=== PATIENT | female | born 2000 | race Caucasian/White ===

== ENCOUNTER 2021-04-27 04:49 | Inpatient (IN) | payer OTHER, MEDICAID, SELFPAY ==
[2021-04-27] VITALS (185 sets, daily range): BP systolic 81–168; BP diastolic 38–135; PULSE 66–180; RESP 18–22; TEMP 36.1–37; O2SAT 81–100; BMI 49.1
--- NOTE | 2021-04-27 04:49 | LDADM ---
This patient, Manuela Ward, was admitted to Labor/Delivery/Recovery 103 on 04/27/21 at 04:49. Plans for labor, pain management and were discussed with patient. Patient/family oriented to hospital policies and general routines including ID bracelet, bed and alarms, visiting hours, pain management, procedures, bathroom and other care routines, personal items, smoking policy, room service/diet and guest tray routines, security routines, and visiting hours. Patient/Family are encouraged to report perceived risks to care and to ask questions if they do not understand what they are told or what they should do. See OBIX for further documentation.
[2021-04-27] MEDS: AMPICILLIN 2 GM/NS 100 ML 2 GM/100 ML BAG IVPB (05:22)
[2021-04-27] MEDS: LACTATED RINGERS 1,000 ML 125 ML IV CONT ×3 (05:22→16:45)
[2021-04-27 05:25] LABS: Basophils Absolute Auto 0.1 K/mm3 (0.0-0.1); Basophils Percent Auto 0.6 % (0.2-1.2); Eosinophils Absolute Auto 0.2 K/mm3 (0-0.3); Eosinophils Percent Auto 1.7 % (0-4.4); Hematocrit 31.5 % (37.0-47.0); Hemoglobin 10.3 g/dL (12.0-15.0); Immature Granulocyte Absolute 0.06 K/mm3 (0.00-0.031); Immature Granulocyte Percent A 0.5 % (0-0.5); Lymphocytes Absolute Auto 2.01 K/mm3 (0.9-3.2); Lymphocytes Percent Auto 18.2 % (18.3-44.2); Mean Corpuscular HGB Conc 32.7 g/dl (32-36); Mean Corpuscular Hemoglobin 26.1 pg (26-34); Mean Corpuscular Volume 79.9 fl (80-100); Mean Platelet Volume 11.6 fl (7.4-10.4); Monocytes Absolute Auto 0.7 K/mm3 (0.1-0.6); Monocytes Percent Auto 6.3 % (2.6-8.5); Neutrophils Percent Auto 72.7 % (45.5-73.1); Platelet Count Result 231 k/mm3 (150-375); Red Blood Count 3.94 M/mm3 (4.2-5.4); Red Cell Distribution Width 13.1 % (11.5-14.5); White Blood Count 11.1 K/mm3 (4.5-10.0)
[2021-04-27] MEDS: OXYTOCIN 30 UNITS/NS 500 ML 30 UNITS/500 ML BAG IV CONT (05:40)
--- NOTE | 2021-04-27 08:36 | PM.IMHP ---
H&P: HPI History of Present Illness Date/Time: 04/27/21 08:36 Manuela is a 20yo @ 39.0wks (KEVIN 05/04/21) who presents for elective IOL. She has had regular care w/ [facility]. She reports good movement. No LOF or VB. Her has been complicated by: - GBS positive - Rubella and parvo non-immune - Anemia on iron - Obesity Chief Complaint: induction of labor Review of Systems Review of Systems: All systems reviewed & are unremarkable except as noted in HPI and below (HPI) [facility] Family History Family History Father Family history of alcoholism Mother Family history of alcoholism FH: kidney cancer Social History Social History Smoking packs per day: 1 Smoking cigarettes per day: 20.0 Years smoked: 4 Smoking pack-years: 4.00 Smoking status: Former smoker Substance use: former Spiritual care concerns: No Meds Home Medications and Allergies Home Medications Medication Instructions Recorded Confirmed Type prenat.vits,betty,dqr-prdi-wkayk 1 tablet PO DAILY 04/19/21 04/19/21 History [ #2] Allergies Allergy/AdvReac Type Severity Reaction Status Date / Time No Known Allergies Allergy Verified 04/19/21 13:57 Vital Signs Vital Signs - 24 hr 04/27/21 05:15 04/27/21 05:16 04/27/21 05:31 Pulse Rate 83 90 92 Blood Pressure 142/79 H 129/84 130/81 04/27/21 05:46 04/27/21 06:01 04/27/21 06:17 Pulse Rate 82 82 82 Blood Pressure 126/66 121/72 90/47 L 04/27/21 06:32 04/27/21 07:31 04/27/21 08:01 Pulse Rate 92 88 85 Blood Pressure 123/75 121/89 139/86 Exam Const: General: cooperative, comfortable and no acute distress Nutritional Appearance: obese Resp: Effort & Inspection: normal respiratory effort and able to speak in complete sentences Cardio: Rate: regular rate GI: Inspection: normal to inspection GI Palp: No abdominal tenderness and Yes Soft to palpation : Other: FHT's:120's/ mod liudmila/ + accels/ no decels TOCO: ctx's q2min Membranes: intact Cervix: 70/-3 Presentation: cephalic Skin: General skin exam: normal color Neuro: General: patient oriented x3 Extrem: General: normal to inspection Psych: Appearance: grossly normal Affect: normal affect Attitude: cooperative H&P: Results Labs Labs: Short CBC 04/27/21 Range/Units 05:12 WBC 11.1 H (4.5-10.0) K/mm3 Hgb 10.3 L (12.0-15.0) g/dL Hct 31.5 L (37.0-47.0) % Plt Count 231 (150-375) k/mm3 Assessment and Plan Assessment and plan (1) Encounter for elective induction of labor: Code(s): Z34.90 - Encounter for supervision of normal , unspecified, unspecified trimester Status: Acute (2) Positive GBS test: Code(s): B95.1 - Streptococcus, group B, as the cause of diseases classified elsewhere Status: Acute (3) Obesity affecting : Qualifiers: Trimester: third trimester Qualified Code(s): O99.213 - Obesity complicating , third trimester Code(s): O99.210 - Obesity complicating , unspecified trimester Status: Acute Additional Plan - Admitted to L&D - Pitocin protocol - Plan for AROM after 4hrs of ampicillin for GBS - continuous monitoring; currently reassuring - anesthesia consult PRN pain
--- NOTE | 2021-04-27 08:42 | WPDHPUPDATE1 ---
History and Physical Update Update Date/Time: 04/27/21 08:42 History and Physical has been reviewed, including an updated exam of the patient. There are NO changes in the patient's condition. Risks, benefits, and alternatives have been discussed and questions answered. Patient agrees to proceed with procedure.
[2021-04-27] MEDS: AMPICILLIN 1 GM/NS 50 ML 1 GM/50 ML BAG IVPB ×3 (09:15→19:09)
[2021-04-27 10:24] LABS: Rapid Plasma Reagin Non-Reactive (NonReactive)
--- NOTE | 2021-04-27 12:14 | PM.OBPNLAB ---
Pain Control Date/time seen: 04/27/21 12:12 Pain control: tolerating well Pelvic Exam Dilation (cm): 3 (.5-4) Effacement (%): 80 station: -1 Amniotic membrane status: Ruptured (clear, AROM 1210) Contractions Monitor mode: External Contraction frequency: 2 Contraction pattern: Regular Status status: Category l Comments: 130's/mod liudmila/ + accels/ no decels Assessment and Plan Pitocin rate (mU/min): 10 (halfed after AROM) Assessment: induction ongoing Plan: continuous present management Comments: pt desires epidural soon
--- NOTE | 2021-04-27 12:54 | WPDANESEPPF ---
Anes - Initial Pre Proc Eval Procedure: labor epidural Date/Time: 04/27/21 12:54 Surgeon: Lyudmila Carlson MD Pre Op Diagnosis: labor pain Pre Op Diagnosis: IOL Patient Data Age: 20 Gender: F Height: 1.55 m Weight: 118 kg Last Vital Signs Pulse 79 04/27/21 12:51 BP 151/80 H 04/27/21 12:51 Pulse Ox 100 04/27/21 12:52 Allergies Allergy/AdvReac Type Severity Reaction Status Date / Time No Known Allergies Allergy Verified 04/19/21 13:57 Home Medications Medication Instructions Recorded Confirmed Type prenat.vits,betty,cyf-dzls-cepnh 1 tablet PO DAILY 04/19/21 04/19/21 History [ #2] Laboratory Tests 04/27/21 04/27/21 04/27/21 05:12 05:12 05:12 WBC 11.1 K/mm3 H K/mm3 (4.5-10.0) RBC 3.94 M/mm3 L M/mm3 (4.2-5.4) Hgb 10.3 g/dL L g/dL (12.0-15.0) Hct 31.5 % L % (37.0-47.0) MCV 79.9 fl L fl (80-100) MCH 26.1 pg pg (26-34) MCHC 32.7 g/dl g/dl (32-36) RDW 13.1 % % (11.5-14.5) Plt Count 231 k/mm3 k/mm3 (150-375) MPV 11.6 fl H fl (7.4-10.4) Immature Gran % (Auto) 0.5 % % (0-0.5) Neut % (Auto) 72.7 % % (45.5-73.1) Lymph % (Auto) 18.2 % L % (18.3-44.2) [place] % (Auto) 6.3 % % (2.6-8.5) Eos % (Auto) 1.7 % % (0-4.4) Baso % (Auto) 0.6 % % (0.2-1.2) Lymph # (Auto) 2.01 K/mm3 K/mm3 (0.9-3.2) [place] # (Auto) 0.7 K/mm3 H K/mm3 (0.1-0.6) Eos # (Auto) 0.2 K/mm3 K/mm3 (0-0.3) Baso # (Auto) 0.1 K/mm3 K/mm3 (0.0-0.1) Abs Immat Gran (auto) 0.06 K/mm3 H K/mm3 (0.00-0.031) Absolute Neuts (auto) 8.0 K/mm3 H K/mm3 (1.3-6.7) Absolute Nucleated RBC 0.0 K/mm3 K/mm3 (0.0-0.012) Nucleated RBC % 0.0 % % (0.0-0.2) RPR Non-reactive (NonReactive) Blood Type A Positive Antibody Screen Negative Patient hx anesthesia problems: none Family hx anesthesia problems: none [facility] Family History Family History Father Family history of alcoholism Mother Family history of alcoholism FH: kidney cancer Social History Social History Smoking packs per day: 1 Smoking cigarettes per day: 20.0 Years smoked: 4 Smoking pack-years: 4.00 Smoking status: Former smoker Substance use: former Spiritual care concerns: No Anes - Eval Final PreProcedure Day of Procedure 04/27/21 12:54 Patient weight: morbidly obese ASA classification: III Anesthesia type and monitoring: regional epidural Informed Consent: The patient's anesthetic plan and its attendant risks and benefits were discussed with the patient/family/POA. Questions were solicited and answers provided to the satisfaction of the patient/family/POA.
--- NOTE | 2021-04-27 17:02 | PM.OBPNLAB ---
Pain Control Date/time seen: 04/27/21 17:02 Pain control: tolerating well and epidural Pelvic Exam Dilation (cm): 6 (-7) Effacement (%): 90 station: -1 Amniotic membrane status: Ruptured (clear, AROM 1210) Contractions Monitor mode: External Contraction frequency: 2 Contraction pattern: Regular Status status: Category l Assessment and Plan Pitocin rate (mU/min): 10 Assessment: active labor Plan: continuous present management
[2021-04-27] MEDS: ONDANSETRON INJ 4 MG/2 ML VIAL IV PUSH (18:32)
[2021-04-27 20:47] LABS: Barbiturate Screen Urine Negative (Negative)
[2021-04-27 20:49] LABS: Benzodiazepines Screen Urine Negative (Negative)
[2021-04-27] MEDS: OXYTOCIN 30 UNITS/NS 500 ML 30 UNITS/500 ML BAG 125 UNITS IV CONT (20:58)
--- NOTE | 2021-04-27 21:00 | PM.OBPRVD ---
OB - Delivery Note Procedure Delivery date: 04/27/21 events: Labor Induction Intrapartal events: Deceleration Induction method: per pitocin protocol Delivery augmentation: rupture of membranes Delivery monitor: external uterine and internal FHT Route of delivery: Laceration Description: Perineal - 2nd Degree Delivery repair: vicryl Specimen: No Quantitative Blood Loss (ml): 300 Anesthesia type: Epidural Disposition: floor [place] Baby Date of : 04/27/21 Time of : 20:34 Weeks of gestation at delivery: 39 gender: Female Weight (pounds): 7 Weight (ounces): 9 presentation: vertex position: Right Occiput Anterior Placenta delivery description: Expressed cord vessel description: 3 Vessels, Nuchal Cord and Loose score one minute: 8 score five minutes: 9 Narrative: Patient rapidly progressed to 9 cm and significant heart decelerations noted. Patient was placed on hands and knees and scalp electrode was placed with return to heart tones to the 100's. The patient was reexamined and found to be completely dilated. With good maternal effort, she pushed for approximately 30 minutes. She delivered the head over intact perineum. Nuchal cord was palpated but loose and delivered through. She easily delivered the shoulders and body. The infant was immediately placed skin to skin. The infant cried after stimulation. The mouth and nose were bulb suctioned. Delayed cord clamping was performed. The umbilical cord was then clamped and cut. A segment of the cord was collected for cord gases. The remaining cord blood was collected for typing. With Pitocin running and gentle downward traction on the cord, the placenta delivered without complications. Bimanual massage was performed and minimal bleeding with good uterine tone was noted. The cervix, vagina, perineum were examined and a second-degree perineal laceration was noted. The perineal laceration was repaired in a normal manner using 2 0 Vicryl. Bimanual massage was once again performed and a small amount of clots were removed from the uterus and good tone and minimal bleeding was then noted. Sponge, lap, instrument and needle counts were correct at the end of procedure. Mom and baby were left bonding in the birthing suite in stable condition.
[2021-04-27 21:02] LABS: Amphetamine Screen Urine Negative (Negative); Cannabinoid Screen Urine Positive (Negative); Cocaine Screen Urine Negative (Negative); Methadone Screen Urine Negative (Negative); Opiate Screen Urine Negative (Negative); Phencyclidine Screen Urine Negative (Negative)
[2021-04-27] MEDS: IBUPROFEN 600 MG TABLET PO (22:30)
[2021-04-27] MEDS: BENZOCAINE 20% AER SPR (*SP) 56 GM CAN 1 SPRAY TOPICAL (23:22)
[2021-04-27] MEDS: ACETAMINOPHEN 325 MG TABLET 650 MG PO (23:23)
[2021-04-27] MEDS: WITCH HAZEL 40 PADS 1 PAD TOPICAL (23:23)
[2021-04-28] VITALS (12 sets, daily range): BP systolic 116–137; BP diastolic 54–85; PULSE 68–96; RESP 18; TEMP 36–36.9; O2SAT 98–100
--- NOTE | 2021-04-28 02:41 | PC.NURSE ---
0145 - assisted pt to bathroom, pt able to void moderate amount
[2021-04-28] MEDS: IBUPROFEN 600 MG TABLET PO ×2 (04:26→17:08)
[2021-04-28 04:57] LABS: Hematocrit 30.4 % (37.0-47.0); Hemoglobin 9.8 g/dL (12.0-15.0)
[2021-04-28] MEDS: POLYSACCHARIDE IRON COMPLEX 150 MG CAPSULE PO ×2 (09:16→17:09)
[2021-04-28] MEDS: MULTIVIT/MIN/PREN/FOL AC/IRON TABLET 1 TAB PO (09:16)
--- NOTE | 2021-04-28 12:26 | PM.OBPNVD ---
OB - PN: Subj Subjective Date/time seen: 04/28/21 12:26 PPD#1 Manuela reports doing well; didn't sleep well last night. She reports her pain is well controlled. 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 She has tolerated regular diet. She has voided and passed gas. She has ambulated around the room without symptoms of anemia. She is breast feeding. Would like to go home tomorrow. She does report a h/o depression and took zoloft in the past; she is very concerned she will develop PP depression and would like to start meds. She denies CP, SOB, fever, chills, N/v, headaches, vision changes, dizziness or palpations. OB - PN: Obj Data Labs CBC & Chem 7: 04/28/21 04:29 Labs: Laboratory Results - last 24 hr 04/27/21 04/28/21 19:12 04:29 Hgb 9.8 L Hct 30.4 L Urine Opiates Screen Negative Urine Methadone Screen Negative Ur Barbiturates Screen Negative Ur Phencyclidine Scrn Negative Ur Amphetamine Screen Negative U Benzodiazepines Scrn Negative Urine Cocaine Screen Negative U Cannabinoids Screen Positive A OB - PN A/P Assessment and Plan (1) Normal vaginal delivery of first : Code(s): O80 - Encounter for full-term uncomplicated delivery Status: Acute (2) Obesity affecting : Qualifiers: Trimester: third trimester Qualified Code(s): O99.213 - Obesity complicating , third trimester Code(s): O99.210 - Obesity complicating , unspecified trimester Status: Acute (3) Positive GBS test: Code(s): B95.1 - Streptococcus, group B, as the cause of diseases classified elsewhere Status: Acute (4) Depression affecting : Code(s): O99.340 - Other mental disorders complicating , unspecified trimester; F32.9 - Major depressive disorder, single episode, unspecified Status: Acute Plan day: 1 Plan: routine care and discharge home (tomorrow) Comments: - meds sent to pharmacy; take as prescribed. - Pelvic rest - ER return precautions discussed: n/v/pain, fever, bleeding, HTN - F/u in 4wks - Monitor depression; call if worsening symptoms. Time Spent With Patient Time: Total time spent is greater than 50% in coordination of care (as documented) at patient's floor/unit and/or counseling patient: Review of Systems Review of Systems: All systems reviewed & are unremarkable except as noted in HPI and below (HPI) Exam Const: General: cooperative, healthy appearing and comfortable Nutritional Appearance: obese Resp: Effort & Inspection: normal respiratory effort and able to speak in complete sentences Auscultation: clear to auscultation bilaterally Cardio: Rate: regular rate GI: Inspection: normal to inspection and non-distended GI Palp: No abdominal tenderness and Yes Soft to palpation Auscultation: normal bowel sounds : Other: fundus firm below umbilicus Skin: General skin exam: normal color Neuro: General: patient oriented x3 Extrem: General: normal to inspection Psych: Appearance: grossly normal Affect: normal affect Attitude: cooperative
[2021-04-28] MEDS: DOCUSATE SODIUM 100 MG CAPSULE PO (17:09)
--- NOTE | 2021-04-28 21:59 | PC.NURSE ---
1452 Pt transferred to room 292 from on first floor; pt had vaginal delivery last evening; oriented to room, staffing and procedures; admission folder reviewed, including Mother-baby Guide. Pt's VSS and assessment WNL.
[2021-04-29] MEDS: IBUPROFEN 600 MG TABLET PO (02:38)
[2021-04-29] MEDS: POLYSACCHARIDE IRON COMPLEX 150 MG CAPSULE PO (10:55)
[2021-04-29] MEDS: MULTIVIT/MIN/PREN/FOL AC/IRON TABLET 1 TAB PO (10:55)
[2021-04-29] MEDS: DOCUSATE SODIUM 100 MG CAPSULE PO (10:55)
[2021-04-29] MEDS: TETANUS,DIPHTHERIA,AC PERTUSSIS ADULT (0.5 ML) BOOSTRIX IM (10:57)
[2021-04-29 11:19] VITALS: BP 128/84; PULSE 77; RESP 16; TEMP 36.9; O2SAT 99
--- NOTE | 2021-04-29 12:07 | PCCCNOTE ---
Met with pt. and FOB this morning to discuss discharge planning. Pt.'s current D/C plan is to return home with FOB, baby, and their two roommates. Pt. states that she has everything needed to safely bring baby home, she confirms that she has a car seat and will bring it to the room to have her RN examine it. Pt. states that FOB, her roommates, and her family are very supportive. This is pt.'s first child, she has no prior DCFS cases. Pt. did test positive for THC at time of admission. Pt. states the marijuana assisted her with the nausea and lack of appetite that she was experiencing. Baby's urine was not collected, her meconium is pending. Pt. understands that CC will have to report the drug use to [facility], pt.'s intake ID number is [id number]. Pt. has no questions or concerns about the report. Pt. has been provided resources regarding second hand stores, and WIC. Pt. states she will follow up with [facility] office. Pt. has appointment for baby at [facility] for follow up medical management. Pt. has no D/C needs. Will follow.
[2021-05-02 08:49] VITALS: BP 130/87; PULSE 83; RESP 20; TEMP 36.9; O2SAT 98
--- NOTE | 2021-05-04 06:06 | PM.OBDSVD ---
DS: Admitting Diagnosis Admitting Diagnosis Admitting Diagnosis: induction of labor DS: Discharge Diagnosis Discharge Diagnosis (1) Normal vaginal delivery of first : Code(s): O80 - Encounter for full-term uncomplicated delivery Status: Acute (2) Depression affecting : Code(s): O99.340 - Other mental disorders complicating , unspecified trimester; F32.9 - Major depressive disorder, single episode, unspecified Status: Acute (3) Obesity affecting : Qualifiers: Trimester: third trimester Qualified Code(s): O99.213 - Obesity complicating , third trimester Code(s): O99.210 - Obesity complicating , unspecified trimester Status: Acute (4) Positive GBS test: Code(s): B95.1 - Streptococcus, group B, as the cause of diseases classified elsewhere Status: Acute OB - DS: Summary OB Procedures : Ultrasound OB Procedures Intrapartum: Spontaneous Vag Delivery OB Procedures: : None Peripartum Data Delivery Method: Natural Vaginal Laceration Description: Perineal - 2nd Degree complications: none [place] 1: Gender: Female Disposition of : home Status at Discharge Functional status at discharge: independent ambulation Overall status at discharge: patient is back to baseline Time Spent with Patient Time attestation: Total time spent providing and/or coordinating discharge services: Exam Const: General: cooperative, healthy appearing, comfortable and no acute distress Resp: Effort & Inspection: normal respiratory effort and able to speak in complete sentences Auscultation: clear to auscultation bilaterally Cardio: Rate: regular rate GI: Inspection: non-distended GI Palp: No abdominal tenderness and Yes Soft to palpation Auscultation: normal bowel sounds : Other: fundus firm below umbilicus Skin: General skin exam: normal color Neuro: General: patient oriented x3 Extrem: General: normal to inspection Psych: Appearance: grossly normal Affect: normal affect Attitude: cooperative Discharge Plan Discharge Attending physician on discharge: Lyudmila Carlson Consulting providers: Juvenal Brower Discharging Clinician: Lyudmila Carlson Anticipated Discharge Date/Time: 04/29/21 08:00 Patient Disposition: Home, Self-Care Activity: may shower and pelvic rest Diet: as tolerated and regular Discharge Instructions: Education: Mom and Baby Guide Given to: Mother Follow-Up: Call your delivering provider's office for an appointment to be seen in: 4 Weeks Mom and baby should come to the [facility] for the follow-up appointment. Appointment Date/Time: Sunday, May 02, 2021 at 9:00 am Call [phone] if you are unable to keep your appointment time. BREAST CARE: * Wear a snug supportive bra. * For engorgement discomfort: Breast Feeding: * Apply warm moist washcloths * Express milk as needed to relieve engorgement * Wear loose clothing Bottle Feeding: * May apply ice packs * For sore nipples: * Identify correct latch-on * Apply warm moist washcloths before and after nursing * Air dry nipples after nursing * May apply Lansinoh cream to nipples EPISIOTOMY/PERINEAL CARE: * Until bleeding stops, use your dixie bottle after urinating * Change your pad frequently throughout the day * You may take sitz baths several times a day (fill your bathtub with warm water and soak for 20 minutes.) Do NOT bathe in the water * No tub baths until seen by your physician - You may shower ACTIVITY: * Rest as much as possible. * Do not exercise or lift anything heavier than your baby (such as laundry or other children.) * Avoid stairs or driving as much as possible. * Do not put anything into the vagina. No douching, tampons, or s
== END 2021-04-29 14:50 | disposition home or self-care (01) | DRG 807 ==
LOC: ANHLDR 04:52 → ANHOBPP 23:38 → ANHOB2 04-28 15:12
PROVIDERS: Admitting Provider Obstetrics & Gynecology; PCP Family Medicine Adolescent Medicine; Visit Provider Obstetrics & Gynecology
DX: O99.824 Streptococcus B carrier state complicating childbirth (principal); Z37.0 Single live birth; O99.02 Anemia complicating childbirth; D64.9 Anemia, unspecified; O99.214 Obesity complicating childbirth; E66.01 Morbid (severe) obesity due to excess calories; O76 Abnormality in fetal heart rate and rhythm complicating labor and delivery; O70.1 Second degree perineal laceration during delivery; O69.81X0 Labor and delivery complicated by cord around neck, without compression, not applicable or unspecified; O99.344 Other mental disorders complicating childbirth; F32.9 Major depressive disorder, single episode, unspecified; Z3A.39 39 weeks gestation of pregnancy
CPT/HCPCS: 36415; 80307; 85014; 85018; 85025; 86592; 86850; 86900; 86901; 90715; A9270; J0290; J2405; J2590; J2795; J7120

== ENCOUNTER 2022-09-29 02:42 | Emergency (ER) | payer OTHER, SELFPAY ==
--- NOTE | ~2022-09-29 | XR_ITS ---
EXAMINATION: XR chest 1V portable 09/29/2022 03:23 INDICATION: Chest pain PROCEDURE: AP portable chest COMPARISON: 08/22/2018 FINDINGS: The lungs are clear. The cardiomediastinal silhouette is within normal limits. There are no pleural effusions. There is no pneumothorax suspected. IMPRESSION: 1: NO ACUTE CARDIOPULMONARY DISEASE. Reviewed, dictated and finalized at location A.
[2022-09-29 02:46] VITALS: BP 125/62; PULSE 105; RESP 20; TEMP 36.8; O2SAT 100
--- NOTE | 2022-09-29 02:53 | ECG_ITS ---
Measurements Intervals [place] Rate: 84 P: 48 VA: 175 QRS: 44 QRSD: 81 T: 30 QT: 327 QTc: 386 Interpretive Statements SINUS RHYTHM NO PREVIOUS ECG AVAILABLE FOR COMPARISON Electronically Signed On 09-29-2022 13:06:41 CDT by Tesha Aguilera M.D.
--- NOTE | 2022-09-29 03:01 | ED.GENADULT ---
HPI - General Adult General Chief complaint: Unspecified Stated complaint: SOB, 20 weeks preg, uri symptoms, chest discomfort Time Seen by Provider: 09/29/22 02:53 History of Present Illness HPI narrative: Patient is a 22-year-old female who presents the emergency department with chief complaint of cough and respiratory symptoms and wheezing. The patient reports she has history of asthma and reports approximately 3 weeks . Patient reports that for the last week she has had a cough and has had a runny nose and now her symptoms have Related Data Home Medications Medication Instructions Recorded Confirmed prenat.vits,betty,owq-mivy-sibqb 1 tablet PO DAILY 07/19/22 08/16/22 Allergies Allergy/AdvReac Type Severity Reaction Status Date / Time No Known Allergies Allergy Verified 09/29/22 02:49 Review of Systems Review of Systems: A 10 system review of systems was completed on the patient and is negative except for what is stated in the HPI. Nursing and ancillary documentation was reviewed. PMFSH Past Medical History Medical History Bipolar disorder Depression affecting Encounter for elective induction of labor GERD (gastroesophageal reflux disease) High cholesterol Moderate persistent asthma Normal vaginal delivery of first Positive GBS test Family History Family History Father Family history of alcoholism Asthma Depression Mother Family history of alcoholism FH: kidney cancer Depression Grandparent Family history of alcoholism Social History Social History Smoking packs per day: 1 Smoking cigarettes per day: 20.0 Years smoked: 4 Smoking pack-years: 4.00 Smoking status: Current every day smoker Tobacco type: e-cigarettes/vaping Second hand tobacco smoke exposure: No Alcohol intake: never Substance use: never Substance use type: does not use Gender identity (if verbalized by the patient): Female Sexual Orientation (if Verbalized by the Patient): Straight or Heterosexual Spiritual care concerns: No Agree to blood products: Yes Exam Narrative: GENERAL: Well-appearing, well-nourished, and in no acute distress. HEAD: Normocephalic, atraumatic. EYES: PERRLA and EOMI. ENT: Nares clear, no rhinorrhea or epistaxis. Mucous membranes moist. NECK: Supple. CHEST: Wheezes to auscultation. No respiratory distress. HEART: Regular rate and rhythm. No murmur heard. Normal peripheral pulses. ABDOMEN: Soft, nontender, nondistended, normal active bowel sounds. EXTREMITIES: Normal range of motion. No edema. SKIN: Warm, dry, no rash. NEURO: No focal deficits. Alert and oriented x3. PSYCH: Normal mood and affect. Course Course Emergency Course: Patient was not having chest pain in the emergency department and was just having wheezing with a history of asthma. Chest x-ray showed no evidence of focal infiltrate the patient started on a dose of prednisone and given a breathing treatment. Patient was instructed to use her inhaler every 4 hours and will be started on a pulse of steroids. She was negative for COVID flu and RSV Vital Signs Vital signs: Vital Signs Temperature 36.8 C 09/29/22 02:46 Pulse Rate 105 H 09/29/22 02:46 Respiratory Rate 20 09/29/22 02:46 Blood Pressure 125/62 09/29/22 02:46 Pulse Oximetry 100 09/29/22 02:46 Oxygen Delivery Room Air 09/29/22 02:46 Temperature 36.8 C 09/29/22 02:46 Pulse Rate 105 H 09/29/22 02:46 Respiratory Rate 20 09/29/22 02:46 Blood Pressure 125/62 09/29/22 02:46 Pulse Oximetry 100 09/29/22 02:46 Oxygen Delivery Room Air 09/29/22 02:46 Medical Decision Making Vital Signs Vital Signs: Vital Signs Temperature 36.8 C 09/29/22 02:46 Pulse Rate 105 H 09/29/22 02:46 Respirat
[2022-09-29] MEDS: predniSONE 20 MG TABLET 60 MG PO (03:04)
[2022-09-29] MEDS: ALBUTEROL SULFATE NEB 2.5 MG/3 ML INH 5 MG INHALATION (03:23)
[2022-09-29 03:37] LABS: Influenza A QL RT-PCR Negative (Negative); Influenza B QL RT-PCR Negative (Negative); RSV RNA, RT-PCR Negative (Negative); SARS-CoV-2 RNA PCR Negative
[2022-09-29 03:40] VITALS: BP 84/62; O2SAT 100
[2022-09-29 03:47] VITALS: BP 110/72
== END 2022-09-29 03:59 | disposition home or self-care (01) ==
PROVIDERS: Emergency Provider Emergency Medicine; PCP Family Medicine Adolescent Medicine
DX: O99.512 Diseases of the respiratory system complicating pregnancy, second trimester (principal); J45.31 Mild persistent asthma with (acute) exacerbation; J20.8 Acute bronchitis due to other specified organisms; Z20.822 Contact with and (suspected) exposure to COVID-19; O99.612 Diseases of the digestive system complicating pregnancy, second trimester; K21.9 Gastro-esophageal reflux disease without esophagitis; O99.342 Other mental disorders complicating pregnancy, second trimester; F32.A Depression, unspecified; O99.332 Smoking (tobacco) complicating pregnancy, second trimester; F17.290 Nicotine dependence, other tobacco product, uncomplicated; Z3A.20 20 weeks gestation of pregnancy
CPT/HCPCS: 71045; 87502; 87637; 93005; 99283; J7512; U0003; U0005

== ENCOUNTER 2023-08-09 08:26 | Emergency (ER) | payer OTHER, SELFPAY ==
[2023-08-09 08:31] VITALS: BP 122/77; PULSE 80; RESP 12; TEMP 36.5; O2SAT 97
[2023-08-09 08:32] VITALS: BP 122/77; PULSE 109; O2SAT 100
[2023-08-09 08:46] VITALS: BP 106/52; PULSE 70; RESP 16; O2SAT 98
[2023-08-09 09:01] VITALS: BP 107/55; PULSE 69; RESP 20; O2SAT 96
[2023-08-09 09:15] VITALS: PULSE 68; RESP 26; O2SAT 96
[2023-08-09 09:16] VITALS: BP 102/52; PULSE 63; RESP 25; O2SAT 96
--- NOTE | 2023-08-09 09:21 | ED.GENADULT ---
HPI - General Adult General Chief complaint: Recheck/Abnormal Lab/Rx Stated complaint: elevated BP with dizziness Time Seen by Provider: 08/09/23 08:39 Source: patient and RN notes reviewed Mode of arrival: ambulatory Limitations: no limitations History of Present Illness HPI narrative: This is a 23 year old female who presents for evaluation of elevated blood pressure. Patient states she has had hypertension for the past 6months. She has been on nifedipine. She reports for the past 4 months, she has had multiple daily episodes in which she will get warm, flushed, heart racing and feel lightheaded. She reports this occurred this morning while she was at work. She was standing up washing dishes. She had someone at work to check her blood pressure and it was elevated to 170/80s. She reports her symptoms have resolved now. Related Data Home Medications Medication Instructions Recorded Confirmed prenat.vits,betty,[id number] 1 tablet PO DAILY 07/19/22 04/17/23 buspirone 7.5 mg tablet 7.5 mg PO TID 04/17/23 04/17/23 escitalopram oxalate 10 mg tablet 10 mg PO DAILY 04/17/23 04/17/23 quetiapine 50 mg tablet 50 mg PO DAILY 04/17/23 04/17/23 Allergies Allergy/AdvReac Type Severity Reaction Status Date / Time No Known Allergies Allergy Verified 08/09/23 08:27 Review of Systems Constitutional: Constitutional: Denies weakness Cardiovascular: Cardiovascular: Denies syncope, Denies rapid heart rate, Denies irregular heart rhythm, Denies leg edema and Denies dyspnea Respiratory: Respiratory: Denies chest congestion, Denies hemoptysis, Denies excessive phlegm production and Denies dyspnea Gastrointestinal: Gastrointestinal: Denies abdominal pain, Denies hematochezia, Denies diarrhea and Denies vomiting Genitourinary: Genitourinary: Denies hematuria and Denies dysuria Musculoskeletal: Musculoskeletal: Denies joint swelling, Denies loss of height and Denies muscle weakness Neurologic: Denies syncope, Denies focal weakness and Denies weakness PMFSH Past Medical History Medical History (Updated 08/09/23 @ 18:40 by Misti Serrato MD) Bipolar disorder Depression affecting Encounter for elective induction of labor GERD (gastroesophageal reflux disease) High cholesterol Moderate persistent asthma Normal vaginal delivery of first Positive GBS test Surgical History Surgical History Previous section Family History Family History Father Family history of alcoholism Asthma Depression Mother Family history of alcoholism FH: kidney cancer Depression Grandparent Family history of alcoholism Social History Social History Smoking packs per day: 1 Smoking cigarettes per day: 20.0 Years smoked: 4 Smoking pack-years: 4.00 Smoking status: Current every day smoker Tobacco type: e-cigarettes/vaping Second hand tobacco smoke exposure: No Alcohol intake: never Substance use: never Substance use type: does not use Living arrangements: with family Occupation/Education: unemployed Gender identity (if verbalized by the patient): Female Sexual Orientation (if Verbalized by the Patient): Straight or Heterosexual Spiritual care concerns: No Agree to blood products: Yes Exam Const: General: no acute distress and alert Nutritional Appearance: well nourished Orientation/consciousness: patient oriented x3 HENMT: Head: normal to inspection Eyes: EOM: EOMs intact bilaterally Chest: Chest palpation & inspection: normal inspection of the chest Resp: Effort & Inspection: normal respiratory effort Auscultation: clear to auscultation bilaterally Cardio: Rate: regular rate Rhythm: regular rhythm Heart sounds: no murmurs GI: GI Palp: Yes Soft to palpation, No Tenderness to palp
[2023-08-09 09:36] LABS: Basophils Absolute Auto 0.1 K/mm3 (0.0-0.1); Basophils Percent Auto 1.1 % (0.2-1.2); Eosinophils Absolute Auto 0.2 K/mm3 (0-0.3); Eosinophils Percent Auto 3.3 % (0-4.4); Hematocrit 34.1 % (37.0-47.0); Hemoglobin 10.8 g/dL (12.0-15.0); Immature Granulocyte Absolute 0.02 K/mm3 (0.00-0.031); Immature Granulocyte Percent A 0.4 % (0-0.5); Lymphocytes Absolute Auto 1.51 K/mm3 (0.9-3.2); Lymphocytes Percent Auto 26.5 % (18.3-44.2); Mean Corpuscular HGB Conc 31.7 g/dl (32-36); Mean Corpuscular Hemoglobin 26.5 pg (26-34); Mean Corpuscular Volume 83.8 fl (80-100); Mean Platelet Volume 10.3 fl (7.4-10.4); Monocytes Absolute Auto 0.4 K/mm3 (0.1-0.6); Monocytes Percent Auto 6.3 % (2.6-8.5); Neutrophils Absolute Auto 3.6 K/mm3 (1.3-6.7); Neutrophils Percent Auto 62.4 % (45.5-73.1); Platelet Count Result 219 k/mm3 (150-375); Red Blood Count 4.07 M/mm3 (4.2-5.4); Red Cell Distribution Width 15.2 % (11.5-14.5); White Blood Count 5.7 K/mm3 (4.5-10.0)
[2023-08-09 09:44] LABS: Anion Gap 7 mmol/L (8-16); Blood Urea Nitrogen 12 mg/dL (7-17); Carbon Dioxide 26 mmol/L (22-30); Chloride 105 mmol/L (98-107); Potassium 3.9 mmol/L (3.4-5.0); Sodium 138 mmol/L (137-145)
[2023-08-09 09:45] LABS: Alanine Aminotransferase 52 U/L (6-35); Albumin Level 3.9 g/dL (3.5-5.1); Alkaline Phosphatase 71 U/L (38-126); Aspartate Amino Transferase 42 U/L (14-36); Bilirubin,Total 0.5 mg/dL (0.2-1.3); Calcium 8.7 mg/dL (8.4-10.2); Estimated Glomerular Filt Rate > 60; Glucose 81 mg/dL (65-110)
[2023-08-09 09:47] LABS: INR 0.9; Prothrombin Time 12.8 Seconds (11.1-14.7)
[2023-08-09 09:48] LABS: Partial Thromboplastin Time 31.3 SECONDS (22.3-36.8)
[2023-08-09 09:56] LABS: Troponin I < 0.012 ng/mL (0.000-0.034)
[2023-08-09 10:27] LABS: Thyroid Stimulating Hormone Reflex 0.341 uIU/mL (0.465-4.68)
[2023-08-09 10:58] LABS: Free T4 Free Thyroxine Reflex 0.94 ng/dL (0.78-2.19)
[2023-08-09 11:49] LABS: Total Triiodothyronine (T3) 1.35 NG/ML (0.97-1.69)
== END 2023-08-09 10:15 | disposition left against medical advice (07) ==
LOC: ANHED 09:03
PROVIDERS: Emergency Provider General Practice; PCP Family Medicine Adolescent Medicine
DX: O16.5 Unspecified maternal hypertension, complicating the puerperium (principal); E78.00 Pure hypercholesterolemia, unspecified; J45.40 Moderate persistent asthma, uncomplicated; K21.9 Gastro-esophageal reflux disease without esophagitis; F31.9 Bipolar disorder, unspecified; F17.290 Nicotine dependence, other tobacco product, uncomplicated
CPT/HCPCS: 36415; 80053; 83735; 84439; 84443; 84480; 84484; 85025; 85610; 85730; 99284

== ENCOUNTER 2024-07-31 06:35 | Emergency (ER) | payer OTHER, SELFPAY ==
[2024-07-31] VITALS (7 sets, daily range): BP systolic 101–132; BP diastolic 55–83; PULSE 68–79; RESP 15–21; TEMP 36.8; O2SAT 95–100
[2024-07-31 06:48] LABS: Hemoglobin 13.5 g/dL (12.0-15.0); Immature Granulocyte Absolute 0.02 K/mm3 (0.00-0.031); Immature Granulocyte Percent A 0.2 % (0-0.5); Lymphocytes Absolute Auto 1.29 K/mm3 (0.9-3.2); Lymphocytes Percent Auto 12.9 % (18.3-44.2); Mean Corpuscular HGB Conc 34.6 g/dl (32-36); Mean Corpuscular Hemoglobin 28.5 pg (26-34); Mean Corpuscular Volume 82.5 fl (80-100); Mean Platelet Volume 10.5 fl (7.4-10.4); Monocytes Absolute Auto 0.3 K/mm3 (0.1-0.6); Neutrophils Absolute Auto 8.4 K/mm3 (1.3-6.7); Neutrophils Percent Auto 83.9 % (45.5-73.1); Platelet Count Result 212 k/mm3 (150-375); Red Blood Count 4.73 M/mm3 (4.2-5.4); Red Cell Distribution Width 13.2 % (11.5-14.5)
[2024-07-31 06:58] LABS: Anion Gap 10 mmol/L (4-12); Blood Urea Nitrogen 6 mg/dL (7-17); Carbon Dioxide 19 mmol/L (22-30); Chloride 106 mmol/L (98-107); Estimated CRCL calculation 158 ml/min; Potassium 3.9 mmol/L (3.4-5.0); Sodium 135 mmol/L (137-145)
[2024-07-31 06:59] LABS: Alanine Aminotransferase 9 U/L (6-35); Albumin Level 4.2 g/dL (3.5-5.1); Alkaline Phosphatase 57 U/L (38-126); Aspartate Amino Transferase 17 U/L (14-36); Bilirubin,Total 0.7 mg/dL (0.2-1.3); Calcium 9.1 mg/dL (8.4-10.2); Estimated Glomerular Filt Rate > 60; Glucose 107 mg/dL (65-110); Lipase 41 U/L (23-300)
[2024-07-31 07:17] LABS: Add Urine Microscopic? YES; Appearance Urine Cloudy (Clear); Bacteria Urine 2+ /hpf; Bilirubin Urine Negative (Negative); Blood Urine Negative (Negative); Color Urine Dark Yellow (Yellow); Glucose Urine UA Negative (Negative); Ketones Urine 3+ mg/dL (Negative); Leukocyte Esterase Ur Trace LEU/UL (Negative); Nitrate Urine Negative (Negative); Protein Urine 1+ mg/dL (Negative); Specific Grav Ur 1.032 (1.001-1.035); Squamous Epithelial Cell Urine Moderate /hpf (Few); pH Urine 5.5 (5.0-9.0)
--- NOTE | 2024-07-31 07:17 | ED.GENADULT ---
HPI - General Adult General Chief complaint: Nausea/Vomiting/Diarrhea Stated complaint: vomiting Time Seen by Provider: 07/31/24 06:55 History of Present Illness HPI narrative: 24-year-old female that is approximately 12-14 weeks presents to the emergency department for evaluation for persistent nausea and vomiting. Patient states this is her 3rd and patient has had significant issues with nausea and vomiting previously. Patient states she is unable to take Zofran due to adverse reaction. Patient has been taking promethazine but states that she is having troubles keeping that down as well. Related Data Home Medications Medication Instructions Recorded Confirmed prenat.vits,betty,[id number] 1 tablet PO DAILY 07/19/22 10/10/23 buspirone 7.5 mg tablet 7.5 mg PO TID 04/17/23 10/10/23 escitalopram oxalate 10 mg tablet 10 mg PO DAILY 04/17/23 10/10/23 quetiapine 50 mg tablet 100 mg PO DAILY 10/10/23 10/10/23 Allergies Allergy/AdvReac Type Severity Reaction Status Date / Time No Known Allergies Allergy Verified 10/10/23 15:00 Review of Systems Review of Systems: All systems reviewed & are unremarkable except as noted in HPI and below PMFSH Past Medical History Medical History Bipolar disorder Depression affecting Encounter for elective induction of labor GERD (gastroesophageal reflux disease) High cholesterol Moderate persistent asthma Normal vaginal delivery of first Positive GBS test Surgical History Surgical History Previous section Family History Family History Father Family history of alcoholism Asthma Depression Mother Family history of alcoholism FH: kidney cancer Depression Grandparent Family history of alcoholism Social History Social History Smoking packs per day: 1 Smoking cigarettes per day: 20.0 Years smoked: 4 Smoking pack-years: 4.00 Smoking status: Current every day smoker Tobacco type: e-cigarettes/vaping Second hand tobacco smoke exposure: No Alcohol intake: never Substance use: never Substance use type: does not use Living arrangements: with family Occupation/Education: unemployed Gender identity (if verbalized by the patient): Female Sexual Orientation (if Verbalized by the Patient): Straight or Heterosexual Spiritual care concerns: No Agree to blood products: Yes Exam Narrative: APPEARANCE: Well appearing, no pain, no distress, well-nourished. HEAD: normocephalic, atraumatic. EYES: PERRLA/EOMI, conjunctivae clear. NOSE: Normal no drainage EARS:TMS clear with good light reflex. THROAT: Pharynx clear, no exudate. NECK: Supple. No adenopathy, no masses. RESPIRATORY: Airway patent, respirations nonlabored. Clear to auscultation bilaterally, no rales, rhonchi, wheezing. CARDIOVASCULAR: Regular rate and rhythm without murmurs rubs or gallops. ABDOMINAL: Soft, nontender, nondistended, normal bowel sounds MUSCULOSKELETAL: Moves all extremities. Strength/ROM intact, No edema, No calf tenderness. NEURO: Alert. Cranial nerves II through XII intact. Grossly intact SKIN: Warm, dry. Normal Color Course Vital Signs Vital signs: Vital Signs Temperature 98.2 F 07/31/24 06:38 Pulse Rate 79 07/31/24 06:38 Respiratory Rate 21 H 07/31/24 06:38 Blood Pressure 119/71 07/31/24 06:38 Pulse Oximetry 100 07/31/24 06:38 Oxygen Delivery Room Air 07/31/24 06:38 Temperature 98.2 F 07/31/24 06:38 Pulse Rate 68 07/31/24 10:01 Respiratory Rate 20 07/31/24 10:01 Blood Pressure 132/67 07/31/24 10:01 Pulse Oximetry 100 07/31/24 09:31 Oxygen Delivery Room Air 07/31/24 06:38 Medical Decision Making MDM Narrative Medical decision making
[2024-07-31] MEDS: METOCLOPRAMIDE HCL INJ 10 MG/2 ML VIAL IV PUSH (07:20)
[2024-07-31] MEDS: SODIUM CHLORIDE 0.9% IV 1,000 ML 999 ML IV CONT ×2 (07:20→07:36)
== END 2024-07-31 10:46 | disposition home or self-care (01) ==
PROVIDERS: Emergency Medicine; Emergency Provider Emergency Medicine; PCP Family Medicine Adolescent Medicine
DX: N39.0 Urinary tract infection, site not specified (principal); R11.2 Nausea with vomiting, unspecified; J45.40 Moderate persistent asthma, uncomplicated; E78.00 Pure hypercholesterolemia, unspecified; F31.9 Bipolar disorder, unspecified; K21.9 Gastro-esophageal reflux disease without esophagitis; F17.210 Nicotine dependence, cigarettes, uncomplicated; Z79.899 Other long term (current) drug therapy
CPT/HCPCS: 36415; 80053; 81001; 83690; 85025; 87086; 87088; 96361; 96365; 96375; 99284; J0696; J2765; J7030

== ENCOUNTER 2024-11-30 22:01 | Emergency (ER) | payer SELFPAY ==
--- NOTE | ~2024-11-30 | XR_ITS ---
XR chest 2V Ordering provider: Lee Mac MD History: 24 years Female with . shortness of breath COUGH . Comparison: September 29, 2022 FINDINGS: MEDIASTINUM: The cardiac silhouette is not enlarged. LUNGS: No effusions or pneumothorax. Bibasilar opacification suggestive of atelectasis versus pneumon ia. OTHER: No free air under the diaphragm. IMPRESSION: Bibasilar pneumonia. Reviewed, dictated and finalized at location A. SOFTWARE TESTER IMPRESSION: Bibasilar pneumonia.
--- NOTE | 2024-11-30 22:08 | ECG_ITS ---
Test Date: 2024-11-30 22:45:01 Measurements Intervals [place] Rate: 83 P: 49 RI: 181 QRS: 53 QRSD: 88 T: 42 QT: 323 QTc: 380 Interpretive Statements SINUS RHYTHM No previous ECG available for comparison Electronically Signed On 12-01-2024 22:51:44 [employer] by Rhett Rendon M.D.
[2024-11-30 22:38] VITALS: BP 123/66; PULSE 95; RESP 15; TEMP 36.3; O2SAT 97
[2024-11-30 22:55] LABS: Basophils Percent Auto 0.1 % (0.2-1.2); Hematocrit 29.7 % (37.0-47.0); Hemoglobin 10.2 g/dL (12.0-15.0); Immature Granulocyte Absolute 0.04 K/mm3 (0.00-0.031); Immature Granulocyte Percent A 0.4 % (0-0.5); Lymphocytes Absolute Auto 1.86 K/mm3 (0.9-3.2); Mean Corpuscular HGB Conc 34.3 g/dl (32-36); Mean Corpuscular Hemoglobin 29.6 pg (26-34); Mean Corpuscular Volume 86.1 fl (80-100); Mean Platelet Volume 10.2 fl (7.4-10.4); Monocytes Absolute Auto 0.7 K/mm3 (0.1-0.6); Monocytes Percent Auto 6.4 % (2.6-8.5); Neutrophils Absolute Auto 7.8 K/mm3 (1.3-6.7); Neutrophils Percent Auto 75.1 % (45.5-73.1); Platelet Count Result 194 k/mm3 (150-375); Red Blood Count 3.45 M/mm3 (4.2-5.4); Red Cell Distribution Width 13.5 % (11.5-14.5); White Blood Count 10.4 K/mm3 (4.5-10.0)
[2024-11-30 23:38] LABS: Alanine Aminotransferase 8 U/L (6-35); Albumin Level 3.2 g/dL (3.5-5.1); Alkaline Phosphatase 97 U/L (38-126); Anion Gap 2 mmol/L (4-12); Aspartate Amino Transferase 18 U/L (14-36); Bilirubin,Total 0.6 mg/dL (0.2-1.3); Blood Urea Nitrogen 7 mg/dL (7-17); Calcium 8.8 mg/dL (8.4-10.2); Carbon Dioxide 22 mmol/L (22-30); Chloride 110 mmol/L (98-107); Estimated CRCL calculation 154 ml/min; Estimated Glomerular Filt Rate > 60; Glucose 96 mg/dL (65-110); Potassium 3.5 mmol/L (3.4-5.0); Sodium 134 mmol/L (137-145)
--- NOTE | 2024-12-01 01:06 | PC.NURSE ---
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 I think i need abx but i need to rest and sleep. Ill call my ob in the morning.
--- OUTSIDE RECORDS SUMMARY | 2024-12-08 02:20 | XMS_ITS | Data Portability ---
Author Organization [employer] , [facility] Address [address] [place] [address] Assessment No assessment recorded. Plan of Treatment Reminders Order Date Submit Date Provider Last Modified By Organization Details Last Modified Time Details Appointments OB RETURN EST 2024 09:00A M VLADIMIR CAMPBELL, DO Not available Not available Not available OB RETURN EST 2024 10:15A M Pamela Hickey MD Not available Not available Not available Lab pregnanc y test, urine 2023 024 [email or web address] [facility], [address] [place], [address], 11/08/2024 20:34:52 abo group + rh type, blood 2023 024 [facility], [address], [place], [address], 11/23/2024 15:19:10 CBC w/ auto diff 2023 024 [facility], [address] [place], [address], 11/19/2024 11:16:01 CT + NG DNA, PCR, unspecif ied specimen 2023 024 [facility], [address] [place], [address], 11/19/2024 15:00:38 drug of abuse panel, urine 2023 024 [facility], [address] [place], [address], 11/19/2024 16:34:12 obstetri c screen + HIV, serum or blood 2023 024 [facility], [address] [place], [address], 11/19/2024 11:15:59 measles igg Ab, serum 2023 ALLIEYuepu Sifang [facility], [address] [place], [address], 11/23/2024 15:19:08 culture, urine 2023 ALLIEYuepu Sifang [facility], [address] [place], [address], 11/23/2024 15:19:10 varicell a-zoster igg Ab screen, serum 2023 024 ALLIEYuepu Sifang [facility], [address] [place], [address], 11/23/2024 15:19:07 hemoglob inopathy profile, blood 2023 024 ALLIEYuepu Sifang [facility], [address] [place], [address], 11/23/2024 15:19:08 antibody screen, serum or plasma 2023 024 ALLIEYuepu Sifang [facility], [address] [place], [address], 11/23/2024 15:19:09 obstetri c screen, serum or blood 2023 024 [facility], [address] [place], [address], 11/19/2024 14:49:02 glucose toleranc e test, post-50G , 1-hour 2023 024 [facility], [address] [place], [address], 11/19/2024 16:23:47 Referral None recorded . Procedures None recorded . Surgeries None recorded . Imaging US, obstetri c, 2nd trimeste r 2023 024 ALLIE Not available 11/07/2024 18:21:41 US, obstetri c, transvag inal 2023 024 [email or web address] Not available 11/12/2024 18:10:42 US, obstetri c, limited 2023 024 ALLIE Not available 11/20/2024 07:32:06 Medication Orders Pulmicor t Flexhale r 90 mcg/actu ation breath activate d 2023 [id number], [address], [place], [place], [id number], 12/01/2024 09:05:39 Patient TargetsNo targets recorded. Patient Instructions Encounter Date Encounter Id Patient Instructions Last Modified By Organization Details Last Modified Time 11/18/2024 [id number] learning about screening for gestational diabetes [email or web address] Not available 11/18/2024 10:51:41 Reason for Referral None Reported. Results Created Date Observation Date Name Description Value Unit Range Abnormal Flag Note LastModifiedBy Organization Detail LastModifiedTime 11/05/20 24 11/05/2024 pregn charlee test, urine HCG positi ve Not Available [facility] [address] [place], [address], 11/05/2024 16:50:15 11/18/20 24 11/18/2024 OB PANEL - STD BLOOD WORK OB panel - STD bloodwork Duplic ated req Not Available [facility] [address] [place], [address], 11/19/2024 11:15:59 11/18/20 24 11/18/2024 CBC (INCL UDES DIFF/ PLT) CBC (includes diff/plt) Duplic ated req Not Available [facility] [address] [place], [address], 11/19/2024 11:16:01 11/18/20 24 11/19/2024 OB 28W (SYPH HIV 1/2 Ag/Ab Non-Re active non-re active normal Not Available [address], [address], 11/19/2024 14:49:02 11/18/20 24 11/19/2024 OB 28W (SYPH syphilis Ab Non-Re active non-re active normal Not Available [address], [address], 11/19/2024 14:49:02 11/18/20 24 11/19/2024 CBC (INCL UDES DIFF/ PLT) WBC 11.8 thous and/u L 4.0 - 9.8 high Not Available [address], [address], 11/19/2024 15:00:34 11/18/20 24 11/19/2024 CBC (INCL UDES DIFF/ PLT) RBC 3.8 [place]/uL 3.9 - 4.9 low Not Available [address], [address], 11/19/2024 15:00:34 11/18/20 24 11/19/2024 CBC (INCL UDES DIFF/ PLT) hemoglobin 11.3 g/dL 11.8 - 14.8 low Not Available [address], [address], 11/19/2024 15:00:34 11/18/20 24 11/19/2024 CBC (INCL UDES DIFF/ PLT) hematocrit 33.7 % 35.5 - 44.0 low Not Available [address], [address], 11/19/2024 15:00:34 11/18/20 24 11/19/2024 CBC (INCL UDES DIFF/ PLT) MCV 88.7 fL 82.0 - 99.0 normal Not Available [address], [address], 11/19/2024 15:00:34 11/18/20 24 11/19/2024 CBC (INCL UDES DIFF/ PLT) MCH 29.7 pg 27.2 - 32.6 normal Not Available [address], [address], 11/19/2024 15:00:34 11/18/20 24 11/19/2024 CBC (INCL UDES DIFF/ PLT) MCHC 33.5 g/dL 31.5 - 35.5 normal Not Available [address], [address], 11/19/2024 15:00:34 11/18/20 24 11/19/2024 CBC (INCL UDES DIFF/ PLT) RDW-CV 13.6 % 11.5 - 14.5 normal Not Available [address], [address], 11/19/2024 15:00:34 11/18/20 24 11/19/2024 CBC (INCL UDES DIFF/ PLT) platelet 222 thous and/u L 140 - 350 normal Not Available [address], [address], 11/19/2024 15:00:34 11/18/20 24 11/19/2024 CBC (INCL UDES DIFF/ PLT) MPV 11.9 fL 9.3 - 12.4 normal Not Available [address], [address], 11/19/2024 15:00:34 11/18/20 24 11/19/2024 CBC (INCL UDES DIFF/ PLT) absolute neutrophil 9.35 thous and/u L 1.90 - 7.00 high Not Available [address], [address], 11/19/2024 15:00:34 11/18/20 24 11/19/2024 CBC (INCL UDES DIFF/ PLT) absolute lymphocyte 1.92 thous and/u L 0.70 - 4.50 normal Not Available [address], [address], 11/19/2024 15:00:34 11/18/20 24 11/19/2024 CBC (INCL UDES DIFF/ PLT) absolute monocyte 0.48 thous and/u L 0.10 - 1.30 normal Not Available [address], [address], 11/19/2024 15:00:34 11/18/20 24 11/19/2024 CBC (INCL UDES DIFF/ PLT) absolute eosinophil 0.00 thous and/u L <0.70 normal Not Available [address], [address], 11/19/2024 15:00:34 11/18/20 24 11/19/2024 CBC (INCL UDES DIFF/ PLT) absolute basophil 0.02 thous and/u L <0.20 normal Not Available [address], [address], 11/19/2024 15:00:34 11/18/20 24 11/19/2024 CBC (INCL UDES DIFF/ PLT) absolute immature granulocyte 0.02 thous and/u L <0.03 normal Not Available [address], [address], 11/19/2024 15:00:34 11/18/20 24 11/19/2024 CT/NG chlamydia trachomatis CT neg negati ve normal This repor t is inten ded for us in clini betty monit oring and manag ement of rachel chowdhury. It is not inten ded for use in medic al-le gal appli catio n. Not Available [address], [address], 11/19/2024 15:00:38 11/18/20 24 11/19/2024 CT/NG neisseria gonorrhoeae GC neg negati ve normal This repor t is inten ded for us in clini betty monit oring and manag ement of rachel nts. It is not inten ded for use in medic al-le gal appli catio n. Not Available [facility] [address] [place], [address], 11/19/2024 15:00:38 11/18/20 24 11/19/2024 (50G) 1HR - GLUCO SE ALPESH ANCE TEST, GESTA VASHTI L SCREE N glucose (50g) 1 hour 129 mg/dL <135 normal Not Available [facility] [address] [place], [address], 11/19/2024 16:23:47 11/18/20 24 11/19/2024 DRUG ABUSE PANEL 7 W/CON FIRM amphetamines Negati ve negati ve normal Not Available [facility] [address] [place], [address], 11/19/2024 16:34:12 11/18/20 24 11/19/2024 DRUG ABUSE PANEL 7 W/CON FIRM barbiturates Negati ve negati ve normal Not Available [facility] [address] [place], [address], 11/19/2024 16:34:12 11/18/20 24 11/19/2024 DRUG ABUSE PANEL 7 W/CON FIRM benzodiazepi laura Negati ve negati ve normal Not Available [facility] [address] [place], [address], 11/19/2024 16:34:12 11/18/20 24 11/19/2024 DRUG ABUSE PANEL 7 W/CON FIRM cocaine metabolites Negati ve negati ve normal Not Available [facility] [address] [place], [address], 11/19/2024 16:34:12 11/18/20 24 11/19/2024 DRUG ABUSE PANEL 7 W/CON FIRM cannabinoids Presum ptive Positi ve negati ve abnormal Not Available [facility] [address] [place], [address], 11/19/2024 16:34:12 11/18/20 24 11/19/2024 DRUG ABUSE PANEL 7 W/CON FIRM methadone Negati ve negati ve normal Not Available [facility] [address] [place], [address], 11/19/2024 16:34:12 11/18/20 24 11/19/2024 DRUG ABUSE PANEL 7 W/CON FIRM opiates Negati ve negati ve normal Not Available [address], [address], 11/19/2024 16:34:12 11/18/20 24 11/19/2024 DRUG ABUSE PANEL 7 W/CON FIRM creatinine, urine 100 mg/dL 20 - 275 normal Not Available [address], [address], 11/19/2024 16:34:12 11/18/20 24 11/23/2024 VARIC AVILA ZOSTE R VIRUS ANTIB JACIEL (IGG) varicella zoster virus antibody (IgG) 9.71 S/co normal Signa l to Cut-o ff S/CO Inter preta tion ----- ---- ----- ----- ----- ----- -- <1.00 Negat bird - Antib jaciel not detec darron > or = 1.00 Posit bird - Antib jaciel detec darron A posit bird resul t indic ates that the patie nt has antib jaciel to VZV but does not diffe renti ate betwe en an activ e or past infec tion. The clini betty diagn osis must be inter prete d in conju nctio n with the clini betty signs and sympt oms of the patie nt. This assay relia tanvir measu res immun ity due to previ ous infec tion but may not be sensi tive enoug h to detec t antib odies induc ed by vacci natio n. Thus, a negat bird resul t in a vacci nated indiv idual does not neces saril y indic ate susce ptibi lity to VZV infec tion. A more sensi tive test for vacci natio n-ind uced immun ity is Varic avila Zoste r Virus Antib jaciel Immun ity Scree n, ACIF. Not Available [address] [address] [place], [address], 11/23/2024 15:19:07 11/18/20 24 11/23/2024 HEMOG LOBIN OPATH Y EVALU ATION red blood cell count 3.78 [place]/uL 3.80-5 .10 low Not Available [address] [address] [place], [address], 11/23/2024 15:19:08 11/18/20 24 11/23/2024 HEMOG LOBIN OPATH Y EVALU ATION hemoglobin 11.2 g/dL 11.7-1 5.5 low Not Available [address] [address] [place], [address], 11/23/2024 15:19:08 11/18/20 24 11/23/2024 HEMOG LOBIN OPATH Y EVALU ATION hematocrit 35.8 % 35.0-4 5.0 Not Available [address], [address], 11/23/2024 15:19:08 11/18/20 24 11/23/2024 HEMOG LOBIN OPATH Y EVALU ATION MCV 94.7 fL 80.0-1 00.0 Not Available [address] [address] [place], [address], 11/23/2024 15:19:08 11/18/20 24 11/23/2024 HEMOG LOBIN OPATH Y EVALU ATION MCH 29.6 pg 27.0-3 3.0 Not Available [address] [address] [place], [address], 11/23/2024 15:19:08 11/18/20 24 11/23/2024 HEMOG LOBIN OPATH Y EVALU ATION RDW 13.4 % 11.0-1 5.0 Not Available [address], [address], 11/23/2024 15:19:08 11/18/20 24 11/23/2024 HEMOG LOBIN OPATH Y EVALU ATION hemoglobin A 97.1 % >96.0 Not Available [address], [address], 11/23/2024 15:19:08 11/18/20 24 11/23/2024 HEMOG LOBIN OPATH Y EVALU ATION hemoglobin F <1.0 % <2.0 Not Available [address], [address], 11/23/2024 15:19:08 11/18/20 24 11/23/2024 HEMOG LOBIN OPATH Y EVALU ATION hemoglobin A2 (quant) 2.9 % 2.0-3. 2 Not Available [address], [address], 11/23/2024 15:19:08 11/18/20 24 11/23/2024 HEMOG LOBIN OPATH Y EVALU ATION interpretati on Roya l pheno type. Roya l hemog lobin distr ibuti on, no HgS, HgC or other abnor mal hemog lobin obser fernando. Not Available [address], [address], 11/23/2024 15:19:08 11/18/20 24 11/23/2024 MEASL ES AB (IGG) , IMMUN E STATU S measles Ab (IgG), immune status 49.30 AU/mL normal AU/mL Inter preta tion ----- ----- ----- ---- <13.5 0 Not consi stent with immun ity 13.50 -16.4 9 Equiv ocal >16.4 9 Consi stent with immun ity The prese nce of measl es IgG sugge sts immun izati on or past or curre nt infec tion with measl es virus . For addit ional infor eulalio rangel e refer to http: //[facility].Que stDia gnost ics.c om/fa q/FAQ 162 (This link is being provi ded for infor matio nal/ educa vashti l purpo ses only. ) Not Available [employer] [address] [address] [place], [address], 11/23/2024 15:19:08 11/18/20 24 11/23/2024 ANTIB JACIEL SCREE N, RBC W/REF L ID, TITER AND AG antibody screen, RBC w/refl id, titer and Ag NO ANTIBO DIES DETECT ED normal Refer ence range No antib odies detec darron This assay is a scree dom test for the detec tion of red blood cell antib odies . The test is not to be used for pretr ansfu alysha scree dom or for the medic al manag ement of an alloi mmuni zed pregn charlee. Not Available [address] [address] [place], [address], 11/23/2024 15:19:09 11/18/20 24 11/23/2024 ABO GROUP AND RH TYPE ABO group A Not Available [employer] [address] [address] [place], [address], 11/23/2024 15:19:09 11/18/20 24 11/23/2024 ABO GROUP AND RH TYPE Rh type RH(D) POSITI VE For addit ional infor eulalio rangel e refer to http: //[facility] belleQue stDia gnost ics.c om/fa q/FAQ 111 (This link is being provi ded for infor matio nal/ educa vashti l purpo ses only. ) Not Available [facility] [address] [place], [address], 11/23/2024 15:19:09 11/18/20 24 11/23/2024 CULTU RE, URINE , ROUTI NE culture, urine, routine SEE NOTE CULTU RE, URINE , ROUTI NE Micro Numbe r: [id number] Test Statu s: Final Speci men Sourc e: Urine Speci men Quali ty: Adequ ate Resul t: No Growt h Not Available [facility] [address], [place], [address], 11/23/2024 15:19:10 11/07/20 24 11/05/2024 US, obste tric, 2nd trime ster No observ ation record ed. [email or web address] [address], [place], [address], 12/01/2024 09:44:52 11/20/20 24 11/18/2024 US, obste tric, limit ed No observ ation record ed. [email or web address] [address], [place], [address], 12/01/2024 09:45:21 Result Notes None recorded. Problems Name Problem SNOMED Code Status Onset Date Resolution Date Notes Provider Name and Address Organization Details Recorded Time [id number] Active 2023 Hannah rosario, [employer] [facility] 16:01:46 Deliveries by [id number] Active Desires repeat section with tubal at [facility] SIMEON [place], [facility] [address] [place], [address], [employer] IV 20:29:48 Problem Notes None recorded. Procedures Surgical History Date Name Laterality Status Provider Name and Address Organization Details Recorded Time section completed Hannah Dinero [employer] [facility] 11/05/2024 15:47:12 Imaging Results Imaging Date Name Status LastModified by Organiz ation Details LastModified Time 11/05/2024 US, obstetric, 2nd trimester completed [email or web address] [address], [place], [address], 12/01/2024 09:44:52 11/18/2024 US, obstetric, limited completed [email or web address] [address], [place], [address], 12/01/2024 09:45:21 Procedure Notes None recorded. Medical Equipment None Reported. Allergies No known drug allergies Medications Name Sig Start Date Stop Date Status Note LastModified by Organization Details LastModified Time venlafaxine ER 75 mg capsule,ext ended release 24 hr TAKE ONE (1) CAPSULE BY MOUTH DAILY. TAKE WITH EFFEXOR XR 150 MG TO = 225 MG DAILY DOSE. active Not Available Not Available No t Available trazodone 50 mg tablet TAKE ONE TABLET BY MOUTH EVERY DAY 11/05 completed Not Available Not Available Not Available azithromyci n 250 mg tablet TAKE 2 TABLETS BY MOUTH FOR 1 DAY THEN TAKE 1 TABLET BY MOUTH DAILY 11/05 completed Not Available Not Available Not Available prazosin 1 mg capsule TAKE 1 CAPSULE BY MOUTH EVERYDAY AT BEDTIME 11/05 completed Not Available Not Available Not Available naltrexone 50 mg tablet TAKE ONE TABLET BY MOUTH EVERY DAY 11/05 completed Not Available Not Available Not Available venlafaxine ER 150 mg capsule,ext ended release 24 hr TAKE 1 CAPSULE BY MOUTH DAILY active Not Available Not Available No t Available prazosin 5 mg capsule TAKE 1 CAPSULE BY MOUTH EVERYDAY AT BEDTIME 11/05 completed Not Available Not Available Not Available mirtazapine 30 mg tablet TAKE 1 TABLET BY MOUTH EVERYDAY AT BEDTIME 11/05 completed Not Available Not Available Not Available divalproex ER 500 mg tablet,exte nded release 24 hr TAKE ONE TABLET BY MOUTH TWICE DAILY 11/05 completed Not Available Not Available Not Available promethazin e 25 mg tablet TAKE 1 TABLET BY MOUTH EVERY 4 HOURS 11/05 completed Not Available Not Available Not Available nicotine 21 mg/24 hr daily transdermal patch 11/05 completed Not Available Not Available Not Available hydrochloro thiazide 12.5 mg capsule TAKE ONE CAPSULE BY MOUTH EVERY DAY 11/05 completed Not Available Not Available Not Available docusate sodium 100 mg capsule TAKE ONE CAPSULE BY MOUTH DAILY 11/05 completed Not Available Not Available Not Available gabapentin 300 mg capsule TAKE 1 CAPSULE BY MOUTH THREE TIMES A DAY NEEDED 11/05 completed Not Available Not Available Not Available buspirone 7.5 mg tablet active Not Available Not Available Not Available mirtazapine 15 mg tablet TAKE 2 TABLETS BY MOUTH EVERY DAY AT BEDTIME 11/05 completed Not Available Not Available Not Available albuterol sulfate HFA 90 mcg/actuati on aerosol inhaler active Not Available Not Available Not Available propranolol 20 mg tablet TAKE 1 & 1/2 TABLETS BY MOUTH TWICE A DAY 11/05 completed Not Available Not Available Not Available prazosin 2 mg capsule TAKE ONE (1) CAPSULE BY MOUTH AT BEDTIME WITH 5 MG PRAZOSIN TO = 7 MG AT BEDTIME. 11/05 completed Not Available Not Available Not Available Vivitrol 380 mg intramuscul ar suspension, extended release 11/05 completed Not Available Not Available Not Available hydrochloro thiazide 12.5 mg tablet TAKE 1 TABLET BY MOUTH EVERY DAY 11/05 completed Not Available Not Available Not Available FeroSul 325 mg (65 mg iron) tablet TAKE 1 TABLET BY MOUTH EVERY DAY active Not Available Not Available No t Available lamotrigine ER 50 mg tablet,exte nded release 24 hr TAKE 1 TABLET BY MOUTH EVERY DAY 11/05 completed Not Available Not Available Not Available 28 mg iron-800 mcg tablet TAKE 1 TABLET BY MOUTH EVERY DAY active Not Available Not Available No t Available Vitals Date Recorded Body height Body mass index (BMI) Body weight Body temperature Systolic blood pressure Diastolic blood pressure Provider Name and Address Organization Details Last Updated DateTime 4 154.94 cm 41 kg/m2 56211.2 6 g 97.9 [degF] 98 mm[Hg] 56 mm[Hg] [facility] 4 15:50:04 Date Recorded Body height Body mass index (BMI) Body weight Body temperature Systolic blood pressure Diastolic blood pressure Provider Name and Address Organization Details Last Updated DateTime 4 154.94 cm 41.8 kg/m2 567909. 25440 g 97.6 [degF] 100 mm[Hg] 52 mm[Hg] [facility] 4 10:26:58 Date Recorded Body weight Body mass index (BMI) Body height Systolic blood pressure Diastolic blood pressure Provider Name and Address Organization Details Last Updated DateTime 12/01/2024 777294. 41548 g 42.5 kg/m2 154.94 cm 110 mm[Hg] 60 mm[Hg] Romina Loredo [facility] 4 09:07:18 Date Recorded Respiratory rate Oxygen saturation Oxygen saturation in Arterial blood by Pulse oximetry Heart rate Provider Name and Address Organization Details Last Updated DateTime 12/01/2024 22 /min 95 % 95 % 96 /min PADMINI KAUFFMAN, [facility] [address] [place], [address] , [facility] 4 09:52:12 Social History Question Answer Notes LastModified by Organizat ion Details LastModified Time Tobacco Smoking Status Never Smoker Hannah rosario, [facility] 11/05/2024 15:46:43 What Is Your Level Of Alcohol Consumption? None Information not available 11/05/2024 Are You Blind Or Do You Have Difficulty Seeing? No Information not available 11/05/2024 Are You Deaf Or Do You Have Serious Difficulty Hearing? No Information not available 11/05/2024 What Type Of Diet Are You Following? REGULAR Information not available 11/05/2024 Which Illicit Or Recreational Drugs Have You Used? Marijuana Information not available 11/05/2024 Do You Or Have You Ever Used E-cigarettes Or Vape? Current User Of Electronic Cigarettes Information not available 11/05/2024 How Many Children Do You Have? 2 Information not available 11/05/2024 What Is Your Relationship Status? Single Information not available 11/05/2024 Are You Sexually Active? Yes Information not available 11/05/2024 Do You Or Have You Ever Used Smokeless Tobacco? Never Used Smokeless Tobacco Information not available 11/05/2024 Do You Use Any Illicit Or Recreational Drugs? Yes Information not available 11/05/2024 Have You Used IV Drugs? No Information not available 11/05/2024 Do You Or Have You Ever Used Any Other Forms Of Tobacco Or Nicotine? Yes Information not available 11/05/2024 Sex: Unknown Functional Status Question Answer Note LastModified by Organization D etails LastModified Time What is your exercise level? None Information not available 11/05/2024 Mental Status None recorded. Family History Relationship Description Onset Age of this Age Resolved Age Notes LastModified by Organization Details LastModified Time Father No current problems or disability Not available 11/05 15:45:31 Mother No current problems or disability Not available 11/05 15:45:31 Medical History Condition Response Depression Y Asthma Y Gynecological History Statement/Question Response Date of Last Colonoscopy Flow Moderate Date of LMP Most Recent Bone Density Date of Last Pap Smear Duration of Flow (days) 5 Most Recent Mammogram Current Control Method Age at Menarche 9 Obstetrics History GPAL:G 3 P 2 0 0 2 Type Value Full Term 2 Living 2 Total 3 Past Encounters Encounter ID Performer Location Encounter Start Date Encounter Closed Date Diagnosis/Indication Diagnosis SNOMED-CT Code Diagnosis ICD10 Code Diagnosis Note [id number] FRANCESCA LAM [facility] [address] [place] [address] 11/05/2024 14:20:39 11/05/2024 17:45:49 screening for malformation 570214023 Z36.3 screening 2437 72[address] Z36.86 Gestation period, 26 weeks 89060976 Z3A.26 96203410 O34.2 19 High risk 4720 0007 O09.892 Pt comes in today for a First OB visit. Pt was previous seen at [facility] in [place]. Has requested records to be sent from [facility]. Gestation: 26w 1dEDD: 02/10/2025 -- PMH: Depression and Asthma-- Medication s: Taking daily PNV, not taking any other medication s-- Previous OB History: Previous delivery for placental abruption- - Mom/Sister s with hx of Pre-Eclamp alize: denies-- History of Genital HSV: denies-- Genetic Questions in OB Episode DoneAnatom y ultrasound incomplete today, will repeat at next visit.NOB labs at next visit if records not received by then.RTC in 2 weeks, plan 3T labs and GTT. [id number] FRANCESCA LAM [facility] [address] [place] [address] 11/18/2024 09:40:52 11/19/2024 13:09:12 High risk 38346486 O09.892 Pt is here for a KAYA appointmen t. She is taking vitamins. She has no complaints or questions. Denies vaginal bleeding, abdominal cramps, N/V, contractio ns, and LOF. Denies headache, vision changes, swelling of hands or face, and epigastric pain. Reports feeling movement. Discussed Movement Counts. TDAP Education and Order given. Will get Has received.R Domitilanano: ABO type and RH pending- pt states she is positive blood type but have no documentat ion to support this.Discu ssed pediatrici an selection and pre registerin g with hospital.P don desires RLTCS with BTL, sterilizat ion consent signed. Will send case to senior maintenance machinist to schedule. GBS: @36 weeks Discussed PTL and precaution s given. There are no identifiab le risk factors for pre-term labor.Foll ow up in L&D if experienci ng decreased movement, leaking fluid, or regular uterine contractio ns increasing in frequency and/or intensity. [id number] O34.2 19 Follow-up encounter 3909 55126 Z36.2 screening 2437 58033 Z36.89 Gestation period, 28 weeks 22789381 Z3A.28 Asthma in 7230 932104 0522 O99.513 J45.909 Mild persistent asthma- Wheezing to lung mast and shortness of breath at times- albuterol is not helping. Will start Pulmicort. Depression screening 171 627547 Z13.32 PHQ9: 9. On Effexor, pt to notify HCP if sx persistent or worsening. Plan to repeat PHQ 9 at next visit. [id number] PADMINI KAUFFMAN, [facility] [address] [place] [address] 12/01/2024 08:57:55 12/01/2024 10:23:18 High risk 15626249 O09.892 Pt is here for a KAYA appointmen t. She is taking vitamins. She has no complaints or questions. Denies vaginal bleeding, abdominal cramps, N/V, contractio ns, and LOF. Denies headache, vision changes, swelling of hands or face, and epigastric pain. Reports feeling movement. Discussed Movement Counts. TDAP Education and Order given. Will get Has received.R Prisca: ABO type and RH pending- pt states she is positive blood type but have no documentat ion to support this.Discu ssed pediatrici an selection and pre registerin g with hospital.P atient desires RLTCS with BTL, sterilizat ion consent signed. Will send case to senior maintenance machinist to schedule. GBS: @36 weeks Discussed PTL and precaution s given. There are no identifiab le risk factors for pre-term labor.Foll ow up in L&D if experienci ng decreased movement, leaking fluid, or regular uterine contractio ns increasing in frequency and/or intensity. [id number] O34.2 19 Follow-up encounter 3909 15374 Z36.2 Asthma in 7230 421503 0517 O99.513 J45.909 Mild persistent asthma- Wheezing to lung mast and shortness of breath at times- albuterol is not helping. Gestation period, 29 weeks [id number] Z3A.29 Pneumonia [id number] J18. 9 Hx of mild persistent Asthma. Insurance denied pulmicort. Bilateral lower lobes diminished sound, inspirator y crackles, expiratory rhonci. SpO2 95%, pulse 96. Denies any fevers. Spoke with Dr. Magaña and recommends sending patient to [facility] in [place] for further evaluation . Advised patient of recommenda tions and is agreeable to POC. Health Concerns Section Related Observation LastModified by Organization Detai ls LastModified Time None Recorded Concern Status LastModified by Organization Details LastModified Time None Recorded Advance Directives Directive None Recorded Payers Encounter Date Sequence Insurance Name Policy Number Policy Reed Covered Member ID Reed Member ID Guarantor Name 11/05/2024 1 [facility] (MEDICAID REPLACEMENT - HMO) [id number] Manuela Ward [id number] Manuela Ed 11/18/2024 1 [facility] (MEDICAID REPLACEMENT - HMO) [id number] Manuelafamilia Ward [id number] Manuela Ed 12/01/2024 1 [facility] (MEDICAID REPLACEMENT - HMO) [id number] Manuela Wadr [id number] Manuela Ward Notes Date Note Type Note Provider Name and Address Organization Details Recorded Time 11/05/2024 text/html Patient is here today for a routine OB visit. She is currently at {{6 7 8 9 10 11 1 2 13 14 15 16 17 18 19 20 21 22 23 24 25 26* 27 28 29 30 31 32 33 34 35 36 37 38 39 4 0 41}} weeks gestation. vitamins: {{yes* no}} She {{has* has not}} felt movement.She denies any complaints of the presence of vaginal bleed, leaking fluid, abdominal cramps, nausea, vomiting, headache or visual disturbances. FRANCESCA LAM [facility] [place], [address], [facility] [employer] 11/08/2024 20:58:53 11/18/2024 text/html Manuela is here today for a routine OB visit. She is currently at {{6 7 8 9 10 11 1 2 13 14 15 16 17 18 19 20 21 22 23 24 25 26 27 28* 29 30 31 32 33 34 35 36 37 38 39 4 0 41}} weeks gestation. vitamins: {{yes* no}} She {{has* has not}} felt movement.She denies any complaints of the presence of vaginal bleed, leaking fluid, abdominal cramps, nausea, vomiting, headache or visual disturbances. FRANCESCA LAM [address] [place], [address], [facility] [employer] IV 11/18/2024 22:39:54 12/01/2024 text/html Pt is here today for KAYA visit. She is currently at 29.6 weeks gestation. She is/is not taking vitamins. She has felt movement. She denies the presence of vaginal bleed, leaking fluid, abdominal cramps, vomiting. Pt reports going to [facility] last night, had a chest x-ray after waiting for several hours and was told she had pneumonia. Pt states [facility] told her they could not treat her and sent her home. Report frequent cough, chest pain, SOB. Pt reports she was unable to get her pulmicort filled due to insurance denying it. Denies any fevers or chills. Patient states that she does not feel like she can take a deep breath. PADMINI KAUFFMAN, ENGINEERING DOCUMENT CONTROL CLERK [address] [facility], [place], [address], [facility] 12/01/2024 09:53:36 OBGyn Episode Ob Episode Information Episode Created Date Number of Fetuses Patient Bloodtype Patient rh Status Prepregnancy Weight lbs Domestic Partner Domestic Partner Phone Father Name Pets Salesperson Status 11/05/20 24 1 A Positive OPEN Fetus Data First Name Last Name Admitted to NICU Weight (g) Sex Living Outcome Pediatric Complications Fetus ID Race Codes Race Delivery Type F [id number] Problems Problem Notes Problem Name Start Date End Date Resolution Snomed Code Not e Deliveries by 04 Desires repeat section with tubal at [facility] Jose Alejandro Calculation Initial Jose Alejandro Date Initial Exam Date Initial Exam Provider Initial Ultrasound Date Last Menstrual Period Date Ultra Sound Weeks Gestation 02/10/2025 11/05/2024 11/05/2024 05/06/2024 26 Eighteen To Twenty Week Jose Alejandro Update Ultra Sound Date Fundal Height At Umbil Quickening Date Ultra Sound Latest Weeks Gestation Final Jose Alejandro Confirmed By Final Jose Alejandro Confirmed Date Final Jose Alejandro Date Ultra Sound Latest Days Gestation 0 02/11/20 25 0 Pre-anna Flowsheet Flowsheet Date 11/05/2024 Bailey Score Blood Edema Fundus Height Fundus Units Glucose Ketones Leukocytes Nitrite Labor Signs Protein Cervic Dilation Cervic Effacement Cervic Station none none none neg Type Weight in lbs Pre/Post Dialysis Refused Stated 217.615709856471 BP Diastolic BP Location Tested BP Systolic BP Type 56 98 sitting Fetus Heart Rate Present A 153 Fetus Movement A Yes Comments [facility] Care [facility]- Anatomy incomplete- will repeat at next visit, requested records from [facility], delivery 02/05/23 emergent for placental abruption. Desires repeat cesection with tubal, will sign consent at next visit. Repeat anatomy, GTT, and 3T labs at next visit. Will obtain NOB labs if records not received. RTC in 2 weeks. Flowsheet Date 11/18/2024 Bailey Score Blood Edema Fundus Height Fundus Units Glucose Ketones Leukocytes Nitrite Labor Signs Protein Cervic Dilation Cervic Effacement Cervic Station none none none neg Type Weight in lbs Pre/Post Dialysis Refused With clothes 221.627552080823 BP Diastolic BP Location Tested BP Systolic BP Type 52 100 sitting Fetus Heart Rate Present A 139 Fetus Movement A Yes Comments No OB complaints. NOB, GTT, and 3T labs today. Anatomy complete. Tubal consent signed, desires repeat c/s at [facility]. Hx of asthma wheezing and SOB- using albuterol not helping, rx for pulmicort. RTC in 2 weeks. Flowsheet Date 12/01/2024 Bailey Score Blood Edema Fundus Height Fundus Units Glucose Ketones Leukocytes Nitrite Labor Signs Protein Cervic Dilation Cervic Effacement Cervic Station trace none Other (see comments ) neg Type Weight in lbs Pre/Post Dialysis Refused With clothes 225.419206587637 BP Diastolic BP Location Tested BP Systolic BP Type 60 110 sitting Fetus Heart Rate Present A 149 Fetus Movement A Yes Comments C/O cough, SOB and chest kendra n. Was seen in [place] ER night prior and they told her she had pneumonia, but could not treat her. They d/c her home. Patient states that insurance denied her pulmicort and she is feeling very SOB. Hx of mild persistent Asthma. Bilateral lower lobes diminished sound, inspiratory crackles, expiratory rhonci. SpO2 95%, pulse 96. Denies any fevers. Spoke with Dr. Magaña and recommends sending patient to [facility] in [place] for further evaluation. Dr. Magaña spoke with Dr. Florentino and patient was accepted. Advised patient of recommendations and is agreeable to POC. Menstrual History Last Menstrual Date Menses Monthly On Bcp Conception Prior Menses Frequency Hcg Plus Date Menarche Onset Age 0605/06/2024 Genetic Screening And Infection History Question Response Note Patient's Age Will Be 35 Years Or Older At Estim ated Date of Delivery false Personal or Family History o f Neural Tube Defect (Meningomyelocele, Spina Bifida, Or Anencephaly) false Personal or Family History of Congenital Heart D efect false Maternal Metabolic Disorder (eg, Type 1 Diabetes , PKU) false Recurrent Loss, Or A Stillbirth false Patient Or Partner Has History Of Genital Herpes false Prior GBS-infected child false History of HIV false History of Hepatitis false Genetic Carrier Screen positive false Delivery Information Delivery Date Delivery Type Labor Anesthesia Weeks Gestation Incision Type Labor Labor Length Hrs Delivered By Post Complications Tubal Sterilization Discharge Date Comments Discharge Information Feeding Method Contraceptive Method Maternal HG B and HCT Levels Ob Episode Information Episode Created Date Number of Fetuses Patient Bloodtype Patient rh Status Prepregnancy Weight lbs Domestic Partner Domestic Partner Phone Father Name Pets Salesperson Status 11/05/20 24 1 CLOSED Fetus Data First Name Last Name Admitted to NICU Weight (g) Sex Living Outcome Pediatric Complications Fetus ID Race Codes Race Delivery Type 3430.06 2704 F Full Term [id number] Jose Alejandro Calculation Initial Jose Alejandro Date Initial Exam Date Initial Exam Provider Initial Ultrasound Date Last Menstrual Period Date Ultra Sound Weeks Gestation 0 Eighteen To Twenty Week Jose Alejandro Update Ultra Sound Date Fundal Height At Umbil Quickening Date Ultra Sound Latest Weeks Gestation Final Jose Alejandro Confirmed By Final Jose Alejandro Confirmed Date Final Jose Alejandro Date Ultra Sound Latest Days Gestation 0 0 Menstrual History Last Menstrual Date Menses Monthly On Bcp Conception Prior Menses Frequency Hcg Plus Date Menarche Onset Age Delivery Information Delivery Date Delivery Type Labor Anesthesia Weeks Gestation Incision Type Labor Labor Length Hrs Delivered By Post Complications Tubal Sterilization Discharge Date Comments 1 Discharge Information Feeding Method Contraceptive Method Maternal HG B and HCT Levels Ob Episode Information Episode Created Date Number of Fetuses Patient Bloodtype Patient rh Status Prepregnancy Weight lbs Domestic Partner Domestic Partner Phone Father Name Pets Salesperson Status 11/05/20 24 1 CLOSED Fetus Data First Name Last Name Admitted to NICU Weight (g) Sex Living Outcome Pediatric Complications Fetus ID Race Codes Race Delivery Type 2834.95 F Full Term [id number] Primary Jose Alejandro Calculation Initial Jose Alejandro Date Initial Exam Date Initial Exam Provider Initial Ultrasound Date Last Menstrual Period Date Ultra Sound Weeks Gestation 0 Eighteen To Twenty Week Jose Alejandro Update Ultra Sound Date Fundal Height At Umbil Quickening Date Ultra Sound Latest Weeks Gestation Final Jose Alejandro Confirmed By Final Jose Alejandro Confirmed Date Final Jose Alejandro Date Ultra Sound Latest Days Gestation 0 0 Menstrual History Last Menstrual Date Menses Monthly On Bcp Conception Prior Menses Frequency Hcg Plus Date Menarche Onset Age Delivery Information Delivery Date Delivery Type Labor Anesthesia Weeks Gestation Incision Type Labor Labor Length Hrs Delivered By Post Complications Tubal Sterilization Discharge Date Comments 3 Discharge Information Feeding Method Contraceptive Method Maternal HG B and HCT Levels
--- OUTSIDE RECORDS SUMMARY | 2024-12-08 02:20 | XMS_ITS | Continuity of Care Document ---
Author Organization [employer] , [facility] Address [address] [place] [address] Assessment No assessment recorded. Plan of Treatment Reminders Order Date Submit Date Provider Last Modified By Organization Details Last Modified Time Details Appointments OB RETURN EST 2024 09:00A M VLADIMIR CAMPBELL, DO Not available Not available Not available OB RETURN EST 2024 10:15A M Pamela Hickey MD Not available Not available Not available Lab abo group + rh type, blood 2023 024 [employer] [facility], [address], [place], [address], 11/23/2024 15:19:10 CBC w/ auto diff 2023 024 [facility], [address] [place], [address], 11/19/2024 11:16:01 CT + NG DNA, PCR, unspecif ied specimen 2023 024 [facility], [address] [place], [address], 11/19/2024 15:00:38 drug of abuse panel, urine 2023 024 [facility], [address] [place], [address], 11/19/2024 16:34:12 obstetri c screen + HIV, serum or blood 2023 024 [facility], [address] [place], [address], 11/19/2024 11:15:59 measles igg Ab, serum 2023 [employer] [facility], [address] [place], [address], 11/23/2024 15:19:08 culture, urine 2023 [employer] [facility], [address] [place], [address], 11/23/2024 15:19:10 varicell a-zoster igg Ab screen, serum 2023 [employer] [facility], [address] [place], [address], 11/23/2024 15:19:07 hemoglob inopathy profile, blood 2023 [employer] [facility], [address] [place], [address], 11/23/2024 15:19:08 antibody screen, serum or plasma 2023 [employer] [facility], [address] [place], [address], 11/23/2024 15:19:09 obstetri c screen, serum or blood 2023 [facility], [address] [place] [address], [address], 11/19/2024 14:49:02 glucose toleranc e test, post-50G , 1-hour 2023 [facility], [address] [place] [address], [address], 11/19/2024 16:23:47 Referral None recorded . Procedures None recorded . Surgeries None recorded . Imaging US, obstetri c, limited 2023 [facility] Not available 11/20/2024 07:32:06 Medication Orders Pulmicor t Flexhale r 90 mcg/actu ation breath activate d 2023 024 [id number], [address], [place], [place], [id number], 12/01/2024 09:05:39 Patient TargetsNo targets recorded. Patient Instructions Encounter Date Encounter Id Patient Instructions Last Modified By Organization Details Last Modified Time 11/18/2024 [id number] learning about screening for gestational diabetes anshul Not available 11/18/2024 10:51:41 Reason for Referral None Reported. Results Created Date Observation Date Name Description Value Unit Range Abnormal Flag Note LastModifiedBy Organization Detail LastModifiedTime 11/07/20 24 11/05/2024 US, obste tric, 2nd trime ster No observ ation record ed. [email or web address] [address], [place], [address], 12/01/2024 09:44:52 11/20/2011/18/2024 US, obste tric, limit ed No observ ation record ed. [email or web address] [address], [place], [address], 12/01/2024 09:45:21 Result Notes None recorded. Problems Name Problem SNOMED Code Status Onset Date Resolution Date Notes Provider Name and Address Organization Details Recorded Time 42113886 Active 2023 Hannah rosario, [employer] IV 16:01:46 Deliveries by [id number] Active Desires repeat section with tubal at [facility] SIMEON CL[place], [facility] [address], [place], [address], [employer] IV 20:29:48 Problem Notes None recorded. Procedures Surgical History Date Name Laterality Status Provider Name and Address Organization Details Recorded Time section completed Hannah Dinero [employer] IV 11/05/2024 15:47:12 Imaging Results None recorded. Procedure Notes None recorded. Medical Equipment None [...] Updated DateTime 4 154.94 cm 41.8 kg/m2 271332. 88112 g 97.6 [degF] 100 mm[Hg] 52 mm[Hg] Hannah Dinero [employer] 4 10:26:58 Social History Question Answer Notes LastModified by Organizat ion Details LastModified Time Tobacco Smoking Status Never Smoker Hannah Dinero [facility] [employer] 11/05/2024 15:46:43 What Is Your Level [...] SNOMED-CT Code Diagnosis ICD10 Code Diagnosis Note [id number] FRANCESCA LAM [facility] [address] [place] [address] 11/05/2024 14:20:39 11/05/2024 17:45:49 screening for malformation 851661890 Z36.3 screening 2437 35581 Z36.86 Gestation period, 26 weeks 33103167 Z3A.26 58141392 O34.2 19 High risk 4720 0007 O09.892 Pt comes in today for a First OB visit. Pt was previous seen at [facility] in [place]. Has requested records to be sent from [facility]. Gestation: 26w 1dEDD: 02/10/2025 -- PMH: Depression [...] 2 weeks, plan 3T labs and GTT. [id number] [facility]ON CL[facility]ON[facility]ANCESCA [facility] h [address] [place] [address] 11/18/2024 09:40:52 11/19/2024 13:09:12 High risk 42799615 O09.892 Pt is here for a KAYA appointmen t. She is taking vitamins. She has no complaints or questions. Denies vaginal bleeding, abdominal cramps, N/V, contractio ns, and LOF. Denies headache, vision changes, swelling of hands or face, and epigastric pain. Reports feeling movement. Discussed Movement Counts. TDAP Education and Order given. Will get Has received.Michelle Cope: ABO type and RH pending- pt states she is positive blood type but have no documentat ion to support this.Discu ssed pediatrici an selection and pre registerin g with hospital.P atient desires RLTCS with BTL, sterilizat ion consent signed. Will send case to utilities and maintenance supervisor to schedule. GBS: @36 weeks Discussed PTL and precaution s given. There are no identifiab le risk factors for pre-term labor.Foll ow up in L&D if experienci ng decreased movement, leaking fluid, or regular uterine contractio ns increasing in frequency and/or intensity. 81105906 O34.2 19 Follow-up encounter 3909 68702 Z36.2 screening 5687 86158 Z36.89 Gestation period, 28 weeks 72094321 Z3A.28 Asthma in 7230 952664 2893 O99.513 J45.909 Mild persistent asthma- Wheezing to lung mast and shortness of breath at times- albuterol is not helping. Will start Pulmicort. Depression screening 171 188685 Z13.32 PHQ9: 9. On Effexor, pt to notify HCP if sx persistent or worsening. Plan to repeat PHQ 9 at next visit. Health Concerns Section Related Observation LastModified by Organization Detai ls LastModified Time None Recorded Concern Status LastModified by Organization Details LastModified Time None Recorded Payers Encounter Date Sequence Insurance Name Policy Number Policy Reed Covered Member ID Reed Member ID Guarantor Name 11/18/2024 1 [facility] (MEDICAID REPLACEMENT - HMO) [id number] Manuela Ward [id number] Manuela Ward Notes Date Note Type Note Provider Name and Address Organization Details Recorded Time 11/18/2024 text/html Manuela is here today for [...] headache or visual disturbances. FRANCESCA LAM [address] [place], [address], [facility] 11/18/2024 22:39:54 OBGyn Episode Ob Episode Information Episode Created Date Number of Fetuses Patient Bloodtype Patient rh Status Prepregnancy Weight lbs Domestic Partner Domestic Partner Phone Father Name Lever Miller Status 11/05/20 24 1 A Positive OPEN Fetus Data First Name Last Name Admitted to NICU Weight (g) Sex Living Outcome Pediatric Complications Fetus ID Race Codes Race Delivery Type F [id number] Problems Problem Notes Problem Name Start Date End Date Resolution Snomed Code Not e Deliveries by 04 Desires repeat section with tubal at [facility] Jose Alejandro Calculation Initial Jose Alejandro Date [...] Latest Days Gestation 0 02/11/20 25 0 Pre- Flowsheet Flowsheet Date 11/05/2024 Bailey Score Blood Edema Fundus Height Fundus Units Glucose Ketones Leukocytes Nitrite Labor Signs Protein Cervic Dilation Cervic Effacement Cervic Station none none none neg Type Weight in lbs Pre/Post Dialysis Refused Stated 217.520779528905 BP Diastolic BP Location Tested BP Systolic BP Type 56 98 sitting Fetus Heart Rate Present A 153 Fetus Movement A Yes Comments Transfer of Care from [facility]- Anatomy incomplete- will repeat at next visit, requested records from [facility], delivery 02/05/23 emergent for placental abruption. Desires [...] in lbs Pre/Post Dialysis Refused With clothes 221.178101258474 BP Diastolic BP Location Tested BP Systolic BP Type 52 100 sitting Fetus Heart Rate Present A 139 Fetus Movement A Yes Comments No OB complaints. NOB, GTT, and 3T labs today. Anatomy complete. Tubal consent signed, desires repeat c/s at [facility]. Hx of asthma wheezing and SOB- using albuterol not helping, rx for pulmicort. RTC in 2 weeks. Flowsheet Date 12/01/2024 Bailey Score Blood Edema Fundus Height Fundus Units Glucose Ketones Leukocytes Nitrite Labor Signs Protein Cervic Dilation Cervic Effacement Cervic Station trace none Other (see comments ) neg Type Weight in lbs Pre/Post Dialysis Refused With clothes 225.731305211526 BP Diastolic BP Location Tested BP Systolic BP Type 60 110 sitting Fetus Heart Rate Present A 149 Fetus Movement A Yes Comments C/O cough, SOB and chest kendra n. Was seen in [place] ER night prior and they told her she had pneumonia, but could not treat her. They d/c her home. Patient states that insurance denied her pulmicort and she is feeling very SOB. Hx of mild persistent Asthma. Bilateral lower lobes diminished sound, inspiratory crackles, expiratory rhonci. SpO2 95%, pulse 96. Denies any fevers. Spoke with Dr. Magaña and recommends sending patient to [facility] in [place] for further evaluation. Dr. Magaña spoke with [...]
--- OUTSIDE RECORDS SUMMARY | 2024-12-08 02:21 | XMS_ITS ---
Author Organization [facility] Address [address] [place] [address] Care Team Providers Care Leather Carver Name Role Phone Chito Sahni Primary Care Provider Unavail able Asia Jurado Unavailable [phone] [facility], Provider Unavailable Unavailab le [facility] Conversion Encounter Medications Medication SIG (Take, Route, Fr equency, Duration) Notes Start Date End Date Status NIFEdipine ER 60 MG 1 tab(s) orally once a day for 30 day(s) Active busPIRone HCl 7.5 MG 1 tab(s) orally 2 t imes a day for 30 day(s) Active Lexapro 10 MG 1 tab(s) orally once a day for 30 day(s) Active Encounters Encounter Location Date Provider Diagnosis [address] [address] 05/16/2024 Provider [facility] Plan Of Treatment No Information Progress Notes * Aurora WHITTINGTONhDOB:2000 (24 yo F)Acc No.[id number]:05/16/2024 Patient:?REBECCANomiManuela OLSON Provider:?Provider Migration :2000???Age:23 Y???Sex:Female D ate:05/16/2024 Address:[address] [facility] Pcp:Chito Sahni Subjective: * Chief Complaints: * ???1. [facility] To [facility] Con version Encounter. * Medical History:? * Medications:?Taking NIFEdipi ne ER 60 MG Tablet Extended Release 24 Hour 1 tab(s) orally once a day , Taking busPIRone HCl 7.5 MG Tablet 1 tab(s) orally 2 times a day , Taking Lexapro 10 MG Tablet 1 tab(s) orally once a day Objective: * Vitals:? Assessment: Plan: * Treatment: * Billing Information: * Visit Code:? * Procedure Codes:? * Electronic signature of Ronen BROOKE-Migration on 12/08/2024 at 02:21 AM TONG HOOKER Sign off status: Pending * Provider:?Provider Migration Date:?05/16 Generated for Rebeca daniel/Anthony/Paulo on:?12/08/2024 02:21 AM TONG HOOKER
--- OUTSIDE RECORDS SUMMARY | 2024-12-08 02:21 | XMS_ITS | Clinical Summary ---
Author Organization [facility] Address [address] [place] [address] Care Team Providers Care Lining Brusher Name Role Phone Oseas Ruiz APRN-FRYLINE ATTENDANT Unavailable [phone] Source Comments [facility],non-owned Affiliates and Associated Physician Practices is amultiple site organization consisting of ambulatory clinics and hospital sitesin [place], [place], [place] and [place]. This disclosure is being madepursuant to the Care Everywhere program and may not contain all information available regarding this patient. Last updated 18.[facility] bCODE Allergies No known active allergies Medications * Be aware that medications may not be up to date on this document. Alwaysverify current medications with the patient. Medication Sig Dispensed Refills Start Date End Date Status venlafaxine XR 24hr (Effexor XR) 150 MG capsule Take 1 (one) capsule by mouth daily with breakfast Active venlafaxine XR 24hr (Effexor XR) 75 MG capsule Take 1 (one) capsule by mouth daily with breakfast Active Vit-Fe Fumarate-FA ( vitamin) 28-0.8 MG tablet Take 1 (one) tablet by mouth once daily Active ferrous gluconate 324 (38 Fe) MG tablet Take 1 (one) tablet by mouth once daily Active albuterol HFA (Proventil; Ventolin; Proair) 108 (90 Base) MCG/ACT inhaler Inhale 2 (two) puffs by mouth every 6 hours as needed for Shortness of Breath Active budesonide-formoter ol (Symbicort) 80-4.5 MCG/ACT inhaler Inhale 2 (two) puffs by mouth 2 times daily 10.25 g 2 12/01/2024 Active benzonatate (Tessalon) 200 MG capsule Take 1 (one) capsule by mouth 3 times daily as needed for Cough 60 capsule 1 12/01/2024 Active albuterol HFA (ProAir HFA) 108 (90 Base) MCG/ACT inhaler Inhale 2 (two) puffs by mouth every 4 hours as needed 8.5 g 12/01/2024 Active famotidine (Pepcid) 20 MG tablet Take 1 (one) tablet by mouth every 12 hours 60 tablet 2 12/01/2024 Active Active Problems Problem Noted Date Diagnosed Date Supervision of high risk in third trim robinson 12/01/2024 Estimated Date of Delivery Comme nts Yes 02/10/2025 Based on Patient Reported Encounters Date Type Department Care Team Description 12/01/2024 9:49 AM STEM SIZER - 12/01/2024 1:08 PM STEM SIZER Hospital Encounter [facility] [address] [place] [address] Aaron Florentino MD Maternal Medicine Discharge Disposition: Home or Self Care 12/01/2024 Travel from Last 3 Months Social History Tobacco Use Types Packs/Day Years Used Date Smoking Tobacco: Never Passive Smoke Exposure: Never Smokeless Tobacco: Never Tobacco Cessation:Counseling Given: Not Answered Alcohol Use Standard Drinks/Week Comments Not Currently 0 (1 standard drink = 0.6 oz pur e alcohol) Overall Financial Resource Strain (CARDIA) Answe r Date Recorded How hard is it for you to pa y for the very basics like food, housing, medical care, and heating? Not hard at all 12/01/2024 [facility] [place] [facility] - Occupational Stress Questionnaire Answer Date Recorded Do you feel stress - tense, restless, nervous, or anxious, or unable to sleep at night because your mind is troubled all the time - these days? Not at all 12/01/2024 Hunger Vital Sign Answer Date Recorded Within the past 12 months, y ou worried that your food would run out before you got the money to buy more. Never true 12/01/20 24 Within the past 12 months, t he food you bought just didn't last and you didn't have money to get more. Never true 12/01/2024 PRAPARE - Transportation Answer Date Re corded In the past 12 months, has l ack of transportation kept you from medical appointments or from getting medications? No 11/03 In the past 12 months, has l ack of transportation kept you from meetings, work, or from getting things needed for daily living? No 12/01/2024 Housing Stability Vital Sign Answer Partha e Recorded In the last 12 months, was t here a time when you were not able to pay the mortgage or rent on time? No 12/01/2024 Number of Times Moved in the Last Year Not on fi le 12/01/2024 At any time in the past 12 m [facility], were you homeless or living in a long-term (including now)? No 12/01/2024 Estimated Date of Delivery Comme nts Yes 02/10/2025 Based on Patient Reported Sex and Gender Information Value Date Recorded Sex Assigned at Not on file Gender Identity Not on file Sexual Orientation Not on file Last Filed Vital Signs Vital Sign Reading Time Taken Comments Blood Pressure 102/54 12/01/2024 12:59 PM [facility]ER Pulse 85 12/01/2024 10:24 AM [facility]ER Temperature 36.8 ??C (98.2 ??F) 12/01/2024 10:[address] Respiratory Rate 18 12/01/2024 11:54 AM STEM SI[facility]ER Oxygen Saturation 97% 12/01/2024 11:54 AM STEM SI[facility]ER Inhaled Oxygen Concentration - - Weight 101.6 kg (224 lb) 12/01/2024 9:50 AM STEM SIZER Height 154.9 cm (5' 1 ) 12/01/2024 9:54 AM [facility] SI[facility]ER Body Mass Index 42.32 12/01/2024 9:50 AM STEM SIZER Plan of Treatment Upcoming Encounters Date Type Department Care Team (Latest Contact Info) Description 03/31/2025 9:43 AM CDT Hospital Encounter [facility] [address] [place] [address] Maternal Medicine Health Maintenance Due Date Last Done Comments PAP SMEAR 1998 HIV SCREENING 2013 HPV VACCINE (1 - 3-dose series) 2013 HEPATITIS C SCREENING 07/13/2016 DTAP/TDAP/TD VACCINES (1 - Tdap) 2017 HEPATITIS B VACCINE (1 of 3 - 19+ 3-dose series) 2017 COVID-19 VACCINE (2 - 2023-2 5 season) 2024 10/13/2021 INFLUENZA VACCINE (#1) 2024 OB-ONE HOUR GLUCOSE 11/04/2024 OB-TDAP CURRENT 11/11/2024 OB-RHOGAM INJECTION 11/18/2024 DEPRESSION SCREENING 12/02/2024 Respiratory Syncytial Virus (RSV) Vaccine Pt: or over 60 yrs (1 - Risk 1-dose series) 12/16/2024 ZOSTER VACCINE (1 of 2) 2048 HIB VACCINE Aged Out No longer eligi ble based on patient's age to complete this topic MENINGOCOCCAL VACCINE Aged Out No lobo gustavo eligible based on patient's age to complete this topic PNEUMOCOCCAL VACCINE Aged Out No long er eligible based on patient's age to complete this topic Procedures Procedure Name Priority Date/Time Associated Diagnosis Comments NONSTRESS TEST Routine 12/01/2024 12:56 PM [facility]ER COMPREHENSIVE METABOLIC PANEL STAT 12/01/2024 11:05 AM [facility]ER Supervision of high risk in third trimester (HCC) CBC W AUTO DIFFERENTIAL STAT 12/01/2024 11:05 AM STEM SI[facility]ER Supervision of high risk in third trimester (HCC) XR CHEST 2VW STAT 12/01/2024 10:56 AM STEM SIZER Supervision of high risk in third trimester (HCC) SARS-COV-2 (COVID-19) FLU A/B RSV PCR RAPID STAT 12/01/2024 10:17 AM STEM SI[facility]ER Supervision of high risk in third trimester (HCC) from Last 3 Months Results * NONSTRESS TEST (12/01/2024 12:56 PM STEM SIZER) Narrative Aaron Florentino MD - 12/01/2024 12:56 PM STEM SIZER Ginette Young MD ? 12/01/2024 ??1:09 PM Name: ??Manuela Ward Date of : ??2000 Today's Date: ??12/01/2024 29w6d ?NST RESULTS (CRAIG) OBJECTIVE FINDINGS Temp: 98.2 ??F (36.8 ??C), Pulse: 85, Resp: 18, BP: 121/60 NST Indication(s): Other (Comment) (wheezing) Uterine Irritability: Yes Contractions: Not present OBJECTIVE FINDINGS Movement: Present Monitoring Mode: External Baseline: 130 BPM Variability: Moderate Decelerations: None Accelerations: Yes OTHER INFORMATION Nicole Epstein RN Non-Stress Test [facility] Patient Name: Manuela Ward LMP: Patient's last menstrual period was 05/06/2024. Gestational Age: 29w6d as of 12/01/2024 Estimated Date of Delivery: 02/10/25 Indications: cough NST date: 12/01/2024 NST duration: >20 mins Interpretation: Baseline: ??130 beats/minute moderate variability Reactive Contractions: ??none Decelerations: ??none Impression and Plan: FWB reassuring, continue monitoring as scheduled. Ginette Young MD 12/01/2024 1:08 PM Aaron Florentino MD OB GYNE ORDERABLES * (ABNORMAL) CBC W AUTO DIFFERENTIAL (12/01/2024 11:05 AM STEM SIZER) WBC 9.8 4.0 - 10.7 x10E9/L 12/01/2024 11:16 AM STEM SIZER [facility] RBC Count 3.55(L) 3.90 - 5.20 x10E12/L 12/01/2024 11:16 AM [facility] Hemoglobin 10.4(L) 11.9 - 15.8 g/dL 12/01/2024 11:16 AM [facility] Hematocrit 30.9(L) 34.8 - 46.1 % 12/01/2024 11:16 AM [facility] MCV 87.0 80.0 - 98.0 fL 12/01/2024 11:16 AM [facility] MCH 29.3 26.7 - 33.6 pg 12/01/2024 11:16 AM [facility] MCHC 33.7 31.7 - 36.3 g/dL 12/01/2024 11:16 AM [facility] RDW-CV 13.2 11.3 - 14.8 % 12/01/2024 11:16 AM [facility] Platelet Count 181 150 - 420 x10E9/L 12/01/2024 11:16 AM [facility] MPV 10.3 7.8 - 11.4 fL 12/01/2024 11:16 AM [facility] Neutrophil % 74.8(H) 41.0 - 74.0 % 12/01/2024 11:16 AM [facility] Lymphocyte % 18.8 17.0 - 47.0 % 12/01/2024 11:16 AM [facility] Monocyte % 6.0 3.0 - 11.0 % 12/01/2024 11:16 AM [facility] Eosinophil % 0.0 0.0 - 7.0 % 12/01/2024 11:16 AM [facility] Basophil % 0.1 0.0 - 1.6 % 12/01/2024 11:16 AM [facility] Immature Granulocytes % 0.3 0.0 - 1.0 % 12/01/2024 11:16 AM [facility] Neutrophil Absolute 7.36 1.60 - 7.50 x10E9/L 12/01/2024 11:16 AM [facility] Lymphocyte Absolute 1.85 1.00 - 4.40 x10E9/L 12/01/2024 11:16 AM [facility] Monocyte Absolute 0.59 0.15 - 1.00 x10E9/L 12/01/2024 11:16 AM [facility] Eosinophil Absolute 0.00 0.00 - 0.60 x10E9/L 12/01/2024 11:16 AM [facility] Basophil Absolute 0.01 0.00 - 0.13 x10E9/L 12/01/2024 11:16 AM [facility] Blood BLOOD SPECIMEN / Unknown Venipuncture / Unknown 12/01/2024 11:05 AM [facility]ER 12/01/2024 11:13 AM [facility] Aaron Florentino MD LAB - HEMATOLOGY ORD ERABLES [facility] [address] [place] [address] * (ABNORMAL) COMPREHENSIVE METABOLIC PANEL (12/01/2024 11:05 AM [facility]) [facility] Glucose 95 70 - 99 mg/dL 12/01/2024 12:02 PM [facility] Sodium 136 136 - 145 mmol/L 12/01/2024 12:02 PM [facility] Potassium 3.4(L) 3.5 - 5.1 mmol/L 12/01/2024 12:02 PM [facility] Chloride 108(H) 98 - 107 mmol/L 12/01/2024 12:02 PM [facility] CO2 22 22 - 29 mmol/L 12/01/2024 12:02 PM [facility] Calcium 8.5 8.4 - 10.4 mg/dL 12/01/2024 12:02 PM [facility] Anion Gap 6 6 - 16 mmol/L 12/01/2024 12:02 PM [facility] BUN 5(L) 5.3 - 18.7 mg/dL 12/01/2024 12:02 PM [facility] Creatinine 0.63 0.57 - 1.11 mg/dL 12/01/2024 12:02 PM [facility] Alkaline Phosphatase 93 40 - 150 U/L 12/01/2024 12:02 PM [facility] ALT <6 0 - 55 U/L 12/01/2024 12:02 PM [facility] AST 11 5 - 34 U/L 12/01/2024 12:02 PM [facility] Protein Total 6.2(L) 6.4 - 8.3 gm/dL 12/01/2024 12:02 PM [facility] Albumin 2.6(L) 3.4 - 5.0 gm/dL 12/01/2024 12:02 PM [facility] Bilirubin Total 0.5 0.2 - 1.2 mg/dL 12/01/2024 12:02 PM [facility] eGFR by CKD-EPI >90 >=90 mL/min/1.7 3 m2 12/01/2024 12:02 PM [facility] Blood BLOOD SPECIMEN / Unknown Venipuncture / Unknown 12/01/2024 11:05 AM [facility] 12/01/2024 11:13 AM [facility] Aaron Florentino MD LAB - CHEMISTRY ASHLEIGH WAGNER [facility] Organization Address City/State/ZIP Co de Phone Number [facility] [address] [place] [address] * XR Chest 2Vw (12/01/2024 10:56 AM STEM SI[facility]ER) Anatomical Region Laterality Modality Chest Radiographic Daphney ging 12/01/2024 11:0 9 AM [facility]ER Impressions 12/01/2024 11:09 AM [facility]ER IMPRESSION: Normal > Interpreting Provider: Chula Kiser MD on 12/01/2024 11:09 AM Narrative 12/01/2024 11:09 AM [facility]ER PROCEDURE: ??XR CHEST 2VW DATE/TIME OF EXAM: ??12/01/2024 10:56 AM CLINICAL INFORMATION: None relevant/not provided if blank. Indication: O09.93: Supervision of high risk , unspecified, third trimester (HCC) Additional History: COMPARISON: None. FINDINGS: The lungs are clear and free of effusion. ??The heart, mediastinum and bony thorax are normal. Procedure Note Chula Kiser MD - 12/01/2024 PROCEDURE: XR CHEST 2VW DATE/TIME OF EXAM: 12/01/2024 10:56 AM CLINICAL INFORMATION: None relevant/not provided if blank. Indication: O09.93: Supervision of high risk , unspecified,third trimester (HCC) Additional History: COMPARISON: None. FINDINGS: The lungs are clear and free of effusion. The heart, mediastinum andbony thorax are normal. IMPRESSION: Normal > Interpreting Provider: Chula Kiser MD on 12/01/2024 11:09 AM Aaron Florentino MD DIAGNOSTIC IMAGING O RDERABLES * SARS-COV-2 (COVID-19) FLU A/B RSV PCR RAPID (12/01/2024 10:17 AM STEM SIZER) COVID-19 PCR Not detected Not detected 12/01/20 11:25 AM [facility] SI[facility]ER [facility] Influenza A PCR Not detected Not detected 12/01/2024 11:25 AM [facility]ER [facility] Influenza B PCR Not detected Not detected 12/01/2024 11:25 AM [facility]ER [facility] RSV PCR Not detected Not detected 12/01/2024 11:25 AM [facility] Microbiology SPECIMEN FROM NASOPHARYNGEAL STRUCTURE / Unknown Collection / Unknown 12/01/2024 10:17 AM STEM [facility]ER 12/01/2024 10:36 AM [facility]ER Narrative [facility] - 12/01/2024 11:25 AM STEM [facility]ER This nucleic acid amplification assay has been authorized by the Food and Drug administration (FDA) under an Emergency??Use Authorization (EUA).?? This test is only authorized for the duration of time the declaration that circumstances exist justifying the authorization of emergency use of in vitro diagnostic tests for detection of SARS-CoV-2 virus and/or diagnosis of COVID-19 infection under section 564(b)(1) of the Act, 21 U.S.C 360bbb-3 (b)(1), unless the authorization is terminated or revoked sooner. Fact Sheets for this EUA assay are available upon request. Aaron Florentino MD LAB - MICROBIOLOGY O RDERABLES [facility] [address] [place] [address] from Last 3 Months Care Teams Lining Brusher Relationship Specialty Start Date End Date Oseas Ruiz APRN-FRYLINE ATTENDANT [address] [place] [phone] PCP - Attributed-[employer] Medicaid [place] 06/01/24
--- OUTSIDE RECORDS SUMMARY | 2024-12-08 02:21 | XMS_ITS | Encounter Summary ---
Author Organization [facility] Address [address] [place] [address] Care Team Providers Care Millwright Name Role Phone Oseas Ruiz Unavailable [phone] Reason for Visit * Reason Onset Date Comments No Show 06/05/2022 Accidentally ope sonu chart; no record found Encounter Details Date Type Department Care Team (Late st Contact Info) Description 06/05/2022 Telephone [facility] [id number] [place] [address] Oseas Ruiz APRN-CNP [address] [place] [phone] No Show (Accidentally opened chart; no record found) Social History Tobacco Use Types Packs/Day Years Used Date Smoking Tobacco: Never Assessed Sex and Gender Information Value Date Recorded Sex Assigned at Not on file Gender Identity Not on file Sexual Orientation Not on file documented as of this encounter Plan of Treatment Upcoming Encounters Date Type Department Care Team (Latest Contact Info) Description 03/31/2025 9:43 AM CDT Hospital Encounter [facility] [address] [place] [address] Maternal Medicine documented as of this encounter Visit Diagnoses Not on filedocumented in this encounter Care Teams Millwright Relationship Specialty Start Date End Date Oseas Ruiz APRN-CNP [address] [place] [phone] PCP - Attributed-[employer] Medicaid [place] 01/02/22 05/19/24 documented as of this encounter
--- OUTSIDE RECORDS SUMMARY | 2024-12-08 02:21 | XMS_ITS | Patient Health Record ---
Author Organization [facility] Address [address] [place] [address] Care Team Providers Care Bilingual Sales Assistant Name Role Phone Sahni, Chito Primary Care Provider Unavail able Asia Jurado Unavailable [phone] [facility], Provider Unavailable Unavailab le Allergies No Known Allergies Reason For Referral No Information Medications Medication SIG (Take, Route, Fr equency, Duration) Notes Start Date End Date Status LEXAPRO 10 mg 1 tab(s) orally once a day for 30 day(s) Active BUSPIRONE 7.5 mg 1 tab(s) orally 2 ti mes a day for 30 day(s) Active NIFEdipine ER 60 MG 1 tab(s) orally once a day for 30 day(s) Active NIFEDIPINE 60 mg 1 tab(s) orally once a day for 30 day(s) Active busPIRone HCl 7.5 MG 1 tab(s) orally 2 t imes a day for 30 day(s) Active Lexapro 10 MG 1 tab(s) orally once a day for 30 day(s) Active Social History Tobacco Use: Social History Observation Description Date Details (start date - stop date) Unknown Smoking Smart Form: Question Answer Notes Are you a: Uses tobacco in other forms Problems Problem Type SNOMED Code ICD Code Onset Dates Problem Status W/U Status Risk Notes Problem Chronic allergic conjunctivitis (53815059) Other chronic allergic conjunctivitis (H10.45) Active confirmed Problem Allergic rhinitis caused by pollen (disorder) (77218397) Allergic rhinitis due to pollen (J30.1) Active confirmed Problem Allergic rhinitis (89727073) Other allergic rhinitis (J30.89) Active confirmed Problem Uncomplicated mild persistent asthma (638842182) Mild persistent asthma, uncomplicated (J45.30) Active confirmed Problem Urticaria (23539998) Urticaria, unspecified (L50.9) Active confirmed Encounters Encounter Location Date Provider Diagnosis [address] [place] [phone] 05/16/2024 Provider [facility]Migration Plan Of Treatment Pending Test Test Name Order Date COMPREHENSIVE METABOLIC PANEL 06/12/2023 TRYPTASE 06/12/2023 TSH W/REFLEX TO FT4 06/12/2023 CBC (INCLUDES DIFF/PLT) 06/12/2023 SED RATE BY MODIFIED NENAREN 06/12/20 23 Insurance Providers Payer Name Payer Address Payer Phone Subscriber Number Group Number Insured Name Patient Relationship to Insured Coverage Start Date Coverage End Date [facility] [id number] [place] [address] [phone] [id number] 2003 franny Anglin Child - Insured has Financial Responsibility Medical (General) History Medical History History ICD Code depression Anxiety Hypertension Hidradenitis suppurativa L73.2 Surgical History Surgery Date(Month/Year) Emergency cesarian 02/05/2023
--- OUTSIDE RECORDS SUMMARY | 2024-12-08 02:21 | XMS_ITS | Continuity of Care Document ---
Author Organization [facility] [employer] , [facility] Address [address] [place] [address] Assessment No assessment recorded. Plan of Treatment Reminders Order Date Submit Date Provider Last Modified By Organization Details Last Modified Time Details Appointments OB RETURN EST 2024 09:00A M VLADIMIR CAMPBELL, DO Not available Not available Not available OB RETURN EST 2024 10:15A M Pamela Hickey MD Not available Not available Not available Lab pregnanc y test, urine 2023 024 [email or web address] [facility], [facility] [place], [address], 11/08/2024 20:34:52 Referral None recorded . Procedures None recorded . Surgeries None recorded . Imaging US, obstetri c, 2nd trimeste r 2023 024 ALLIE Not available 11/07/2024 18:21:41 US, obstetri c, transvag inal 2023 024 [email or web address] Not available 11/12/2024 18:10:42 Medication Orders None recorded . Patient TargetsNo targets recorded. Patient InstructionsNo instructions recorded. Reason for Referral None Reported. Results Created Date Observation Date Name Description Value Unit Range Abnormal Flag Note LastModifiedBy Organization Detail LastModifiedTime 11/05/20 24 11/05/2024 pregn charlee test, urine HCG positi ve Not Available [facility] [address] [place], [address], 11/05/2024 16:50:15 11/07/20 24 11/05/2024 US, obste tric, 2nd trime ster No observ ation record ed. anthony Vickers [address], [place], [address], 12/01/2024 09:44:52 11/20/20 24 11/18/2024 US, obste tric, limit ed No observ ation record ed. anthony Vickers [address], [place], [address], 12/01/2024 09:45:21 Result Notes None recorded. Problems Name Problem SNOMED Code Status Onset Date Resolution Date Notes Provider Name and Address Organization Details Recorded Time [id number] Active 2023 [facility], [place] 16:01:46 Deliveries by [id number] Active Desires repeat section with tubal at [facility] [address] [place], [id number] [place], [address], [facility] [employer] [place] 20:29:48 Problem Notes None recorded. Procedures Surgical History Date Name Laterality Status Provider Name and Address Organization Details Recorded Time section completed Hannah Dinero [place] 11/05/2024 15:47:12 Imaging Results Imaging Date Name Status LastModified by Organiz ation Details LastModified Time 11/05/2024 US, obstetric, 2nd trimester completed anthony Vickers [address], [place], [address], 12/01/2024 09:44:52 Procedure Notes None recorded. Medical Equipment None [...] and Address Organization Details Last Updated DateTime 154.94 cm 41 kg/m2 37293.2 6 g 97.9 [degF] 98 mm[Hg] 56 mm[Hg] Hannahsophia Dinero [place] 15:50:04 Social History Question Answer Notes LastModified by Organizat ion Details LastModified Time Tobacco Smoking Status Never Smoker Hannahgalileo rosario, [place] 11/05/2024 15:46:43 What Is Your Level [...] SNOMED-CT Code Diagnosis ICD10 Code Diagnosis Note [id number] FRANCESCA [facility] [address] [place] [address] 11/05/2024 14:20:39 11/05/2024 17:45:49 screening for malformation 643178209 Z36.3 screening 2437 06629 Z36.86 Gestation period, 26 weeks 22674665 Z3A.26 15271734 O34.2 19 High risk 4720 0007 O09.892 Pt comes in today for a First OB visit. Pt was previous seen at [facility] in [place]. Has requested records to be sent from [facility]. Gestation: 26w 1dEDD: 02/10/2025 -- PMH: Depression [...] 2 weeks, plan 3T labs and GTT. Health Concerns Section Related Observation LastModified by Organization Detai ls LastModified Time None Recorded Concern Status LastModified by Organization Details LastModified Time None Recorded Payers Encounter Date Sequence Insurance Name Policy Number Policy Reed Covered Member ID Reed Member ID Guarantor Name 11/05/2024 1 [facility] (MEDICAID REPLACEMENT - HMO) [id number] Manuela Ward [id number] Manuela Ward Notes Date Note Type [...] cramps, nausea, vomiting, headache or visual disturbances. S[place]ON [place], FRANCESCA [address] [facility], [place], [address], [facility] 11/08/2024 20:58:53 OBGyn Episode Ob Episode Information Episode Created Date Number of Fetuses Patient Bloodtype Patient rh Status Prepregnancy Weight lbs Domestic Partner Domestic Partner Phone Father Name Doll Wigs Hackler Status 11/05/20 24 1 A Positive OPEN Fetus Data First Name Last Name Admitted to NICU Weight (g) Sex Living Outcome Pediatric Complications Fetus ID Race Codes Race Delivery Type [id number] Problems Problem Notes Problem Name Start Date End Date Resolution Snomed Code Not e Deliveries by Desires repeat section with tubal at [facility] Jose Alejandro Calculation Initial Jose Alejandro [...] Weight in lbs Pre/Post Dialysis Refused Stated 217.218421100447 BP Diastolic BP Location Tested BP Systolic BP Type 56 98 sitting Fetus Heart Rate Present A 153 Fetus Movement A Yes Comments Transfer of Care from [facility]- Anatomy incomplete- will repeat at next visit, requested records from [facility], delivery 02/05/23 emergent for placental abruption. [...] in lbs Pre/Post Dialysis Refused With clothes 221.486984715050 BP Diastolic BP Location Tested BP Systolic BP Type 52 100 sitting Fetus Heart Rate Present A 139 Fetus Movement A Yes Comments No OB complaints. NOB, GTT, and 3T labs today. Anatomy complete. Tubal consent signed, desires repeat c/s at [facility]. Hx of asthma wheezing and SOB- using albuterol not helping, rx for pulmicort. RTC in 2 weeks. Flowsheet Date 12/01/2024 Bailey Score Blood Edema Fundus Height Fundus Units Glucose Ketones Leukocytes Nitrite Labor Signs Protein Cervic Dilation Cervic Effacement Cervic Station trace none Other (see comments ) neg Type Weight in lbs Pre/Post Dialysis Refused With clothes 225.676032610600 BP Diastolic BP Location Tested BP Systolic BP Type 60 110 sitting Fetus Heart Rate Present A 149 Fetus Movement A Yes Comments C/O cough, SOB and chest kendra n. Was seen in [place] ER night prior and they told her she had pneumonia, but could not treat her. They d/c her home. Patient states that insurance denied her pulmicort and she is feeling very SOB. Hx of mild persistent Asthma. Bilateral lower lobes diminished sound, inspiratory crackles, expiratory rhonci. SpO2 95%, pulse 96. Denies any fevers. Spoke with Dr. Magaña and recommends sending patient to [facility] in [place] for further evaluation. Dr. Magaña spoke with [...]
--- OUTSIDE RECORDS SUMMARY | 2024-12-08 02:21 | XMS_ITS ---
Author Organization [facility] Address [address] [place] [address] Care Team Providers Care Election Watcher Name Role Phone Chito Sahni Primary Care Provider Unavail able Asia Jurado Unavailable [phone] Allergies No Known Allergies Results Component Value Reference Range Notes Spirometry Reviewed date: Interpretation: Performing Lab: Notes/Report: 0 SpiroPreBronchodilator_FVC 3.74 SpiroPreBronchodilator_FEV1 2.95 SpiroPreBronchodilator_FEV1_OVER_FVC 78.69 SpiroPreBronchodilator_PEF 4.87 SpiroPostBronchodilator_FVC 0 SpiroPostBronchodilator_FEV1 0 SpiroPostBronchodilator_FEV1_OVER_FVC 0 SpiroPostBronchodilator_PEF 0 SpiroPredicted_FVC 0 SpiroPredicted_FEV1 0 SpiroPredicted_FEV1_OVER_FVC 0 SpiroPredicted_PEF 0 REASON FOR VISIT Chronic urticaria, Chronic lower airway symptoms concerning for possible asthma Medications Medication SIG (Take, Route, Fr equency, Duration) Notes Start Date End Date Status LEXAPRO 10 mg 1 tab(s) orally once a day for 30 day(s) Active BUSPIRONE 7.5 mg 1 tab(s) orally 2 ti mes a day for 30 day(s) Active NIFEDIPINE [...] Problem Status W/U Status Risk Notes Problem Allergic rhinitis caused by pollen (disorder) (27721048) Allergic rhinitis due to pollen (J30.1) Active confirmed Problem Allergic rhinitis (77076828) Other allergic rhinitis (J30.89) Active confirmed Problem Chronic allergic conjunctivitis (38866211) Other chronic allergic conjunctivitis (H10.45) Active confirmed Problem Uncomplicated mild persistent asthma (987571024) Mild persistent asthma, uncomplicated (J45.30) Active confirmed Problem Urticaria (97195019) Urticaria, unspecified (L50.9) Active confirmed Vital Signs Blood pressure systolic 122 mm Hg 06/12/20 23 Blood pressure diastolic 80 mm Hg 023 Respiratory Rate 18 /min 06/12/2023 Height 62 in 06/12/2023 Weight 219 lbs 06/12/2023 BMI 40.05 kg/m2 06/12/2023 Oximetry 98 % 06/12/2023 Encounters Encounter Location Date Provider Diagnosis [facility] [address] [place] [address] [address] [place] [address] 06/12/2023 Asia Jurado Allergic rhinitis du e to pollen J30.1 ; Urticaria, unspecified L50.9 ; Mild persistent asthma, uncomplicated J45.30 ; Other allergic rhinitis J30.89 and Other chronic allergic conjunctivitis H10.45 Assessments Encounter Date Diagnosis (ICD Code) Assessment Notes Treatment Notes Treatment Clinical Notes Section Notes 06/12/2023 Allergic rhinitis due to pollen (ICD-10 - J30.1) Given the history and symptoms, skin testing was performed to common aeroallergens to determine atopic status. Manuela clearly suffers from atopic disease based upon our skin testing and clinical history. Accordingly, we have introduced a new, aggressive medication regimen, discussed nasal washes and allergy-specific avoidance measures. 06/12/2023 Urticaria, unspecified (ICD-10 - L50.9) Considerations for hives include autoimmune, viral, stress, or idiopathic. Plan to order labwork for further evaluation. Start treatment with Zyrtec 10 mg BID, Famotidine 40 mg BID. Follow-up in 1 month. A copy of today's consult was sent to the requesting physician. 06/12/2023 Mild persistent asthma, uncomplicated (ICD-10 - J45.30) technical difficulties today performing spirometry and will need to repeat at her next visit. Recommend continuing prn albuterol. She does not take Symbicort, but prescribed by PCP earlier this year. 06/12/2023 Other allergic rhinitis (ICD-10 - J30.89) 06/12/2023 Other chronic allergic conjunctivitis (ICD-10 - H10.45) Given ocular signs and symptoms I encouraged allergy avoidance measures and meds as above. If symptoms persist, consider adding additional medications including intraocular antihistamine/mast cell stabilizer, PRN 06/12/2023 Other Plan Of Treatment Treatment Notes Assessment Notes Allergic rhinitis due to pollen Given e history and symptoms, skin testing was performed to common aeroallergens to determine atopic status. Manueal clearly suffers from atopic disease based upon our skin testing and clinical history. Accordingly, we have introduced a new, aggressive medication regimen, discussed nasal washes and allergy-specific avoidance measures. Urticaria, unspecified Considerations fo r hives include autoimmune, viral, stress, or idiopathic. Plan to order labwork for further evaluation. Start treatment with Zyrtec 10 mg BID, Famotidine 40 mg BID. Follow-up in 1 month. A copy of today's consult was sent to the requesting physician. Mild persistent asthma, uncomplicated te chnical difficulties today performing spirometry and will need to repeat at her next visit. Recommend continuing prn albuterol. She does not take Symbicort, but prescribed by PCP earlier this year. Other chronic allergic conjunctivitis Gi wilma ocular signs and symptoms I encouraged allergy avoidance measures and meds as above. If symptoms persist, consider adding additional medications including intraocular antihistamine/mast cell stabilizer, PRN Pending Test Test Name Order Date COMPREHENSIVE METABOLIC PANEL 06/12/2023 TRYPTASE 06/12/2023 TSH W/REFLEX TO FT4 06/12/2023 CBC (INCLUDES DIFF/PLT) 06/12/2023 SED RATE BY MODIFIED NENAREN 06/12/20 23 Next Appt Details Follow Up: 4 Weeks, Reason: Spirometry/Flow Volume Loop Procedure Notes * Category Sub-Category Detail Notes Skin Testing Epicutaneous skin testing was performed to common aeroallergens, revealing positive reactions to, cedar, oak (mix), , oak (red), oak (white), bee, kochia, lambs quarter, dust mite (f), dust mite (p), positive and negative controls responded appropriately Number of Skin Tests Performed (including contro ls): Total (Epicutaneous): 72 Progress Notes * Aurora WHITTINGTONhDOB:2000 (22 yo F)Acc No.[id number]:06/12/2023 Progress Notes Patient:Manuela Aceves Provider:?Asia Jurado MD :2000???Age:22 Y???Sex:Female D ate:06/12/2023 Address:[address] [place], [place] [id number] Pcp:Chito Sahni Subjective: * Chief Complaints: * ???Chronic urticariaChronic lower airway symptoms concerning for possible asthma * HPI: ???*Introduction:?I had the pleasure of seeing?Stacey Whittington, a 22 year old with asthma, anxiety, HTN and chronic urticaria presenting for evaluation of hives. She is alone for today's visit. She was referred by Dr. Sahni and records were reviewed. ?She reports recurrent hives for about 7 years. She has photos which show erythematous, raised areas ranging from a few millimeters to several centimeters in size. She also has dermatographism. She has not been able to see patterns. Recently hives have been occurring on a daily basis. She sometimes has months without hives. Hot showers flare her hives. Pressure applied to her skin also flares hives. She takes Benadryl on a prn basis about once a day. Benadryl improves hives for 2 days and hives return. She has taken Zyrtec and Modesta in the past on a daily basis without improvement. She has also tried Pepcid in the past. No prior evaluation for hives. ?She was diagnosed with asthma in childhood. Asthma flares with exercise. She was prescribed Symbicort, but does not use. She was hospitalized with asthma a child. 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 She reports some rhinitis around?dust. ?She has never undergone allergy skin testing or received allergy immunotherapy. ?She denies a history of physician-diagnosed allergic rhinitis, recurrent sinusitis or otitis media, recurrent pneumonia, asthma/RAD, eczema, food allergies, medication allergies, contact dermatitis, latex allergy, eosinophilic esophagitis or stinging insect hypersensitivity.?Asthma follow-up:?Asthma Control Test (Adult - Age 12 and older)?In the past 4 weeks, how much of the time did your asthma keep you from getting as much done at work, school or at home??None of the time (5) ?During the past 4 weeks, how often have you had shortness of breath??A little of the time (4) ?During the past 4 weeks, how often did your asthma symptoms (wheezing, coughing, shortness of breath, chest tightness or pain) wake you up at night or earlier than usual in the morning??Not at all (5) ?During the past 4 weeks, how often have you used your rescue inhaler or nebulizer medication (such as albuterol)??Not at all (5) ?How would you rate your asthma control during the past 4 weeks??Completely controlled (5) ?Total Score: (minimum = 5, maximum = 25; Sum of all 5 questions above))?24 ???*Allergic Rhinoconjunctivitis:?Allergic rhinitis?Do you have or suspect you have allergic rhinitis (itchy eyes, sneezing, congestion or runny nose triggered by allergies)??No ???*Asthma:?Wheezing?Do you have recurrent wheezing or a history of wheezing sometime in your life??Yes ?Approximately, when did it start??07/2000 ?Approximately, when did you last wheeze??07/2010 ?Did you have symptoms of asthma as a child??Yes ?Did you have frequent respiratory infections as a child??No ?Were you ever hospitalized in the first 12 months of life for a respiratory infection in childhood??No ?Do you still have wheezing??No ?List months when wheezing is worse:?January,March,April,August,September,October ?What triggers your wheezing??exercise,tree pollen,bronchitis,weather changes,cigarette smoke,occupational exposures,cleansers,car or truck exhaust,mold,damp or musty areas,spring (season),fall (season) ?Do you take an inhaled, rescue bronchodilator medication??Yes ?Name:?Albuterol ?Is your bronchodilator used daily??No ?How often??less than once per month ?When was your last dose of an inhaled bronchodilator??more than 1 year ago ?Have you taken oral steroids (Prednisone or Medrol) in the past??Yes ?How many times throughout your entire life??10 ?How many times in the last year??0 ?Physical Performance?How many blocks can you walk? (Enter 99 for unlimited)?5 ?How many flights of stairs can you climb without stopping? (Enter 99 for unlimited)?4 ?Do you have any of the following additional problems??excessive daytime sleepiness,difficulty concentrating during the daytime,more irritability than in the past,problems with sexual performance ?Effective treatments for cough and or wheezing?Oral steroid:?Prednisone ???*Infections:?Vaccination History?Have you ever had a flu shot??Yes ?Have you ever had a pneumococcal vaccine (MFM-Dhrmeba-Askkslbtd)??Yes ?Have you ever had a tetanus vaccine (EHxg-Dxtg-Tm)??No ?Ear Infections?Do you have frequent ear infections??No ?Sinusitis (Sinus infections)?Do you have frequent episodes of sinusitis??No ?Sinus Symptoms and Surgery?Do you have chronic or recurrent sinus symptoms??No ?Do you have sinus pain??No ?Do you have a loss of sense of taste??No ?Have you used any of the following treatments for your sinuses??oral antihistamines,oral decongestants ?Which provided benefit??oral decongestants ?Have you ever had a sinus CT or X-Ray??No ?Have your ever undergone sinus surgery??No ?Bronchitis History?Do you get frequent bronchitis??No ?Pneumonia History?Have you ever had pneumonia or recurrent pneumonia??No ?Skin and Other Infections?Do you get frequent skin infections (cellulitis)??No ?Do you get any other frequent infections??No ???*Other Rash and Contact Dermatitis:?Other rashes and contact dermatitis?Have you ever had any other form of rash or contact dermatitis??No ???*Atopic dermatitis:?Atopic dermatitis - Eczema?Do you have chronic or recurrent atopic dermatitis or eczema??No ???*Urticaria:?Urticaria (hives)?Do you have recurrent hives??Yes ?Approximately, when did your hives start??07/02/2016 ?How many weeks of symptoms have you had in your whole life? (adding up total days of symptoms throughout your whole life)?more than 6 weeks ?How frequently do you have hives outbreaks??several times a day ?How long do outbreaks last (whole rash)??minutes ?How long does one individual hive last? If you were to [place] one hive with a pen, how long would that area be affected??minutes ?What time(s) of day do your hives occur??any time (no predilection),6:00 AM - Noon,Noon - 6:00 PM,6:00 PM - bedtime ?Do trips away from home change the hives??worse ?Color of your hives??red,white,pink ?Body parts involved??arms,back,eyelids,face,legs,neck,hands,feet,palms,lips ?Typical size of hives??2-3 cm (quarter-sized),4-5 cm ?Description of hives??raised above the surrounding unaffected skin,poorly-defined border,develops or worsens after I rub my skin (e.g. appears if I stroke my skin) ?Symptoms of hives??itching,burning,swelling ?Perceived triggers or provocateurs of hives??cat,dog,dust mites,food,stress,temperature change (change to warm),additives,dyes,preservatives,nickel or other metals,latex or rubber,unknown ?Do any of the following physical stimuli initate or worsen your hives??sharp (scratching) pressure,sweating,dull pressure ?Do you get angioedema (deep swelling) with your hives? (angioedema is painful, not itchy and commonly lasts for days) - If yes fill out the Angioedema page in this questionnaire?no - never ?Do you use any of the following personal care products that contain fragrance, dyes or preservatives??conditioner,deodorant,perfume, cologne or aftershave,hair coloring dyes or rinses,other ?Do you regularly consume products with aspartame (Equal or NutraSweet)??No ?Do you ever take any of the following medications??Nonsteroids anti-inflammatories (NSAIDs like ibuprofen or Advil or Motrin or naproxen or Aleve),Blood pressure medications (CAMMIE-inhibitors like lisinopril or enalapril) ???*Medication allergy:?Medication Allergy?Do you feel you are allergic to any medications??No ?Have you been evaluated by an under baster previously for possible drug allergy??No ???*Stinging Insects:?Insect Reaction(s)?Have you ever experienced a stinging insect reaction??No ???*Prior Evaluations and Treatments:?Prior evaluations and treatments?Have you been evaluated by another physician for allergic rhinitis, cough, wheezing, asthma, urticaria, angioedema, atopic dermatitis or eczema??Yes ?What type(s) of of provider(s)??Primary care physician ?Have you undergone testing for any aforementioned conditions or symptoms??No ?Have you ever been on allergy immunotherapy??No ?Have you ever passed out during a blood draw, shot or vaccination??No ?Last dose of antihistamine:?diphenhydramine (Benadryl)?06/02/2023 ?Has your antihistamine been effective in controlling any of your symptoms??No ?Do you take any other psychiatric medication??No ???*Food allergy:?Food Allergy?Do you currently have or have you ever had any proven or suspected food allergies??No ???*Eosinophilic GI:?Eosinophilic Gastrointestinal Disease?Do you have difficulty swallowing foods or have you previously needed to have your esophagus dilated for food impaction or have you been diagnosed with eosinophilic gastrointestinal disease??No ???*Angioedema:?Angioedema (swelling)?Do you have recurrent swelling (angioedema)??No ???*Headache:?NADEGE-7 (Generalized Anxiety Disorder-7)?Over the last 2 weeks, how often have you felt nervous, anxious, or on edge??Nearly every day (3) ?Over the last 2 weeks, how often have you not been able to stop or control worrying??Nearly every day (3) ?Over the last 2 weeks how often have you been worrying too much about different things??Nearly every day (3) ?Over the last 2 weeks, how often have you had trouble relaxing??Nearly every day (3) ?Over the last 2 weeks, how often have you been so restless that it was hard to sit still??More than half the days (2) ?Over the last 2 weeks, how often have you become easily annoyed or irritated??Nearly every day (3) ?Over the last 2 weeks, how often have you felt afraid, as if something awful might happen??Nearly every day (3) ?Total score?20 * ROS:?ALLERGY:?Positive?per the HPI and history, otherwise unremarkable.?SPECIAL SENSES:?Positve for?none.?CONSTITUTIONAL:?fatigue?Yes.?night sweats?Yes.?Positive for?none.?ENT:?Positive?per the HPI and history, otherwise unremarkable.?RESPIRATORY:?Positive?per the HPI and history, otherwise unremakable.?OPHTHALMOLOGY:?Positive for?per the HPI and history, otherwise unremarkable.?ENDOCRINOLOGY:?Positive for?none.?CARDIOLOGY:?Positive for?none.?GASTROENTEROLOGY:?diarrhea?Yes.?Positive for?none.?UROLOGY:?Positive for?none.?DERMATOLOGY:?hives (urticaria)?Yes.?Positive for?per the HPI and history, otherwise unremakable.?NEUROLOGY:?tingling numbness?Yes.?Positive for?none.?HEMATOLOGY/LYMPH:?Positive for?none.?MUSCULOSKELETAL:?Positive for?none.?PSYCHOLOGY:?depression?Yes.?anxiety?Yes.?Positive for?none.?FEMALE REPRODUCTIVE:?hot flashes?Yes.?sexually active?Yes.?All other review of systems per the HPI and history, otherwise unremarkable. * Medical History:? * Surgical History:?Emergency cesarian 02/05/2023 * Hospitalization/Major Diagno stic Procedure:?Denies Past Hospitalization * Family History:?Father: javier hahn, diagnosed with Atopic asthma w/o mention of status asthmaticus or acute exacerbation.?Mother: alive.? Mom has hidradenitis supperativa. * Social History:?Caffeine: Yes. ???Marital Status?What is your marital status??single ???Alcohol Screening?Do you ever drink alcoholic beverages??Yes ?Number of drinks per occasion:?2 ?Frequency??Every 6 months ???Smoking?Have you ever smoked tobacco:?uses tobacco in other forms ?How old were you when you started using tobacco??16 ?Are you interested in quitting??No - not ready to quit ?How many times a day to you use tobacco products??2-3 times ???Smoking Smart Form?Are you a:?Uses tobacco in other forms ???Recreational drug use?Have you ever used recreational drugs??Yes ?What kind of drugs??marijuana ???Details on consumption of certain products?Do you regularly consume products with aspartame; Equal or NutraSweet??No ?Do you regularly consume products with artificial coloring??Yes ?Have you ever noticed worsening of your rash with these food items??No ???Exercise?What kind(s) of exercise do you perform regularly??age-appropriate participation in physical activites ?How often do you perform this exercise??less than once per year ???Are any of the following personal care products containing fragrance, dye or preservatives used regularly?Shampoo:?No ?Conditioner:?Yes ?Soap:?Yes ?Laundry Detergent:?Yes ?Fabric Softener:?No ?Deodorant:?Yes ?Perfume, cologne, after shave:?Yes ?Air freshners or other scented products:?Yes ?Hair coloring dyes or rinses:?Yes ?Other:?No ???Occupation?Are you currenly employed??Yes ?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 number of years?1 ?Do you believe that your current or previous occupation has any bearing on your illness??Yes ?Please describe the effect of your illness on your job?poor performance,decreased enjoyment ?Do you have any pending or planned legal action against your current or former employer which pertains to your medical illness??No ?Do you anticipate that your evaluation will be used in any legal action against your current employer or former employer??No ?Have you had any job with high exposure to fumes, chemicals, dust or other noxious substances??Yes ?Are you currently a student??No ???Environmental History?Living environment:?private home ?Where is the home located??suburb ?Age of home:?78 ?How long have you lived there??2-4 years ?How many people live in the home??4 ???Home description?Basement:?Yes ?Any water damage in basement??Yes ?Smokers in the home??No ?Smokers outside the home??No ?Air Conditioning??Yes ?Central Air??Yes ?Forced air heating??Yes ?Gas or electric??gas ?Fireplace??No ?Wood burning stove??No ?Do you vacuum the home??Yes ?Air purification systems??No ?Pillow and mattress dust-proof encasings??No ?Do you use a humidifier??Yes ?Whole house or room??room humidifier ?Does it have a humidistat??No ?Is it used year-round, seasonal, or as needed??as needed ?Is the humidifier cleaned regularly??Yes ?Do you own any pets??No ?Fabric softeners used??No ?Plants in the home??No ?Is there carpeting in your bedroom??Yes ?Age of carpet??2 ?Do you have sxeu-ht-ohho carpeting??Yes ?What is the age of your carpeting??2 ?What is the age of your mattress (years)??7 ?What material(s) are used to manufacture your bedding and pillow??synthetic ?What is the age of your pillow (years)??2 ?What material are your bedding items made of??synthetic,natural fiber (e.g. cotton) ?Do you sleep with quilts or blankets or a duvet??Yes ?What material??synthetic,natural fiber (e.g. cotton) * Medications:?TakingNIFEdipin e 60 mg tablet, extended release 1 tab(s) orally once a daybusPIRone 7.5 mg tablet 1 tab(s) orally 2 times a dayLexapro 10 mg tablet 1 tab(s) orally once a dayMedication List reviewed and reconciled with the patientTaking NIFEdipine 60 mg tablet, extended release 1 tab(s) orally once a dayTaking busPIRone 7.5 mg tablet 1 tab(s) orally 2 times a dayTaking Lexapro 10 mg tablet 1 tab(s) orally once a dayMedication List reviewed and reconciled with the patient * Allergies:?N.K.D.A.no[Allerg ies Verified] Objective: * Vitals:?BP:122/80, HR:76 /mi n, RR:18 /min, Pulse Oximetry:98 %, Ht:62 in, Wt:219 lbs, BMI:40.05 Index. * Examination: ???General examination: ?General appearance:?pleasant, well-developed, well-nourished .?HEENT:?conjunctiva are clear bilaterally, no tenderness to palpation of the sinuses, TM's without evidence of acute infection, turbinates with pink mucosa, clear rhinorrhea is present, no polyps noted, no septal perforation, posterior oropharynx is clear, no exudates, no tongue swelling, and uvula is midline.?Oral cavity:?normal, no lesions .?Neck, thyroid :?supple, non-tender, no anterior cervical lymphadenopathy .?Breasts :?not performed .?Heart:?RRR, S1-S2, no murmurs, no rubs, no gallops .?Lungs:?clear to auscultation and percussion in all lung mast, no wheezes or crackles .?Neurologic exam:?unremarkable .?Skin:?few hives present on right side of face.?Peripheral pulses:?normal (2+) bilaterally .?Back:?normal .?Extremities:?normal ROM, no clubbing, no cyanosis, no edema .?Genitalia:?not performed .? Assessment: * Assessment: 1.?Urticaria, unspecified - L50.9 (Primary)?2.?Allergic rhinitis due to pollen - J30.1?3.?Mild persistent asthma, uncomplicated - J45.30?4.?Other allergic rhinitis - J30.89?5.?Other chronic allergic conjunctivitis - H10.45? Plan: * Treatment: 2.?Allergic rhinitis due to pollen? Notes: Given the history and symptoms, skin testing was performed to common aeroallergens to determine atopic status. Manuela clearly suffers from atopic disease based upon our skin testing and clinical history. Accordingly, we have introduced a new, aggressive medication regimen, discussed nasal washes and allergy-specific avoidance measures.?? 3.?Mild persistent asthma, u ncomplicated? Notes: technical difficulties today performing spirometry and will need to repeat at her next visit. Recommend continuing prn albuterol. She does not take Symbicort, but prescribed by PCP earlier this year.?? 4.?Other chronic allergic co njunctivitis? Notes: Given ocular signs and symptoms I encouraged allergy avoidance measures and meds as above. If symptoms persist, consider adding additional medications including intraocular antihistamine/mast cell stabilizer, PRN.?? * Procedures:?Skin Testing:?Epicutaneous?skin testing was performed to common aeroallergens, revealing positive reactions to, cedar, oak (mix), , oak (red), oak (white), bee, kochia, lambs quarter, dust mite (f), dust mite (p), positive and negative controls responded appropriately.?Number of Skin Tests Performed (including controls): ?Total (Epicutaneous)?72? * Imaging:? * ?Imaging: Spirometry Attributes * ?06/12/2023 09:25:37 ? Value Reference Range ?SpiroPreBronchodilator_FVC 3.74 * ?SpiroPreBronchodilator_FEV1 2.95 * ?SpiroPreBronchodilator_FEV1_OVER_FVC 78.69 * ?SpiroPreBronchodilator_PEF 4.87 * Unable to perform automatic interpretation because: Predicted FEV1/FVC is not available or valid. * Procedure Codes:?49041 PRICK TESTS, Units: 72.00 57519 MEASURE BLOOD OXYGEN [id number] DOC MEDS VERIFIED W/PT OR RE * Preventive Medicine:? ??Counseling:?Medication instruction:?Watch for side effects of prescribed medications, Nasal steroid/antihistamine instruction: avoid septum.?Education:?GENERAL EDUCATION: Our staff spent an additional 30 minutes in direct contact with the patient educating them on their current diagnoses and proper treatment and prevention of symptoms and the proper use of medications.?Education 2:?ARC EDUCATION: Our staff discussed the appropriate allergen avoidance measures and medication utilization including upper airway hygiene with daily nasal washes given the patient's clinical status and diagnoses. SCIT EDUCATION: Discussed allergy immunotherapy including the relative risks, benefits and alternatives to this treatment as an adjunctive measure to current therapy, Allergy Immunotherapy: Risks: bleeding, infection, allergic reaction, anaphylaxis = severe allergic reaction that can cause ; Benefits: reduced need for medications, improved symptoms, disease modification. Alternatives: watch/wait, change medication regimen, improve allergy avoidance measures, Our staff discussed the warning signs of anaphylaxis and the indications to use self-injectable epinephrine and seek urgent or emergent care.?Patient education material?sent to portal??Yes * Follow Up:?4 Weeks (Reason: Spirometry/Flow Volume Loop) * Billing Information: * Visit Code:? 83937 Office Consultation Level 4. Modifiers: 25 * Procedure Codes:? 64564 PRICK TESTS. Units: 72.00. 44893 MEASURE BLOOD OXYGEN LEVEL. G8427 DOC MEDS VERIFIED W/PT OR RE. * Sign off status: Completed true * Provider:?Asia Jurado MD Date:?06/01 Generated for Rebeca daniel/Anthony/eTransmitting on:?12/08/2024 02:21 AM PRODUCT DEVELOPMENT ECOLOGIST History and Physical Notes * HPI (History of Present Illness) Category Sub-Category Detail Notes Category Not es *Introduction I had the pleasure o f seeing Stacey Whittington, a 22 year old with asthma, anxiety, HTN and chronic urticaria presenting for evaluation of hives. She is alone for today's visit. She was referred by Dr. Sahni and records were reviewed. She reports recurrent hives for about 7 years. She has photos which show erythematous, raised areas ranging from a few millimeters to several centimeters in size. She also has dermatographism. She has not been able to see patterns. Recently hives have been occurring on a daily basis. She sometimes has months without hives. Hot showers flare her hives. Pressure applied to her skin also flares hives. She takes Benadryl on a prn basis about once a day. Benadryl improves hives for 2 days and hives return. She has taken Zyrtec and Modesta in the past on a daily basis without improvement. She has also tried Pepcid in the past. No prior evaluation for hives. She was diagnosed with asthma in childhood. Asthma flares with exercise. She was prescribed Symbicort, but does not use. She was hospitalized with asthma a child. 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 No pets in her home. She reports some rhinitis around dust. She has never undergone allergy skin testing or received allergy immunotherapy. She denies a history of physician-diagnosed allergic rhinitis, recurrent sinusitis or otitis media, recurrent pneumonia, asthma/RAD, eczema, food allergies, medication allergies, contact dermatitis, latex allergy, eosinophilic esophagitis or stinging insect hypersensitivity Asthma follow-up Asthma Control Test (Adult - Age 12 and older) In the past 4 weeks, how much of the time did your asthma keep you from getting as much done at work, school or at home?: None of the time (5) During the past 4 weeks, how often have you had shortness of breath?: A little of the time (4) During the past 4 weeks, how often did your asthma symptoms (wheezing, coughing, shortness of breath, chest tightness or pain) wake you up at night or earlier than usual in the morning?: Not at all (5) During the past 4 weeks, how often have you used your rescue inhaler or nebulizer medication (such as albuterol)?: Not at all (5) How would you rate your asth ma control during the past 4 weeks?: Completely controlled (5) Total Score: (minimum = 5, maximum = 25; Sum of all 5 questions above)): 24 *Allergic Rhinoconjunctivitis Allergic rhinitis Do you have or suspect you have allergic rhinitis (itchy eyes, sneezing, congestion or runny nose triggered by allergies)?: No *Asthma Effective treatments for cough and or wheezing Oral steroid:: Prednisone Wheezing Do you have recurren t wheezing or a history of wheezing sometime in your life?: Yes ?Approximately, when did it start?: 07/03 ?Approximately, when did you last wheeze ?: 07/2010 Did you have symptoms of asthma as a chi ld?: Yes Did you have frequent respiratory infect ions as a child?: No Were you ever hospitalized i n the first 12 months of life for a respiratory infection in childhood?: No Do you still have wheezing?: No List months when wheezing is worse:: Jan,March,April,August,September,October What triggers your wheezing? : exercise,tree pollen,bronchitis,weather changes,cigarette smoke,occupational exposures,cleansers,car or truck exhaust,mold,damp or musty areas,spring (season),fall (season) Do you take an inhaled, rescue bronchodi lator medication?: Yes ?Name:: Albuterol ?Is your bronchodilator used daily?: No ??How often?: less than once per month ?When was your last dose of an inhaled b ronchodilator?: more than 1 year ago Have you taken oral steroids (Prednisone or Medrol) in the past?: Yes ?How many times throughout your entire l mary?: 10 ?How many times in the last year?: 0 Physical Performance How many blocks can you wal k? (Enter 99 for unlimited): 5 How many flights of stairs c an you climb without stopping? (Enter 99 for unlimited): 4 Do you have any of the follo wing additional problems?: excessive daytime sleepiness,difficulty concentrating during the daytime,more irritability than in the past,problems with sexual performance *Infections Vaccination History Have you ever had a flu sh ot?: Yes Have you ever had a pneumococcal vaccine (UJO-Muvoacn-Bsdrenykg)?: Yes Have you ever had a tetanus vaccine (DTa p-Tdap-Td)?: No Ear Infections Do you have frequent ear infecti ons?: No Sinusitis (Sinus infections) Do you have frequen t episodes of sinusitis?: No Sinus Symptoms and Surgery Do you have chronic o r recurrent sinus symptoms?: No Do you have sinus pain?: No Do you have a loss of sense of taste?: N o Have you used any of the fol lowing treatments for your sinuses?: oral antihistamines,oral decongestants Which provided benefit?: oral decongesta nts Have you ever had a sinus CT or X-Ray?: No Have your ever undergone sinus surgery?: No Bronchitis History Do you get frequent bronchiti s?: No Pneumonia History Have you ever had pneumonia or recurrent pneumonia?: No Skin and Other Infections Do you get frequent sk in infections (cellulitis)?: No Do you get any other frequent infections ?: No *Other Rash and Contact Dermatitis Other rashes and contact dermatitis Have you ever had any other form of rash or contact dermatitis?: No *Atopic dermatitis Atopic dermatitis - Eczema Do you have chronic or recurrent atopic dermatitis or eczema?: No *Urticaria Urticaria (hives) Do you have re current hives?: Yes ?Approximately, when did your hives star t?: 07/02/2016 ?How many weeks of symptoms have you had in your whole life? (adding up total days of symptoms throughout your whole life): more than 6 weeks ?How frequently do you have hives outbre aks?: several times a day ?How long do outbreaks last (whole rash) ?: minutes ?How long does one individua l hive last? If you were to [place] one hive with a pen, how long would that area be affected?: minutes ?What time(s) of day do your hives occur?: any time (no predilection),6:00 AM - Noon,Noon - 6:00 PM,6:00 PM - bedtime ?Do trips away from home change the hive s?: worse ?Color of your hives?: red,white,pink ?Body parts involved?: arms,back,eyelids ,face,legs,neck,hands,feet,palms,lips ?Typical size of hives?: 2-3 cm (quarter -sized),4-5 cm ?Description of hives?: rais ed above the surrounding unaffected skin,poorly-defined border,develops or worsens after I rub my skin (e.g. appears if I stroke my skin) ?Symptoms of hives?: itching,burning,swe lling ?Perceived triggers or provo cateurs of hives?: cat,dog,dust mites,food,stress,temperature change (change to warm),additives,dyes,preservatives,nickel or other metals,latex or rubber,unknown ?Do any of the following phy sical stimuli initate or worsen your hives?: sharp (scratching) pressure,sweating,dull pressure ?Do you get angioedema (deep swelling) with your hives? (angioedema is painful, not itchy and commonly lasts for days) - If yes fill out the Angioedema page in this questionnaire: no - never ?Do you use any of the follo wing personal care products that contain fragrance, dyes or preservatives?: conditioner,deodorant,perfume, cologne or aftershave,hair coloring dyes or rinses,other ?Do you regularly consume products with aspartame (Equal or NutraSweet)?: No ?Do you ever take any of the following medications?: Nonsteroids anti-inflammatories (NSAIDs like ibuprofen or Advil or Motrin or naproxen or Aleve),Blood pressure medications (CAMMIE-inhibitors like lisinopril or enalapril) *Medication allergy Medication Allergy Do you fe el you are allergic to any medications? : No Have you been evaluated by a n under baster previously for possible drug allergy?: No *Stinging Insects Insect Reaction(s) Have you ev er experienced a stinging insect reaction? : No *Prior Evaluations and Treatments Prior evaluations and treatments Have you been evaluated by another physician for allergic rhinitis, cough, wheezing, asthma, urticaria, angioedema, atopic dermatitis or eczema?: Yes ?What type(s) of of provider(s)?: Primar y care physician Have you undergone testing for any afore mentioned conditions or symptoms?: No Have you ever been on allergy immunother apy?: No Have you ever passed out during a blood draw, shot or vaccination?: No Last dose of antihistamine: diphenhydramine (Charles adryl): 06/02/2023 Has your antihistamine been effective in controlling any of your symptoms?: No Do you take any other psychiatric medica tion?: No *Food allergy Food Allergy Do you currently have or have you ever had any proven or suspected food allergies?: No *Eosinophilic GI Eosinophilic Gastroi ntestinal Disease Do you have difficulty swallowing foods or have you previously needed to have your esophagus dilated for food impaction or have you been diagnosed with eosinophilic gastrointestinal disease?: No *Angioedema Angioedema (swelling) Do you hav e recurrent swelling (angioedema)?: No *Headache NADEGE-7 (Generalized A nxiety Disorder-7) Over the last 2 weeks, how often have you felt nervous, anxious, or on edge?: Nearly every day (3) Over the last 2 weeks, how o ften have you not been able to stop or control worrying?: Nearly every day (3) Over the last 2 weeks how of ten have you been worrying too much about different things?: Nearly every day (3) Over the last 2 weeks, how o ften have you had trouble relaxing?: Nearly every day (3) Over the last 2 weeks, how o ften have you been so restless that it was hard to sit still?: More than half the days (2) Over the last 2 weeks, how o ften have you become easily annoyed or irritated?: Nearly every day (3) Over the last 2 weeks, how o ften have you felt afraid, as if something awful might happen?: Nearly every day (3) Total score: 20 Examination Category Sub-Category Detail Notes Category Not es General examination HEENT: conjunctiva are clear bilaterally, no tenderness to palpation of the sinuses, TM's without evidence of acute infection, turbinates with pink mucosa, clear rhinorrhea is present, no polyps noted, no septal perforation, posterior oropharynx is clear, no exudates, no tongue swelling, and uvula is midline Neck, thyroid : supple, non-tender, no anterior cervical lymphadenopathy Heart: RRR, S1-S2, no murmu rs, no rubs, no gallops Lungs: clear to auscultatio n and percussion in all lung mast, no wheezes or crackles Extremities: normal ROM, no clubb ing, no cyanosis, no edema General appearance: pleasant, well-devel oped, well-nourished Skin: few hives present on right side of face Neurologic exam: unremarkable Oral cavity: normal, no lesions Breasts : not performed Peripheral pulses: normal (2+) bilatera lly Back: normal Genitalia: not performed
--- OUTSIDE RECORDS SUMMARY | 2024-12-08 02:21 | XMS_ITS | Patient Health Summary ---
Author Organization [facility] Address [address] [place] [address] Care Team Providers Care Topographical Engineer Name Role Phone Oseas Ruiz APRN-IMPLEMENTATION SPECIALIST Unavailable [phone] Note from [facility],non-owned Affiliates and Associated Physician Practices is amultiple site organization consisting of ambulatory clinics and hospital sitesin [place], [place], [place] and [place]. This disclosure is being madepursuant to the Care Everywhere program and may not contain all information available regarding this patient. Last updated 18.[facility] Allergies No known active allergies Medications * Be aware that medications may not be up to date on this document. Alwaysverify current medications with the patient. * venlafaxine XR 24hr (Effexor XR) 150 MG capsule Take 1 (one) capsule by mouth daily with breakfast * venlafaxine XR 24hr (Effexor XR) 75 MG capsule Take 1 (one) capsule by mouth daily with breakfast * Vit-Fe Fumarate-FA ( vitamin) 28-0.8 MG tablet Take 1 (one) tablet by mouth once daily * ferrous gluconate 324 (38 Fe) MG tablet Take 1 (one) tablet by mouth once daily * albuterol HFA (Proventil; Ventolin; Proair) 108 (90 Base) MCG/ACT inhaler Inhale 2 (two) puffs by mouth every 6 hours as needed for Shortness of Breath * budesonide-formoterol (Symbicort) 80-4.5 MCG/ACT inhaler(Started 12/01/2024) Inhale 2 (two) puffs by mouth 2 times daily 2 refills by 12/01/2025 * benzonatate (Tessalon) 200 MG capsule(Started 12/01/2024) Take 1 (one) capsule by mouth 3 times daily as needed for Cough 1 refill by 12/01/2025 * albuterol HFA (ProAir HFA) 108 (90 Base) MCG/ACT inhaler(Started 12/01/2024) Inhale 2 (two) puffs by mouth every 4 hours as needed * famotidine (Pepcid) 20 MG tablet(Started 12/01/2024) Take 1 (one) tablet by mouth every 12 hours 2 refills by 12/01/2025 Active Problems Problem Noted Date Diagnosed Date Supervision of high risk in [facility] 12/01/2024 Social History Tobacco Use Types Packs/Day Years [...] and heating? Not hard at all 12/01/2024 [facility] - Occupational Stress [...] any time in the past 12 m [facility], were you homeless or living in a fdc (including now)? No 12/01/2024 Estimated Date of Delivery Comme nts Yes 02/10/2025 Based on Patient Reported Sex and Gender Information Value Date Recorded Sex Assigned at Not on file Gender Identity Not on file Sexual Orientation Not on file Last Filed Vital Signs Vital Sign Reading Time Taken Comments Blood Pressure 102/54 12/01/2024 12:59 PM [employer] Pulse 85 12/01/2024 10:24 AM [employer] Temperature 36.8 ??C (98.2 ??F) 12/01/2024 10:[address] Respiratory Rate 18 12/01/2024 11:54 AM [employer] Oxygen Saturation 97% 12/01/2024 11:54 AM [employer] Inhaled Oxygen Concentration - - Weight 101.6 kg (224 lb) 12/01/2024 9:50 AM [employer] Height 154.9 cm (5' 1 ) 12/01/2024 9:54 AM [employer] Body Mass Index 42.32 12/01/2024 9:50 AM [employer] Procedures * NONSTRESS TEST(Performed 12/01/2024) * COMPREHENSIVE METABOLIC PANEL(Performed 12/01/2024) Performed for Supervision of high risk in third trimester ([facility]) * CBC W AUTO DIFFERENTIAL(Performed 12/01/2024) Performed for Supervision of high risk in third trimester ([facility]) * XR CHEST 2VW(Performed 12/01/2024) Performed for Supervision of high risk in third trimester ([facility]) * SARS-COV-2 (COVID-19) FLU A/B RSV PCR RAPID(Performed 12/01/2024) Performed for Supervision of high risk in third trimester ([facility]) Results * NONSTRESS TEST (12/01/2024 12:56 PM [employer]) Narrative Aaron Florentino MD - 12/01/2024 12:56 PM [employer] Ginette Young MD ? 12/01/2024 ??1:09 PM [...] OTHER INFORMATION Nicole Epstein RN Non-Stress Test [facility] Patient Name: Manuela Ward LMP: Patient's last [...] CBC W AUTO DIFFERENTIAL (12/01/2024 11:05 AM [employer]) WBC 9.8 4.0 - 10.7 x10E9/L 12/01/2024 11:16 AM [facility] RBC Count 3.55(L) 3.90 - 5.20 x10E12/L 12/01/2024 11:16 AM [facility] Hemoglobin 10.4(L) 11.9 - 15.8 g/dL 12/01/2024 11:16 AM [facility] Hematocrit 30.9(L) 34.8 - 46.1 % 12/01/2024 11:16 AM [facility] MCV 87.0 80.0 - 98.0 fL 12/01/2024 11:16 AM [facility] MCH 29.3 26.7 - 33.6 pg 12/01/2024 11:16 AM [facility] MCHC 33.7 31.7 - 36.3 g/dL 12/01/2024 11:16 AM [facility] RDW-CV 13.2 11.3 - 14.8 % 12/01/2024 11:16 AM [facility] Platelet Count 181 150 - 420 x10E9/L 12/01/2024 11:16 AM [facility] MPV 10.3 7.8 - 11.4 fL 12/01/2024 11:16 AM [facility] Neutrophil % 74.8(H) 41.0 - 74.0 % 12/01/2024 11:16 AM [facility] Lymphocyte % 18.8 17.0 - 47.0 % 12/01/2024 11:16 AM [facility] Monocyte % 6.0 3.0 - 11.0 % 12/01/2024 11:16 AM [facility] Eosinophil % 0.0 0.0 - 7.0 % 12/01/2024 11:16 AM [facility] Basophil % 0.1 0.0 - 1.6 % 12/01/2024 11:16 AM [facility] Immature Granulocytes % 0.3 0.0 - 1.0 % 12/01/2024 11:16 AM [facility] Neutrophil Absolute 7.36 1.60 - 7.50 x10E9/L 12/01/2024 11:16 AM [facility] Lymphocyte Absolute 1.85 1.00 - 4.40 x10E9/L 12/01/2024 11:16 AM [facility] Monocyte Absolute 0.59 0.15 - 1.00 x10E9/L 12/01/2024 11:16 AM [facility] Eosinophil Absolute 0.00 0.00 - 0.60 x10E9/L 12/01/2024 11:16 AM [facility] Basophil Absolute 0.01 0.00 - 0.13 x10E9/L 12/01/2024 11:16 AM [facility] Blood BLOOD SPECIMEN / Unknown Venipuncture / Unknown 12/01/2024 11:05 AM [employer] 12/01/2024 11:13 AM [facility] Aaron Florentino MD LAB - HEMATOLOGY ORD ERABLES [facility] [address] [place] [address] * (ABNORMAL) COMPREHENSIVE METABOLIC PANEL (12/01/2024 11:05 AM [facility]) [facility] Glucose 95 70 - 99 mg/dL 12/01/2024 12:02 PM [facility] Sodium 136 136 - 145 mmol/L 12/01/2024 12:02 PM [facility] Potassium 3.4(L) 3.5 - 5.1 mmol/L 12/01/2024 12:02 PM [facility] Chloride 108(H) 98 - 107 mmol/L 12/01/2024 12:02 PM [facility] CO2 22 22 - 29 mmol/L 12/01/2024 12:02 PM [facility] Calcium 8.5 8.4 - 10.4 mg/dL 12/01/2024 12:02 PM [facility] Anion Gap 6 6 - 16 mmol/L 12/01/2024 12:02 PM [facility] BUN 5(L) 5.3 - 18.7 mg/dL 12/01/2024 12:02 PM [facility] Creatinine 0.63 0.57 - 1.11 mg/dL 12/01/2024 12:02 PM [facility] Alkaline Phosphatase 93 40 - 150 U/L 12/01/2024 12:02 PM [facility] ALT <6 0 - 55 U/L 12/01/2024 12:02 PM [facility] AST 11 5 - 34 U/L 12/01/2024 12:02 PM [facility] Protein Total 6.2(L) 6.4 - 8.3 gm/dL 12/01/2024 12:02 PM [facility] Albumin 2.6(L) 3.4 - 5.0 gm/dL 12/01/2024 12:02 PM [facility] Bilirubin Total 0.5 0.2 - 1.2 mg/dL 12/01/2024 12:02 PM [facility] eGFR by CKD-EPI >90 >=90 mL/min/1.7 3 m2 12/01/2024 12:02 PM [facility] Blood BLOOD SPECIMEN / Unknown Venipuncture / Unknown 12/01/2024 11:05 AM [employer] 12/01/2024 11:13 AM [facility] Aaron Florentino MD LAB - VIKTOR WAGNER [facility] [address] [place] [address] * XR Chest 2Vw (12/01/2024 10:56 AM [employer]) Anatomical Region Laterality Modality Chest Radiographic Daphney ging 12/01/2024 11:0 9 AM [employer] Impressions 12/01/2024 11:09 AM [employer] IMPRESSION: Normal > Interpreting Provider: Chula Kiser MD on 12/01/2024 11:09 AM Narrative 12/01/2024 11:09 AM [employer] PROCEDURE: ??XR CHEST 2VW DATE/TIME OF EXAM: [...] A/B RSV PCR RAPID (12/01/2024 10:17 AM [employer]) COVID-19 PCR Not detected Not detected 12/01/20 11:25 AM [employer] [facility] Influenza A PCR Not detected Not detected 12/01/2024 11:25 AM [employer] [facility] Influenza B PCR Not detected Not detected 12/01/2024 11:25 AM [employer] [facility] RSV PCR Not detected Not detected 12/01/2024 11:25 AM [facility] Microbiology SPECIMEN FROM NASOPHARYNGEAL STRUCTURE / Unknown Collection / Unknown 12/01/2024 10:17 AM [employer] 12/01/2024 10:36 AM [employer] Narrative [facility] - 12/01/2024 11:25 AM [employer] This nucleic acid amplification assay has been [...] Florentino MD LAB - MICROBIOLOGY O RDERABLES [facility] [address] [place], [place] [id number] Care Teams Topographical Engineer Relationship Specialty Start Date End Date Oseas Ruiz APRN-IMPLEMENTATION SPECIALIST [address] [place] [phone] PCP - Attributed-[employer] [place] 06/01/24
--- OUTSIDE RECORDS SUMMARY | 2024-12-08 02:21 | XMS_ITS | Encounter Summary ---
Author Organization [facility] Address [address] [place] [address] Care Team Providers Care Inspector Machine Parts Name Role Phone Unavailable Primary Care Provider Unavailabl e Encounter Details Date Type Department Care Team (Latest Contact Info) Description 10/13/2021 11:00 AM [employer] SCIENCE EXAMINER Immunization [facility] Mobile Immunization [address] [place] [phone] Need for vaccination (Primary Dx) Social History Tobacco Use Types Packs/Day Years Used Date Smoking Tobacco: Never Assessed Comments Unknown Sex and Gender Information Value Date Recorded Sex Assigned at Not on file Legal Sex Female 6:44 PM CDT Gender Identity Not on file Sexual Orientation Not on file documented as of this encounter Plan of Treatment Not on file documented as of this encounter Visit Diagnoses Diagnosis Need for vaccination- Primary Need for prophylactic vaccination and inoculation against unspecified single disease documented in this encounter
--- OUTSIDE RECORDS SUMMARY | 2024-12-08 02:21 | XMS_ITS | Encounter Summary ---
Author Organization [facility] HealthCare Address [address] [place] [address] Phone Care Team Providers Care Casting Cleaner Name Role Phone Unavailable Primary Care Provider Unavailabl e Reason for Visit * Reason Comments COVID-19 Encounter Details Date Type Department Care Team ([facility] Contact Info) Description 03/11/2020 7:15 PM CDT Telemedicine [facility] Digital Contact Center [address] [place] [address] Mary Larsen APRN, MAGAZINE REPAIRER [address] [place] [address] Close exposure to COVID-19 virus (Primary Dx); Cough; Mild persistent asthma with acute exacerbation Discharge Disposition: Discharged to home or Selfcare Social History Tobacco Use Types Packs/Day Years Used Date Smoking Tobacco: Never Assessed Comments Unknown Sex and Gender Information Value Date Recorded Sex Assigned at Not on file Legal Sex Female 6:44 PM CDT Gender Identity Not on file Sexual Orientation Not on file COVID-19 Exposure Response Date Recorded In the last month, have you been in contact with someone who was confirmed or suspected to have Coronavirus / COVID-19? Yes 03/11/2020 6:47 PM CDT documented as of this encounter Progress Notes * Mary Larsen, NAINA, IVAN - 03/11/2020 7:15 PM CDT Images from the original note were not included. [facility] SUBJECTIVE Chief Complaint Patient presents with ??? COVID-19 Patient states symptoms started 5-6 days ago. Symptoms include body aches, cough (dry), SOB with exertion, fever (t max 99.8), headache. 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 Patient's uncle who she has been staying with came back COVID + today. Patient has been taking ibuprofen and norco - she had her wisdom teeth removed 3 days ago. Has been using her albuterol inhaler. The history is provided by the patient. Allergies not on file No past medical history on file. Social History Substance and Sexual Activity Alcohol Use Not on file Social History Tobacco Use Smoking Status Not on file No current outpatient medications on file prior to visit. No current facility-administered medications on file prior to visit. There is no problem list on file for this patient. Review of Systems Constitutional: Positive for chills, diaphoresis and fatigue. Negative for fever. Respiratory: Positive for cough, chest tightness and shortness of breath. Cardiovascular: Negative for chest pain and palpitations. Gastrointestinal: Negative for abdominal distention, abdominal pain, constipation, diarrhea, nauseaand vomiting. Neurological: Positive for headaches. Chief complaint and all history documented by ancillary staff were reviewed and verified with additions or corrections as appropriate. OBJECTIVE Instructed patient to take radial pulse over the phone while I timed, pulse: 90. Instructed patientto count respirations with each inhaled breath over the phone while I timed, respirations: 18. Speaking in complete sentences. No distress or coughing noted during dialogue. Physical Exam - unable to assess - call center call ASSESSMENT/PLAN Patient was assessed via telephone for a duration of 10 minutes. Patient verbally consented for this service to be performed. No testing warranted at this time; however, patient does meet criteria for drive through testing. IDPH recommends testing for: hospitalized patients/severely ill and patients who are cohorted in a living facility (ie. NH patients or receiving dialysis). Education (as applicable): - At this time patient does not qualify for testing via IDPH guidelines, but instructed patient to contact her local health department in the morning to see if there are any testing facilities close to her as she lives 2[place] [place] the closest state drive through testing site. - If no testing site available, I instructed patient to assume she is COVID + and abide by the quarantine instructions. - She v/u. - Patient counseled to remain at home unless symptoms get worse. If symptoms worsen, the patient was counseled to call back to their PCP office (or this triage line if no PCP) or go to ED immediatelyfor severe symptoms. - Stay home until these three things have happened: - No fever (100.0 for HCW, 100.4 for lay people) for 3 days (without the use of medicine) AND - Other symptoms have improved (ie cough, SOB) AND - at least 7 days have passed since your symptoms first appeared - Patient to push fluid intake and take Tylenol PRN for fever, body aches. - If you do not live alone: segregate yourself, use a separate bathroom if possible, sleep in a separate area, have no/limited family time, and the person with symptoms is not to prepare food for others. - Patient advised to contact employer now to report positive screen and symptoms. - Per CDC: Employers should not require a positive COVID-19 test result or a healthcare provider's note for employees who are sick to validate their illness, qualify for sick leave, or to return to work. [facility] is not providing excuse for work notes or return to work notes at this time per CDC recommendations. Caller verbalizes understanding of the above information. - As patient has a hx of asthma will give patient a short burst of steroids to help with worsening SOB. - Will also place on azithromycin to cover for any underlying infection as well as help decrease respiratory inflammation d/t probable COVID. Diagnoses and all orders for this visit: Close Exposure to Covid-19 Virus - azithromycin (ZITHROMAX) 250 MG Tablet; 2 tab(s) daily for 1 day, then 1 tab(s) daily for days 2-5. Cough - predniSONE (DELTASONE) 20 MG Tablet; Take 2 Tabs by mouth daily for 5 days. - azithromycin (ZITHROMAX) 250 MG Tablet; 2 tab(s) daily for 1 day, then 1 tab(s) daily for days 2-5. Mild persistent asthma with acute exacerbation - predniSONE (DELTASONE) 20 MG Tablet; Take 2 Tabs by mouth daily for 5 days. - Mary Larsen APN, IVAN documented in this encounter Plan of Treatment Not on file documented as of this encounter Visit Diagnoses Diagnosis Close exposure to COVID-19 virus- Primary Cough Mild persistent asthma with acute exacerbation Unspecified asthma, with exacerbation documented in this encounter
--- OUTSIDE RECORDS SUMMARY | 2024-12-08 02:21 | XMS_ITS | Referral Summary ---
Author Organization [facility] Address [address] [place] [address] Care Team Providers Care Wastewater Operator Name Role Phone Oseas Ruiz APRN-POCKET SECRETARY ASSEMBLER Unavailable [phone] Source Comments [facility],non-owned Affiliates and Associated Physician Practices is amultiple site organization consisting of ambulatory clinics and hospital sitesin [place], [place], [place] and [place]. This disclosure is being madepursuant to the Care Everywhere program and may not contain all information available regarding this patient. Last updated 18.[facility] Encounters Date Type Department Care Team Description 12/01/2024 Travel 12/01/2024 9:49 AM SHERIFFS OFFICER - 12/01/2024 1:08 PM [facility] Hospital Encounter [facility] [address] [place] [address] Aaron Florentino MD Maternal Medicine Discharge Disposition: Home or Self Care from Last 3 Months Allergies No known active allergies Medications * [...] Diagnosed Date [facility]vision [facility] high [facility] 12/01/2024 Estimated Date of Delivery Comme nts Yes 02/10/2025 Based on Patient Reported Social History Tobacco Use Types Packs/Day Years [...] and heating? Not hard at all 12/01/2024 [facility] Occupat ional Health - Occupational Stress [...] any time in the past 12 m [facility], were you homeless or living in a long term (including now)? No 12/01/2024 Estimated Date of Delivery Comme nts Yes 02/10/2025 Based on Patient Reported Sex and Gender Information Value Date Recorded Sex Assigned at Not on file Gender Identity Not on file Sexual Orientation Not on file Last Filed Vital Signs Vital Sign Reading Time Taken Comments Blood Pressure 102/54 12/01/2024 12:59 PM SHERIFFS OFFICER Pulse 85 12/01/2024 10:24 AM SHERIFFS OFFICER Temperature 36.8 ??C (98.2 ??F) 12/01/2024 10:[address] Respiratory Rate 18 12/01/2024 11:54 AM SHERIFFS OFFICER Oxygen Saturation 97% 12/01/2024 11:54 AM SHERIFFS OFFICER Inhaled Oxygen Concentration - - Weight 101.6 kg (224 lb) 12/01/2024 9:50 AM SHERIFFS OFFICER Height 154.9 cm (5' 1 ) 12/01/2024 9:54 AM SHERIFFS OFFICER Body Mass Index 42.32 12/01/2024 9:50 AM SHERIFFS OFFICER Functional Status Functional Status Response Date of Assess ment Is person deaf or have serious hearing difficult y? No 12/01/2024 Is person blind or have serious difficulty seein g? No 12/01/2024 Does person have serious dif ficulty walking/climbing stairs? No 12/01/2024 Does person have difficulty dressing/bathing? No 12/01/2024 Does person have difficulty doing errands alone? No 12/01/2024 Cognitive Status Response Date of Assessm ent Does person have difficulty concentrating/remembering/making decisions? No 12/01/2024 Plan of Treatment Upcoming Encounters Date Type Department Care Team (Latest Contact Info) Description 03/31/2025 9:43 AM CDT Hospital Encounter [facility] [address] [place] [address] Maternal Medicine Procedures Procedure Name Priority Date/Time Associated Diagnosis Comments NONSTRESS TEST Routine 12/01/2024 12:56 PM SHERIFFS OFFICER COMPREHENSIVE METABOLIC PANEL STAT 12/01/2024 11:05 AM SHERIFFS OFFICER Supervision of high risk in third trimester ([facility]) CBC W AUTO DIFFERENTIAL STAT 12/01/2024 11:05 AM SHERIFFS OFFICER Supervision of high risk in third trimester ([facility]) XR CHEST 2VW STAT 12/01/2024 10:56 AM SHERIFFS OFFICER Supervision of high risk in third trimester ([facility]) SARS-COV-2 (COVID-19) FLU A/B RSV PCR RAPID STAT 12/01/2024 10:17 AM SHERIFFS OFFICER Supervision of high risk in third trimester ([facility]) from Last 3 Months Results * NONSTRESS TEST (12/01/2024 12:56 PM SHERIFFS OFFICER) Narrative Aaron Florentino MD - 12/01/2024 12:56 PM SHERIFFS OFFICER Ginette Young MD ? 12/01/2024 ??1:09 PM [...] OTHER INFORMATION Nicole Epstein RN Non-Stress Test [facility] Patient Name: Manuela Ward LMP: Patient's last [...] CBC W AUTO DIFFERENTIAL (12/01/2024 11:05 AM SHERIFFS OFFICER) WBC 9.8 4.0 - 10.7 x10E9/L 12/01/2024 11:16 AM [facility] RBC Count 3.55(L) 3.90 - 5.20 x10E12/L 12/01/2024 11:16 AM [facility] Hemoglobin 10.4(L) 11.9 - 15.8 g/dL 12/01/2024 11:16 AM [facility] Hematocrit 30.9(L) 34.8 - 46.1 % 12/01/2024 11:16 AM [facility] MCV 87.0 80.0 - 98.0 fL 12/01/2024 11:16 AM [facility] MCH 29.3 26.7 - 33.6 pg 12/01/2024 11:16 AM [facility] MCHC 33.7 31.7 - 36.3 g/dL 12/01/2024 11:16 AM [facility] RDW-CV 13.2 11.3 - 14.8 % 12/01/2024 11:16 AM [facility] Platelet Count 181 150 - 420 x10E9/L 12/01/2024 11:16 AM [facility] MPV 10.3 7.8 - 11.4 fL 12/01/2024 11:16 AM [facility] Neutrophil % 74.8(H) 41.0 - 74.0 % 12/01/2024 11:16 AM [facility] Lymphocyte % 18.8 17.0 - 47.0 % 12/01/2024 11:16 AM [facility] Monocyte % 6.0 3.0 - 11.0 % 12/01/2024 11:16 AM [facility] Eosinophil % 0.0 0.0 - 7.0 % 12/01/2024 11:16 AM [facility] Basophil % 0.1 0.0 - 1.6 % 12/01/2024 11:16 AM [facility] Immature Granulocytes % 0.3 0.0 - 1.0 % 12/01/2024 11:16 AM [facility] Neutrophil Absolute 7.36 1.60 - 7.50 x10E9/L 12/01/2024 11:16 AM [facility] Lymphocyte Absolute 1.85 1.00 - 4.40 x10E9/L 12/01/2024 11:16 AM [facility] Monocyte Absolute 0.59 0.15 - 1.00 x10E9/L 12/01/2024 11:16 AM [facility] Eosinophil Absolute 0.00 0.00 - 0.60 x10E9/L 12/01/2024 11:16 AM [facility] Basophil Absolute 0.01 0.00 - 0.13 x10E9/L 12/01/2024 11:16 AM [facility] Blood BLOOD SPECIMEN / Unknown Venipuncture / Unknown 12/01/2024 11:05 AM [facility] 12/01/2024 11:13 AM [facility] Aaron Florentino MD LAB - HEMATOLOGY ORD ERABLES Performing Organization Address City/State/[facility] Co de Phone Number [facility] [address] [place], [place] [id number] * (ABNORMAL) COMPREHENSIVE METABOLIC PANEL (12/01/2024 11:05 AM [facility]) Glucose 95 70 - 99 mg/dL 12/01/2024 12:02 PM [facility] Sodium 136 136 - 145 mmol/L 12/01/2024 12:02 PM [facility] Potassium 3.4(L) 3.5 - 5.1 mmol/L 12/01/2024 12:02 PM [facility] Chloride 108(H) 98 - 107 mmol/L 12/01/2024 12:02 PM [facility] CO2 22 22 - 29 mmol/L 12/01/2024 12:02 PM [facility] Calcium 8.5 8.4 - 10.4 mg/dL 12/01/2024 12:02 PM [facility] Anion Gap 6 6 - 16 mmol/L 12/01/2024 12:02 PM [facility] BUN 5(L) 5.3 - 18.7 mg/dL 12/01/2024 12:02 PM [facility] Creatinine 0.63 0.57 - 1.11 mg/dL 12/01/2024 12:02 PM [facility] Alkaline Phosphatase 93 40 - 150 U/L 12/01/2024 12:02 PM [facility] ALT <6 0 - 55 U/L 12/01/2024 12:02 PM [facility] AST 11 5 - 34 U/L 12/01/2024 12:02 PM [facility] Protein Total 6.2(L) 6.4 - 8.3 gm/dL 12/01/2024 12:02 PM [facility] Albumin 2.6(L) 3.4 - 5.0 gm/dL 12/01/2024 12:02 PM [facility] Bilirubin Total 0.5 0.2 - 1.2 mg/dL 12/01/2024 12:02 PM [facility] eGFR by CKD-EPI >90 >=90 mL/min/1.7 3 m2 12/01/2024 12:02 PM [facility] Blood BLOOD SPECIMEN / Unknown Venipuncture / Unknown 12/01/2024 11:05 AM SHERIFFS OFFICER 12/01/2024 11:13 AM SHERIFFS OFFICER Aaron Florentino MD LAB - CHEMISTRY ASHLEIGH WAG[facility] Organization Address City/State/[facility] Co de Phone Number [facility] [address] [place] [address] * XR Chest 2Vw (12/01/2024 10:56 AM SHERIFFS OFFICER) Anatomical Region Laterality Modality Chest Radiographic Daphney ging 12/01/2024 11:0 9 AM SHERIFFS OFFICER Impressions 12/01/2024 11:09 AM SHERIFFS OFFICER IMPRESSION: Normal > Interpreting Provider: Chula Kiser MD on 12/01/2024 11:09 AM Narrative 12/01/2024 11:09 AM SHERIFFS OFFICER PROCEDURE: ??XR CHEST 2VW DATE/TIME OF EXAM: [...] A/B RSV PCR RAPID (12/01/2024 10:17 AM SHERIFFS OFFICER) COVID-19 PCR Not detected Not detected 12/01/20 11:25 AM [facility] Influenza A PCR Not detected Not detected 12/01/2024 11:25 AM [facility] Influenza B PCR Not detected Not detected 12/01/2024 11:25 AM [facility] RSV PCR Not detected Not detected 12/01/2024 11:25 AM [facility] Microbiology SPECIMEN FROM NASOPHARYNGEAL STRUCTURE / Unknown Collection / Unknown 12/01/2024 10:17 AM SHERIFFS OFFICER 12/01/2024 10:36 AM SHERIFFS OFFICER Narrative [facility] - 12/01/2024 11:25 AM SHERIFFS OFFICER This nucleic acid amplification assay has been [...] Florentino MD LAB - MICROBIOLOGY O RDERABLES [facility] [address] [place] [address] from Last 3 Months Care Teams Wastewater Operator Relationship Specialty Start Date End Date Oseas Ruiz APRN-IVAN [address] [place] [phone] PCP - Attributed-[employer] [place] 06/01/24
--- OUTSIDE RECORDS SUMMARY | 2024-12-08 02:21 | XMS_ITS | Clinical Summary ---
Author Organization [facility] Address [address] [place] [id number] Care Team Providers Care Utility Systems Repairer Operator Name Role Phone Unavailable Primary Care Provider Unavailabl e Medications azithromycin (ZITHROMAX) 250 MG TabletIndication s:Cough,Close exposure to COVID-19 virus 2 tab(s) daily for 1 day, then 1 tab(s) daily for days 2-5. 6 Tab 03/11/2020 Active Immunizations Immunization Administration Dates Next Due Covid-19, Mrna, Lnp-s, Pf, 30 Mcg/0.3 Ml Dose (Sergio sigala) 10/13/2021 Social History Tobacco Use Types Packs/Day Years Used Date Smoking Tobacco: Never Assessed Comments Unknown Sex and Gender Information Value Date Recorded Sex Assigned at Not on file Legal Sex Female 6:44 PM CDT Gender Identity Not on file Sexual Orientation Not on file Plan of Treatment Health Maintenance Due Date Last Done Comments Hepatitis C Virus (HCV) Screening 1998 Human Papillomavirus (HPV) Immunization (1 - 3-dose series) 2013 Hepatitis B Immunization (1 of 3 - 19+ 3-dose series) 2017 Pap Smear 2019 Influenza Immunization (#1) 2024 SARS-COV-2 Immunization (2 - 2023- season) 2024 10/13/2021 Respiratory Syncytial Virus (RSV) Immunization (Adult) (1 - 1-dose 75+ series) 2073 DTaP/Tdap/Td Immunization Discontinued 2020, 07/28/2003 TdaP Immunization Completed 04/29/2021 Meningococcal Immunization (ACWY) Aged Out No longer eligible based on patient's age to complete this topic Pneumococcal Immunization Combined Aged Out No longer eligible based on patient's age to complete this topic Rotavirus Immunization Aged Out No lo nger eligible based on patient's age to complete this topic
--- OUTSIDE RECORDS SUMMARY | 2024-12-08 02:22 | XMS_ITS | Encounter Summary ---
Author Organization [facility] Healthcare Address [address] [place] [id number] Care Team Providers Care Quality Control Analyst Name Role Phone Chito Pozo MD Primary Care Prov ider Esvin Gilmore MD Unavailable [phone] Reason for Visit * Reason Comments Vaginal Bleeding * Auth/Cert (Routine) Specialty Diagnoses / Procedures Referred By Contac t Referred To Contact Diagnoses 38 weeks gestation of Procedures NA Referral ID Status Reason Start Date Expiration Date Visits Re quested Visits Authorized [id number] 1 1 Encounter Details Date Type Department Care Team (Latest Contact Info) Description 02/05/2023 2:24 AM LACQUER DIPPING MACHINE OPERATOR - 02/08/2023 2:18 PM LACQUER DIPPING MACHINE OPERATOR Hospital Encounter [facility] [address] [place] [address] Esvin Gilmore MD [address] [place] [address] [facility] [address] [place] [address] 38 weeks gestation of (Primary Dx) Discharge Disposition: Discharge to home or self care Social History Tobacco Use Types Packs/Day Years Used Date Smoking Tobacco: Former Tobacco Cessation:Counseling Given: Not Answered Social Connection and Isolat ion Panel [NHANES] Answer Date Recorded In a typical week, how many times do you talk on the phone with family, friends, or neighbors? More than three times a week 01/28/2023 How often do you get togethe r with friends or relatives? More than three times a week 01/28/2023 How often do you attend [facility] or pentecostalism services? Never 01/28/2023 Do you belong to any clubs o r organizations such as presybeterian groups, unions, fraternal or athletic groups, or school groups? No 01/28/2023 How often do you attend meet ings of the clubs or organizations you belong to? Never 01/28/2023 Are you , , di vorced, , never , or living with a partner? Living with partner 01/28/2023 AUDIT-C Answer Date Recorded Q1: How often do you have a drink containing alcohol? Never 02/05/2023 Q2: How many drinks containi ng alcohol do you have on a typical day when you are drinking? Patient does not drink Q3: How often do you have si x or more drinks on one occasion? Never 02/05/2023 Overall Financial Resource Strain (CARDIA) Answe r Date Recorded How hard is it for you to pa y for the very basics like food, housing, medical care, and heating? Not hard at all 01/28/2023 PHQ-2 Answer Date Recorded PHQ-2 Total Score (If total score is 3 or more points, staff should administer the PHQ-9) 0 01/28/2023 [facility] - Occupational Stress Questionnaire Answer Date Recorded Do you feel stress - tense, restless, nervous, or anxious, or unable to sleep at night because your mind is troubled all the time - these days? Not at all 01/28/2023 Exercise Vital Sign Answer Date Recorde d On average, how many days pe r week do you engage in moderate to strenuous exercise (like a brisk walk)? 0 days 01/28/2023 On average, how many minutes do you engage in exercise at this level? 0 min 01/28/2023 Hunger Vital Sign Answer Date Recorded Within the past 12 months, y ou worried that your food would run out before you got the money to buy more. Never true 01/28/20 23 Within the past 12 months, t he food you bought just didn't last and you didn't have money to get more. Never true 01/28/2023 PRAPARE - Transportation Answer Date Re corded In the past 12 months, has l ack of transportation kept you from medical appointments or from getting medications? No 02/2 06/2023 In the past 12 months, has l ack of transportation kept you from meetings, work, or from getting things needed for daily living? No 01/28/2023 Housing Stability Vital Sign Answer Partha e Recorded In the last 12 months, was t here a time when you were not able to pay the mortgage or rent on time? No 01/28/2023 In the last 12 months, how many places have you lived? 1 01/28/2023 In the last 12 months, was t here a time when you did not have a steady place to sleep or slept in a retirement (including now)? No 01/28/2023 Comments No Sex and Gender Information Value Date Recorded Sex Assigned at Not on file Legal Sex Female 7:37 PM LACQUER DIPPING MACHINE OPERATOR Gender Identity Not on file Sexual Orientation Not on file documented as of this encounter Last Filed Vital Signs Vital Sign Reading Time Taken Comments Blood Pressure 130/76 02/08/2023 8:45 AM LACQUER DIPPING MACHINE OPERATOR Pulse 86 02/08/2023 8:45 AM LACQUER DIPPING MACHINE OPERATOR Temperature 36.5 ??C (97.7 ??F) 02/08/2023 8:45 AM CS T Respiratory Rate 16 02/08/2023 8:45 AM LACQUER DIPPING MACHINE OPERATOR Oxygen Saturation 88% 02/05/2023 11:00 AM LACQUER DIPPING MACHINE OPERATOR Inhaled Oxygen Concentration - - Weight 112.5 kg (248 lb) 02/05/2023 2:39 AM LACQUER DIPPING MACHINE OPERATOR Height 154.9 cm (5' 1 ) 02/05/2023 2:39 AM LACQUER DIPPING MACHINE OPERATOR Body Mass Index 46.86 02/05/2023 2:39 AM LACQUER DIPPING MACHINE OPERATOR documented in this encounter Discharge Summaries * Esvin Gilmore MD - 02/08/2023 2:18 PM CST Inpatient Discharge Summary BRIEF OVERVIEW Admitting Provider: Esvin Gilmore MD Discharge Provider: Esvin Gilmore MD Primary Care Physician at Discharge: Chito Pozo MD [phone] Admission Date: 02/05/2023 Discharge Date: 02/08/2023 [facility] Problems/Diagnoses: Principal Problem: 38 weeks gestation of Resolved Problems: No resolved hospital problems. DETAILS OF HOSPITAL STAY ADMITTING DIAGNOSIS: Intrauterine at 38 weeks and 2 days. Presented with bleeding and leakage of fluid. HISTORY OF PRESENT ILLNESS/HOSPITAL COURSE: The patient is a 22-year-old G2, P1001 female at 38 weeks and 2 days estimated gestational age who presented with bleeding and leakage of fluid. On vaginalexamination, the patient was found to be 3 cm dilated, and the heart tracing at that time wasin the 120s. The patient went to the bathroom where there was more leakage of bloody fluid and whenshe returned to the bed heart tones were noted to be in the 70's. heart tones recoveredbut the patient continued to bleed and a section was recommended for well being. Sheunderwent a section and her course was complicated with elevated blood pressurewithout the diagnosis of pre-eclampsia. She was started on procardia 30mg XL. The patient's anxietywas also treated with buspirone and she will follow up with her psychiatrist within a week of discharge. PROCEDURES PERFORMED: Primary low transverse section COMPLICATIONS: None. FINAL DIAGNOSIS: Status post primary low transverse section at 38 weeks and 2 days. DISCHARGE INSTRUCTIONS: Call for increased pain, fever or increased bleeding. DIET: Advance as tolerated. ACTIVITY: Advance as tolerated. Pelvic rest for 6 weeks. Nothing to be inserted into the vagina for6 weeks, i.e. no tampons, douche or sex. MEDICATIONS AND FOLLOWUP: As per Dr. Gilmore. Discharge Details Physical Exam at Discharge: Discharge Condition: good Pulse: 86 Resp: 16 BP: 130/76 Temp: 36.5 ??C (97.7 ??F) Weight: 248 lb (112.5 kg) Discharge Disposition: Discharge to home or self care Discharge Instructions: Activity Instructions Discharge Activity: Abdominal support and exercise - Exercise in the post- period is an important component of your overall well-being and recovery. Walking allows you to maintain muscle tone as well as gives you an opportunity to get outside for some fresh air daily. Exercises tighten the abdominal musculature such as sit-ups or leg raises, are also recommended unless you have had a section. Let your own body guide you as to when you may begin and how extensively you should exercise. Remember, too much too early should be avoided, so DO NOT push yourself if your body is not ready. DO NOT exercise to exhaustion. Discharge Activity: Driving restrictions - Section -After an uncomplicated section with a transverse incision ( bikini cut ), you should waita minimum of one week after delivery to drive a car. You should also be off of narcotic pain medications and feel comfortable performing all of the movements needed to drive. Discharge Activity: General activity level -Normally, it takes six weeks for your body to return to normal . For the first two weeks after delivery, try to get some rest each day. Avoid strenuous work, heavy lifting and excessive social activities. Gradually, you may increase your activity. After the second week, you may get away for some light recreation, such as dinner or a movie. Discharge Activity: Kegal exercises -It is important to start perineal exercises (Kegel's) soon after a vaginal delivery. This may helpyou regain some of your pelvis muscle tone. To perform Kegel's, find the muscles you use to stop urinating then squeeze and hold these muscles for 3 seconds. Relax for 3 seconds and repeat again. Do this at least 50 times, four times per day. Discharge Activity: Lifting restrictions -Do NOT lift greater than 10 pounds for 6 weeks. Discharge activity: Return to work - It is usually possible to return to ordinary employment about six weeks after your baby is born. If you plan to return to work sooner, please consult first with your location man. Discharge activity: Sexual intercourse - Sexual intercourse should be avoided for at least 6 weeks or your first post visit, unlessotherwise told by your docto. You and your doctor should discuss contraception options at that timeas well as an appropriate time to resume sexual intercourse. -No tampons or douching. Diet Instructions Adult Discharge Diet Diet Type: Return to previous diet Other Instructions Call provider for: excessive or prolonged bleeding Call provider for: fever or severe chills Call provider for: nausea, vomiting, diarrhea -If you have persistent nausea, vomiting or diarrhea that does not stop Call provider for: redness, tenderness, or signs of infection (pain, swelling, redness, odor or green/yellow discharge around incision site) Call provider for: severe uncontrolled pain Call provider if: you feel dizzy, very tired or like you may faint Care Instructions: Abdominal binder -Wear the abdominal binder day/night for 6 week(s). May remove to shower. May remove to wash the binder. Care Instructions: Bathing -You may shower or wash your hair at any time you desire. You should defer tub baths (other than Sitz baths) and swimming for at least 6 weeks. Also, wait until the bleeding stops. Care Instructions: Incentive Spirometer - Continue to use your incentive spirometer if you received one Care Instructions: Shower -You may shower immediatly Care Instructions: Vaginal discharge -Vaginal bleeding may persist for up to six weeks after delivery and occasionally longer. It may increase for the first few days at home and may vary throughout the day. At first it will be bright red, changing gradually so that by about ten days following your baby's it will turn pink in color. It may have a slight odor. Sometimes, with excessive activity, it may return to a red color for several days. Nursing may cause increased bleeding, as it caused the uterus to contract. Do not use tampons or douches. Section Instructions - Unless otherwise told, section patients may follow the same instructions except that exercises should not be done without approval of your doctor. The abdominal incision may occasionally drain a small amount of yellow or red fluid. A warm pack or hot water bottle may be used on the area several times daily. If the incision becomes unusually sore, red and inflamed, or if you have a fever greater than 100 degrees Fahrenheit, or if the drainage appears more than minimal (over 1 tsp.), notify your provider. Medication instructions -Continue your vitamins and/or iron pills until your six week check-up. Nursing mothers should continue vitamins until they stop nursing. Calcium supplements are also important in breast feeding mothers, and 1000mg supplemental calcium is recommended following delivery. This may be achieved with milk, dairy products or calcium pills. Your provider may instruct you on additional medication that may be necessary. Special Instructions: Constipation -Following delivery you may become constipated. To make sure that your stools are soft, drink plenty of fluids including juices, and eat fruits, hartman tables and bran cereals to put roughage (bulk) into your diet. Your doctor may suggest stool softeners or laxatives if necessary. Contact your provider if you have not had a bowel movement by the third day following delivery. Special Instructions: Hemorrhoids -Hemorrhoids that appear for the first time in late or as a result of delivery will usually resolve and disappear by your six week follow-up appointment. They may also respond well to Sitz baths. Stool softeners can be an effective for of treatment, as they allow your bowel movements to be more regular and subsequently may decrease your straining. The straining may slow the involution of the hemorrhoids. Local medications such as Preparation-H or Anusol may be used. Special Instructions: Menstruation - The return of menstruation after delivery is quite variable. Nursing mothers may start their first menses within the first eight weeks, or may not begin until three months after nursing has stopped. Non-nursing mothers usually start within the first eight weeks. The first menses may be very abnormal (unusually heavy, light, long or short). Remember, the possibility of conception exists any lashay after childbirth, whether or not the menses have reappeared and whether or not you are breast feeding. Special Instructions: blues - Sometimes after delivery, one can experience vague unhappiness with feelings of depression and crying. This can occur without obvious cause and is almost always temporary. If there seems to be unusual persistence of depression or any other emotional reaction, notify your provider. Special Instructions: medical care -Please contact your providers office soon after delivery in order to make an appointment for your six week visit. If you had a section, you should also schedule an additional appointment to be seen in the office approximately two to three weeks following delivery.At that time, you will be examined and instructions will be provided on family planning and/or contraception, activities, etc. Special Instructions: Water retention -Swelling of the hands, legs and feet may be noticed for several weeks following delivery, and is usually self-limiting. Discharge Medications: Current Medications TAKE these medications albuterol HFA 90 mcg/actuation inhaler Inhale 2 puffs every 6 (six) hours as needed for wheezing Commonly known as: PROVENTIL HFA,VENTOLIN HFA,PROAIR HFA busPIRone 7.5 mg tablet Take 1 tablet (7.5 mg total) by mouth 2 (two) times a day For: repeated episodes of anxiety Commonly known as: BUSPAR docusate sodium 100 mg capsule Take 1 capsule (100 mg total) by mouth 2 (two) times a day For: constipation, Stool Softener Commonly known as: COLACE ferrous sulfate 325 mg (65 mg of elemental iron) tablet Take 1 tablet (325 mg total) by mouth daily For: anemia from inadequate iron Start taking on: February 09, 2023 HYDROcodone-acetaminophen 5-325 mg per tablet Take 2 tablets by mouth every 4 (four) hours as needed for pain For: pain Commonly known as: NORCO ibuprofen 600 mg tablet Take 1 tablet (600 mg total) by mouth every 6 (six) hours For: cramps Commonly known as: ADVIL,MOTRIN NIFEdipine 30 mg 24 hr tablet Take 1 tablet (30 mg total) by mouth daily Commonly known as: PROCARDIA XL/ADALAT CC Start taking on: February 09, 2023 QUEtiapine XR 150 mg 24 hr tablet Take 150 mg by mouth daily For: repeated episodes of anxiety Commonly known as: SEROquel XR Outpatient Follow-Up: Contact Information for Follow-ups Esvin Gilmore MD Specialty: Obstetrics and Gynecology Relationship: Bottling Equipment Sales Representative [address] [facility] [address] FLAVIO Nascimento [address] [address] Next Steps: Follow up Instructions: Follow up on Saturday for BP check and staple removal Comments: Follow up for post-op visit in 2 weeks. Questions: Instructions for follow-up (appointment date and time): Follow up on Saturday for BP check and stapleremoval To provider: ESVIN GILMORE UER DIPPING MACHINE OPERATOR documented in this encounter Medications at Time of Discharge albuterol HFA (PROVENTIL HFA,VENTOLIN HFA,PROAIR HFA) 90 mcg/actuation inhaler Inhale 2 puffs every 6 (six) hours as needed for wheezing busPIRone (BUSPAR) 7.5 mg tabletIndication s:Generalized Anxiety Disorder Take 1 tablet (7.5 mg total) by mouth 2 (two) times a day 60 tablet 11 02/08/2023 docusate sodium (COLACE) 100 mg capsuleIndicatio ns:constipation, Stool Softener Take 1 capsule (100 mg total) by mouth 2 (two) times a day 60 capsule 02/08/2023 HYDROcodone-acet aminophen (NORCO) 5-325 mg per tabletIndication s:Pain Take 2 tablets by mouth every 4 (four) hours as needed for pain 20 tablet 02/08/2023 ibuprofen (ADVIL,MOTRIN) 600 mg tabletIndication s:Cramps Take 1 tablet (600 mg total) by mouth every 6 (six) hours 30 tablet 1 02/08/2023 NIFEdipine (PROCARDIA XL/ADALAT CC) 30 mg 24 hr tablet Take 1 tablet (30 mg total) by mouth daily 30 tablet 1 02/09/2023 QUEtiapine XR (SEROquel XR) 150 mg 24 hr tabletIndication s:Generalized Anxiety Disorder Take 150 mg by mouth daily ferrous sulfate 325 mg (65 mg of elemental iron) tabletIndication s:Iron Deficiency Anemia Take 1 tablet (325 mg total) by mouth daily 30 tablet 1 02/09/2023 02/09/2024 documented as of this encounter Ordered Prescriptions Prescription Sig Dispense Quantity Refills Last Filled Start Date End Date NIFEdipine (PROCARDIA XL/ADALAT CC) 30 mg 24 hr tablet Take 1 tablet (30 mg total) by mouth daily 30 tablet 1 02/09/2023 ibuprofen (ADVIL,MOTRIN) 600 mg tabletIndications: Cramps Take 1 tablet (600 mg total) by mouth every 6 (six) hours 30 tablet 1 02/08/2023 HYDROcodone-acetam inophen (NORCO) 5-325 mg per tabletIndications: Pain Take 2 tablets by mouth every 4 (four) hours as needed for pain 20 tablet 02/08/2023 docusate sodium (COLACE) 100 mg capsuleIndications :constipation,Stoo l Softener Take 1 capsule (100 mg total) by mouth 2 (two) times a day 60 capsule 02/08/2023 busPIRone (BUSPAR) 7.5 mg tabletIndications: Generalized Anxiety Disorder Take 1 tablet (7.5 mg total) by mouth 2 (two) times a day 60 tablet 11 02/08/2023 ferrous sulfate 325 mg (65 mg of elemental iron) tabletIndications: Iron Deficiency Anemia Take 1 tablet (325 mg total) by mouth daily 30 tablet 1 02/09/2023 4 documented in this encounter Discharge Disposition Disposition Code Departure Means Destination Discharge to home or self care documented in this encounter Progress Notes * Esvin Gilmore MD - 02/08/2023 11:36 AM CST OB Progress Notepartum Progress Note Subjective HPI: Manuela Whittington is a 22 y.o. postop day 3 s/p primary low transverse section. Interval History: Patient denies any complaints. Manuela reports current drug use. Drug: Marijuana. She reports that she has quit smoking. She does not have any smokeless tobacco history on file. No history on file for alcohol use. Labor/Delivery Complications: Abruptio Placenta Indications for Section: Abruptio Placenta, NRFHTs Labor: No Forcep Assisted Delivery: No Vacuum Assisted Delivery: No Shoulder Dystocia Present: 0 Pain: Controlled Bleeding: lochia moderate PO's: taking regular diet Voiding: without difficulty Ambulating: yes Mood: stable Feeding: Objective Vitals [min-max]most recent: Temp: [36.2 ??C (97.1 ??F)-36.5 ??C (97.7 ??F)] 36.5 ??C (97.7 ??F) Pulse: [86-116] 86 BP: (119-137)/(70-78) 130/76 Resp: [16-17] 16 Physical Exam General: well Abdomen: non-tender, soft, and nondistended Fundus: firm, below umbilicus, and nontender Incision: healing well, no significant drainage, and no dehiscence Vulvar/Perineum: deferred Extremities: symmetric and 1+ edema Data Current Facility-Administered Medications Medication Dose Route Frequency Provider Last Rate Last Admin busPIRone (BUSPAR) tablet 7.5 mg 7.5 mg oral BID Esvin Gilmore MD 7.5 mg at 02/08/23 1001 docusate sodium (COLACE) capsule 100 mg 100 mg oral BID Esvin Gilmore MD 100 mg at 02/08/23 1001 ferrous sulfate tablet 325 mg 325 mg oral Daily Esvin Gilmore MD 325 mg at 02/08/23 1001 HYDROcodone-acetaminophen (NORCO) 5-325 mg per tablet 2 tablet 2 tablet oral Q4H PRN Glenis Gilmore MD ibuprofen (ADVIL,MOTRIN) tablet 600 mg 600 mg oral Q6H Esvin Gilmore MD 600 mg at 02/08/23 1054 Lactated Ringer's (LR) bolus 1,000 mL 1,000 mL intravenous PRN Esvin Gilmore MD Lactated Ringer's (LR) infusion 125 mL/hr intravenous Continuous Esvin Gilmore MD 125 mL/hr at 02/05/23 0858 125 mL/hr at 02/05/23 0858 vskbdps-bbqfl-osgnzra (MMR) 1,000-12,500 TCID50/0.5 mL live vaccine 0.5 mL 0.5 mL subcutaneous During hospitalization Esvin Gilmore MD NIFEdipine (PROCARDIA XL/ADALAT CC) extended release tablet 30 mg 30 mg oral Daily Esvin Gilmore MD 30 mg at 02/08/23 1001 ondansetron ODT (ZOFRAN-ODT) disintegrating tablet 4 mg 4 mg oral Q6H PRN Esvin Gilmore MD Or ondansetron (ZOFRAN) injection 4 mg 4 mg intravenous Q6H PRN Esvin Gilmore MD vit-iron fum-folic ac tablet 1 tablet 1 tablet oral Daily Esvin Gilmore MD 1 tablet at 02/08/23 1002 QUEtiapine (SEROquel) tablet 150 mg 150 mg oral Nightly Esvin Gilmore MD 100 mg at 02/07/232056 simethicone (MYLICON) chewable tablet 160 mg 160 mg oral QID PRN (after meals & nightly) Esvin Gilmore MD sodium chloride 0.9% flush 0.5-20 mL 0.5-20 mL intra-catheter Q8H NOHELIA Esvin Gilmore MD sodium chloride 0.9% flush 0.5-20 mL 0.5-20 mL intra-catheter PRN Esvin Gilmore MD varicella zoster (VARIVAX) vaccine - live 0.5 mL 0.5 mL subcutaneous During hospitalization Esvin Gilmore MD Status Information for the patient's : Phillip Whittington [[id number]] [id number] Problem-based Assessment and Plan Manuela Whittington is a 22 y.o. postop day 3 s/p PLTCS, delivered a viable female APGARs 7/8, weight 2842 grams. Continue routine post care. Hemodynamics: stable, asymptomatic anemia- will discharge with iron and colace Cardiovascular/Pulmonary: hypertension- continue with procardia 30mg XL daily Pain: controlled GI/: voiding spontaneously without difficulty Method of Feeding: plans to breastfeed Mood:anxiety-continue buspirone 7.5mg BID, continue seroquel 100mg QHS. Patient has a follow up appointment with psychiatry on Saturday02/13/23 Assisted Delivery: Vacuum Assisted Delivery:No Delivery Complications with Risks for Future Pregnancies: Abruptio Placenta Immunizations: Immunization History Administered Date(s) Administered Pfizer SARS-CoV-2 Vaccination (12+ yrs) PURPLE 10/13/2021 Rh + Disposition: likely home postop day 3 Esvin Gilmore MD 02/08/2023 11:36 AM UER DIPPING MACHINE OPERATOR * Esvin Gilmore MD - 02/07/2023 8:37 AM CST OB Progress Notepartum Progress Note Subjective HPI: Manuela Whittington is a 22 y.o. postop day 2 s/p primary low transverse section. Interval History: Patient admits to feeling very anxious. She is generally anxious about everything. The patient has a history of depression and was hospitalized secondary to this diagnosis. The patient denies headache, visual changes, and RUQ pain. Manuela reports current drug use. Drug: Marijuana. She reports that she has quit smoking. She does not have any smokeless tobacco history on file. No history on file for alcohol use. Labor/Delivery Complications: Abruptio Placenta Indications for Section: Abruptio Placenta, NRFHTs Labor: No Forcep Assisted Delivery: No Vacuum Assisted Delivery: No Shoulder Dystocia Present: 0 Pain: Controlled Bleeding: lochia minimal PO's: taking regular diet Voiding: without difficulty Ambulating: yes Mood: stable Feeding: Objective Vitals [min-max]most recent: Temp: [36.3 ??C (97.3 ??F)-36.7 ??C (98.1 ??F)] 36.7 ??C (98.1 ??F) Pulse: [94-101] 101 BP: (117-149)/(62-69) 117/62 Resp: [18] 18 I/O last 2 completed shifts: In: 1525 [P.O.:1525] Out: 2550 [Urine:2550] Physical Exam General: well Abdomen: non-tender, soft, and nondistended Fundus: firm, below umbilicus, and nontender Incision: healing well, no significant drainage, and no dehiscence Vulvar/Perineum: deferred Extremities: symmetric and 1+ edema Data Current Facility-Administered Medications Medication Dose Route Frequency Provider Last Rate Last Admin docusate sodium (COLACE) capsule 100 mg 100 mg oral BID Esvin Gilmore MD 100 mg at 02/06/23 2108 ferrous sulfate tablet 325 mg 325 mg oral Daily Esvin Gilmore MD 325 mg at 02/07/23 0758 HYDROcodone-acetaminophen (NORCO) 5-325 mg per tablet 2 tablet 2 tablet oral Q4H PRN Glenis Gilmore MD ibuprofen (ADVIL,MOTRIN) tablet 600 mg 600 mg oral Q6H Esvin Gilmore MD 600 mg at 02/07/23 0314 Lactated Ringer's (LR) bolus 1,000 mL 1,000 mL intravenous PRN Esvin Gilmore MD Lactated Ringer's (LR) infusion 125 mL/hr intravenous Continuous Esvin Gilmore MD 125 mL/hr at 02/05/23 0858 125 mL/hr at 02/05/23 0858 qbyiudf-kegbe-wykdssl (MMR) 1,000-12,500 TCID50/0.5 mL live vaccine 0.5 mL 0.5 mL subcutaneous During hospitalization Esvin Gilmore MD ondansetron ODT (ZOFRAN-ODT) disintegrating tablet 4 mg 4 mg oral Q6H PRN Esvin Gilmore MD Or ondansetron (ZOFRAN) injection 4 mg 4 mg intravenous Q6H PRN Esvin Gilmore MD vit-iron fum-folic ac tablet 1 tablet 1 tablet oral Daily Esvin Gilmore MD 1 tablet at 02/07/23 0758 QUEtiapine (SEROquel) tablet 150 mg 150 mg oral Nightly Esvin Gilmore MD 100 mg at 02/06/232108 simethicone (MYLICON) chewable tablet 160 mg 160 mg oral QID PRN (after meals & nightly) Esvin Gilmore MD sodium chloride 0.9% flush 0.5-20 mL 0.5-20 mL intra-catheter Q8H NOHELIA Esvin Gilmore MD sodium chloride 0.9% flush 0.5-20 mL 0.5-20 mL intra-catheter PRN Esvin Gilmore MD varicella zoster (VARIVAX) vaccine - live 0.5 mL 0.5 mL subcutaneous During hospitalization Esvin Gilmore MD Status Information for the patient's : Phillip Whittington [[id number]] [id number] Problem-based Assessment and Plan Manuela Whittington is a 22 y.o. postop day 2 s/p primary low transverse section who delivered a viable female , APGARs 7/8, weight 2842 grams. Continue routine post care. Hemodynamics: stable and asymptomatic anemia- will discharge with iron and colace Cardiovascular/Pulmonary: hypertension-procardia 30mg XL daily Pain: controlled GI/: voiding spontaneously without difficulty Method of Feeding: plans to breastfeed Mood:anxiety-start buspirone 7.5mg BID, continue seroquel 100mg QHS. Patient has a follow up appointment with psychiatry on Saturday02/13/23 Assisted Delivery:Vacuum Assisted Delivery:No Delivery Complications with Risks for Future Pregnancies: Abruptio Placenta Immunizations: Immunization History Administered Date(s) Administered Pfizer SARS-CoV-2 Vaccination (12+ yrs) PURPLE 10/13/2021 Rh + Feeding: Disposition: likely home postop day 3 Esvin Gilmore MD 02/07/2023 8:38 AM UER DIPPING MACHINE OPERATOR * Esvin Gilmore MD - 02/06/2023 9:09 PM CST OB Progress Notepartum Progress Note Subjective HPI: Manuela Whittington is a 22 y.o. postop day 1 s/p primary low transverse section secondary to NRFHTs. Interval History: Patient denies any complaints. Manuela reports current drug use. Drug: Marijuana. She reports that she has quit smoking. She does not have any smokeless tobacco history on file. No history on file for alcohol use. Labor/Delivery Complications: Abruptio Placenta Indications for Section: NRFHTs Labor: No Forcep Assisted Delivery: No Vacuum Assisted Delivery: No Shoulder Dystocia Present: 0 Pain: Controlled Bleeding: lochia moderate PO's: taking regular diet Voiding: without difficulty Ambulating: yes Mood: stable Feeding: Objective Vitals [min-max]most recent: Temp: [36.3 ??C (97.3 ??F)-36.7 ??C (98 ??F)] 36.3 ??C (97.3 ??F) Pulse: [88-94] 94 BP: (124-155)/(68-70) 149/69 Resp: [18] 18 I/O last 2 completed shifts: In: - Out: 2600 [Urine:2600] Physical Exam General: well Abdomen: non-tender, soft, and nondistended Fundus: firm, below umbilicus, and nontender Incision: dressing clean, dry, intact Vulvar/Perineum: deferred Extremities: symmetric and 1+ edema Data Current Facility-Administered Medications Medication Dose Route Frequency Provider Last Rate Last Admin docusate sodium (COLACE) capsule 100 mg 100 mg oral BID Esvin Gilmore MD 100 mg at 02/06/232107 ferrous sulfate tablet 325 mg 325 mg oral Daily Esvin Gilmore MD 325 mg at 02/06/23 0909 HYDROcodone-acetaminophen (NORCO) 5-325 mg per tablet 2 tablet 2 tablet oral Q4H PRN Glenis Gilmore MD ibuprofen (ADVIL,MOTRIN) tablet 600 mg 600 mg oral Q6H Esvin Gilmore MD 600 mg at 02/06/23 2108 Lactated Ringer's (LR) bolus 1,000 mL 1,000 mL intravenous PRN Esvin Gilmore MD Lactated Ringer's (LR) infusion 125 mL/hr intravenous Continuous Esvin Gilmore MD 125 mL/hr at 02/05/23 0858 125 mL/hr at 02/05/23 0858 aqbqaer-kqlfy-pncfqpe (MMR) 1,000-12,500 TCID50/0.5 mL live vaccine 0.5 mL 0.5 mL subcutaneous During hospitalization Esvni Gilmore MD ondansetron ODT (ZOFRAN-ODT) disintegrating tablet 4 mg 4 mg oral Q6H PRN Esvin Gilmore MD Or ondansetron (ZOFRAN) injection 4 mg 4 mg intravenous Q6H PRN Esvin Gilmore MD vit-iron fum-folic ac tablet 1 tablet 1 tablet oral Daily Esvin Gilmore MD 1 tablet at 02/06/23 0739 QUEtiapine (SEROquel) tablet 150 mg 150 mg oral Nightly Esvin Gilmore MD 100 mg at 02/06/232108 simethicone (MYLICON) chewable tablet 160 mg 160 mg oral QID PRN (after meals & nightly) Esvin Gilmore MD sodium chloride 0.9% flush 0.5-20 mL 0.5-20 mL intra-catheter Q8H NOHELIA Esvin Gilmore MD sodium chloride 0.9% flush 0.5-20 mL 0.5-20 mL intra-catheter PRN Esvin Gilmore MD varicella zoster (VARIVAX) vaccine - live 0.5 mL 0.5 mL subcutaneous During hospitalization Esvin Gilmore MD Status Information for the patient's : Phillip Whittington [[id number]] [id number] Problem-based Assessment and Plan Manuela Whittington is a 22 y.o. postop day 1 s/p primary low transverse section, delivered a viable female , APGARs 7/8, weight 2842 grams. Continue routine post care. Hemodynamics: stable and asymptomatic anemia Cardiovascular/Pulmonary: elevated blood pressure- will assess for pre-eclampsia Pain: controlled GI/: voiding spontaneously without difficulty Method of Feeding: plans to breastfeed Mood:stable, bonding with baby Assisted Delivery: Vacuum Assisted Delivery:No Delivery Complications with Risks for Future Pregnancies: Abruptio Placenta Immunizations: Immunization History Administered Date(s) Administered Pfizer SARS-CoV-2 Vaccination (12+ yrs) PURPLE 10/13/2021 Rh + Disposition: likely home postop day 3 Esvin Gilmore MD 02/06/2023 9:10 PM UER DIPPING MACHINE OPERATOR UER DIPPING MACHINE OPERATOR documented in this encounter H&P Notes * Esvin Gilmore MD - 02/05/2023 5:12 AM CST OB History and Physical Subjective HPI: Manuela Whittington is a 22 y.o. female at 38w2d weeks gestation, dated by LMP consistent with 1sttrimester Ultrasound with Estimated Date of Delivery: 02/17/23, who is being admitted for contractions and vaginal bleeding. 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 OB History Para Term AB Living 2 1 1 1 SAB IAB Ectopic Multiple Live Births 1 # Outcome Date GA Lbr Buddy/2nd Weight Sex Delivery Anes PTL Lv 2 Current 1 Term 04/27/21 39w0d 3.43 kg (7 lb 9 oz) F Vag-Spont EPI CURT Complications: Other (Comment) Past Medical History: Diagnosis Date Anxiety Asthma History reviewed. No pertinent surgical history. Social History Tobacco Use Smoking status: Former Smokeless tobacco: None Substance and Sexual Activity Drug use: Yes Types: Marijuana Sexual activity: None Alcohol Use: Not At Risk Frequency of Alcohol Consumption: Never Average Number of Drinks: Patient does not drink Frequency of Binge Drinking: Never History reviewed. No pertinent family history. No Known Allergies Medications Prior to Admission Medication Sig Dispense Refill Last Dose albuterol HFA (PROVENTIL HFA,VENTOLIN HFA,PROAIR HFA) 90 mcg/actuation inhaler Inhale 2 puffs every6 (six) hours as needed for wheezing QUEtiapine XR (SEROquel XR) 150 mg 24 hr tablet Take 150 mg by mouth daily 02/04/2023 Review of Systems Review of systems per HPI and otherwise all systems are negative Objective Vitals: Arrival Vitals [02/05/23238] Temp 36.6 ??C (97.9 ??F) Pulse Resp 16 BP SpO2 Temp src Temporal Heart Rate Source Patient Position BP Location FiO2 (%) 24hr Min/Max: Temp Min: 36.6 ??C (97.9 ??F) Max: 36.6 ??C (97.9 ??F) Resp Min: 16 Max: 16 Most Recent : Vitals: 02/05/23238 Resp: 16 Temp: 36.6 ??C (97.9 ??F) Physical Exam General: appears stated age and cooperative Abdomen: soft, non-tender, gravid Neurologic: Alert and oriented x 3, non-focal Pelvis: EXTERNAL GENITALIA: normal appearing vulva with no lesions CERVIX: 3 cm dilated MEMBRANES: SROM, bloody: moderate Monitoring: Heart Rate: External monitor:, Baseline: 120 bpm, Variability: Moderate (Between 6 and 25 BPM), Accelerations: Acceleration 15x15, and Decelerations: Recurrent Uterine Activity: External [place]: and Frequency: Every 3-5 minutes Lab/Radiology/Diagnostic Review: Laboratory review: Lab results in the last 24 hours: Recent Results (from the past 24 hour(s)) CBC with auto differential Collection Time: 02/05/23 2:50 AM Result Value Ref Range WBC 9.8 3.8 - 9.9 K/cumm Hgb 9.0 (L) 11.9 - 15.5 g/dL Hct 26.7 (L) 35.6 - 45.5 % Plt 209 150 - 400 K/cumm MPV 10.7 9.1 - 12.3 fL RBC 3.41 (L) 3.90 - 5.20 M/cumm MCV 78.3 (L) 81.3 - 96.4 fL MCH 26.4 (L) 27.1 - 33.3 pg MCHC 33.7 32.3 - 35.7 g/dL RDW CV 13.2 11.1 - 14.9 % RDW SD 37.8 35.7 - 48.1 fL NRBC abs 0.00 0.00 - 0.01 K/cumm ABO/Rh Collection Time: 02/05/23 2:50 AM Result Value Ref Range ABO/Rh A Positive Antibody screen Collection Time: 02/05/23 2:50 AM Result Value Ref Range Nicolas, indirect, Gel Interpretation Negative ABSC Differential, auto Collection Time: 02/05/23 2:50 AM Result Value Ref Range Neutrophil abs 7.3 (H) 1.7 - 6.5 K/cumm Imm gran abs 0.0 0.0 - 0.1 K/cumm Lymphocyte abs 1.8 0.8 - 3.3 K/cumm Monocyte abs 0.6 0.2 - 0.8 K/cumm Eosinophil abs 0.1 0.0 - 0.5 K/cumm Basophil abs 0.0 0.0 - 0.1 K/cumm Neutrophil pct 74.0 % Imm gran pct 0.4 % Lymphocyte pct 18.0 % Monocyte pct 6.5 % Eosinophil pct 0.8 % Basophil pct 0.3 % Blood Gas, Cord Venous Collection Time: 02/05/23 4:17 AM Result Value Ref Range pH Cord Saqib 7.33 pCO2 Cord Saqib 45 mmHg pO2 Cord Saqib 22 mmHg Base Excess Cord Saqib -3 mmol/L HCO3 Cord Saqib (Calc) 23 mmol/L O2 Sat Cord Saqib (Kelley) 48 % Assessment /Plan Manuela Whittington is a 22 y.o. female at 38w2d weeks gestation, with Estimated Date of Delivery:02/17/23 who is being admitted for secondary to non-reassuring heart tones. Well Being: Category 2- perform PLTCS. Pain: Patient pain management plan: spinal Method of Feeding: plans to breastfeed Esvin Gilmore MD 02/05/2023 5:12 AM UER DIPPING MACHINE OPERATOR documented in this encounter Nursing Notes * Comfort Jordan RN - 02/06/2023 8:00 PM CST 1999 Patient at bedside feeling anxious and crying.Talked to patient trying to come up with a plan to make her feel better. Patient states I just feel like something is going to happen, but I don'tknow what! Patient reassured we are here to help her, understanding voiced. at bedside talking to patient also, patient feeling somewhat better at this time. Instructed to call for assist ifneeded. UER DIPPING MACHINE OPERATOR documented in this encounter Miscellaneous Notes * Plan of Care - Arielle Vallejo RN - 02/08/2023 2:18 PM CST Goals: Clinical Goals for the Shift: VSS. Controlled pain. Bonding with baby Summary: Orders received for D/C. Follow up and D/C instructions review with pt no questions or concerns at this time. Ambulates out of L&D with no apparent distress. UER DIPPING MACHINE OPERATOR * Plan of Care - Elif Guzman RN - 02/07/2023 4:49 PM CST Problem: Health Behavior: Goal: Understanding of discharge needs will improve Outcome: Progressing Problem: Activity: Goal: Ability to tolerate increased activity will improve Outcome: Progressing Problem: Bowel/Gastric: Goal: Gastrointestinal status for postoperative course will improve Outcome: Progressing Problem: Lack of Knowledge: Goal: Knowledge of Section Care will improve Outcome: Progressing Problem: Life Cycle: Goal: Chance of risk for complications during the period will decrease Outcome: Progressing Problem: Physical Regulation: Goal: Postoperative complications will be avoided or minimized Outcome: Progressing Problem: Respiratory: Goal: Ability to maintain adequate ventilation will improve Outcome: Progressing Problem: Role Relationship: Goal: Ability to demonstrate positive interaction with the child will improve Outcome: Progressing Problem: Sensory: Goal: Pain level will decrease Outcome: Progressing Goal: Satisfaction with pain management regimen will improve Outcome: Progressing Problem: Skin Integrity: Goal: Demonstration of wound healing without infection will improve Outcome: Progressing Goal: Ability to participate in self-care as condition permits will improve Outcome: Progressing Problem: Urinary Elimination: Goal: Ability to reestablish a normal urinary elimination pattern will improve Outcome: Progressing Problem: Activity: Goal: Will verbalize the importance of balancing activity with adequate rest periods Outcome: Progressing Problem: Lack of Knowledge: Goal: Will have increased knowledge of Care Outcome: Progressing Problem: Coping: Goal: Ability to cope will improve Outcome: Progressing Goal: Ability to identify and utilize available resources and services will improve Outcome: Progressing Problem: Life Cycle: Goal: Risk for hemorrhage will decrease Outcome: Progressing Goal: Chance of risk for complications during the period will decrease Outcome: Progressing Problem: Nutritional: Goal: Dietary intake will improve Outcome: Progressing Goal: Mother's verbalization of comfort with process will improve Outcome: Progressing Problem: Role Relationship: Goal: Ability to interact appropriately with will improve Outcome: Progressing Problem: Sensory: Goal: General experience of comfort will improve Outcome: Progressing Problem: Activity: Goal: Mobility will improve Outcome: Progressing Problem: Lack of Knowledge: Goal: Understanding of ways to prevent future skin breakdown will improve Outcome: Progressing Goal: Ability to identify appropriate dietary choices will improve Outcome: Progressing Problem: Nutritional: Goal: Dietary intake will improve Outcome: Progressing Goal: Ability to maintain a balanced intake and output will improve Outcome: Progressing Problem: Skin Integrity: Goal: Risk for impaired skin integrity will decrease Outcome: Progressing Goal: Ability to demonstrate warm and dry skin will improve Outcome: Progressing Goal: Circulation will improve to fullest extent possible Outcome: Progressing Goals: Clinical Goals for the Shift: VSS, pain control Summary: VSS, pain well controlled with motrin UER DIPPING MACHINE OPERATOR * Plan of Care - Rhonda Jackson RN - 02/06/2023 4:14 PM CST Goals: Clinical Goals for the Shift: vss, pain control, taylor with baby Summary: VSS, pain controlled with medication per MAR. well. Bonding with baby in theroom. Problem: Health Behavior: Goal: Understanding of discharge needs will improve Outcome: Progressing Problem: Activity: Goal: Ability to tolerate increased activity will improve Outcome: Progressing Problem: Bowel/Gastric: Goal: Gastrointestinal status for postoperative course will improve Outcome: Progressing Problem: Lack of Knowledge: Goal: Knowledge of Section Care will improve Outcome: Progressing Problem: Life Cycle: Goal: Chance of risk for complications during the period will decrease Outcome: Progressing Problem: Physical Regulation: Goal: Postoperative complications will be avoided or minimized Outcome: Progressing Problem: Respiratory: Goal: Ability to maintain adequate ventilation will improve Outcome: Progressing Problem: Role Relationship: Goal: Ability to demonstrate positive interaction with the child will improve Outcome: Progressing Problem: Sensory: Goal: Pain level will decrease Outcome: Progressing Goal: Satisfaction with pain management regimen will improve Outcome: Progressing Problem: Skin Integrity: Goal: Demonstration of wound healing without infection will improve Outcome: Progressing Goal: Ability to participate in self-care as condition permits will improve Outcome: Progressing Problem: Urinary Elimination: Goal: Ability to reestablish a normal urinary elimination pattern will improve Outcome: Progressing Problem: Activity: Goal: Will verbalize the importance of balancing activity with adequate rest periods Outcome: Progressing Problem: Lack of Knowledge: Goal: Will have increased knowledge of Care Outcome: Progressing Problem: Coping: Goal: Ability to cope will improve Outcome: Progressing Goal: Ability to identify and utilize available resources and services will improve Outcome: Progressing Problem: Life Cycle: Goal: Risk for hemorrhage will decrease Outcome: Progressing Goal: Chance of risk for complications during the period will decrease Outcome: Progressing Problem: Nutritional: Goal: Dietary intake will improve Outcome: Progressing Goal: Mother's verbalization of comfort with process will improve Outcome: Progressing Problem: Role Relationship: Goal: Ability to interact appropriately with will improve Outcome: Progressing Problem: Sensory: Goal: General experience of comfort will improve Outcome: Progressing Problem: Activity: Goal: Mobility will improve Outcome: Progressing Problem: Lack of Knowledge: Goal: Understanding of ways to prevent future skin breakdown will improve Outcome: Progressing Goal: Ability to identify appropriate dietary choices will improve Outcome: Progressing Problem: Nutritional: Goal: Dietary intake will improve Outcome: Progressing Goal: Ability to maintain a balanced intake and output will improve Outcome: Progressing Problem: Skin Integrity: Goal: Risk for impaired skin integrity will decrease Outcome: Progressing Goal: Ability to demonstrate warm and dry skin will improve Outcome: Progressing Goal: Circulation will improve to fullest extent possible Outcome: Progressing UER DIPPING MACHINE OPERATOR * Plan of [place] - Eulalia Garvey LCSW - 02/06/2023 8:24 AM CST Manuela Whittington 2000 Reason for Social Work visit Social Work involvement requested for: Pt/mother had UA + positive for cannabinoids and amphetamines at admission to deliver on 02/05/23. Intervention Maternal/ chart review completed. Social work provided: Pt/mother has admitted history of marijuana use with UAs during visits 12/11/22 & 12/28/22 positive for cannabinoids. At admission to deliver baby, pt's/mother's UA02/05/23 was positive for cannabinoids and amphetamines. Confirmation test results did not confirm a mphetamines. , female, : 02/05/23, had UA negative for drugs of abuse 02/06/23. Meconium results are pending. Pt/mother has another, child, daughter, 04/27/21. Pt has as history of mental health diagnoses and treatment for: MDD; Anxiety; Bipolar; and Borderline Personality D/O. She suffered from PPD after the of her daughter in 2020 and experienced suicidal thoughts and plans and [place] She has reported that the psychotropic medication Effexor has been effective. She should be followed closely for signs/symptoms of PPD again following this . Discharge Plan Unknown at this time. No other SW needs indicated at this time. SW remains available to assist as needed. 8:25 AM 02/06/2023 Eulalia Garvey LCSW UER DIPPING MACHINE OPERATOR UER DIPPING MACHINE OPERATOR * Plan of Care - Tia Webb RN - 02/05/2023 4:50 PM CST Goals: Clinical Goals for the Shift: pain controlled, comfortable with Summary: pain controlled, adequate UO, pt nursing well on left side, hand expressing on right side,abd dressing dry and intact UER DIPPING MACHINE OPERATOR * Plan of Care - Oswald Jo RN - 02/05/2023 6:07 AM CST Problem: Health Behavior: Goal: Understanding of discharge needs will improve Outcome: Progressing Problem: Activity: Goal: Ability to tolerate increased activity will improve Outcome: Progressing Problem: Bowel/Gastric: Goal: Gastrointestinal status for postoperative course will improve Outcome: Progressing Problem: Lack of Knowledge: Goal: Knowledge of Section Care will improve Outcome: Progressing Problem: Life Cycle: Goal: Chance of risk for complications during the period will decrease Outcome: Progressing Problem: Physical Regulation: Goal: Postoperative complications will be avoided or minimized Outcome: Progressing Problem: Respiratory: Goal: Ability to maintain adequate ventilation will improve Outcome: Progressing Problem: Role Relationship: Goal: Ability to demonstrate positive interaction with the child will improve Outcome: Progressing Problem: Sensory: Goal: Pain level will decrease Outcome: Progressing Goal: Satisfaction with pain management regimen will improve Outcome: Progressing Problem: Skin Integrity: Goal: Demonstration of wound healing without infection will improve Outcome: Progressing Goal: Ability to participate in self-care as condition permits will improve Outcome: Progressing Problem: Urinary Elimination: Goal: Ability to reestablish a normal urinary elimination pattern will improve Outcome: Progressing Problem: Activity: Goal: Will verbalize the importance of balancing activity with adequate rest periods Outcome: Progressing Problem: Lack of Knowledge: Goal: Will have increased knowledge of Care Outcome: Progressing Problem: Coping: Goal: Ability to cope will improve Outcome: Progressing Goal: Ability to identify and utilize available resources and services will improve Outcome: Progressing Problem: Life Cycle: Goal: Risk for hemorrhage will decrease Outcome: Progressing Goal: Chance of risk for complications during the period will decrease Outcome: Progressing Problem: Nutritional: Goal: Dietary intake will improve Outcome: Progressing Goal: Mother's verbalization of comfort with process will improve Outcome: Progressing Problem: Role Relationship: Goal: Ability to interact appropriately with will improve Outcome: Progressing Problem: Sensory: Goal: General experience of comfort will improve Outcome: Progressing Goals: Clinical Goals for the Shift: Healthy vaginal delivery of baby Marina Summary: Patient post c/s in , patient in stable condition, handoff given to Tia. UER DIPPING MACHINE OPERATOR * Brief Op Note - Esvin Gilmore MD - 02/05/2023 5:12 AM CST Operative Progress Note Surgical Team: Surgeon(s) and Role: * Esvin Gilmore MD - Primary FLATBED STITCHER: Con Thompson CRNA Surgeon: Esvin Gilmore MD Chute Loader: Oswald Jo RN Scrub: Sandi Mendez ST; Sonya Johnson ST Chute Loader Second: Candace Jeong RN DATE OF SURGERY : 02/05/2023 Preoperative Diagnosis: IUP at 38 2/7 weeks Non-reassuring FHTs Placental abruption Postoperative Diagnosis: IUP at 38 2/7 weeks delivered Non-reassuring FHTs Placental abruption Procedure(s): Procedure(s) (LRB): SECTION (N/A) Operative Findings: Normal appearing ovaries and fallopain tubes Female , APGARs 7/8, weight pending Estimated Blood Loss: 658mL Intraoperative Fluids: 1700 mls UOP: 75mL- clear at the end of the procedure Specimens: No specimen collected in procedure Implants: Nothing was implanted during the procedure Blood/Blood Products Transfused: none Complications: None Condition on Discharge from the operating room was stable Esvin Gilmore MD Date: 02/05/2023 Time: 5:13 AM No Resident involved on case UER DIPPING MACHINE OPERATOR * Op Note - Esvin Gilmore MD - 02/05/2023 12:00 AM CST PREOPERATIVE DIAGNOSIS 1. Intrauterine at 38-2/7 weeks. 2. Non-reassuring heart tones. 3. Placental abruption. POSTOPERATIVE DIAGNOSIS 1. Intrauterine at 38-2/7 weeks. 2. Non-reassuring heart tones. 3. Placental abruption. PROCEDURE Primary low transverse section. OPERATIVE FINDINGS 1. Normal-appearing ovaries and fallopian tubes. 2. Female , Apgars 7, 8, weight pending. QBL 658 mL. INTRAOPERATIVE FLUIDS 1700 mL. URINE OUTPUT 75 mL clear at the end of the procedure. SPECIMENS Placenta to pathology. BLOOD TRANSFUSED None. COMPLICATIONS None. CONDITION ON DISCHARGE From the OR stable to recovery. INDICATION AND CONSENT The patient presented to Labor and Delivery with a complaint of leakage of fluid, but also bleeding. heart tones were noted to be bradycardic to a zak of 70 with recovery to the 120s. However, the patient continued to have vaginal bleeding. section was recommended to the patient for well being. The patient understood that the risks of section include, but are not limited to visceral or vascular injury, infection, blood loss, need for transfusion, prolonged hospitalization, reoperation. The patient stated understanding and desired to proceed. All questions were answered. PROCEDURE The patient was taken to the operating room where spinal anesthesia was performed. 2 g of Ancef were given for infection prophylaxis. She was prepped and draped in the dorsal supine position with leftward tilt. A Pfannenstiel skin incision was made with a scalpel. The incision was carried down to the fascia with the scalpel. The fascia was incised and extended laterally. The superior aspect of the fascia was grasped with Carola clamps. The underlying rectus muscle was dissected off sharply withMayo scissors. In a similar fashion, the inferior aspect of the fascia as well as pyramidalis muscle were dissected off sharply. Hemostasis was achieved with the Bovie. The rectus muscle was in the midline down to the level of the pubic symphysis. Preperitoneal fatty tissue was bluntly dissected to expose the peritoneum. The peritoneum was found to be free of adherent bowel and entered bluntly. The peritoneal incision was extended superiorly and inferiorly to the bladder reflection with good visualization of the bladder. The bladder blade was inserted and the vesicouterine peritoneum identified. Intra-abdominal survey revealed scant clear peritoneal fluid and a thinned out lower uterine segment. The vesicouterine peritoneum was opened with scissors and a bladder flap was developed. The bladder blade was repositioned to keep the bladder out of the operative field. The lower uterine segment was incised with a scalpel. The uterine incision was extended bluntly with lateral and upward traction. The fetus was in cephalic presentation and the head was elevated out the pelvis with special attention paid to avoid using the uterine incision as a fulcrum. Gentle fundal pressure was applied once the head was brought into the incision. The was delivered with no difficulty.The cord was clamped and cut. The was handed to the nurse in attendance. IV oxytocin was initiated to facilitate uterine contractions. The placenta was delivered intact with manual massage of the uterine fundus. The uterus was then exteriorized. The inside of the uterus was gently wiped with a lap sponge to assure complete removal of placental membranes. The uterine incision was closed with 0 Vicryl in a running locked fashion. A 2nd imbricating layer was also closed on the uterus using0 Vicryl. The ovaries and tubes were found to be normal. The uterus, tubes, and ovaries were then returned to the abdominal cavity. Blood clots and fluid were wiped out of the abdomen and pelvis withmoist laparotomy sponges. The uterine incision was reinspected and good hemostasis was noted. The peritoneum was closed using 3-0 Vicryl. The fascia was closed using 0 Vicryl. The subcuticular layer was closed using 3-0 plain gut and the skin was closed using skin kuldip. The patient tolerated theprocedure well. All counts were correct x2 and the patient was taken to the recovery room in stablecondition. 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 documented in this encounter Plan of Treatment Not on file documented as of this encounter Procedures Procedure Name Priority Date/Time Associated Diagnosis Comments PROTEIN / CREATININE RATIO, URINE, RANDOM STAT 02/07/2023 3:23 AM LACQUER DIPPING MACHINE OPERATOR EGFR STAT 02/06/2023 10:03 PM LACQUER DIPPING MACHINE OPERATOR DIFFERENTIAL AUTO STAT 02/06/2023 10: 03 PM LACQUER DIPPING MACHINE OPERATOR CBC WITH AUTO DIFFERENTIAL STAT 02/06/2023 10:03 PM LACQUER DIPPING MACHINE OPERATOR URIC ACID STAT 02/06/2023 10:03 PM LACQUER DIPPING MACHINE OPERATOR LACTATE DEHYDROGENASE STAT 02/06/2023 10:03 PM LACQUER DIPPING MACHINE OPERATOR COMPREHENSIVE METABOLIC PANEL STAT 02/06/2023 10:03 PM LACQUER DIPPING MACHINE OPERATOR CBC WITHOUT DIFFERENTIAL Routine 02/06/2023 7:34 AM LACQUER DIPPING MACHINE OPERATOR SURGICAL PATHOLOGY Routine 02/05/2023 2: 01 PM LACQUER DIPPING MACHINE OPERATOR DRUG SCREEN, URINE L AND D WITH REFLEX CONFIRMATION STAT 02/05/2023 6:03 AM LACQUER DIPPING MACHINE OPERATOR CANNABINOIDS, URINE, CONFIRMATION STAT 02/05/2023 6:03 AM LACQUER DIPPING MACHINE OPERATOR AMPHETAMINE, URINE, CONFIRMATION Routine 02/05/2023 6:03 AM LACQUER DIPPING MACHINE OPERATOR BLOOD GAS, CORD VENOUS STAT 02/05/2023 4:17 AM LACQUER DIPPING MACHINE OPERATOR SECTION 02/05/2023 3:38 AM LACQUER DIPPING MACHINE OPERATOR 38 weeks gestation of Case Notes Suspected placenta abruption DIFFERENTIAL AUTO STAT 02/05/2023 2:5 0 AM LACQUER DIPPING MACHINE OPERATOR CBC WITH AUTO DIFFERENTIAL STAT 02/05/2023 2:50 AM LACQUER DIPPING MACHINE OPERATOR ABO/RH STAT 02/05/2023 2:50 AM LACQUER DIPPING MACHINE OPERATOR ANTIBODY SCREEN STAT 02/05/2023 2:50 AM LACQUER DIPPING MACHINE OPERATOR HC ANTIBODY SCREEN RBC STAT 02/05/2023 2:50 AM LACQUER DIPPING MACHINE OPERATOR documented in this encounter Results * (ABNORMAL) Protein / creatinine ratio, urine, random (02/07/2023 3:23 AM LACQUER DIPPING MACHINE OPERATOR) Protein, ur, quant 27.0 mg/dL [facility] ([place]) Comment: Interpretive Data No reference range established. Current interpretive data was last revised 2019. Creatinine Ur 97.2 mg/dL [facility] ([place]) Comment: Interpretive Data No reference range established. Current interpretive data was last revised 2019. Protein/creatinin e ratio 277.8(H) 0.0 - 180.0 mg/g CR [facility] ([place]) Urine 02/07/2023 3:23 AM LACQUER DIPPING MACHINE OPERATOR 02/07/2023 3:42 AM LACQUER DIPPING MACHINE OPERATOR us Esvin Gilmore MD LAB URINE ORDERABLES F inal Result [facility] ([place]) 1 [facility] Department [place] [address] * eGFR (02/06/2023 10:03 PM LACQUER DIPPING MACHINE OPERATOR) eGFR 126 mL/min/1. 73 m2 [facility] ([place]) Comment: Interpretive Data Reference Interval Normal ?>/= 90 mL/min/1.73m2 Mildly decreased* ? 60 - 89 mL/min/1.73m2 Mildly to moderately decreased ?45 - 59 mL/min/1.73m2 Moderately to severely decreased ??30 - 44 mL/min/1.73m2 Severely decreased ?15 - 29 mL/min/1.73m2 Kidney Failure ?< 15 ??mL/min/1.73m2 *Relative to young adult level Estimated glomerular filtration rate is determined by the 2020 CKD-EPI equation recommended by the National Kidney Foundation (A Unifying Approach to GFR Estimation: Recommendations of the NKF-ASK Task Force on Reassessing the Inclusion of Race in Diagnosing Kidney Disease, JASN 2020). The CKD-EPI equation should not be used for patients with unstable renal function and has not been validated in children and those over 70. Current interpretive data was last reviewed 2021. Blood 02/06/2023 10:0 3 PM LACQUER DIPPING MACHINE OPERATOR 02/06/2023 10:08 PM LACQUER DIPPING MACHINE OPERATOR us Esvin Gilmore MD LAB BLOOD ORDERABLES F inal Result [facility] ([place]) 1 [facility] Department of Laboratories [place], [place] [id number] * (ABNORMAL) Differential, auto (02/06/2023 10:03 PM LACQUER DIPPING MACHINE OPERATOR) Neutrophil abs 7.2(H) 1.7 - 6.5 K/cumm [facility] ([place]) Imm gran abs 0.1 0.0 - 0.1 K/cumm [facility] ([place]) Lymphocyte abs 1.1 0.8 - 3.3 K/cumm [facility] ([place]) Monocyte abs 0.5 0.2 - 0.8 K/cumm [facility] ([place]) Eosinophil abs 0.1 0.0 - 0.5 K/cumm [facility] ([place]) Basophil abs 0.0 0.0 - 0.1 K/cumm [facility] ([place]) Neutrophil pct 79.2 % [facility] ([place]) Comment: Interpretive Data Percent cell count reference ranges are not reported, since discordance with absolute values may lead to misinterpretation of CBC data. Current Interpretive Data was last revised on 2018. Imm gran pct 0.9 % [facility] ([place]) Comment: Interpretive Data Percent cell count reference ranges are not reported, since discordance with absolute values may lead to misinterpretation of CBC data. Current Interpretive Data was last revised on 2018. Lymphocyte pct 12.6 % [facility] ([place]) Comment: Interpretive Data Percent cell count reference ranges are not reported, since discordance with absolute values may lead to misinterpretation of CBC data. Current Interpretive Data was last revised on 2018. Monocyte pct 5.8 % [facility] ([place]) Comment: Interpretive Data Percent cell count reference ranges are not reported, since discordance with absolute values may lead to misinterpretation of CBC data. Current Interpretive Data was last revised on 2018. Eosinophil pct 1.2 % [facility] ([place]) Comment: Interpretive Data Percent cell count reference ranges are not reported, since discordance with absolute values may lead to misinterpretation of CBC data. Current Interpretive Data was last revised on 2018. Basophil pct 0.3 % [facility] ([place]) Comment: Interpretive Data Percent cell count reference ranges are not reported, since discordance with absolute values may lead to misinterpretation of CBC data. Current Interpretive Data was last revised on 2018. Blood 02/06/2023 10:0 3 PM LACQUER DIPPING MACHINE OPERATOR 02/06/2023 10:08 PM LACQUER DIPPING MACHINE OPERATOR us Esvin Gilmore MD LAB BLOOD ORDERABLES F inal Result [facility] ([place]) 1 [facility] Department [place] [address] * Lactate dehydrogenase (LD) (02/06/2023 10:03 PM LACQUER DIPPING MACHINE OPERATOR) Lactate dehydrogenase (LDH) 202 100 - 250 Units/L [facility] ([place]) Blood 02/06/2023 10:0 3 PM LACQUER DIPPING MACHINE OPERATOR 02/06/2023 10:08 PM LACQUER DIPPING MACHINE OPERATOR us Esvin Gilmore MD LAB BLOOD ORDERABLES F inal Result [facility] ([place]) 1 [facility] Department [place] [address] * (ABNORMAL) Comprehensive metabolic panel (02/06/2023 10:03 PM LACQUER DIPPING MACHINE OPERATOR) Sodium 140 135 - 145 mmol/L [facility] ([place]) Potassium, pl 3.6 3.3 - 4.9 mmol/L [facility] ([place]) Chloride 107 97 - 110 mmol/L [facility] ([place]) CO2 24 22 - 32 mmol/L [facility] ([place]) Anion gap 10 2 - 15 mmol/L [facility] ([place]) BUN 3(L) 8 - 25 mg/dL [facility] ([place]) Creatinine 0.66 0.60 - 1.10 mg/dL [facility] ([place]) Glucose 105 70 - 199 mg/dL [facility] ([place]) Comment: Interpretive Data Fasting glucose >/= 126 mg/dl is diagnostic for diabetes. ?? Fasting is defined as no caloric intake for at least 8 hours. Fasting glucose between 100 mg/dl to 125 mg/dl is diagnostic of prediabetes. In a patient with classic symptoms of hyperglycemia or hyperglycemic crisis, a random glucose >/= 200 mg/dl is diagnostic for diabetes. In the absence of unequivocal hyperglycemia, results should be confirmed by repeat testing. The classification and Diagnosis of Diabetes Diabetes Care 2021; 46: S19-S40. Current interpretive data was last revised 2022. Calcium 8.8 8.5 - 10.3 mg/dL [facility]) Bilirubin, total 0.5 0.1 - 1.2 mg/dL [facility] ([place]) Protein, pl 5.7(L) 6.5 - 8.5 g/dL [facility] ([place]) Albumin 3.0(L) 3.5 - 5.0 g/dL [facility] ([place]) Alk phos 105 40 - 130 Units/L [facility] ([place]) ALT 6(L) 7 - 45 Units/L [facility] ([place]) AST 14 10 - 45 Units/L [facility] ([place]) Blood 02/06/2023 10:0 3 PM LACQUER DIPPING MACHINE OPERATOR 02/06/2023 10:08 PM LACQUER DIPPING MACHINE OPERATOR us Esvin Gilmore MD LAB BLOOD ORDERABLES F inal Result [facility] ([place]) 1 [facility] [place] [address] * (ABNORMAL) CBC with auto differential (02/06/2023 10:03 PM LACQUER DIPPING MACHINE OPERATOR) WBC 9.1 3.8 - 9.9 K/cumm [facility] ([place]) Hgb 7.7(L) 11.9 - 15.5 g/dL [facility] ([place]) Hct 23.4(L) 35.6 - 45.5 % [facility] ([place]) Plt 202 150 - 400 K/cumm [facility] ([place]) MPV 10.1 9.1 - 12.3 fL [facility] ([place]) RBC 2.90(L) 3.90 - 5.20 M/cumm [facility] ([place]) MCV 80.7(L) 81.3 - 96.4 fL [facility] ([place]) MCH 26.6(L) 27.1 - 33.3 pg [facility] ([place]) MCHC 32.9 32.3 - 35.7 g/dL [facility] ([place]) RDW CV 13.2 11.1 - 14.9 % [facility] ([place]) RDW SD 38.5 35.7 - 48.1 fL [facility] ([place]) NRBC abs 0.00 0.00 - 0.01 K/cumm [facility] ([place]) Blood 02/06/2023 10:0 3 PM LACQUER DIPPING MACHINE OPERATOR 02/06/2023 10:08 PM LACQUER DIPPING MACHINE OPERATOR Esvin Gilmore MD LAB BLOOD ORDERABLES F inal Result [facility] ([place]) 1 [facility] [place] [address] * Uric acid (02/06/2023 10:03 PM LACQUER DIPPING MACHINE OPERATOR) Uric acid 5.3 2.5 - 7.0 mg/dL [facility] Blood 02/06/2023 10:0 3 PM LACQUER DIPPING MACHINE OPERATOR 02/06/2023 10:08 PM LACQUER DIPPING MACHINE OPERATOR Esvin Gilmore MD LAB BLOOD ORDERABLES F inal Result Performing Organization Address [facility] Co de Phone Number [facility] ([place]) 1 [facility] [place] [address] * (ABNORMAL) CBC without differential (02/06/2023 7:34 AM LACQUER DIPPING MACHINE OPERATOR) Pathologist [facility] WBC 8.8 3.8 - 9.9 K/cumm [facility] ([place]) Hgb 7.7(L) 11.9 - 15.5 g/dL [facility] ([place]) Hct 23.6(L) 35.6 - 45.5 % [facility] ([place]) Plt 187 150 - 400 K/cumm [facility] ([place]) MPV 10.1 9.1 - 12.3 fL [facility] ([place]) RBC 2.88(L) 3.90 - 5.20 M/cumm [facility] ([place]) MCV 81.9 81.3 - 96.4 fL [facility] ([place]) MCH 26.7(L) 27.1 - 33.3 pg [facility] ([place]) MCHC 32.6 32.3 - 35.7 g/dL [facility] ([place]) RDW CV 13.2 11.1 - 14.9 % [facility] ([place]) RDW SD 39.2 35.7 - 48.1 fL [facility] ([place]) NRBC abs 0.00 0.00 - 0.01 K/cumm [facility] ([place]) Blood 02/06/2023 7:34 AM LACQUER DIPPING MACHINE OPERATOR 02/06/2023 7:40 AM LACQUER DIPPING MACHINE OPERATOR us Esvin Gilmroe MD LAB BLOOD ORDERABLES F inal Result [facility] ([place]) 1 [facility] Department [place] [address] * Surgical pathology (02/05/2023 2:01 PM LACQUER DIPPING MACHINE OPERATOR) Tissue (Placenta) 02/05/2023 2:01 PM LACQUER DIPPING MACHINE OPERATOR 02/05/2023 2:01 PM LACQUER DIPPING MACHINE OPERATOR Narrative PATHOLOGY [facility] ([place]) - 02/08/2023 2:28 PM LACQUER DIPPING MACHINE OPERATOR EPIC results best viewed via link to PDF [facility] Department of Pathology [address] [place] [id number] Note to Patients: This report may contain a detailed description of human tissue sent by a health care provider to the laboratory for pathologic evaluation. The content of this report is essential for diagnosis and may provide important critical findings. This information may be unfamiliar to patients to review without a medical professional present. It is advised that the patient review this report in the presence of a health care provider who can answer questions and explain the details. Final Report Patient Name: ??MANUELA WHITTINGTON Address: ??[address] [place] [address], ??[place], [place] [address] Gender: ??F : ??2000 (Age: 22) Service: ??Obstetrics Location: ??[facility] Hospital #: ??[id number] Patient Type: ??[facility] Accession # ?[id number] Taken: ??02/05/2023 Received: ??02/05/2023 Accessioned: ??02/05/2023 Reported: ??02/08/2023 Physician(s):Esvin Gilmore M.D. Diagnosis: Third trimester placenta, 38.2 weeks gestation, section delivery: ? - Placental weight: 519 g. ? - Umbilical cord: ??Unremarkable trivascular cord. ? - Membranes: ??Moderate to severe acute membranous deciduitis with acute chorioamnionitis ? - Parenchyma: ??Mature chorionic villi with focally increased villous maturity. ??Focally increased perivillous fibrin deposition with focal villous infarction and dystrophic microcalcifications. ??Mild chronic deciduitis. ??Favor focal chorangiosis. Antonio Pryor M.D. Report Electronically Reviewed and Signed Out By ??Antonio Pryor M.D. ??02/08/2023 14:28:58 Specimen(s) Received: A: Placenta 38.2 Microscopic Description: A microscopic examination is performed by the pathologist. Clinical History: Placenta, 38 week gestation. ?? section. ?? Gross Description: The specimen is submitted in a single container labeled MANUELA WHITTINGTON and placenta . ??Submitted is a discoid keith placenta with attached membranes and umbilical cord. ??The trimmed placenta weighs 519 grams and measures 19 x 17 x 4 cm. ??The surface is shiny and blue-cordova in color. ??The maternal surface appears to be complete and intact. ??Serial cross sections show no intraplacental gross abnormalities. ??The membranes are torn 2.0 cm from the placental margin. ??They are smooth, glistening and focally opacified. ??The cord inserts 7.0 cm from the closest edge of the placenta. ??It measures 25 cm in length, 0.8 cm in diameter and contains three blood vessels. ??A 5 cm segment of cord is tethered to the surface by a web of Warthin's jelly ??Panama Hat Blocker sections are submitted in three cassettes. Roxanna Jo R.N., P.A./Yared White M.D. REPORT IMAGES AND SCANNED DOCUMENTS, IF INCLUDED, ONLY VIEWABLE IN PDF VERSION OF REPORT The performance characteristics of some immunohistochemical stains, fluorescence in-situ hybridization tests and immunophenotyping by flow cytometry cited in this report (if any) were determined by the Surgical Pathology Department at [facility] as part of an ongoing quality control industrial engineer program and in compliance with federally mandated regulations drawn from the Clinical Laboratory Improvement Act of 1988 (CLIA '88). ??Some of these tests rely on the use of analyte specific reagents and are subject to specific labeling requirements by the US Food and Drug Administration. ??Such diagnostic tests may only be performed in a facility that is certified by the Department of Health and Human Services as a high complexity laboratory under CLIA '88. The FDA has determined that such clearance or approval is not necessary. ??This test is used for clinical purposes. ??It should not be regarded as investigational or for research. ??Nevertheless, federal rules concerning the medical use of analyte specific reagents require that the following disclaimer be attached to the report: This test was developed and its performance characteristics determined by the Surgical Pathology Department [facility]. ??It has not been cleared or approved by the U. S. Food and Drug Administration. Note for decalcified specimens: This assay has not been validated on decalcified tissues. Results should be interpreted with caution given the possibility of false negativity on decalcified specimens Esvin Gilmore MD LAB PATHOLOGY ORDERABL ES Final Result [facility] ([place]) 1 [place] [address] * Amphetamine Confirmation, Urine (02/05/2023 6:03 AM LACQUER DIPPING MACHINE OPERATOR) Amphetamine Conf, Ur Does Not Confirm CutOff 150ng/mL [facility] ([place]) Comment:Testing performed by : [facility], [address] [place]., [address] Methamphetamine Conf, Ur Does Not Confirm CutOff 150ng/mL [facility] ([place]) Comment:Testing performed by : [facility], [address] [place]., [address] MDA Conf, Ur Does Not Confirm CutOff 150ng/mL [facility] ([place]) Comment:Testing performed by : [facility], [address] [place] [address] MDMA Conf, Ur Does Not Confirm CutOff 50 ng/mL [facility] ([place]) Comment:Testing performed by : [facility], [address] [facility]., [address] MDEA Conf, Ur Does Not Confirm CutOff 150ng/mL [facility] ([place]) Comment:Testing performed by : [facility], [address] [place]., [address] MBDB Conf, Ur Does Not Confirm CutOff 150ng/mL [facility] ([place]) Comment: Interpretive Data This test detects the presence or absence of drug compounds using LC Tandem mass spectrometry. While this test is highly specific, false positive and false negative results may occur in very rare circumstances. Contact the laboratory for consultation, if needed. Performance characteristics were determined by the [facility] in a manner consistent with CLIA requirement and has not been cleared or approved by the U.S. Food and Drug Administration. Current interpretive data was last revised on 2021. Testing performed by: [facility], [address] [place]., [address] Urine 02/05/2023 6:03 AM LACQUER DIPPING MACHINE OPERATOR 02/06/2023 9:42 AM LACQUER DIPPING MACHINE OPERATOR Narrative [facility] ([place]) - 02/06/2023 9:56 PM LACQUER DIPPING MACHINE OPERATOR Ordered per Tia Webb in OB. us Esvin Gilmore MD LAB URINE ORDERABLES F inal Result [facility] ([place]) 1 [facility] Department [place] [address] * Cannabinoids, urine, confirmation (02/05/2023 6:03 AM LACQUER DIPPING MACHINE OPERATOR) Delta-8 Carboxy-THC Not Detected Cutoff: 5 ng/mL [facility] ([place]) Comment: Testing performed at a x2 dilution; limit of quantitation is elevated. Delta-9 Carboxy-THC 880 Cutoff: 5 ng/mL [facility] ([place]) Cannabinoids ur interpretation Positive. [facility] ([place]) Comment: ADDITIONAL INFORMATION This report is intended for use in clinical monitoring and management of patients. ??It is not intended for use in employment-related testing. This test was developed and its performance characteristics determined by [facility] in a manner consistent with CLIA requirements. This test has not been cleared or approved by the U.S. Food and Drug Administration. Test Performed by: [facility] - [facility] [address] [place] [address] Fingernail Sculpturer: Edgar Mata M.D. Ph.D.; CLIA# [id number] Urine 02/05/2023 6:03 AM LACQUER DIPPING MACHINE OPERATOR 02/05/2023 6:59 AM LACQUER DIPPING MACHINE OPERATOR us Esvin Gilmore MD LAB URINE ORDERABLES F inal Result [facility] ([place]) 1 [facility] Department [place] [address] * (ABNORMAL) Drug Screen, Urine L and D with Reflex Confirmation (02/05/2023 6:03 AM LACQUER DIPPING MACHINE OPERATOR) Pathologist [facility] Amphetamine, ur Detected(A) CutOff 500ng/mL [facility] ([place]) Comment: Interpretive Data - Amphetamines: ??Samples containing greater than 500 ng/mL d-methamphetamine ??or other cross-reacting amphetamine compounds are reported as positive. ??Amphetamine immunoassays are subject to significant false positive rates due to cross-reactivity of non-amphetamine drugs. Current Interpretive Data was last reviewed 2019. Barbiturates, ur Not Detected CutOff 200ng/mL [facility] ([place]) Comment: Interpretive Data - Barbiturates: ??Samples containing greater than 200 ng/mL secobarbital or other cross-reacting barbiturate compounds are reported as positive. ??False positive and false negative results are possible. Current Interpretive Data was last reviewed 2019. Benzodiazepines, ur Not Detected CutOff 100ng/mL [facility] ([place]) Comment: Interpretive Data - Benzodiazepines: ??Samples containing greater than 100 ng/mL nordiazepam or other cross-reacting compounds are reported as positive. ?? False positive and false negative results are possible. ?? Current Interpretive Data was last reviewed 2019. Cannabinoids, ur Detected(A) CutOff 50 ng/mL [facility] ([place]) Comment: Interpretive Data - Cannabinoids: ??Samples containing greater than 50 ng/mL delta-9 THC -COOH or other cross-reacting compounds are reported as positive. ??False positive and false negative results are possible. ?? Current Interpretive Data was last reviewed 2019. Cocaine, ur Not Detected CutOff 150ng/mL [facility] ([place]) Comment: Interpretive Data - Cocaine: ??Samples containing greater than 150 ng/mL benzoylecgonine or other cross-reacting compounds are reported as positive. False positive and false negative results are possible. Current Interpretive Data was last reviewed 2019. Fentanyl, Ur Not Detected Cutoff 1 ng/mL [facility] ([facility]IN[facility]) Comment: Interpretive Data - Fentanyls: ??Samples containing greater than 1 ng/mL fentanyl or other cross-reacting fentanyl compounds are reported as detected. ??False positive and false negative results are possible. Current Interpretive Data was last reviewed 2019. Methadone, ur Not Detected CutOff 300ng/mL [facility] ([facility]) Comment: Interpretive Data - Methadone: ??Samples containing greater than 300 ng/mL d,l-methadone or other cross-reacting compounds are reported as positive. ??False positive and false negative results are possible. Current Interpretive Data was last reviewed 2019. Opiates, ur Not Detected CutOff 300ng/mL [facility] ([facility]) Comment: Interpretive Data - Opiates: ??Samples containing greater than 300 ng/mL morphine or other cross-reacting compounds are reported as positive. ??False positive and false negative results are possible. Current Interpretive Data was last reviewed 2019. Oxycodone, ur Not Detected CutOff 100ng/mL [facility] ([facility]) Comment: Interpretive Data - Oxycodone: ??Samples containing greater than 100 ng/mL oxycodone or other cross-reacting compounds are reported as positive. ??False positive and false negative results are possible. ?? Current Interpretive Data was last reviewed 2019. Phencyclidine, ur Not Detected CutOff 25 ng/mL [facility] ([facility]) Comment: Interpretive Data - Phencyclidine: ??Samples containing greater than 25 ng/mL phencyclidine or other cross-reacting compounds are reported as positive. ??False positive and false negative results are possible. ?? Current Interpretive Data was last reviewed 2019. Urine Creatinine 152 mg/dL [facility] ([facility]) Comment: Interpretive Data Urine Creatinine: < 10 mg/dL is extremely dilute = or > 10 but < 20 mg/dL is dilute = or > 20 mg/dL is normal Current Interpretive Data was last revised on 2018. Urine 02/05/2023 6:03 AM LACQUER DIPPING MACHINE OPERATOR 02/05/2023 6:14 AM LACQUER DIPPING MACHINE OPERATOR Esvin Gilmore MD LAB URINE ORDERABLES F inal Result Performing Organization Address [facility] Co de Phone Number [facility] (ERINN) 1 [facility] [employer] [place] [id number] * Blood Gas, Cord Venous (02/05/2023 4:17 AM LACQUER DIPPING MACHINE OPERATOR) pH Cord Saqib 7.33 [facility] ([facility]) pCO2 Cord Saqib 45 mmHg [facility] ([facility]) pO2 Cord Saqib 22 mmHg [facility] ([facility]) Base Excess Cord Saqib -3 mmol/L [facility] ([facility]) HCO3 Cord Saqib (Calc) 23 mmol/L [facility] ([facility]) O2 Sat Cord Saqib (Kelley) 48 % [facility] ([facility]) Comment: Interpretive Data No Reference Ranges Established Current Interpretive Data was last revised on 2018 Cord blood 02/05/2023 4:17 AM LACQUER DIPPING MACHINE OPERATOR 02/05/2023 4:24 AM LACQUER DIPPING MACHINE OPERATOR Esvin Gilmore MD LAB BLOOD ORDERABLES F inal Result Performing Organization Address [facility] Co de Phone Number [facility]OO[facility] (ERINN) 1 [facility] [place] [address] * (ABNORMAL) Differential, auto (02/05/2023 2:50 AM LACQUER DIPPING MACHINE OPERATOR) Neutrophil abs 7.3(H) 1.7 - 6.5 K/cumm [facility] (ERINN) Imm gran abs 0.0 0.0 - 0.1 K/cumm [facility] ([facility]) Lymphocyte abs 1.8 0.8 - 3.3 K/cumm [facility] ([facility]) Monocyte abs 0.6 0.2 - 0.8 K/cumm [facility] ([facility]) Eosinophil abs 0.1 0.0 - 0.5 K/cumm [facility] ([facility]) Basophil abs 0.0 0.0 - 0.1 K/cumm [facility] ([facility]) Neutrophil pct 74.0 % [facility] ([facility]) Comment: Interpretive Data Percent cell count reference ranges are not reported, since discordance with absolute values may lead to misinterpretation of CBC data. Current Interpretive Data was last revised on 2018. Imm gran pct 0.4 % [facility] ([facility]) Comment: Interpretive Data Percent cell count reference ranges are not reported, since discordance with absolute values may lead to misinterpretation of CBC data. Current Interpretive Data was last revised on 2018. Lymphocyte pct 18.0 % [facility] ([facility]) Comment: Interpretive Data Percent cell count reference ranges are not reported, since discordance with absolute values may lead to misinterpretation of CBC data. Current Interpretive Data was last revised on 2018. Monocyte pct 6.5 % [facility] ([facility]) Comment: Interpretive Data Percent cell count reference ranges are not reported, since discordance with absolute values may lead to misinterpretation of CBC data. Current Interpretive Data was last revised on 2018. Eosinophil pct 0.8 % [facility] ([facility]) Comment: Interpretive Data Percent cell count reference ranges are not reported, since discordance with absolute values may lead to misinterpretation of CBC data. Current Interpretive Data was last revised on 2018. Basophil pct 0.3 % [facility] ([facility]) Comment: Interpretive Data Percent cell count reference ranges are not reported, since discordance with absolute values may lead to misinterpretation of CBC data. Current Interpretive Data was last revised on 2018. Blood 02/05/2023 2:50 AM LACQUER DIPPING MACHINE OPERATOR 02/05/2023 2:53 AM LACQUER DIPPING MACHINE OPERATOR us Esvin Gilmore MD LAB BLOOD ORDERABLES F inal Result [facility] ([facility]) 1 [facility] [place] [employer] [place] [address] * Antibody screen (02/05/2023 2:50 AM LACQUER DIPPING MACHINE OPERATOR) Nicolas, indirect, Gel Interpretation Negative ABSC [facility] ([facility]) Blood 02/05/2023 2:50 AM LACQUER DIPPING MACHINE OPERATOR 02/05/2023 2:53 AM LACQUER DIPPING MACHINE OPERATOR Narrative [facility] ([facility]) - 02/05/2023 3:30 AM LACQUER DIPPING MACHINE OPERATOR Has the patient had Daratumumab or Isatuximab in the past 6 months?->Unknown Esvin Gilmore MD LAB BLOOD BANK TEST OR DERABLES Final Result Performing Organization Address City/[facility]/ZIP Co de Phone Number [facility] ([facility]) 1 [facility] [place] [employer] [place] [address] * ABO/Rh (02/05/2023 2:50 AM LACQUER DIPPING MACHINE OPERATOR) ABO/Rh A Positive [facility] ([facility]) Blood 02/05/2023 2:50 AM LACQUER DIPPING MACHINE OPERATOR 02/05/2023 2:53 AM LACQUER DIPPING MACHINE OPERATOR Narrative [facility] ([facility]) - 02/05/2023 3:30 AM LACQUER DIPPING MACHINE OPERATOR Has the patient had Daratumumab or Isatuximab in the past 6 months?->Unknown Esvin Gilmore MD LAB BLOOD BANK TEST OR DERABLES Final Result [facility] ([facility]) 1 [facility] [place] [place] [address] * (ABNORMAL) CBC with auto differential (02/05/2023 2:50 AM LACQUER DIPPING MACHINE OPERATOR) WBC 9.8 3.8 - 9.9 K/cumm [facility] ([facility]) Hgb 9.0(L) 11.9 - 15.5 g/dL [facility] ([facility]) Hct 26.7(L) 35.6 - 45.5 % [facility] ([facility]) Plt 209 150 - 400 K/cumm [facility] ([facility]) MPV 10.7 9.1 - 12.3 fL [facility] ([facility]) RBC 3.41(L) 3.90 - 5.20 M/cumm [facility] ([facility]) MCV 78.3(L) 81.3 - 96.4 fL [facility] ([facility]) MCH 26.4(L) 27.1 - 33.3 pg [facility] ([facility]) MCHC 33.7 32.3 - 35.7 g/dL [facility] ([facility]) RDW CV 13.2 11.1 - 14.9 % [facility] ([facility]) RDW SD 37.8 35.7 - 48.1 fL [facility] ([facility]) NRBC abs 0.00 0.00 - 0.01 K/cumm [facility] ([facility]) Blood 02/05/2023 2:50 AM LACQUER DIPPING MACHINE OPERATOR 02/05/2023 2:53 AM LACQUER DIPPING MACHINE OPERATOR us Esvin Gilmore MD LAB BLOOD ORDERABLES F inal Result [facility] ([facility]) 1 [facility] Department [place] [address] documented in this encounter Visit Diagnoses Diagnosis 38 weeks gestation of - Primary 38 weeks gestation of documented in this encounter Admitting Diagnoses Diagnosis 38 weeks gestation of documented in this encounter Administered Medications Inactive Administered Medications - up to 3 most recent administrations Medication Order MAR Action Action Date Dose Rate Site busPIRone (BUSPAR) tablet 7.5 mg 7.5 mg, oral, 2 times daily, First dose on Sat02/07/23 at 0945, Indications: Generalized Anxiety DisorderIndications:Generalized Anxiety Disorder Given 02/08/2023 10:01 AM LACQUER DIPPING MACHINE OPERATOR 7.5 mg Given 02/07/2023 8:17 PM LACQUER DIPPING MACHINE OPERATOR 7.5 mg Given 02/07/2023 9:30 AM LACQUER DIPPING MACHINE OPERATOR 7.5 mg docusate sodium (COLACE) capsule 100 mg 100 mg, oral, 2 times daily, First dose on Sat02/05/23 at 0900, Hold if diarrhea., Indications: constipation, Stool SoftenerIndications:constipation,Stool Softener Given 02/08/2023 10:01 AM LACQUER DIPPING MACHINE OPERATOR 100 mg Given 02/07/2023 8:57 PM LACQUER DIPPING MACHINE OPERATOR 100 mg Given 02/07/2023 9:31 AM LACQUER DIPPING MACHINE OPERATOR 100 mg ferrous sulfate tablet 325 mg 325 mg, oral, Daily, First dose on Sat02/05/23 at 0900, Begin when normal bowel activity resumes., Indications: Iron Deficiency AnemiaIndications:Iron Deficiency Anemia Given 02/08/2023 10:01 AM LACQUER DIPPING MACHINE OPERATOR 325 mg Given 02/07/2023 7:58 AM LACQUER DIPPING MACHINE OPERATOR 325 mg Given 02/06/2023 9:09 AM LACQUER DIPPING MACHINE OPERATOR 325 mg ibuprofen (ADVIL,MOTRIN) tablet 600 mg 600 mg, oral, Every 6 hours, First dose on Sat02/06/23 at 0330, Start in 24 hours after Anesthesia no longer covering., Indications: CrampsIndications:Cramps Given 02/08/2023 10:54 AM LACQUER DIPPING MACHINE OPERATOR 600 mg Given 02/08/2023 5:50 AM LACQUER DIPPING MACHINE OPERATOR 600 mg Given 02/07/2023 8:57 PM LACQUER DIPPING MACHINE OPERATOR 600 mg ketorolac (TORADOL) 30 mg/mL (1 mL) injection 30 mg 30 mg, intravenous, Every 6 hours scheduled, First dose on Sat02/05/23 at 0645, For 24 hours, Max 4 doses. Anesthesia orders for the first 24 hours ., Indications: PainIndications:Pain Given 02/06/2023 12:03 AM LACQUER DIPPING MACHINE OPERATOR 30 mg Given 02/05/2023 6:40 PM LACQUER DIPPING MACHINE OPERATOR 30 mg Given 02/05/2023 12:06 PM LACQUER DIPPING MACHINE OPERATOR 30 mg Lactated Ringer's (LR) infusion 125 mL/hr, intravenous, Continuous, Starting on Sat02/05/23 at 0645, New Bag 02/05/2023 8:58 AM LACQUER DIPPING MACHINE OPERATOR 125 mL/hr 125 mL/hr New Bag 02/05/2023 6:23 AM LACQUER DIPPING MACHINE OPERATOR 125 mL/hr 125 mL/hr NIFEdipine (PROCARDIA XL/ADALAT CC) extended release tablet 30 mg 30 mg, oral, Daily, First dose on Sat02/07/23 at 0945, Do not crush, chew, cut, dissolve, open or otherwise manipulate tablet/capsule. Given 02/08/2023 10:0 1 AM LACQUER DIPPING MACHINE OPERATOR 30 mg Given 02/07/2023 9:30 AM LACQUER DIPPING MACHINE OPERATOR 30 mg ondansetron (ZOFRAN) injection 4 mg 4 mg, intravenous, Administer over 2 Minutes, Every 6 hours PRN, nausea, vomiting, if not tolerating PO, Starting on Sat02/06/23 at 0321, Start in 24 hours after Anesthesia no longer covering., Indications: Nausea and VomitingIndications:Nausea and Vomiting ondansetron ODT (ZOFRAN-ODT) disintegrating tablet 4 mg 4 mg, oral, Every 6 hours PRN, nausea, vomiting, Starting on Sat02/06/23 at 0321, Start in 24 hours after Anesthesia no longer covering., Indications: Nausea and VomitingIndications:Nausea and Vomiting vit-iron fum-folic ac tablet 1 tablet 1 tablet, oral, Daily, First dose on Sat02/05/23 at 0900, Begin when normal bowel activity resumes., Indications: Vitamin Deficiency PreventionIndications:Vitamin Deficiency Prevention Given 02/08/2023 10:02 AM LACQUER DIPPING MACHINE OPERATOR 1 tablet Given 02/07/2023 7:58 AM LACQUER DIPPING MACHINE OPERATOR 1 tablet Given 02/06/2023 7:39 AM LACQUER DIPPING MACHINE OPERATOR 1 tablet QUEtiapine (SEROquel) tablet 150 mg 150 mg, oral, Nightly, First dose (after last modification) on Sat02/05/23 at 2100, Indications: Generalized Anxiety DisorderIndications:Generalized Anxiety Disorder Given 02/07/2023 8:57 PM LACQUER DIPPING MACHINE OPERATOR 100 mg Given 02/06/2023 9:09 PM LACQUER DIPPING MACHINE OPERATOR 100 mg Given 02/05/2023 8:47 PM LACQUER DIPPING MACHINE OPERATOR 100 mg documented in this encounter Active and Recently Administered Medications Times are shown in LACQUER DIPPING MACHINE OPERATOR. Scheduled Medication Order 02/06/2023 02/07/2023 02/08/2023 busPIRone (BUSPAR) tablet 7.5 mg 7.5 mg, oral, 2 times daily, First dose on Sat02/07/23 at 0945, Indications: Generalized Anxiety Disorder 0930 (Given - Provider: Elif Guzman RN)2017 (Given - Provider: Comfort Jordan RN) 1001 (Given - Provider: Arielle Vallejo RN) docusate sodium (COLACE) capsule 100 mg 100 mg, oral, 2 times daily, First dose on Sat02/05/23 at 0900, Hold if diarrhea., Indications: constipation, Stool Softener 0739 (Given - Provider: Rhonda Jackson RN)2108 (Given - Provider: Comfort Jordan RN) 0931 (Given - Provider: Elif Guzman, EL)205 (Given - Provider: Comfort Jordan, EL) 1001 (Given - Provider: Arielle Vallejo, EL) ferrous sulfate tablet 325 mg 325 mg, oral, Daily, First dose on Sat02/05/23 at 0900, Begin when normal bowel activity resumes., Indications: Iron Deficiency Anemia 0909 (Given - Provider: Rhonda Jackson RN) 0758 (Given - Provider: Elif Guzman RN) 1001 (Given - Provider: Arielle Vallejo, EL) ibuprofen (ADVIL,MOTRIN) tablet 600 mg 600 mg, oral, Every 6 hours, First dose on Sat02/06/23 at 0330, Start in 24 hours after Anesthesia no longer covering., Indications: Cramps 0739 (Given - Provider: Rhonda Jackson RN)1452 (Given - Provider: Rhonda Jackson RN)210 (Given - Provider: Comfort Jordan RN) 0314 (Given - Provider: Comfort Jordan RN)0930 (Given - Provider: Elif Guzman, EL)1513 (Given - Provider: Elif Guzman, EL)205 (Given - Provider: Comfort Jordan RN) 0330 (Not Given - Provider: Comfort Jordan RN - Reason: Patient/family refused)0550 (Given - Provider: Arielle Vallejo, EL)1054 (Given - Provider: Deanna Fierro RN) ketorolac (TORADOL) 30 mg/mL (1 mL) injection 30 mg () 30 mg, intravenous, Every 6 hours scheduled, First dose on Sat02/05/23 at 0645, For 24 hours, Max 4 doses. Anesthesia orders for the first 24 hours ., Indications: Pain 0003 (Given - Provider: Candace Jeong RN) NIFEdipine (PROCARDIA XL/ADALAT CC) extended release tablet 30 mg 30 mg, oral, Daily, First dose on Sat02/07/23 at 0945, Do not crush, chew, cut, dissolve, open or otherwise manipulate tablet/capsule. 0930 (Given - Provider: Elif Guzman, EL) 1001 (Given - Provider: Arielle Vallejo, RN) vit-iron fum-folic ac tablet 1 tablet 1 tablet, oral, Daily, First dose on Sat02/05/23 at 0900, Begin when normal bowel activity resumes., Indications: Vitamin Deficiency Prevention 0739 (Given - Provider: Rhonda Jackson RN) 0758 (Given - Provider: Elif Guzman, EL) 1002 (Given - Provider: Arielle Vallejo, EL) QUEtiapine (SEROquel) tablet 150 mg 150 mg, oral, Nightly, First dose (after last modification) on Sat02/05/23 at 2100, Indications: Generalized Anxiety Disorder 2108 (Given - Provider: Comfort Jordan RN - Comment: Patient only wanted 100mg tablet.) 2056 (Given - Provider: Comfort Jordan RN - Comment: Patient only wants to take 100mg.) sodium chloride 0.9% flush 0.5-20 mL 0.5-20 mL, intra-catheter, Every 8 hours scheduled, First dose on Sat02/05/23 at 0645, Flush volume based on line type and size. , Indications: Flushing 0537 (Not Given - Provider: Rhonda Jackson RN - Reason: Order parameters not met)1258 (Not Given - Provider: Rhonda Jackson RN - Reason: Loss of IV access)2200 (Not Given - Provider: Comfort Jordan RN - Reason: Loss of IV access) 0600 (Due)1400 (Due)2200 (Due) 0600 (Due)1400 (Due) Continuous Medication Order 02/06/2023 02/07/2023 02/08/2023 Lactated Ringer's (LR) infusion 125 mL/hr, intravenous, Continuous, Starting on Sat02/05/23 at 0645, 1847 (Due: Stopped) PRN Medication Order 02/06/2023 02/07/2023 02/08/2023 HYDROcodone-acetaminophen (NORCO) 5-325 mg per tablet 2 tablet 2 tablet, oral, Every 4 hours PRN, 1st line for pain, Starting on Sat02/06/23 at 0321, Start in 24 hours after Anesthesia no longer covering., Indications: Pain Lactated Ringer's (LR) bolus 1,000 mL 1,000 mL, intravenous, As needed, systolic blood pressure less than 90 mmHg, Starting on Sat02/05/23 at 0605, For 1 dose tebscek-kpeuy-feamhau (MMR) 1,000-12,500 TCID50/0.5 mL live vaccine 0.5 mL 0.5 mL, subcutaneous, During hospitalization, immunization, Starting on Sat02/05/23 at 0605, For 1 dose, If not rubella immune. Warning: This is a live or live attenuated vaccine. Refrigerate, Indications: Nccxjmw-Itmqx-Soeludh Vaccination ondansetron (ZOFRAN) injection 4 mg(Linked Group 1) 4 mg, intravenous, Administer over 2 Minutes, Every 6 hours PRN, nausea, vomiting, if not tolerating PO, Starting on Sat02/06/23 at 0321, Start in 24 hours after Anesthesia no longer covering., Indications: Nausea and Vomiting ondansetron ODT (ZOFRAN-ODT) disintegrating tablet 4 mg(Linked Group 1) 4 mg, oral, Every 6 hours PRN, nausea, vomiting, Starting on Sat02/06/23 at 0321, Start in 24 hours after Anesthesia no longer covering., Indications: Nausea and Vomiting simethicone (MYLICON) chewable tablet 160 mg 160 mg, oral, 4 times daily PRN (after meals, bedtime), flatulence, Starting on Sat02/05/23 at 0605, Indications: Flatulence sodium chloride 0.9% flush 0.5-20 mL 0.5-20 mL, intra-catheter, As needed, line care, Starting on Sat02/05/23 at 0605, Flush volume based on line type and size. Flush before and after each use. , Indications: Flushing varicella zoster (VARIVAX) vaccine - live 0.5 mL 0.5 mL, subcutaneous, During hospitalization, immunization, Starting on Sat02/05/23 at 0605, For 1 dose, if not immune Refrigerate. Do not administer to individuals who are immunodeficient or immunosuppressed or to women., Indications: varicella prevention Linked Groups Order Group 1: ondansetron ODT (ZOFRAN-ODT) disintegrating tablet 4 mgJump to med 4 mg, oral, Every 6 hours PRN, nausea, vomiting, Starting on Sat02/06/23 at 0321, Start in 24 hours after Anesthesia no longer covering., Indications: Nausea and Vomiting Or ondansetron (ZOFRAN) injection 4 mgJump to med 4 mg, intravenous, Administer over 2 Minutes, Every 6 hours PRN, nausea, vomiting, if not tolerating PO, Starting on Sat02/06/23 at 0321, Start in 24 hours after Anesthesia no longer covering., Indications: Nausea and Vomiting documented in this encounter Orders Medications Ordered That Mike ht Not Have Been Administered Count Last Ordered Date First Ordered Date carboprost (HEMABATE) injection 250 mcg 1 0 02/05/2023 Carrier Fluids for Secondary Infusion - 0.9% Sodium Chloride 1 02/05/2023 ceFAZolin (ANCEF) 1 gram/10 mL in sterile water (premix) 2,000 mg 1 02/05/2023 HYDROcodone-acetaminophen (N ORCO) 5-325 mg per tablet 2 tablet 1 02/05/2023 Lactated Ringer's (LR) bolus 1,000 mL 3 06/2023 Lactated Ringer's (LR) bolus 500 mL 1 02/05 Lactated Ringer's (LR) infusion 1 lidocaine PF (XYLOCAINE) 10 mg/mL (1 %) preservative free injection 100 mg 1 02/05/2023 loperamide (IMODIUM) capsule 2 mg 1 023 ntepmxm-vuzya-udzrvun (MMR) 1,000-12,500 TCID50/0.5 mL live vaccine 0.5 mL 1 02/05/2023 methylergonovine (METHERGINE ) injection 0.2 mg 1 02/05/2023 miSOPROStoL (CYTOTEC) tablet 800 mcg 1 06/2023 naloxone (NARCAN) 0.4 mg/mL injection 0.04-0.4 mg 2 02/05/2023 ondansetron (ZOFRAN) injection 4 mg 2 02/05 ondansetron ODT (ZOFRAN-ODT) disintegrating tablet 4 mg 2 02/05/2023 oxyCODONE-acetaminophen (PER COCET) 5-325 mg per tablet 2 tablet 1 02/05/2023 oxytocin (PITOCIN) injection 10 Units 1 06/2023 penicillin G potassium 3 mil lion unit/100 mL in sodium chloride 0.9% (premix) 3 Million Units 1 02/05/2023 penicillin G potassium 5 Mil lion Units in sodium chloride 0.9% 100 mL IVPB 1 02/05/2023 QUEtiapine (SEROquel) tablet 150 mg 1 02/05 simethicone (MYLICON) chewab le tablet 160 mg 1 02/05/2023 sodium chloride 0.9% flush 0.5-20 mL 6 06/2023 terbutaline (BRETHINE) injection 0.125 mg 1 02/05/2023 terbutaline (BRETHINE) injection 0.25 mg 1 02/05/2023 tranexamic acid (CYKLOKAPRON ) 1,000 mg/100 mL (10 mg/mL) in sodium chloride (premix) 1,000 mg 1 02/05/2023 varicella zoster (VARIVAX) v accine - live 0.5 mL 1 02/05/2023 Diet Count Last Ordered Date First Orde red Date ADULT DISCHARGE DIET 1 02/08/2023 Nursing Count Last Ordered Date First Orde red Date DISCHARGE ACTIVITY 7 02/08/2023 DISCHARGE CALL PROVIDER 6 02/08/2023 DISCHARGE DRESSING 5 02/08/2023 DISCHARGE INSTRUCTIONS 8 02/08/2023 FOLLOW UP WITH ESTABLISHED PROVIDER 1 02/08 Admission Count Last Ordered Date First Orde red Date ADMIT TO L&D INPATIENT 1 02/05/2023 Transfer Count Last Ordered Date First Orde red Date TRANSFER PATIENT TO NEW UNIT 1 02/05/2023 Discharge Count Last Ordered Date First Orde red Date DISCHARGE PATIENT 1 02/08/2023 CORE MEASURES Count Last Ordered Date First Ord ered Date REASON FOR NO VTE PROPHYLAXI S - HOSPITAL ADMISSION - MEDICATIONS 1 02/05/2023 REASON FOR NO VTE PROPHYLAXIS AT ADMISSION 1 02/05/2023 Case Request Count Last Ordered Date First Orde red Date CASE REQUEST OPERATING ROOM 1 02/05/2023 documented in this encounter Care Teams Quality Control Analyst Relationship Specialty Start Date End Date Chito Pozo MD [address] [place] [address] PCP - General Family Medicine 03/13/20 Esvin Gilmore MD [address] [place] [address] DR MUNIZ [address] [address] [employer] Sales Representative Obstetrics and Gynecology 02/08/23 documented as of this encounter
--- OUTSIDE RECORDS SUMMARY | 2024-12-08 02:22 | XMS_ITS | Clinical Summary ---
Author Organization [facility] Virtual Care Address [address] [place] [phone] Phone Care Team Providers Care Contact Center Analyst Name Role Phone Chito Pozo MD Primary Care Prov ider Esvin Conrad MD Unavailable [phone] Allergies No known active allergies Medications QUEtiapine XR (SEROquel XR) 150 mg 24 hr tabletIndicatio ns:Generalized Anxiety Disorder Take 150 mg by mouth daily Active albuterol HFA (PROVENTIL HFA,VENTOLIN HFA,PROAIR HFA) 90 mcg/actuation inhaler Inhale 2 puffs every 6 (six) hours as needed for wheezing Active busPIRone (BUSPAR) 7.5 mg tabletIndicatio ns:Generalized Anxiety Disorder Take 1 tablet (7.5 mg total) by mouth 2 (two) times a day 60 tablet 11 02/08/2023 Active docusate sodium (COLACE) 100 mg capsuleIndicati ons:constipatio n,Stool Softener Take 1 capsule (100 mg total) by mouth 2 (two) times a day 60 capsule 02/08/2023 Active HYDROcodone-carole taminophen (NORCO) 5-325 mg per tabletIndicatio ns:Pain Take 2 tablets by mouth every 4 (four) hours as needed for pain 20 tablet 02/08/2023 Active ibuprofen (ADVIL,MOTRIN) 600 mg tabletIndicatio ns:Cramps Take 1 tablet (600 mg total) by mouth every 6 (six) hours 30 tablet 1 02/08/2023 Active NIFEdipine (PROCARDIA XL/ADALAT CC) 30 mg 24 hr tablet Take 1 tablet (30 mg total) by mouth daily 30 tablet 1 02/09/2023 Active propranoloL (INDERAL) 40 mg tablet Take 1 tablet (40 mg total) by mouth 3 (three) times a day as needed (As needed for anxiety) 90 tablet 1 02/17/2023 Active Active Problems Problem Noted Date Diagnosed Date 38 weeks gestation of 02/05/2023 Medical History Medical History Date Comments Asthma Anxiety Social History Tobacco Use Types Packs/Day Years [...] week 01/28/2023 How often do you attend chur or christianity services? Never 01/28/2023 Do you belong to any clubs o r organizations such as baptism groups, unions, fraternal or athletic groups, or [...] staff should administer the PHQ-9) 0 01/28/2023 [facility] of Occupat ional Health - Occupational Stress [...] medical appointments or from getting medications? No 01/03 In the past 12 months, has l [...] place to sleep or slept in a usp (including now)? No 01/28/2023 Personal Safety Answer Date Recorded Have you ever been in or are you currently in a harmful physical or emotional relationship or is someone making you feel afraid or unsafe? Denies 11/28/2023 Comments Unknown Sex and Gender Information Value Date Recorded Sex Assigned at Not on file Legal Sex Female 7:37 PM CONNIE CLEANER Gender Identity Not on file Sexual Orientation Not on file Obstetrics History Para Term AB IAB SAB Ectopic Multiple Livin g Live Births 2 2 2 0 2 2 Date Outcome GA Total Labor Labor/2nd/3rd Weight Sex Type Anes PTL Carolina A1 A5 Name Clin 2020 Term 39w 0d 3.43 kg (7 lb 9 oz) F Vag-S pont Epidur al Livin g Complications:Other (Comment ) Delivery Location:[facility] 2022 Term 38w 2d 0h 01m 0h 01m 2.842 kg (6 lb 4.3 oz) F C-Sec tion Spinal N Livin g 7 8 ZITKO ,GIRL LEONARD Vann Rayo n, Esvin dwyer MD Complications:Abruptio Place nta Delivery Location:[facility] ([facility] L AND D PROCEDURE) Last Filed Vital Signs Vital Sign Reading Time Taken Comments Blood Pressure 122/68 11/28/2023 6:41 AM CONNIE CLEANER Pulse 85 11/28/2023 6:41 AM CONNIE CLEANER Temperature 36.3 ??C (97.4 ??F) 11/28/2023 6:41 AM CS T Respiratory Rate 16 11/28/2023 6:41 AM CONNIE CLEANER Oxygen Saturation 100% 11/28/2023 6:41 AM CONNIE CLEANER Inhaled Oxygen Concentration - - Weight 95.3 kg (210 lb) 11/28/2023 6:41 AM CONNIE CLEANER Height 154.9 cm (5' 1 ) 11/28/2023 6:41 AM CONNIE CLEANER Body Mass Index 39.68 11/28/2023 6:41 AM CONNIE CLEANER Plan of Treatment Health Maintenance Due Date Last Done Comments Cervical Cancer Screening 1998 Pneumococcal vaccine <65 (1 of 2 - PCV) 2004 Varicella Vaccines (1 of 2 - 13+ 2-dose series) 2011 HPV Vaccines (1 - 3-dose series) 2013 Regular Well Visit/Exam 18-64 2016 Depression Screening 01/25/2024 01/25/2023, 01/25/2023, 01/12/2023, Additional history exists Covid-19 Vaccine (2 - 2023-2 5 season) 2024 10/13/2021 Influenza Vaccine (#1) 2024 DTaP/Tdap/Td Vaccine (4 - Td or Tdap) 12/11/2032 12/11/2022, 04/29/2021, 07/28/2003 Hepatitis B Screening Completed 02/24/2024 Hepatitis C Screening Completed 02/24/2024 Procedures Procedure Name Priority Date/Time Associated Diagnosis Comments HEPATITIS C ANTIBODY Routine 02/24/2024 8:12 AM CDT from Last 3 Months or Most Recently Relevant to Health Maintenance Results * Hepatitis C antibody Blood (02/24/2024 8:12 AM CDT) Hep C Ab Nonreactive Nonreactive Comment: Antibodies to HCV not detected. Does NOT exclude the possibility of recent exposure to HCV. Current interpretive data was last revised on 22 Interpretive Data Nonreactive: Antibodies to HCV not detected. Does NOT exclude the possibility of recent exposure to HCV. Equivocal: Equivocal for HCV antibodies. Supplemental molecular testing will be automatically performed to determine infection status in accordance with current CDC screening recommendations. ?? Reactive: Positive for HCV antibodies. ??This may represent current or past HCV infection. Supplemental molecular testing will be automatically performed to determine ??current infection status in accordance with current CDC screening recommendations. Interpretive data was last revised on 2020. Blood 02/24/2024 8:12 AM CDT 02/24/2024 12:46 PM CDT us Dina Jones MD LAB MICROBIOLOGY - GENERAL ORDER VIET Edited Result - Final [facility] [address] [facility] Department [place] [address] from Last 3 Months or Most Recently Relevant to Health Maintenance Insurance [facility] PLAN NELLIE ROBISON [id number] [facility] PLAN NELLIE ROBISON [facility] Advance Directives For more information, please contact: [phone] * Full Code (Latest Code Status on File) Date Activated Date Inactivated Comments 02/05/2023 6:05 AM 02/08/2023 6:52 PM * Full Code Date Activated Date Inactivated Comments 02/05/2023 2:37 AM 02/05/2023 6:05 AM Full CPR in ca se of cardiopulmonary arrest Care Teams Contact Center Analyst Relationship Specialty Start Date End Date Chito Pozo MD [address] [place] [address] PCP - General Family Medicine 03/13/20 Esvin Conrad MD [address] [facility] [address] MUN[address] [address] Supervisor Instrument Mechanics Obstetrics and Gynecology 02/08/23
--- OUTSIDE RECORDS SUMMARY | 2024-12-08 02:22 | XMS_ITS | Encounter Summary ---
Author Organization [facility] Care Team Providers Care Law Secretary Name Role Phone Unavailable Primary Care Provider Unavailabl e Encounter Details Date Type Department Care Team (Latest Contact Info) Description 03/11/2020 Travel Social History Tobacco Use Types Packs/Day Years [...] PM CDT documented as of this encounter Plan of Treatment Not on file documented as of this encounter Visit Diagnoses Not on filedocumented in this encounter
--- OUTSIDE RECORDS SUMMARY | 2024-12-08 02:22 | XMS_ITS | Encounter Summary ---
Author Organization [facility] Healthcare Address [address] [place] [address] Care Team Providers Care Treasury Specialist Name Role Phone Chito Pozo MD Primary Care Prov ider Reason for Visit * Auth/Cert (Routine) Specialty Diagnoses / Procedures Referred By Contac t Referred To Contact Diagnoses 38 weeks gestation of Procedures NA Referral ID Status Reason Start Date Expiration Date Visits Re quested Visits Authorized [id number] 1 1 Encounter Details Date Type Department Care Team (Late st Contact Info) Description 02/05/2023 3:39 AM SANITARY AIDE Anesthesia Event [facility] [address] [place] [address] Esvin Conrad MD [address] [place] [address] [address]UN[address] [address] Con Thompson, ALBA [address] [place] [address] Anesthesia Record Procedure Summary Procedure Name Responsible Anesthesiologist Anesthesia Start Time Anesthesia Stop Time SECTION (Abdomen) Esvin Conrad MD 02/05/23 0339 02/05/23 0517 Events Date Time Event Comment 02/05/2023 0338 In Room 0339 An Start 0339 An Start Data 0347 Spinal Placed 0347 Left Uterine Displacement 0354 Proc Start 0355 Anesthesia Ready 0406 Uterine Incision 0459 Proc Fin 0505 an stop data 0510 Out of Room 0517 An Stop 0517 Handoff to RN I completed my handoff to the receiving nurse during which we: 1. Patient identified 2. Responsible provider identified 3. Pertinent medical history reviewed 4. Procedure type and surgical course discussed 5. Intraoperative anesthetic management and any significant issues discussed 6. Expectations and concerns for postop period discussed 7. Questions solicited from receiving nurse 8. Patient disposition at the time of handoff: No value filed. Meds Name Total bupivacaine 0.75% 1.6 mL with morphine p reservative free 100 mcg solution 1.6 mL morphine(PF) 1 mg/ml 0.1 mg oxytocin 30 Units phenylephrine 450 mcg ceFAZolin (ANCEF) 1 gram/10 mL in steril e water (premix) 2,000 mg 2,000 mg ondansetron (ZOFRAN) injection 4 mg 8 mg ketorolac 30 mg/mL 30 mg Lactated Ringer's (LR) infusion 1,000 mL * Agents Name O2 * Blood No blood administrations on file. Lines, Drains, and Airways Type Details Placement Removal Peripheral IV Placement Date: 02/05/23; Placement Time: 0200; Existing LDA Placed by: EMS; Catheter Size: 22 G; Orientation: Left; Location: Antecubital; Removal Date: 02/06/23; Removal Time: 112; Removal Reason: Therapy completed 02/05/23 0200 by Oswald Jo RN 02/06/231123 by Rhonda Jackson RN Peripheral IV Placement Date: 02/05/23; Placement Time: 0250; Catheter Size: 18 G; Orientation: Posterior, Right; Location: Hand; Site Prep: Chlorhexidine; Inserted by: Calvin Jeong RN; Insertion Attempts: 1; Removal Date: 02/17/23; Removal Time: 215502/05/23 025 by Oswald Jo, EL 02/17/232155 by Candace Bateman RN Urethral Catheter Placement Date: 02/05/23; Placement Time: 033; Inserted by: terence; Type: Latex; Balloon Size: 10 mL; Urine Returned: Yes; Removal Date: 02/06/23; Removal Time: 30; Removal Reason: Therapy complete 02/05/23 0330 by Oswald Jo RN 02/06/23 07 by Rhonda Jackson RN RETIRED Surgical Site 02/05/23; 0530; Abdomen; 11/03/24 (Retired LDA, Removed/Completed by Epic with LDA Utility); 1213 (Retired LDA, Removed/Completed by Epic with LDA Utility) 02/05/23 0530 by Oswald Jo RN 11/03/24 1213 by Discharge Provider, Automatic documented in this encounter Social History Tobacco Use Types Packs/Day Years Used Date Smoking Tobacco: Former Social Connection and Isolat ion Panel [NHANES] Answer Date Recorded In a typical week, how many times do you talk on the phone with family, friends, or neighbors? More than three times a week 01/28/2023 How often do you get togethe r with friends or relatives? More than three times a week 01/28/2023 How often do you attend chur ch or synagogue services? Never 01/28/2023 Do you belong to any clubs o r organizations such as protestant groups, unions, fraternal or athletic groups, or [...] staff should administer the PHQ-9) 0 01/28/2023 [facility] Occupat ional Health - Occupational [...] money to buy more. Never true 01/28/20 Within the past 12 months, t he [...] place to sleep or slept in a fpc (including now)? No 01/28/2023 Comments No Sex and Gender Information Value Date Recorded Sex Assigned at Not on file Legal Sex Female 7:37 PM SANITARY AIDE Gender Identity Not on file Sexual Orientation Not on file documented as of this encounter OR Notes * Anesthesia Postprocedure Evaluation - Con Thompson CRNA - 02/05/2023 5:17 AM CST Patient: Manuela Ward Procedure Summary Date: 02/05/23 Room / Location: [facility] L&D OR Anesthesia Start: 338 Anesthesia Stop: 516 Procedure: SECTION (Abdomen) Diagnosis: 38 weeks gestation of (38 weeks gestation of [Z3A.38]) Surgeons: Esvin Conrad MD Responsible Provider: Esvin Conrad MD Anesthesia Type: spinal ASA Status: 2 - Emergent Anesthesia Type: spinal Last vitals Temp 36.6 ??C (97.9 ??F) (Temporal) Resp 16 Anesthesia Post Evaluation Patient location during evaluation: floor Patient participation: complete - patient participated Level of consciousness: fully awake Pain score: 0 Airway patency: adequate Cardiovascular status: acceptable Respiratory status: acceptable Hydration status: acceptable Pt is: normothermic Nausea/Vomiting status: none No notable events documented. TARY AIDE * Anesthesia Procedure Notes - Con Thompson CRNA - 02/05/2023 3:56 AM SANITARY AIDE Associated Order(s): Spinal Block Spinal Block Reason for block: primary anesthetic Staff: Placed by: ALBA:Con Thompson CRNA Procedure prep: Preprocedure checklist: patient identified, procedure contraindications assessed, site marked, procedure consent, surgical consent, IV checked, risks, benefits and alternatives discussed, monitors and equipment checked and timeout performed Patient position: sitting Procedure performed while patient: awake Prep solution: chlorhexadine/alcohol PPE: provider hat/mask, sterile gloves and sterile drape Skin infiltrated with lidocaine 1%: yes Spinal: Approach: midline Location: L3-4 Spinal injection: CSF demonstrated Number of attempts: 1 Spinal Needle: Needle type: Saul Needle gauge: 24 G Needle length: 5 cm Assessment: Sensory deficit - left: full eval pending Sensory deficit - right: full eval pending Events: patient tolerated procedure well with no complications TARY AIDE * Anesthesia Preprocedure Evaluation - Con Thompson CRNA - 02/05/2023 3:32 AM CST Images from the original note were not included. Anesthesia Evaluation Manuela Ward is a 22 y.o. female Procedure(s): SECTION Pre-Op Diagnosis Codes: * 38 weeks gestation of [Z3A.38] HISTORY Past Medical History Information obtained from: patient. Patient Active Problem List Diagnosis ??? 38 weeks gestation of Past Medical History: Diagnosis Date ??? Anxiety ??? Asthma History reviewed. No pertinent surgical history. OB History 2 Para 1 Term 1 AB Living 1 SAB IAB Ectopic Multiple Live Births 1 No Known Allergies Taking? Last Dose Start Date End Date Provider albuterol HFA (PROVENTIL HFA,VENTOLIN HFA,PROAIR HFA) 90 mcg/actuation inhaler -- -- -- ProviderCathy MD QUEtiapine XR (SEROquel XR) 150 mg 24 hr tablet 02/04/2023 -- -- ProviderCathy MD Current Facility-Administered Medications: ??? carboprost (HEMABATE) injection 250 mcg, 250 mcg, intramuscular, Once PRN ??? Carrier Fluids for Secondary Infusion - 0.9% Sodium Chloride, 30 mL, intravenous, PRN ??? ceFAZolin (ANCEF) 1 gram/10 mL in sterile water (premix) 2,000 mg, 2,000 mg, intravenous, Once preop for OB ONLY ??? Lactated Ringer's (LR) bolus 1,000 mL, 1,000 mL, intravenous, TID PRN ??? Lactated Ringer's (LR) bolus 1,000 mL, 1,000 mL, intravenous, Once PRN ??? Lactated Ringer's (LR) bolus 500 mL, 500 mL, intravenous, TID PRN ??? Lactated Ringer's (LR) infusion, 125 mL/hr, intravenous, Continuous ??? lidocaine PF (XYLOCAINE) 10 mg/mL (1 %) preservative free injection 100 mg, 10 mL, infiltration, Once PRN ??? loperamide (IMODIUM) capsule 2 mg, 2 mg, oral, Once PRN ??? methylergonovine (METHERGINE) injection 0.2 mg, 0.2 mg, intramuscular, Once PRN ??? miSOPROStoL (CYTOTEC) tablet 800 mcg, 800 mcg, rectal, Once PRN ??? ondansetron ODT (ZOFRAN-ODT) disintegrating tablet 4 mg, 4 mg, oral, Q6H PRN OR ondansetron(ZOFRAN) injection 4 mg, 4 mg, intravenous, Q6H PRN ??? oxytocin (PITOCIN) injection 10 Units, 10 Units, intramuscular, Once PRN ??? penicillin G potassium 5 Million Units in sodium chloride 0.9% 100 mL IVPB, 5 Million Units, intravenous, Once FOLLOWED BY penicillin G potassium 3 million unit/100 mL in sodium chloride 0.9%(premix) 3 Million Units, 3 Million Units, intravenous, Q4H ??? sodium chloride 0.9% flush 0.5-20 mL, 0.5-20 mL, intra-catheter, Q8H NOHEILA ??? sodium chloride 0.9% flush 0.5-20 mL, 0.5-20 mL, intra-catheter, PRN ??? sodium chloride 0.9% flush 0.5-20 mL, 0.5-20 mL, intra-catheter, Q8H NOHELIA ??? sodium chloride 0.9% flush 0.5-20 mL, 0.5-20 mL, intra-catheter, PRN ??? terbutaline (BRETHINE) injection 0.125 mg, 0.125 mg, intravenous, Once PRN OR terbutaline (BRETHINE) injection 0.25 mg, 0.25 mg, subcutaneous, Once PRN ??? tranexamic acid (CYKLOKAPRON) 1,000 mg/100 mL (10 mg/mL) in sodium chloride (premix) 1,000 mg, 1,000 mg, intravenous, Once PRN Social History Tobacco Use Smoking Status Former Smokeless Tobacco Not on file Alcohol Use: Not At Risk ??? Frequency of Alcohol Consumption: Never ??? Average Number of Drinks: Patient does not drink ??? Frequency of Binge Drinking: Never Substance and Sexual Activity Drug Use Yes ??? Types: Marijuana History reviewed. No pertinent family history. Vitals: 02/05/23 0239 Resp: 16 Temp: 36.6 ??C (97.9 ??F) PT: No results found for requested labs within last 720 hours. INR: No results found for requested labs within last 720 hours. APTT: No results found for requested labs within last 720 hours. Hgb A1C: No results found for requested labs within last 720 hours. CBC RBC: 02/05/2023: 3.41 M/cumm (L) RDW: No results found for requested labs within last 720 hours. MCHC: 02/05/2023: 33.7 g/dL MCH: 02/05/2023: 26.4 pg (L) MCV: 02/05/2023: 78.3 fL (L) Hct: 02/05/2023: 26.7 % (L) Hgb: 02/05/2023: 9.0 g/dL (L) WBC: 02/05/2023: 9.8 K/cumm MPV: 02/05/2023: 10.7 fL Platelets: 02/05/2023: 209 K/cumm RDW CV: 02/05/2023: 13.2 % RDW Sd: 02/05/2023: 37.8 fL BMP Glucose: No results found for requested labs within last 720 hours. Calcium: No results found for requested labs within last 720 hours. Sodium: No results found for requested labs within last 720 hours. Potassium: No results found for requested labs within last 720 hours. CO2: No results found for requested labs within last 720 hours. Chloride: No results found for requested labs within last 720 hours. BUN: No results found for requested labs within last 720 hours. Creatinine: No results found for requested labs within last 720 hours. DOS Physical Exam Medical history, medications, and allergies reviewed. Attestation: This PAT evaluation 02/05/2023. Airway Exam: Mallampati: II Cardiovascular Exam: Rate: regular Rhythm: regular Pulmonary Exam: LCTA, bilat EENT Exam: trachea midline Dental Exam: Appears intact Skin Exam: Skin is warm and dry. Abdominal Exam: Abdomen is soft. Bowel sounds are present. Current state: Patient's current state is cooperative. Anesthesia Plan ASA 2- emergent Planned anesthesia: Spinal Postoperative Plan: Postoperative administration opioids intended. Patient's planned disposition post procedure is Floor. Informed Consent: Anesthesia plan and risks discussed with patient. Consent and Attending signature: I and/or my designee have discussed the anesthesia plan, benefits, possible alternatives, parental presence at time of induction (if indicated), and clinically relevant risks that may include dental injury, unintentional awareness, and/or other complications. The patient and/or parent/legal guardian understand, and agree to proceed. All questions answered. TARY AIDE TARY AIDE documented in this encounter Plan of Treatment Not on file documented as of this encounter Procedures Procedure Name Priority Date/Time Associated Diagnosis Comments ANESTHESIA SPINAL BLOCK Routine 02/05/2023 3:56 AM SANITARY AIDE documented in this encounter Results * Spinal Block (02/05/2023 3:56 AM SANITARY AIDE) Narrative Con Thompson CRNA - 02/05/2023 3:56 AM SANITARY AIDE Con Thompson CRNA ? 02/05/2023 ??3:57 AM Spinal Block Reason for block: primary anesthetic Staff: Placed by: CELLAR SUPERVISOR:Con Thompson CRNA Procedure prep: Preprocedure checklist: patient identified, procedure contraindications assessed, site marked, procedure consent, surgical consent, IV checked, risks, benefits and alternatives discussed, monitors and equipment checked and timeout performed Patient position: sitting Procedure performed while patient: awake Prep solution: chlorhexadine/alcohol PPE: provider hat/mask, sterile gloves and sterile drape Skin infiltrated with lidocaine 1%: yes Spinal: Approach: midline Location: L3-4 Spinal injection: CSF demonstrated Number of attempts: 1 Spinal Needle: Needle type: Saul Needle gauge: 24 G Needle length: 5 cm Assessment: Sensory deficit - left: full eval pending Sensory deficit - right: full eval pending Events: patient tolerated procedure well with no complications Shelia Calvillo MD ANESTHESIA ORDERABLES Final Result documented in this encounter Visit Diagnoses Not on filedocumented in this encounter Administered Medications Inactive Administered Medications - up to 3 most recent administrations Medication Order MAR Action Action Date Dose Rate Site bupivacaine 0.75% 1.6 mL with morphine preservative free 100 mcg solution intrathecal, Continuous PRN, Starting on Sat02/05/23 at 0347, Anesthesia Intra-op New Bag 02/05/2023 3:47 AM SANITARY AIDE 1.6 mL ceFAZolin (ANCEF) 1 gram/10 mL in sterile water (premix) 2,000 mg 2,000 mg, intravenous, at 400 mL/hr, Administer over 3 Minutes, Once preop for OB ONLY, On Sat02/05/23 at 0345, For 1 dose, L&D Pre-Delivery, Administer within 60 minutes of incision., Indications: Prophylaxis, SurgicalIndications:Prophylaxis, Surgical Given 02/05/2023 3:52 AM SANITARY AIDE 2,000 mg ketorolac (TORADOL) 30 mg/mL (1 mL) injection intravenous, As needed, Starting on Sat02/05/23 at 0503, Anesthesia Intra-op Given 02/05/2023 5:03 AM SANITARY AIDE 30 mg Lactated Ringer's (LR) infusion 125 mL/hr, intravenous, Continuous, Starting on Sat02/05/23 at 0345, L&D Pre-Delivery New Bag 02/05/2023 4:13 AM SANITARY AIDE New Bag 02/05/2023 3:39 AM SANITARY AIDE 100 mL/hr morphine preservative free injection intrathecal, Administer over 4 Minutes, As needed, Starting on Sat02/05/23 at 0347, Anesthesia Intra-op Given 02/05/2023 3:47 AM SANITARY AIDE 0.1 mg ondansetron (ZOFRAN) injection 4 mg 4 mg, intravenous, Administer over 2 Minutes, Every 6 hours PRN, nausea, vomiting, if not tolerating PO, Starting on Sat02/05/23 at 0235, L&D Pre-Delivery, Indications: Nausea and VomitingIndications:Nausea and Vomiting Given 02/05/2023 4:17 AM SANITARY AIDE 4 mg Given 02/05/2023 3:54 AM SANITARY AIDE 4 mg oxytocin (PITOCIN) injection intravenous, As needed, Starting on Sat02/05/23 at 0409, Anesthesia Intra-op Given 02/05/2023 4:09 AM SANITARY AIDE 30 Units phenylephrine (TITI-SYNEPHRINE) injection intravenous, As needed, Starting on Sat02/05/23 at 0348, Anesthesia Intra-op Given 02/05/2023 4:37 AM SANITARY AIDE 100 mcg Given 02/05/2023 4:16 AM SANITARY AIDE 50 mcg Given 02/05/2023 4:06 AM SANITARY AIDE 50 mcg documented in this encounter Care Teams Treasury Specialist Relationship Specialty Start Date End Date Chito Pozo MD [address] [place] [id number] PCP - General Family Medicine 03/13/20 documented as of this encounter
--- OUTSIDE RECORDS SUMMARY | 2024-12-08 02:22 | XMS_ITS | Encounter Summary ---
Author Organization [facility] Healthcare Address [address] [place] [id number] Care Team Providers Care Academic Support Coordinator Name Role Phone Chito Pozo MD Primary Care Prov ider Encounter Details Date Type Department Care Team (Latest Contact Info) Description 02/05/2023 2:07 AM HYDROELECTRIC PLANT ELECTRICAL ENGINEER - 02/05/2023 2:23 AM HYDROELECTRIC PLANT ELECTRICAL ENGINEER Hospital Encounter [facility] Emergency, Room R Discharge Disposition: Discharge to home or self [...] How often do you attend chur or orthodoxy services? Never 01/28/2023 Do you belong to any clubs o r organizations such as bahai groups, unions, fraternal or athletic groups, or [...] staff should administer the PHQ-9) 0 [facility] - Occupational Stress Questionnaire Answer Date Recorded [...] place to sleep or slept in a assisted (including now)? No 01/28/2023 Comments No Sex and Gender Information Value Date Recorded Sex Assigned at Not on file Legal Sex Female 7:37 PM HYDROELECTRIC PLANT ELECTRICAL ENGINEER Gender Identity Not on file Sexual Orientation Not on file documented as of this encounter Medications at Time of Discharge [...] 02/09/2023 02/09/2024 documented as of this encounter Discharge Disposition Disposition Code Departure Means Destination Discharge to home or self care documented in this encounter Plan of Treatment Not on file documented as of this encounter Visit Diagnoses Not on filedocumented in this encounter Care Teams Academic Support Coordinator Relationship Specialty Start Date End Date Chito Pozo MD [address] [place] [address] PCP - General Family Medicine 03/13/20 documented as of this encounter
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
--- OUTSIDE RECORDS SUMMARY | 2024-12-08 02:22 | XMS_ITS | Encounter Summary ---
Author Organization [facility] Healthcare Address [address] [place] [address] Care Team Providers Care Wooden Boat Builder Name Role Phone Chito Pozo MD Primary Care Prov ider Esvin Conrad MD Unavailable Reason for Visit * Reason Comments Vomiting Diarrhea Encounter Details Date Type Department Care Team (Late st Contact Info) Description 02/17/2023 9:27 PM CDT - 02/17/2023 11:22 PM CDT Emergency [facility] Emergency Department [address] [place] [address] Deion Walker MD [address] [place] [address] Nausea and vomiting, unspecified vomiting type (Primary Dx); Anxiety Discharge Disposition: Discharge to home or self [...] often do you attend chur ch or christian services? Never 01/28/2023 Do you belong to any clubs o r organizations such as orthodoxy groups, unions, fraternal or athletic groups, or [...] staff should administer the PHQ-9) 0 01/28/2023 [facility] - Occupational Stress Questionnaire Answer Date Recorded [...] place to sleep or slept in a senior living (including now)? 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 Gender Identity Not on file Sexual Orientation Not on file documented as of this encounter Last Filed Vital Signs Vital Sign Reading Time Taken Comments Blood Pressure 135/69 02/17/2023 11:00 PM CDT Pulse 78 02/17/2023 11:00 PM CDT Temperature 36.8 ??C (98.3 ??F) 02/17/2023 8:52 PM CD T Respiratory Rate 18 02/17/2023 11:00 PM CDT Oxygen Saturation 99% 02/17/2023 11:00 PM CDT Inhaled Oxygen Concentration - - Weight 99.3 kg (219 lb) 02/17/2023 8:52 PM CDT Height 154.9 cm (5' 1 ) 02/17/2023 8:52 PM CDT Body Mass Index 41.38 02/17/2023 8:52 PM CDT documented in this encounter Discharge Instructions * Attachments The following attachments cannot be sent through Care Everywhere. * Anxiety Reaction (Uzbek) * Acute Nausea and Vomiting (AfterCare(R) Instructions(ER/ED)) (Uzbek) documented in this encounter Medications at Time [...] Refills Last Filled Start Date End Date propranoloL (INDERAL) 40 mg tablet Take 1 tablet (40 mg total) by mouth 3 (three) times a day as needed (As needed for anxiety) 90 tablet 1 02/17/2023 documented in this encounter Discharge Disposition Disposition Code Departure Means Destination Comment s Discharge to home or self care documented in this encounter ED Notes * Deion Walker MD - 02/17/2023 9:49 PM CDT HPI Chief Complaint Patient presents with ??? Vomiting ??? Diarrhea 22-year-old 2 para 2 who had emergency 12 days ago for partial abruption, presents with nausea vomiting diarrhea for the past 3 days. States she throws up everything she eats and sometimes when she drinks as well. Also complains of at least 8 bowel movements today, soft stool there is a question of whether she had a fever or not. She also states she is in extreme anxiety as well. She had very severe depression with her 1st baby 2 years ago. Requiring multiple hospitalizations, and even a residential treatment stay for 1 month. Patient History: Patient Active Problem List Diagnosis Date Noted ??? 38 weeks gestation of 02/05/2023 Past Medical History: Diagnosis Date ??? Anxiety ??? Asthma No past surgical history on file. No family history on file. Social History Tobacco Use ??? Smoking status: Former ??? Smokeless tobacco: Not on file Vaping Use ??? Vaping Use: Every day ??? Start date: 12/02/2017 ??? Substances: Nicotine Substance and Sexual Activity ??? Alcohol use: Not on file ??? Drug use: Yes Types: Marijuana ??? Sexual activity: Not on file Social History Social History Narrative ??? Not on file Review of Systems Review of Systems Constitutional: Negative for chills and fever. HENT: Negative for ear pain and sore throat. Eyes: Negative for pain and visual disturbance. Respiratory: Negative for cough and shortness of breath. Cardiovascular: Negative for chest pain and palpitations. Gastrointestinal: Positive for diarrhea and vomiting. Negative for abdominal pain. Genitourinary: Negative for dysuria and hematuria. Musculoskeletal: Negative for arthralgias and back pain. Skin: Negative for color change and rash. Neurological: Negative for seizures and syncope. Psychiatric/Behavioral: The patient is nervous/anxious. All other systems reviewed and are negative. Physical Exam ED Triage Vitals Temp Pulse Resp BP SpO2 02/17/23205102/17/23205102/17/23205102/17/23205102/17/232051 36.8 ??C (98.3 ??F) 74 17 137/88 96 % Temp src Heart Rate Source Patient Position BP Location FiO2 (%) -- 02/17/23212902/17/23212902/17/232129 -- Monitor Lying Right arm Height Height Method Weight Weight Method 02/17/232051 -- 02/17/232051 -- 1.549 m (5' 1 ) 99.3 kg (219 lb) Physical Exam Vitals and nursing note reviewed. [...] There is no abdominal tenderness. Musculoskeletal: General: No swelling. Cervical back: Neck supple. Skin: General: Skin is warm and dry. Capillary Refill: Capillary refill takes less than 2 seconds. Neurological: Mental Status: She is alert. Psychiatric: Comments: Slightly anxious affect MDM Medical Decision Making 22-year-old female with history of depression anxiety, presents 12 days after having emergency for her 2nd baby for partial abruption. Now feeling very anxious and having loose stools and nausea and vomiting she is on BuSpar 7.5 mg 3 times a day which is not working. Differential diagnosis: Anxiety depression, gastroenteritis, abdominal infection Plan, IV fluid hydration, medications, check labs. Amount and/or Complexity of Data Reviewed Independent Historian: parent External Data Reviewed: labs and notes. Labs: ordered. ECG/medicine tests: ordered and independent interpretation performed. Risk Prescription drug management. Decision regarding hospitalization. ED Course as of 02/17/232313 Time: 02/17 2313 Comment: Discussed labs with the patient and her mother. The patient is feeling slightly better right now. Will discharge home. She is most concerned about anxiety. I have told her to try propranololand will provide a prescription. I reassured her propranolol is safe with . By: Deion Walker MD Final diagnoses: None Deion Walker MD 02/17/232154 * Ge Vaughan RN - 02/17/2023 8:50 PM CDT Patient arrives to the ED with complaints of diarrhea and vomiting for 3 days. Patient states she has anxiety or shes worried she has an infection at her c section scar. Patient states she has not been able to keep anything down and is almost 2 weeks . documented in this encounter Plan of Treatment Not on file documented as of this encounter Procedures Procedure Name Priority Date/Time Associated Diagnosis Comments INFLUENZA A/B, RSV, AND COVID-19 PCR Routine 02/17/2023 9:58 PM CDT SEPSIS LACTATE WITH REFLEX STAT 02/17/2023 8:58 PM CDT EGFR STAT 02/17/2023 8:58 PM CDT DIFFERENTIAL AUTO STAT 02/17/2023 8:5 8 PM CDT CBC WITH AUTO DIFFERENTIAL STAT 02/17/2023 8:58 PM CDT LIPASE STAT 02/17/2023 8:58 PM CDT COMPREHENSIVE METABOLIC PANEL STAT 02/17/2023 8:58 PM CDT documented in this encounter Results * Influenza A/B, RSV, and COVID-19 PCR Nasopharyngeal (02/17/2023 9:58 PM CDT) COVID-19 RNA Negative Negative [facility] Influenza A RNA Negative Negative [facility] Influenza B RNA Negative Negative [facility] RSV RNA Negative Negative [facility] Comment: Interpretive data: This test is performed using the [employer] Xpert Xpress CoV-2/Flu/RSV plus assay. This is a multiplex, real-time reverse transcriptase PCR assay intended for the qualitative detection of nucleic acid from SARS-CoV-2, influenza A, influenza B, and respiratory syncytial virus. This assay has been reviewed by the FDA for Emergency Use Authorization (EUA). The performance characteristics have been verified by the performing laboratory. Results must be considered in the clinical context, and a negative result does not rule out infection. Interpretive Data last revised 2021. Nasopharyngeal 02/17/2023 9: 58 PM CDT 02/17/2023 10:01 PM CDT Narrative [facility] - 02/17/2023 10:42 PM CDT Is the Patient experiencing symptoms consistent with COVID?->Yes Date of Symptom Onset->02/17/23 Reason for testing?->Symptomatic us Deion Walker MD LAB MICROBIOLOGY - GENE RAL ORDERABLES Final Result [facility] ([place]) 1 [facility] Department [place] [address] * eGFR (02/17/2023 8:58 PM CDT) eGFR 124 mL/min/1. 73 m2 [facility]) Comment: Interpretive Data Reference Interval Normal ?>/= [...] interpretive data was last reviewed 2021. Blood 02/17/2023 8:58 PM CDT 02/17/2023 9:01 PM CDT us Lydia Meier MD LAB BLOOD ORDERABLES Final Result [facility] 1 [facility] [place] [address] * Lipase (02/17/2023 8:58 PM CDT) Lipase 17 10 - 99 Units/L [facility]) Blood 02/17/2023 8:58 PM CDT 02/17/2023 9:42 PM CDT Deion Walker MD LAB BLOOD ORDERABLES Fi nal Result Performing Organization Address City/[facility]/ZIP Co de Phone Number [facility] 1 [facility] [place] [address] * Differential, auto (02/17/2023 8:58 PM CDT) Neutrophil abs 5.3 1.7 - 6.5 K/cumm [facility]) Imm gran abs 0.0 0.0 - 0.1 K/cumm [facility]) Lymphocyte abs 1.7 0.8 - 3.3 K/cumm [facility]) Monocyte abs 0.3 0.2 - 0.8 K/cumm [facility]) Eosinophil abs 0.1 0.0 - 0.5 K/cumm [facility]) Basophil abs 0.1 0.0 - 0.1 K/cumm [facility]) Neutrophil pct 71.2 % [facility] ([facility] Comment: Interpretive [...] was last revised on 2018. Lymphocyte pct 22.3 % [facility] ([facility] Comment: Interpretive Data Percent cell count reference ranges are not reported, since discordance with absolute values may lead to misinterpretation of CBC data. Current Interpretive Data was last revised on 2018. Monocyte pct 4.6 % [facility] ([place] Comment: Interpretive Data [...] was last revised on 2018. Basophil pct 0.7 % [facility] ([facility] Comment: Interpretive Data Percent cell count reference ranges are not reported, since discordance with absolute values may lead to misinterpretation of CBC data. Current Interpretive Data was last revised on 2018. Blood 02/17/2023 8:58 PM CDT 02/17/2023 9:01 PM CDT us Lydia Meier MD LAB BLOOD ORDERABLES Final Result [facility] 1 [facility] [place] [address] * Sepsis Lactate w/ Reflex (02/17/2023 8:58 PM CDT) Sepsis Lactate 0.9 0.7 - 2.0 mmol/L [facility]) Blood 02/17/2023 8:58 PM CDT 02/17/2023 9:01 PM CDT Lydia Meier MD LAB BLOOD ORDERABLES Final Result [facility] 1 [facility] [place] [address] * Comprehensive metabolic panel (02/17/2023 8:58 PM CDT) Sodium 141 135 - 145 mmol/L [facility]) Potassium, pl 3.6 3.3 - 4.9 mmol/L [facility]) Chloride 104 97 - 110 mmol/L [facility] CO2 23 22 - 32 mmol/L [facility] Anion gap 14 2 - 15 mmol/L [facility] BUN 8 8 - 25 mg/dL [facility]) Creatinine 0.69 0.60 - 1.10 mg/dL [facility] Glucose 100 70 - 199 mg/dL [facility] [...] interpretive data was last revised 2022. Calcium 9.4 8.5 - 10.3 mg/dL [facility]) Bilirubin, total 0.5 0.1 - 1.2 mg/dL [facility]) Protein, pl 6.9 6.5 - 8.5 g/dL [facility]) Albumin 4.1 3.5 - 5.0 g/dL [facility]) Alk phos 86 40 - 130 Units/L [facility]) ALT 21 7 - 45 Units/L [facility] AST 23 10 - 45 Units/L [facility]) Blood 02/17/2023 8:58 PM CDT 02/17/2023 9:01 PM CDT us Lydia Meier MD LAB BLOOD ORDERABLES Final Result [facility] 1 [facility] Department [place] [address] * (ABNORMAL) CBC with auto differential (02/17/2023 8:58 PM CDT) WBC 7.4 3.8 - 9.9 K/cumm [facility]) Hgb 10.1(L) 11.9 - 15.5 g/dL [facility] Hct 31.8(L) 35.6 - 45.5 % [facility]) Plt 362 150 - 400 K/cumm [facility]) MPV 9.6 9.1 - 12.3 fL [facility] RBC 3.86(L) 3.90 - 5.20 M/cumm [facility]) MCV 82.4 81.3 - 96.4 fL [facility] MCH 26.2(L) 27.1 - 33.3 pg [facility] MCHC 31.8(L) 32.3 - 35.7 g/dL [facility] RDW CV 14.2 11.1 - 14.9 % [facility] RDW SD 41.3 35.7 - 48.1 fL [facility] NRBC abs 0.00 0.00 - 0.01 K/cumm [facility] Blood 02/17/2023 8:58 PM CDT 02/17/2023 9:01 PM CDT us Lydia Meier MD LAB BLOOD ORDERABLES Final Result [facility] ([facility] 1 [facility] Department [place] [address] documented in this encounter Visit Diagnoses Diagnosis Nausea and vomiting, unspecified vomiting type- Primary Anxiety Anxiety state, unspecified documented in this encounter Administered Medications Inactive Administered Medications - up to 3 most recent administrations Medication Order MAR Action Action Date Dose Rate Site metoclopramide (REGLAN) injection 10 mg 10 mg, intravenous, Once, On 02/17/23 at 2138, For 1 dose Given 02/17/2023 9:55 PM CDT 10 mg sodium chloride 0.9% bolus 1,000 mL 1,000 mL, intravenous, at 1,000 mL/hr, Administer over 1 Hours, Once, On 02/17/23 at 2138, For 1 dose New Bag 02/17/2023 9:56 PM CDT 1,000 mL 100 0 mL/hr documented in this encounter Active and Recently Administered Medications Times are shown in CDT. Scheduled Medication Order 02/15/2023 02/16/2023 02/17/2023 HYDROmorphone (DILAUDID) injection 0.5 mg 0.5 mg, intravenous, Administer over 2 Minutes, Once, On 02/17/23 at 2138, For 1 dose 225 (Not Given - Pr ovider: Candace Bateman RN - Reason: Other - Comment: pt denies pain) metoclopramide (REGLAN) injection 10 mg (COMPLETED) 10 mg, intravenous, Once, On 02/17/23 at 2138, For 1 dose 2154 (Given - Provid er: Candace Bateman RN) sodium chloride 0.9% bolus 1,000 mL (COMPLETED) 1,000 mL, intravenous, at 1,000 mL/hr, Administer over 1 Hours, Once, On 02/17/23 at 2138, For 1 dose 2155 (New Bag - Prov ider: Candace Bateman RN)2252 (Stopped - Provider: Candace Bateman RN) documented in this encounter Orders Medications Ordered That Mike ht Not Have Been Administered Count Last Ordered Date First Ordered Date HYDROmorphone (DILAUDID) injection 0.5 mg 1 02/17/2023 Nursing Count Last Ordered Date First Orde red Date PULSE OXIMETRY - RN 1 02/17/2023 documented in this encounter Additional Health Concerns Infection Onset Date Last Indicated Resolved Time COVID: Suspected 02/17/2023 02/17/2023 02/17/2023 10:43 PM CDT documented as of this encounter Care Teams Wooden Boat Builder Relationship Specialty Start Date End Date Chito Pozo MD [address] [place] [address] PCP - General Family Medicine 03/13/20 Esvin Conrad MD [address] [place] [place] [address] Production [employer] Obstetrics and Gynecology 02/08/23 documented as of this encounter
--- OUTSIDE RECORDS SUMMARY | 2024-12-08 02:22 | XMS_ITS | Encounter Summary ---
Author Organization [facility] HealthCare Address [address] [place] [address] Phone Care Team Providers Care Agile Business Analyst Name Role Phone Unavailable Primary Care Provider Unavailabl e Reason for Visit * Reason Onset Date Comments COVID-19 03/11/2020 positive screen Cough 03/11/2020 Fever 03/11/2020 Encounter Details Date Type Department Care Team ([facility] Contact Info) Description 03/11/2020 Nurse Triage [facility] Digital Contact Center [address] [place] [address] Provider, None [place] COVID-19 (positive screen ); Cough; Fever Social History Tobacco Use Types Packs/Day Years [...] PM CDT documented as of this encounter Miscellaneous Notes * Telephone Encounter - Blessing Holloway RN - 03/11/2020 6:53 PM CDT Nurse to triage according to symptoms. SITUATION: Cough, fever BACKGROUND: Patient is a positive screen and has been staying with Uncle and he had a positive confirmed test today ASSESSMENT: Symptom Description / Location: cough, fever Pain (0-10): denies pain Temp: 99.4- Treatment / Response: none RECOMMENDATION: Triage nurse made an appointment with digital contact center provider See care advice and disposition for Guideline First positive answer recorded, all responses to prior questions were negative. IDirect patient disposition to appropriate level of care including giving care advice. Patients whose symptoms require immediate emergency assistance should be directed to contact 911 for emergency assistance. If triage nurse is calling 911, notify them of the positive screening. For disposition of being seen by a provider in 24 hours or less or discuss with PCP: Schedule a Video or Telephone Visit with the [facility] provider. Add symptom and patient call back contact number to Appointment Note. After scheduling appointment, close the workspace. For Home care advice: Patient counseled to remain at home. If symptoms worsen, the patient counseled to call back. If symptoms are severe patient instructed to call 911 or go to ED immediately. ??? Patient to push fluid intake and take Tylenol PRN for fever, body aches. ??? If you do not live alone: segregate yourself, use a separate bathroom if possible, sleep in a separate area, have no/limited family time, and the person with symptoms is not to prepare food for others. ??? Patient advised to contact employer now to report positive screen and symptoms. How to Discontinue Home Isolation A. People with COVID-19 (or have had COVID-19 type symptoms) who have stayed home (home isolated) can stop home isolation under the following conditions: Discontinuing Home Isolation: At least 3 days have passed since a fever (100.0 for HCW, 100.4 for lay people) was present withoutthe use of fever- reducing medications (Tylenol, etc.) AND you have improved in respiratory symptoms. (Cough, shortness of breath) AND at least 7 days have passed since your symptoms first appeared. Excuse Note: Patient request for an excuse note: Instruct them to send request for note through [email or web address] or call PCP office. (Per CDC: Employers should not require a positive COVID-19 test result or a healthcare provider's note for employees who are sick to validate their illness, qualify for sick leave, or to return to work. [facility] is not providing excuse for work notes or return to work notes at this time per CDC recommendations). Caller verbalizes understanding of the above information. Reason for Disposition ??? [1] Fever or feeling feverish AND [2] within 14 Days of COVID-19 EXPOSURE (Close Contact) Protocols used: CORONAVIRUS (COVID-19) [id number] * Telephone Encounter - Blessing Holloway RN - 03/11/2020 6:44 PM CDT Images from the original note were not included. Travel Screening Question Response Do you have any of the following symptoms? Fever;Cough In the last month, have you been in contact with someone who was confirmed or suspected to have Coronavirus / COVID-19? Yes Have you traveled internationally in the last month? No Travel History Travel since 02/09/20 No documented travel since 02/09/20 Patients whose symptoms require immediate emergency assistance should be directed to contact 911 for emergency assistance. If triage nurse is calling 911, notify them of the positive screening. Screening Positive/Negative? POSITIVE 1. Symptom details: ?? Date that symptoms started: 03/05/2020 Type of symptoms: Fever;Cough ?? Development of symptoms within 14 days of travel: Yes ?? Has patient been seen / diagnosis / tests completed since onset of symptoms: 2. Is patient from a residential congregate setting where that serves vulnerable populations such as a fci facility, snf, correctional setting or homeless penitentiary? Yes - Inform patient/caller that they will be called back by a provider. Confirm call-back number and set up an appointment digital center provider. documented in this encounter Plan of Treatment Not on file documented as of this encounter Visit Diagnoses Not on filedocumented in this encounter
--- OUTSIDE RECORDS SUMMARY | 2024-12-08 02:22 | XMS_ITS | Referral Summary ---
Author Organization [facility] Virtual Care Address [address] [place] [phone] Phone Care Team Providers Care Vacuum Caster Name Role Phone Chito Pozo MD Primary Care Prov ider Esvin Conrad MD Unavailable [phone] Allergies No known active allergies Medications QUEtiapine [...] Diagnosed Date 38 weeks gestation of 02/05/2023 Social History Tobacco Use Types Packs/Day Years [...] How often do you attend chur or hoahaoism services? Never 01/28/2023 Do you belong to any clubs o r organizations such as scientology groups, unions, fraternal or athletic groups, or [...] staff should administer the PHQ-9) 0 01/28/2023 [facility] - Occupational Stress [...] place to sleep or slept in a skilled nursing (including now)? No 01/28/2023 Personal Safety Answer Date Recorded Have you ever been in or are you currently in a harmful physical or emotional relationship or is someone making you feel afraid or unsafe? Denies 11/28/2023 Comments Unknown Sex and Gender Information Value Date Recorded Sex Assigned at Not on file Legal Sex Female 7:37 PM BOBBIN MARKER Gender Identity Not on file Sexual Orientation Not on file Last Filed Vital Signs Vital Sign Reading Time Taken Comments Blood Pressure 122/68 11/28/2023 6:41 AM BOBBIN MARKER Pulse 85 11/28/2023 6:41 AM BOBBIN MARKER Temperature 36.3 ??C (97.4 ??F) 11/28/2023 6:41 AM CS T Respiratory Rate 16 11/28/2023 6:41 AM BOBBIN MARKER Oxygen Saturation 100% 11/28/2023 6:41 AM BOBBIN MARKER Inhaled Oxygen Concentration - - Weight 95.3 kg (210 lb) 11/28/2023 6:41 AM BOBBIN MARKER Height 154.9 cm (5' 1 ) 11/28/2023 6:41 AM BOBBIN MARKER Body Mass Index 39.68 11/28/2023 6:41 AM BOBBIN MARKER Plan of Treatment Not on file Procedures Procedure Name Priority Date/Time Associated Diagnosis [...] GENERAL ORDER VIET Edited Result - Final [facility] [address] [facility] Department [place] [address] from Last 3 Months or Most Recently Relevant to Health Maintenance Insurance [facility] PL[facility] Advance Directives For more information, please contact: [phone] * Full Code (Latest Code Status on File) Date Activated Date Inactivated Comments 02/05/2023 6:05 AM 02/08/2023 6:52 PM * Full Code Date Activated Date Inactivated Comments 02/05/2023 2:37 AM 02/05/2023 6:05 AM Full CPR in ca se of cardiopulmonary arrest Care Teams Vacuum Caster Relationship Specialty Start Date End Date Chito Pozo MD [address] [place] [address] PCP - General Family Medicine 03/13/20 Esvin Conrad MD [address] [place] [address] [address] [address] [place] Obstetrics and Gynecology 02/08/23
--- OUTSIDE RECORDS SUMMARY | 2024-12-08 02:22 | XMS_ITS | Encounter Summary ---
Author Organization [facility] Healthcare Address [address] [place] [address] Care Team Providers Care Secured Entrance Monitor Name Role Phone Chito Pozo MD Primary Care Prov ider Esvin Conrad MD Unavailable [phone] Encounter Details Date Type Department Care Team (Late st Contact Info) Description 02/24/2024 7:50 AM CDT Lab [facility] Medical Office Bldg [address] [place] [id number] Social History Tobacco Use Types Packs/Day Years [...] How often do you attend chur or christian services? Never 01/28/2023 Do you belong to any clubs o r organizations such as advent groups, unions, fraternal or athletic groups, or [...] you are drinking? Patient does not drink 3 Q3: How often do you have si [...] staff should administer the PHQ-9) 0 01/28/2023 [facility] - Occupational Stress Questionnaire Answer Date Recorded [...] place to sleep or slept in a mcc (including now)? No 01/28/2023 Personal Safety Answer Date Recorded Have you ever been in or are you currently in a harmful physical or emotional relationship or is someone making you feel afraid or unsafe? 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 GONORRHOEAE/C. TRACHOMATIS AMPLIFICATION Routine 02/24/2024 8:12 AM CDT EGFR Routine 02/24/2024 8:12 AM CDT DIFFERENTIAL AUTO Routine 02/24/2024 8:1 2 AM CDT HIV 1/2 ANTIBODY PLUS P24 ANTIGEN Routine 02/24/2024 8:12 AM CDT CBC WITH AUTO DIFFERENTIAL Routine 02/24/2024 8:12 AM CDT HEPATITIS C ANTIBODY Routine 02/24/2024 8:12 AM CDT HEPATITIS B CORE ANTIBODY, TOTAL Routine 02/24/2024 8:12 AM CDT VITAMIN D 25 HYDROXY Routine 02/24/2024 8:12 AM CDT RPR Routine 02/24/2024 8:12 AM CDT HEPATITIS B SURFACE ANTIBODY (IMMUNE STATUS) Routine 02/24/2024 8:12 AM CDT HEPATITIS B SURFACE ANTIGEN Routine 02/24/2024 8:12 AM CDT TSH Routine 02/24/2024 8:12 AM CDT HEMOGLOBIN A1C Routine 02/24/2024 8:12 AM CDT LIPID PANEL Routine 02/24/2024 8:12 AM CDT COMPREHENSIVE METABOLIC PANEL Routine 02/24/2024 8:12 AM CDT documented in this encounter Results * eGFR (02/24/2024 8:12 AM CDT) Pathologist [facility] eGFR 110 mL/min/1. 73 m2 Comment: Interpretive Data Reference Interval Normal ?>/= [...] of Race in Diagnosing Kidney Disease, JASN 202). The CKD-EPI equation should not be used for patients with unstable renal function and has not been validated in children and those over 70. Current interpretive data was last reviewed 2021. Blood 02/24/2024 8:12 AM CDT 02/24/2024 12:46 PM CDT us Dina Jones MD LAB BLOOD ORDERABLES Final Resul t [facility] [address] [facility] Department [place] [address] * Differential, auto (02/24/2024 8:12 AM CDT) Neutrophil abs 2.8 1.5 - 6.5 K/cumm Imm gran abs 0.0 0.0 - 0.1 K/cumm [facility] Lymphocyte abs 1.7 0.8 - 3.3 K/cumm [facility] Monocyte abs 0.4 0.2 - 0.8 K/cumm [facility] Eosinophil abs 0.0 0.0 - 0.5 K/cumm [facility] Basophil abs 0.0 0.0 - 0.1 K/cumm [facility] Neutrophil pct 57.8 % [facility] Comment: Interpretive Data Percent cell count reference ranges are not reported, since discordance with absolute values may lead to misinterpretation of CBC data. Current Interpretive Data was last revised on 2018. Imm gran pct 0.4 % [facility] Comment: Interpretive Data Percent cell count reference ranges are not reported, since discordance with absolute values may lead to misinterpretation of CBC data. Current Interpretive Data was last revised on 2018. Lymphocyte pct 34.7 % [facility] Comment: Interpretive Data Percent cell count reference ranges are not reported, since discordance with absolute values may lead to misinterpretation of CBC data. Current Interpretive Data was last revised on 2018. Monocyte pct 7.1 % [facility] Comment: Interpretive Data Percent cell count reference ranges are not reported, since discordance with absolute values may lead to misinterpretation of CBC data. Current Interpretive Data was last revised on 2018. Eosinophil pct 0.0 % [facility] Comment: Interpretive Data Percent cell count reference ranges are not reported, since discordance with absolute values may lead to misinterpretation of CBC data. Current Interpretive Data was last revised on 2018. Basophil pct 0.0 % [facility] Comment: Interpretive Data Percent cell count reference ranges are not reported, since discordance with absolute values may lead to misinterpretation of CBC data. Current Interpretive Data was last revised on 2018. Blood 02/24/2024 8:12 AM CDT 02/24/2024 12:47 PM CDT us Dina Jones MD LAB BLOOD ORDERABLES Final Resul t [facility] [address] [facility] [place] [address] * N. gonorrhoeae/C. trachomatis Amplification Urine (02/24/2024 8:12 AM CDT) [facility] C. trachomatis Not Detected [facility] Comment:Testing performed by : [facility], [address] [place] [address]., [id number] N. gonorrhoeae Not Detected [facility] Comment: Interpretive Data This assay detects Chlamydia trachomatis and Neisseria gonorrhoeae by nucleic acid amplification testing (NAAT). This assay has been cleared by the [place] Food and Drug administration. The performance characteristics of this test have been verified by the [facility] Molecular Infectious Disease laboratory. The performance characteristics of this test have not been evaluated in individuals less than 14 years of age. Current Interpretive Data was last revised on 2023. Testing performed by: [facility], [address] [place] [address]., [id number] Urine 02/24/2024 8:12 AM CDT 02/24/2024 3:35 PM CDT Dina Jones MD LAB MICROBIOLOGY - GENERAL ORDER VIET Final Result [facility] [address] [facility] [place] [address] [facility] * Hepatitis B surface antibody (immune status) Blood (02/24/2024 8:12 AM CDT) [facility] HBsAb (immune status) Nonreactive Comment: Interpretive Data Nonreactive: This result is consistent with a lack of immunity to Hepatitis B Virus when used in the setting of routine screening. Equivocal: The immune status of the individual should be further assessed, if appropriate, after consideration of clinical status, risk factors, and additional diagnostic information. Reactive: This result is consistent with immunity to Hepatitis B Virus when used in the setting of routine screening. Current interpretive data was last revised on 20. Blood 02/24/2024 8:12 AM CDT 02/24/2024 12:46 PM CDT Dina Jones MD LAB MICROBIOLOGY - GENERAL ORDER VIET Final Result Performing Organization Address [facility] de Phone Number [facility] [address] [place] [address] * Hepatitis B Surface Antigen Blood (02/24/2024 8:12 AM CDT) HepBsAg Nonreactive Nonreactive Blood 02/24/2024 8:12 AM CDT 02/24/2024 12:46 PM CDT Dina Jones MD LAB MICROBIOLOGY - GENERAL ORDER VIET Final Result Performing Organization Address [facility] de Phone Number [address] [address] * HIV 1/2 Antibody plus p24 Antigen Blood (02/24/2024 8:12 AM CDT) [facility] HIV 1/2 ab + p24 ag Nonreactive Nonreactive Comment:Nonreactive for HIV- 1 antigen and HIV-1/HIV-2 antibodies. No laboratory evidence of HIV infection. If acute HIV infection is suspected, consider testing for HIV-1 RNA. Current interpretive data was last revised on 22. Blood 02/24/2024 8:12 AM CDT 02/24/2024 12:46 PM CDT Dina Jones MD LAB MICROBIOLOGY - GENERAL ORDER VIET Final Result Performing Organization Address [facility] de Phone Number [address] [place] [address] * Lipid panel (02/24/2024 8:12 AM CDT) [facility] Cholesterol 139 30 - 199 mg/dL Comment: Interpretive Data Ages < or = 19 years ??Acceptable: ? <170 mg/dL ??Borderline high: ??170-199 mg/dL ??High: ? >or= 200 mg/dL Ages > or = 20 years ??Desirable: ?<200 mg/dL ??Borderline high: ??200-239 mg/dL ??High: ? >or= 240 mg/dL Literature References: 1. Expert Panel on Integrated Guidelines for Cardiovascular Health and Risk Reduction in Children and Adolescents. Pediatrics 2011;128:S213 2. NCEP Expert Panel. Circulation 2004;110:227 Current Interpretive Data was last revised on 2018. Triglycerides 69 <=149 mg/dL [facility] Comment: Interpretive Data Ages < or = 9 years ??Acceptable: ? <75 mg/dL ??Borderline high: ??75-99 mg/dL ??High: ? >or= 100 mg/dL Ages 10 to 20 years ??Acceptable: ? <90 mg/dL ??Borderline high: ??90-129 mg/dL ??High: ? >or= 130 mg/dL Ages > or = 20 years ??Desirable: ?<150 mg/dL ??Borderline high: ??150-199 mg/dL ??High: ? 200-499 mg/dL ?Very high: ?? >or= 499 mg/dL Literature References: 1. Expert Panel on Integrated Guidelines for Cardiovascular Health and Risk Reduction in Children and Adolescents. Pediatrics 2011;128:S213 2. NCEP Expert Panel. Circulation 2004;110:227 Current Interpretive Data was last revised on 2018. HDL 45 >=40 mg/dL [facility] Comment: Interpretive Data Ages < or = 19 years ??Acceptable: ? >45 mg/dL ??Borderline low: ?? 40-45 mg/dL ??Low: ? <40 mg/dL Ages > or = 20 years ??Desirable: ?>or= 60 mg/dL ??Low: ? <40 mg/dL Literature References: 1. Expert Panel on Integrated Guidelines for Cardiovascular Health and Risk Reduction in Children and Adolescents. Pediatrics 2011;128:S213 2. NCEP Expert Panel. Circulation 2004;110:227 Current Interpretive Data was last revised on 2018. LDL, calculated 80 <=129 mg/dL [facility] Comment: Interpretive Data Ages < or = 19 years ??Acceptable: ? <110 mg/dL ??Borderline high: ??110-129 mg/dL ??High: ?>or= 130 mg/dL Ages > or = 20 years ??Optimal: ? <100 mg/dL ??Near optimal: ?100-129 mg/dL ??Borderline high: ?? 130-159 mg/dL ??High: ?>160 mg/dL Literature References: 1. Expert Panel on Integrated Guidelines for Cardiovascular Health and Risk Reduction in Children and Adolescents. Pediatrics 2011;128:S213 2. NCEP Expert Panel. Circulation 2004;110:227 Current Interpretive Data was last revised on 2018. Non-HDL Cholesterol 94 mg/dL [facility] Comment: Interpretive Data Ages < or = 19 years ??Acceptable: ?<120 mg/dL ??Borderline high: ??120-144 mg/dL ??High: ?>145 mg/dL Ages > or = 20 years ??When triglycerides are >200 mg/dL, Non-HDL cholesterol is a secondary target of ? therapy with treatment goals that are 30 mg/dL greater than the LDL cholesterol target. ? Literature References: 1. Expert Panel on Integrated Guidelines for Cardiovascular Health and Risk Reduction in Children and Adolescents. Pediatrics 2011;128:S213 2. NCEP Expert Panel. Circulation 2004;110:227 Current Interpretive Data was last revised on 2018. Chol/HDL ratio 3 [facility] Blood 02/24/2024 8:12 AM CDT 02/24/2024 12:46 PM CDT us Dina Jones MD LAB BLOOD ORDERABLES Final Resul t [facility] [address] [place] [address] * TSH (02/24/2024 8:12 AM CDT) [facility] Thyroid Stimulating Hormone 0.91 0.30 - 4.20 mcIUnit/mL Blood 02/24/2024 8:12 AM CDT 02/24/2024 12:46 PM CDT Dina Jones MD LAB BLOOD ORDERABLES Final Resul t Performing Organization Address [facility] de Phone Number [facility] [address] [place] [address] * (ABNORMAL) Vitamin D 25 hydroxy (02/24/2024 8:12 AM CDT) [facility] Vitamin D 25-OH 24.0(L) 30.0 - 80.0 ng/mL Blood 02/24/2024 8:12 AM CDT 02/24/2024 12:46 PM CDT Dina Jones MD LAB BLOOD ORDERABLES Final Resul t Performing Organization Address [facility] de Phone Number [facility] [address] [place] [address] * (ABNORMAL) CBC with auto differential (02/24/2024 8:12 AM CDT) [facility] WBC 4.9 3.8 - 9.9 K/cumm Hgb 12.1 11.9 - 15.5 g/dL [facility] Hct 38.4 35.6 - 45.5 % [facility] Plt 213 150 - 400 K/cumm [facility] MPV 11.2 9.1 - 12.3 fL [facility] RBC 4.50 3.90 - 5.20 M/cumm [facility] MCV 85.3 81.3 - 96.4 fL [facility] MCH 26.9(L) 27.1 - 33.3 pg [facility] MCHC 31.5(L) 32.3 - 35.7 g/dL [facility] RDW CV 14.2 11.1 - 14.9 % [facility] RDW SD 43.3 35.7 - 48.1 fL [facility] NRBC abs 0.00 0.00 - 0.01 K/cumm [facility] Blood 02/24/2024 8:12 AM CDT 02/24/2024 12:47 PM CDT Dina Jones MD LAB BLOOD ORDERABLES Final Resul t [facility] [address] [facility] Department [place] [address] * Comprehensive metabolic panel (02/24/2024 8:12 AM CDT) Sodium 140 135 - 145 mmol/L Potassium, pl 3.8 3.3 - 4.9 mmol/L [facility] Chloride 104 97 - 110 mmol/L [facility] CO2 27 22 - 32 mmol/L [facility] Anion gap 9 2 - 15 mmol/L [facility] BUN 12 6 - 25 mg/dL [facility] Creatinine 0.77 0.60 - 1.10 mg/dL [facility] Glucose 89 70 - 199 mg/dL [facility] Comment: Interpretive Data Fasting glucose >/= 126 [...] classification and Diagnosis of Diabetes Diabetes Care 202; 46: S19-S40. Current interpretive data was last revised 2022. Calcium 8.9 8.5 - 10.3 mg/dL [facility] Bilirubin, total 0.3 0.1 - 1.2 mg/dL [facility] Protein, pl 6.6 6.5 - 8.5 g/dL [facility] Albumin 4.0 3.5 - 5.0 g/dL [facility] Alk phos 71 40 - 130 Units/L [facility] ALT 19 7 - 45 Units/L [facility] AST 33 10 - 45 Units/L [facility] Blood 02/24/2024 8:12 AM CDT 02/24/2024 12:46 PM CDT Dina Jones MD LAB BLOOD ORDERABLES Final Resul t Performing Organization Address City/[facility]/ZIP Co de Phone Number [address] [place] [address] * Hemoglobin A1c (02/24/2024 8:12 AM CDT) Hgb A1C 5.1 4.0 - 5.6 % Estimated Average Glucose 100 mg/dL [facility] Comment: The ADA recommends reporting an estimated Average Glucose (eAG) with all Hemoglobin A1c results using the equation derived from a study of 507 normal and diabetic adults. ??Minority populations were underrepresented and children were not included. ?? (Diabetes Care 31:6930-9771, 2008). ??The eAG is not equivalent to a fasting glucose. Blood 02/24/2024 8:12 AM CDT 02/24/2024 12:46 PM CDT Dina Jones MD LAB BLOOD ORDERABLES Final Resul t Performing Organization Address [facility] Co de Phone Number [address] [place] [address] * RPR Blood (02/24/2024 8:12 AM CDT) [facility] Nonreactive Nonreactive Comment:Testing performed by : [facility], [address], [place]., [address] Blood 02/24/2024 8:12 AM CDT 02/24/2024 3:19 PM CDT Dina Jones MD LAB MICROBIOLOGY - GENERAL ORDER VIET Final Result Performing Organization Address City/[facility] Co de Phone Number [address] [place] [address] * Hepatitis B core antibody, total Blood (02/24/2024 8:12 AM CDT) Hep B core IgG/IgM Nonreactive Nonreactive Comment:Testing performed by : [facility], [address], [place]., [address] Blood 02/24/2024 8:12 AM CDT 02/24/2024 3:20 PM CDT Dina Jones MD LAB MICROBIOLOGY - GENERAL ORDER VIET Final Result Performing Organization Address [facility] Co de Phone Number [facility] [address] [address] * Hepatitis C antibody Blood (02/24/2024 8:12 [...] 8:12 AM CDT 02/24/2024 12:46 PM CDT Dina Jones MD LAB MICROBIOLOGY - GENERAL ORDER VIET Edited Result - Final Performing Organization Address City/[facility] Co de Phone Number [facility] [place] [address] documented in this encounter Visit Diagnoses Not on filedocumented in this encounter Care Teams Secured Entrance Monitor Relationship Specialty Start Date End Date Cihto Pozo MD [address] [place] [address] PCP - General Family Medicine 03/13/20 Esvin Conrad MD [address] [place] [address] State Inspector Obstetrics and Gynecology 02/08/23 documented as of this encounter
--- OUTSIDE RECORDS SUMMARY | 2024-12-08 02:23 | XMS_ITS | Encounter Summary ---
Author Organization [facility] Healthcare Address [address] [place] [address] Care Team Providers Care Lumber Inspector Name Role Phone Chito Pozo MD Primary Care Prov ider Reason for Visit * Reason Onset Date Comments COVID-19 EVALUATION 03/13/2020 Encounter Details Date Type Department Care Team ([facility] st Contact Info) Description 03/13/2020 Telephone [facility] HealthCare/ Physicians [facility] [place] [address] Etta Barron, RN COVID-19 EVALUATION Social History Tobacco Use Types Packs/Day Years Used Date Smoking Tobacco: Never Assessed Comments Unknown Sex and Gender Information Value Date Recorded Sex Assigned at Not on file 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 Yes Do you have a cough or shortness of breath? Yes Do you have sudden loss of Both Do you live in a group home, correction facility or other group setting? No Are you 65 years old or older? No Do you have diabetes with complications, such as damage to your kidneys, nervous system or eyes? No Do you have congestive heart failure? No Are you immunosuppressed? No Are you currently receiving treatment for cancer? No Do you have chronic lung disease? Yes Are you on dialysis? No Are you ? No Have you traveled outside of the [place] in the last 14 days? No Have you traveled inside of the [place] in the last 14 days? No Have you been in close contact with someone with symptomatic, test-positive or test-pending COVID-19? Yes (If yes) Please describe who you were exposed to, as well as when/how you were exposed? Lives [place] Uncle , who is +, works at a Day care Pt wants to be tested in [place], gave # to testing site @ [place]. Qualifies for testing documented in this encounter Plan of Treatment Not on file documented as of this encounter Visit Diagnoses Not on filedocumented in this encounter Care Teams Lumber Inspector Relationship Specialty Start Date End Date Chito Pozo MD [address] [place] [address] PCP - General Family Medicine 03/13/20 documented as of this encounter
--- OUTSIDE RECORDS SUMMARY | 2024-12-08 02:23 | XMS_ITS | Encounter Summary ---
Author Organization [facility] Healthcare Address [address] [place] [id number] Care Team Providers Care Nurse Transition Name Role Phone Chito Pozo MD Primary Care Prov ider Encounter Details Date Type Department Care Team (Latest Contact Info) Description 01/12/2023 8:30 PM CHANGE CONTROL ANALYST - 01/12/2023 10:00 PM [facility] Hospital Encounter [facility] [address] [place] [address] Esvin Conrad MD [address] [place] [address] DR MUNIZ B [facility] [address] [place] [address] Mekhi Johnson MD [address] [place] [address] Discharge Disposition: Discharge to home or self care Social History Tobacco Use Types Packs/Day Years Used Date Smoking Tobacco: Former Tobacco Cessation:Counseling Given: Not Answered Social Connection and Isolat ion Panel [NHANES] Answer Date Recorded In a typical week, how many times do you talk on the phone with family, friends, or neighbors? More than three times a week 01/12/2023 How often do you get togethe r with friends or relatives? More than three times a week 01/12/2023 Attends [employer] Not on file 01/12 Active Member of Clubs or Organizations Not on f ile 01/12/2023 Attends Club or Organization Meetings Not on esteban e 01/12/2023 Are you , , di vorced, , never , or living with a partner? Living with partner 01/12/2023 AUDIT-C Answer Date Recorded Q1: How often do you have a drink containing alc ohol? Never 01/12/2023 Average Number of Drinks Not on file 023 Frequency of Binge Drinking Not on file 01/02 Overall Financial Resource Strain (CARDIA) Answe r Date Recorded How hard is it for you to pa y for the very basics like food, housing, medical care, and heating? Not hard at all 01/12/2023 PHQ-2 Answer Date Recorded PHQ-2 Total Score (If total score is 3 or more points, staff should administer the PHQ-9) 0 01/12/2023 [facility] - Occupational Stress Questionnaire Answer Date Recorded Do you feel stress - tense, restless, nervous, or anxious, or unable to sleep at night because your mind is troubled all the time - these days? Not at all 01/12/2023 Exercise Vital Sign Answer Date Recorde d On average, how many days pe r week do you engage in moderate to strenuous exercise (like a brisk walk)? 0 days 01/12/2023 On average, how many minutes do you engage in exercise at this level? 0 min 01/12/2023 Hunger Vital Sign Answer Date Recorded Within the past 12 months, y ou worried that your food would run out before you got the money to buy more. Never true 01/12/20 23 Within the past 12 months, t he food you bought just didn't last and you didn't have money to get more. Never true 01/12/2023 PRAPARE - Transportation Answer Date Re corded In the past 12 months, has l ack of transportation kept you from medical appointments or from getting medications? No 01/02 In the past 12 months, has l ack of transportation kept you from meetings, work, or from getting things needed for daily living? No 01/12/2023 Housing Stability Vital Sign Answer Partha e Recorded In the last 12 months, was t here a time when you were not able to pay the mortgage or rent on time? No 01/12/2023 [address] of Places Lived in the Last Year Not on f ile 01/12/2023 In the last 12 months, was t here a time when you did not have a steady place to sleep or slept in a usp (including now)? No 01/12/2023 Comments Yes Sex and Gender Information Value Date Recorded Sex Assigned at Not on file Legal Sex Female 7:37 PM CHANGE CONTROL ANALYST Gender Identity Not on file Sexual Orientation Not on file documented as of this encounter Last Filed Vital Signs Vital Sign Reading Time Taken Comments Blood Pressure - - Pulse - - Temperature 36.6 ??C (97.9 ??F) 01/12/2023 8:47 PM CS T Respiratory Rate - - Oxygen Saturation - - Inhaled Oxygen Concentration - - Weight - - Height - - Body Mass Index - - documented in this encounter Discharge Instructions * Attachments The following attachments cannot be sent through Care Everywhere. * at 35 to 38 Weeks (Discharge Care) (Slovenian) documented in this encounter Discharge Disposition Disposition Code Departure Means Destination Discharge to home or self care documented in this encounter Nursing Notes * Abigail Barker RN - 01/12/2023 10:48 PM CST Pt to unit with complaints of pelvic pressure. Pt also suspicious of high preeclampsia and UTI. Pt denies symptoms. +FM, -LOF. Pt placed on EFM, PIH labs sent, UTI sent for culture. Dr Johnson gave orders to d/c home with pelvic rest. All questions answered, pt ambulated out of unit without difficulty. Abigail Barker RN GE CONTROL ANALYST documented in this encounter Plan of Treatment Not on file documented as of this encounter Procedures Procedure Name Priority Date/Time Associated Diagnosis Comments DIFFERENTIAL AUTO STAT 01/12/2023 9:2 2 PM CHANGE CONTROL ANALYST CBC WITH AUTO DIFFERENTIAL STAT 01/12/2023 9:22 PM CHANGE CONTROL ANALYST URINE CULTURE Timed 01/12/2023 9:22 PM CHANGE CONTROL ANALYST URIC ACID STAT 01/12/2023 9:22 PM CHANGE CONTROL ANALYST AST Routine 01/12/2023 9:22 PM CHANGE CONTROL ANALYST LACTATE DEHYDROGENASE STAT 01/12/2023 9:22 PM CHANGE CONTROL ANALYST URINALYSIS AND REFLEX TO MICROSCOPIC AND CULTURE STAT 01/12/2023 8:41 PM CHANGE CONTROL ANALYST URINALYSIS, MICROSCOPIC ONLY STAT 01/12/2023 8:41 PM CHANGE CONTROL ANALYST documented in this encounter Results * (ABNORMAL) Differential, auto (01/12/2023 9:22 PM CHANGE CONTROL ANALYST) Neutrophil abs 7.2(H) 1.7 - 6.5 K/cumm [facility] ([facility]) Imm gran abs 0.0 0.0 - 0.1 K/cumm [facility] ([place]) Lymphocyte abs 1.9 0.8 - 3.3 K/cumm [facility] ([place]) Monocyte abs 0.6 0.2 - 0.8 K/cumm [facility] ([place]) Eosinophil abs 0.1 0.0 - 0.5 K/cumm [facility] ([place]) Basophil abs 0.0 0.0 - 0.1 K/cumm [facility] ([place]) Neutrophil pct 72.7 % [facility] ([facility]) Comment: Interpretive [...] was last revised on 2018. Lymphocyte pct 19.2 % [facility] ([facility]) Comment: Interpretive Data Percent cell count reference ranges are not reported, since discordance with absolute values may lead to misinterpretation of CBC data. Current Interpretive Data was last revised on 2018. Monocyte pct 6.3 % [facility] ([facility]) Comment: Interpretive Data Percent cell count reference ranges are not reported, since discordance with absolute values may lead to misinterpretation of CBC data. Current Interpretive Data was last revised on 2018. Eosinophil pct 1.2 % [facility] ([facility]) Comment: Interpretive Data Percent cell count reference ranges are not reported, since discordance with absolute values may lead to misinterpretation of CBC data. Current Interpretive Data was last revised on 2018. Basophil pct 0.2 % [facility] ([place]) Comment: Interpretive Data Percent cell count reference ranges are not reported, since discordance with absolute values may lead to misinterpretation of CBC data. Current Interpretive Data was last revised on 2018. Blood 01/12/2023 9:22 PM CHANGE CONTROL ANALYST 01/12/2023 9:29 PM CHANGE CONTROL ANALYST us Mekhi Johnson MD LAB BLOOD ORDERABLES Final Re sult [facility] ([place]) [address] [facility] [place] [address] * Urine culture Urine, clean voided (01/12/2023 9:22 PM CHANGE CONTROL ANALYST) Report Final Report: Growth indicative of contamination with periurethral edgardo. Please submit a new specimen with special attention given to the collection process and to prompt transport to the laboratory. [facility] ([place]) Comment:Testing performed by : [facility], [address] [place]., [address] Organism GROWTH INDICATES CONTAM WITH PERIURETHRAL EDGARDO. [facility] ([place]) Urine, clean voided 01/12/2023 9:22 PM CHANGE CONTROL ANALYST 01/13/2023 1:30 AM CHANGE CONTROL ANALYST Narrative [facility] ([place]) - 01/14/2023 2:32 PM CHANGE CONTROL ANALYST Indications for Culture:-> patient Testing performed by [facility] Microbiology Laboratory ([phone]) us Mekhi Johnson MD LAB MICROBIOLOGY - GENERAL OR DERABLES Final Result Performing Organization Address City/[facility]/ZIP Co de Phone Number [facility] ([place]) 1 [facility] [place] [address] * (ABNORMAL) CBC with auto differential (01/12/2023 9:22 PM CHANGE CONTROL ANALYST) WBC 9.9 3.8 - 9.9 K/cumm [facility] ([place]) Hgb 9.7(L) 11.9 - 15.5 g/dL [facility] ([place]) Hct 28.6(L) 35.6 - 45.5 % [facility] ([place]) Plt 236 150 - 400 K/cumm [facility] ([place]) MPV 10.3 9.1 - 12.3 fL [facility] ([place]) RBC 3.49(L) 3.90 - 5.20 M/cumm [facility] ([place]) MCV 81.9 81.3 - 96.4 fL [facility] ([place]) MCH 27.8 27.1 - 33.3 pg [facility] ([place]) MCHC 33.9 32.3 - 35.7 g/dL [facility] ([place]) RDW CV 13.0 11.1 - 14.9 % [facility] ([place]) RDW SD 38.3 35.7 - 48.1 fL [facility] ([place]) NRBC abs 0.00 0.00 - 0.01 K/cumm [facility] ([place]) Blood 01/12/2023 9:22 PM CHANGE CONTROL ANALYST 01/12/2023 9:29 PM CHANGE CONTROL ANALYST us Mekhi Johnson MD LAB BLOOD ORDERABLES Final Re sult [facility] ([place]) [address] [facility] Department [place] [address] * Lactate dehydrogenase (LD) (01/12/2023 9:22 PM CHANGE CONTROL ANALYST) Lactate dehydrogenase (LDH) 139 100 - 250 Units/L [facility] ([place]) Blood 01/12/2023 9:22 PM CHANGE CONTROL ANALYST 01/12/2023 9:29 PM CHANGE CONTROL ANALYST us Mekhi Johnson MD LAB BLOOD ORDERABLES Final Re sult [facility] ([place]) 1 [facility] [place] [address] * AST (01/12/2023 9:22 PM CHANGE CONTROL ANALYST) AST 11 10 - 45 Units/L [facility] ([place]) Blood 01/12/2023 9:22 PM CHANGE CONTROL ANALYST 01/12/2023 9:29 PM CHANGE CONTROL ANALYST us Mekhi Johnson MD LAB BLOOD ORDERABLES Final Re sult Performing Organization Address City/[facility]/ZIP Co de Phone Number [facility] ([place]) [address] [place] [address] * Uric acid (01/12/2023 9:22 PM CHANGE CONTROL ANALYST) Uric acid 3.6 2.5 - 7.0 mg/dL [facility] ([place]) Blood 01/12/2023 9:22 PM CHANGE CONTROL ANALYST 01/12/2023 9:29 PM CHANGE CONTROL ANALYST us Mekhi Johnson MD LAB BLOOD ORDERABLES Final Re sult Performing Organization Address City/[facility]/ZIP Co de Phone Number [facility] ([place]) [address] [place] [address] * (ABNORMAL) Urinalysis, microscopic only (01/12/2023 8:41 PM CHANGE CONTROL ANALYST) WBC, ur 6-10(A) 0 - 5 /HPF [facility] ([place]) RBC, ur 0-2 0 - 2 /HPF [facility] ([place]) Epithelial cells, squamous, ur 1-5 0 - 5 /HPF [facility] ([place]) Bacteria, ur Trace(A) [facility] ([place]) Mucous, ur Present(A) [facility] ([place]) Culture Reflex Comment Reflex conditions for urine culture (WBC >10) not met. [facility] ([place]) Urine, clean voided 01/12/2023 8:41 PM CHANGE CONTROL ANALYST 01/12/2023 8:46 PM CHANGE CONTROL ANALYST us Mekhi Johnson MD LAB URINE ORDERABLES Final Re sult [facility] ([place]) [address] [facility] Department [place] [address] * (ABNORMAL) Urinalysis reflex to microscopic and culture Urine, clean voided (01/12/2023 8:41 PM CHANGE CONTROL ANALYST) Color, ur Yellow Yellow [facility] ([place]) Clarity, ur Clear Clear [facility] ([place]) Specific gravity, ur 1.011 1.003 - 1.030 [facility] ([place]) pH, urine 6.0 [facility] ([place]) Protein, ur ql Negative Negative [facility] ([place]) Glucose, ur ql Negative Negative [facility] ([place]) Ketones, ur Negative Negative [facility] ([place]) Bilirubin, ur Negative Negative [facility] ([place]) Blood, ur Negative Negative [facility] ([place]) Urobilinogen, ur <2.0 <2.0 mg/dL [facility] ([place]) Nitrite, ur Negative Negative [facility] ([place]) Leukocyte esterase, ur 2+(A) Negative [facility] ([place]) UA reflex comment Reflex to microscopic UA will be performed. [facility] ([place]) Urine, clean voided 01/12/2023 8:41 PM CHANGE CONTROL ANALYST 01/12/2023 8:46 PM CHANGE CONTROL ANALYST Narrative [facility] ([place]) - 01/12/2023 8:57 PM CHANGE CONTROL ANALYST ?? Urine pH is affected by diet, medications, systemic acid-base disturbances, and renal tubular function. ??pH may affect urinary stone formation. ??For example, urine pH below 6.0 may help reduce the tendency for calcium phosphate stones and pH greater than 6.0 may reduce the tendency for uric acid stone formation. Source: [employer]. Last revised 12-12-2017 us Mekhi Johnson MD LAB MICROBIOLOGY - GENERAL OR DERABLES Final Result [facility] ([place]) [address] [facility] Department [place] [address] documented in this encounter Visit Diagnoses Not on filedocumented in this encounter Orders Discharge Count Last Ordered Date First Orde red Date DISCHARGE PATIENT 1 01/12/2023 documented in this encounter Care Teams Nurse Transition Relationship Specialty Start Date End Date Chito Pozo MD [address] [place] [address] PCP - General Family Medicine 03/13/20 documented as of this encounter
--- OUTSIDE RECORDS SUMMARY | 2024-12-08 02:23 | XMS_ITS | Encounter Summary ---
Author Organization [facility] Healthcare Address [address] [place] [id number] Care Team Providers Care Content Curator Name Role Phone Chito Pozo MD Primary Care Prov ider Reason for Visit * Reason Comments Spasms Encounter Details Date Type Department Care Team ([facility] st Contact Info) Description 01/13/2022 3:37 PM LATHE PULLER - 01/13/2022 5:12 PM LATHE PULLER Emergency [facility] Emergency Department [address] [place] [address] Melecio Auguste MD [address] [place] [address] Benzodiazepine withdrawal without complication (CMS/HCC) (HCC) (Primary Dx); Panic attack Discharge Disposition: Discharge to home or self care Social History Tobacco Use Types Packs/Day Years Used Date Smoking Tobacco: Former Comments Unknown Sex and Gender Information Value Date Recorded Sex Assigned at Not on file Legal Sex Female 7:37 PM LATHE PULLER Gender Identity Not on file Sexual Orientation Not on file documented as of this encounter Last Filed Vital Signs Vital Sign Reading Time Taken Comments Blood Pressure 123/58 01/13/2022 5:00 PM LATHE PULLER Pulse 82 01/13/2022 5:00 PM LATHE PULLER Temperature 36.8 ??C (98.3 ??F) 01/13/2022 3:46 PM CS T Respiratory Rate 28 01/13/2022 5:00 PM LATHE PULLER Oxygen Saturation 96% 01/13/2022 5:00 PM LATHE PULLER Inhaled Oxygen Concentration - - Weight 88 kg (194 lb) 01/13/2022 3:46 PM LATHE PULLER Height 154.9 cm (5' 1 ) 01/13/2022 3:46 PM LATHE PULLER Body Mass Index 36.66 01/13/2022 3:46 PM LATHE PULLER documented in this encounter Discharge Diagnoses Diagnosis Sedative, hypnotic or anxiolytic dependence with withdrawal, uncomplicated (HCC) - SEDATIVE, HYPNOTIC OR ANXIOLYTIC DEPENDENCE WITH WITHDRAWAL, UNCOMPLICATED Panic disorder (episodic paroxysmal anxiety) - PANIC DISORDER [EPISODIC PAROXYSMAL ANXIETY] Personal history of nicotine dependence - PERSONAL HISTORY OF NICOTINE DEPENDENCE documented in this encounter Discharge Instructions * Discharge Instructions* Melecio Auguste MD - 01/13/2022 4:12 PM LATHE PULLER Thank you for the opportunity to care for you today! You were evaluated for and diagnosed with benzodiazepine withdrawal and a panic attack. You had blood tests that were largely unremarkable. You should follow-up with your primary doctor in the next week. You should also follow-up with her outpatient psychiatrist. Return to the ED for recurrent severe cramps or other concerns. You should take your previously prescribed medications including lorazepam. Please discuss taperingoff of this more slowly with your outpatient providers. We sincerely hope you feel better soon! E PULLER documented in this encounter Discharge Disposition Disposition Code Departure Means Destination Discharge to home or self care documented in this encounter ED Notes * Melecio Auguste MD - 01/13/2022 3:44 PM CST HPI Chief Complaint Patient presents with ??? Spasms Patient is a 21-year-old woman with a history of depression and tobacco use who presentswith muscle spasms. Admitted to [facility] for suicidal ideation on Saturday and discharged today. Ondischarge was started on buspirone and had lorazepam stopped. Had been taking lorazepam 0.5 mg b.i.d. for the past couple of months. Is also taking venlafaxine and aripiprazole. Muscle spasms associated with chest discomfort, dyspnea, and palpitations. Denies numbness, fever, chills, abdominal pain, nausea, vomiting, or other complaints. Denies any recreational drug use aside from cannabis. Patient History: There are no problems to display for this patient. History reviewed. No pertinent past medical history. History reviewed. No pertinent surgical history. History reviewed. No pertinent family history. Social History Tobacco Use ??? Smoking status: Former Smoker Substance Use Topics ??? Drug use: Yes Types: Marijuana Social History Social History Narrative ??? Not on file Review of Systems Review of Systems Constitutional: Negative for chills and fever. HENT: Negative for congestion, rhinorrhea and sore throat. Eyes: Negative for visual disturbance. Respiratory: Positive for shortness of breath. Negative for cough. Cardiovascular: Positive for chest pain and palpitations. Gastrointestinal: Negative for abdominal pain, constipation, diarrhea, nausea and vomiting. Genitourinary: Negative for dysuria, frequency and urgency. Musculoskeletal: Negative for myalgias. Skin: Negative for rash. Neurological: Negative for seizures, syncope and headaches. Psychiatric/Behavioral: Negative for confusion. The patient is nervous/anxious. Physical Exam ED Triage Vitals Temp Pulse Resp BP SpO2 01/13/22 1546 01/13/22 1540 01/13/22 1546 01/13/22 1540 01/13/22 1540 36.8 ??C (98.3 ??F) (!) 36 (!) 33 (!) 182/119 100 % Temp src Heart Rate Source Patient Position BP Location FiO2 (%) 01/13/22 1546 -- -- -- -- Temporal Physical Exam Vitals and nursing note reviewed. Constitutional: General: She is in acute distress. Appearance: She is not ill-appearing or diaphoretic. HENT: Head: Normocephalic and atraumatic. Mouth/Throat: Mouth: Mucous membranes are moist. Eyes: General: No scleral icterus. Extraocular Movements: Extraocular movements intact. Cardiovascular: Rate and Rhythm: Regular rhythm. Tachycardia present. Pulmonary: Effort: Pulmonary effort is normal. No respiratory distress. Abdominal: General: There is no distension. Musculoskeletal: General: No swelling. Normal range of motion. Cervical back: Normal range of motion. Skin: General: Skin is warm and dry. Findings: No rash. Neurological: General: No focal deficit present. Mental Status: She is alert and oriented to person, place, and time. Mental status is at baseline. Comments: Carpal pedal spasming and mild tongue fasciculations Psychiatric: Comments: Anxious MDM Medical Decision Making Differential Diagnosis or Management Options: 21-year-old woman with a history of depression and tobacco use who presents with muscle spasms. Does appear to have some component of hyperventilation with carpopedal spasming. Possible benzodiazepine withdrawal. Doubt buspirone affect. Doubtsignificant electrolyte abnormality. Doubt other emergent condition. Plan: ECG, labs, IV fluids, benzodiazepines ED Course as of 01/13/221611 Time: 01/13 1604 Value: PCO2, Venous(!): 36 Comment: Minimal hyperventilation By: Melecio Auguste MD Time: 01/13 1605 Value: WBC(!): 20.0 Comment: Significant leukocytosis with neutrophilia likely from demargination By: Melecio Auguste MD Time: 01/13 1605 Comment: Markedly improved after single dose of lorazepam. Suspect mild benzodiazepine withdrawal with panic attack. Counseled on continuing lorazepam in the short term until she is able to taper this as a outpatient. Will plan to discharge with PCP/outpatient psychiatry follow-up pending remainderof labs. Return precautions given. By: Melecio Auguste MD Final diagnoses: Benzodiazepine withdrawal without complication (CMS/HCC) ([facility]) Panic attack Melecio Auguste MD 01/13/221611 E PULLER * Isa [place] - 01/13/2022 3:42 PM CST Pt arrives to ED for c/o muscle spasms, feling of heart palpitations and overall body muscle tightness that started this morning. Pt was discharged from [facility] this morning. Pt has had recent medication changes. E PULLER documented in this encounter Miscellaneous Notes * ED Procedure Note - Melecio Auguste MD - 01/13/2022 3:57 PM LATHE PULLER Associated Order(s): ECG 12 lead Procedure ECG 12 lead Date/Time: 01/13/2022 3:57 PM Performed by: Melecio Auguste MD Authorized by: Melecio Auguste MD Quality: Tracing quality: Limited by artifact Rate: ECG rate: 163 ECG rate assessment: tachycardic Rhythm: Rhythm: sinus rhythm ST segments: ST segments: Normal T waves: T waves: normal Recommended Follow-up: Recommended follow up: further workup in the ED Melecio Auguste MD 01/13/22 1558 E PULLER documented in this encounter Plan of Treatment Not on file documented as of this encounter Procedures Procedure Name Priority Date/Time Associated Diagnosis Comments EGFR STAT 01/13/2022 3:53 PM LATHE PULLER CBC WITHOUT DIFFERENTIAL STAT 01/13/2022 3:53 PM LATHE PULLER MAGNESIUM STAT 01/13/2022 3:53 PM LATHE PULLER BLOOD GAS, VENOUS STAT 01/13/2022 3:5 3 PM LATHE PULLER BASIC METABOLIC PANEL STAT 01/13/2022 3:53 PM LATHE PULLER ECG 12-LEAD STAT 01/13/2022 3:52 PM LATHE PULLER documented in this encounter Results * eGFR (01/13/2022 3:53 PM LATHE PULLER) eGFR 90 mL/min/1. 73 m2 [facility] ([place]) Comment: Interpretive Data Reference Interval Normal ?>/= [...] interpretive data was last reviewed 2021. Blood 01/13/2022 3:53 PM LATHE PULLER 01/13/2022 3:58 PM LATHE PULLER us Melecio Auguste MD LAB BLOOD ORDERABLE S Final Result [facility] ([place]) 1 [facility] Department of Laboratories [place], [place] [id number] * (ABNORMAL) Blood gas, venous (01/13/2022 3:53 PM LATHE PULLER) pH, Venous 7.36 7.32 - 7.43 [facility] ([place]) PCO2, Venous 36(L) 40 - 50 mmHg [facility] ([place]) PO2, Venous 159 mmHg [facility] ([place]) Comment: Interpretive Data No Reference Range Established Current Interpretive Data was last revised on 2018. HCO3 Venous, Calculated 20 20 - 30 mmol/L [facility] ([place]) BE, venous -5 mmol/L [facility] ([place]) Comment: Interpretive Data No Reference Range Established Current Interpretive Data was last revised on 2018. Blood 01/13/2022 3:53 PM LATHE PULLER 01/13/2022 3:58 PM LATHE PULLER Melecio Auguste MD LAB BLOOD ORDERABLE S Final Result Performing Organization Address [facility]/ZIP Co de Phone Number [facility] ([place]) [address] [facility] [place] [employer] [place] [address] * Magnesium (01/13/2022 3:53 PM LATHE PULLER) Pathologist [facility] Magnesium 1.9 1.4 - 2.5 mg/dL [facility] ([place]) Blood 01/13/2022 3:53 PM LATHE PULLER 01/13/2022 3:58 PM LATHE PULLER Melecio Auguste MD LAB BLOOD ORDERABLE S Final Result Performing Organization Address [facility] de Phone Number [facility] ([place]) 1 [facility] [place] [employer] [place] [address] * (ABNORMAL) Basic metabolic panel (01/13/2022 3:53 PM LATHE PULLER) Sodium 138 135 - 145 mmol/L [facility] ([place]) Potassium, pl 4.8 3.3 - 4.9 mmol/L [facility] ([place]) Chloride 101 97 - 110 mmol/L [facility] ([place] CO2 18(L) 22 - 32 mmol/L [facility] ([place]) Anion gap 19(H) 2 - 15 mmol/L [facility] ([place]) BUN 9 8 - 25 mg/dL [facility] ([place]) Creatinine 0.92 0.60 - 1.10 mg/dL [facility] ([place]) Comment:Icteric sample, test results may be affected. Glucose 123 70 - 199 mg/dL [facility] ([place]) Comment: Interpretive Data Fasting glucose [...] classification and Diagnosis of Diabetes Diabetes Care 2017;40 (Suppl. 1):S11. Current interpretive data was last revised 2017. Calcium 9.9 8.5 - 10.3 mg/dL [facility] ([place]) Blood 01/13/2022 3:53 PM LATHE PULLER 01/13/2022 3:58 PM LATHE PULLER us Melecio Auguste MD LAB BLOOD ORDERABLE S Final Result [facility] ([place]) 1 [facility] Department [place] [address] * (ABNORMAL) CBC without differential (01/13/2022 3:53 PM LATHE PULLER) WBC 20.0(H) 3.8 - 9.9 K/cumm [facility] ([place]) Hgb 14.9 11.9 - 15.5 g/dL [facility] ([place]) Hct 45.9(H) 35.6 - 45.5 % [facility] ([place]) Plt 383 150 - 400 K/cumm [facility] ([place]) MPV 10.0 9.1 - 12.3 fL [facility] ([place]) RBC 5.53(H) 3.90 - 5.20 M/cumm [facility] ([place]) MCV 83.0 81.3 - 96.4 fL [facility] ([place]) MCH 26.9(L) 27.1 - 33.3 pg [facility] ([place]) MCHC 32.5 32.3 - 35.7 g/dL [facility] ([place]) RDW CV 14.2 11.1 - 14.9 % [facility] ([place]) RDW SD 42.7 35.7 - 48.1 fL [facility] ([place]) NRBC abs 0.00 0.00 - 0.01 K/cumm [facility] ([place]) Blood 01/13/2022 3:53 PM LATHE PULLER 01/13/2022 3:58 PM LATHE PULLER Melecio Auguste MD LAB BLOOD ORDERABLE S Final Result Performing Organization Address City/[facility] Co de Phone Number [facility] ([place]) 1 [facility] Department [place] [address] * ECG 12 lead (01/13/2022 3:52 PM LATHE PULLER) 01/13/2022 3:52 PM LATHE PULLER Narrative [facility] [employer] - 01/15/2022 8:31 AM LATHE PULLER Vent Rate: 163 bpm RR Interval: 368 msec HI Interval: 0 msec QRS Duration: 78 msec QT Interval: 256 msec QTC Interval: 346 msec P-R-T [place]: 0 - 69 - 45 degrees Baseline artifact Probable sinus tachycardia Electronically Signed By: Peewee Walters MD Melecio Auguste MD ECG ORDERABLES Fin al Result Performing Organization Address [facility] Co de Phone Number [facility] [employer] [facility] documented in this encounter Visit Diagnoses Diagnosis Benzodiazepine withdrawal without complication (HCC)- Primary Panic attack Panic disorder without agoraphobia documented in this encounter Administered Medications Inactive Administered Medications - up to 3 most recent administrations Medication Order MAR Action Action Date Dose Rate Site Lactated Ringer's (LR) bolus 1,000 mL 1,000 mL, intravenous, Once, On 01/13/22 at 1545, For 1 dose New Bag 01/13/2022 3:51 PM LATHE PULLER 1,000 mL LORazepam (ATIVAN) injection 2 mg 2 mg, intravenous, Once, On 01/13/22 at 1545, For 1 dose, For IV administration, dilute with equal volume of 0.9% sodium chloride to a final concentration of 1 mg/mL. Do not exceed a rate of 2 mg/minute Given 01/13/2022 3:50 PM LATHE PULLER 2 mg documented in this encounter Active and Recently Administered Medications Times are shown in LATHE PULLER. Scheduled Medication Order 01/11/2022 01/12/2022 01/13/2022 Lactated Ringer's (LR) bolus 1,000 mL (COMPLETED) 1,000 mL, intravenous, Once, On 01/13/22 at 1545, For 1 dose 1551 (New Bag - Prov ider: Isa Land)1700 (Stopped - Provider: Isa Land) LORazepam (ATIVAN) injection 2 mg (COMPLETED) 2 mg, intravenous, Once, On 01/13/22 at 1545, For 1 dose, For IV administration, dilute with equal volume of 0.9% sodium chloride to a final concentration of 1 mg/mL. Do not exceed a rate of 2 mg/minute 1550 (Given - Provid er: Isa Land) documented in this encounter Care Teams Content Curator Relationship Specialty Start Date End Date Chito Pozo MD [address] [place] [address] PCP - General Family Medicine 03/13/20 documented as of this encounter
--- OUTSIDE RECORDS SUMMARY | 2024-12-08 02:23 | XMS_ITS | Encounter Summary ---
Author Organization [facility] Address [address] [place] [address] Care Team Providers Care Metal Miner Name Role Phone Chito Pozo MD Primary Care Prov ider Reason for Visit * Reason Comments Vaginal Bleeding * Auth/Cert (Routine) Specialty Diagnoses / Procedures Referred By Contac t Referred To Contact Diagnoses 38 weeks gestation of Procedures NA Referral ID Status Reason Start Date Expiration Date Visits Re quested Visits Authorized [id number] 1 1 Encounter Details Date Type Department Care Team (Late st Contact Info) Description 02/05/2023 4:45 AM MANAGER COLLEGE - 02/05/2023 6:50 AM MANAGER COLLEGE Surgery [facility] [address] [place] [id number] Esvin Gilmore MD [address] [place] [address] DR FLAVIO Nascimento [address] [address] SECTION Surgery Details Date/Time Status Location OR Service Patient Class Case Class Case Type Trauma Case? 02/05/2023 4:45 AM Posted [facility] L&D OR C-Secti on Room Obstetrics / Gynecology Inpatient Urgent - 3 hours Panel 1 Procedure LRB Anes Op Region Wound Class Comments SECTION N/A Epidural Abdomen Class II - Cl darshana Contaminated Surgeon Surgeon Role Service Panel Esvin Gilmore MD Primary Obstetrics / Gynecology 1 Case Notes Suspected placenta abruption documented in this encounter Social History Tobacco [...] often do you attend chur ch or evangelical services? Never 01/28/2023 Do you belong to any clubs o r organizations such as jainism groups, unions, fraternal or athletic groups, or [...] staff should administer the PHQ-9) 0 [facility] Occupational Stress Questionnaire Answer Date Recorded [...] place to sleep or slept in a fdc (including now)? No 01/28/2023 Comments No Sex and Gender Information Value Date Recorded Sex Assigned at Not on file Legal Sex Female 7:37 PM MANAGER COLLEGE Gender Identity Not on file Sexual Orientation Not on file documented as of this encounter Last Filed Vital Signs Vital Sign Reading Time Taken Comments Blood Pressure 118/58 02/05/2023 6:50 AM MANAGER COLLEGE Pulse 82 02/05/2023 6:50 AM MANAGER COLLEGE Temperature 36.6 ??C (97.9 ??F) 02/05/2023 6:00 AM CS T Respiratory Rate 16 02/05/2023 2:39 AM MANAGER COLLEGE Oxygen Saturation 99% 02/05/2023 6:48 AM MANAGER COLLEGE Inhaled Oxygen Concentration - - Weight 112.5 kg (248 lb) 02/05/2023 2:39 AM MANAGER COLLEGE Height 154.9 cm (5' 1 ) 02/05/2023 2:39 AM MANAGER COLLEGE Body Mass Index 46.86 02/05/2023 2:39 AM MANAGER COLLEGE documented in this encounter Discharge Summaries * Esvin Gilmore MD - 02/08/2023 2:18 PM CST Inpatient Discharge Summary BRIEF OVERVIEW Admitting Provider: Esvin Gilmore MD Discharge Provider: Esvin Gilmore MD Primary Care Physician at Discharge: Chito Pozo MD [phone] Admission Date: 02/05/2023 Discharge Date: 02/08/2023 Admission Location: [facility] Problems/Diagnoses: Principal Problem: 38 weeks gestation [...] work sooner, please consult first with your hockey scout. Discharge activity: Sexual intercourse - Sexual intercourse [...] Gilmore MD Specialty: Obstetrics and Gynecology Relationship: Metrology Technician [address] [facility] [address] FLAVIO Nascimento [place] [address] Next Steps: Follow up Instructions: Follow up on Saturday for BP check and staple removal Comments: Follow up for post-op visit in 2 weeks. Questions: Instructions for follow-up (appointment date and time): Follow up on Saturday for BP check and stapleremoval To provider: ESVIN GILMORE GER COLLEGE documented in this encounter Medications at Time [...] by mouth daily 30 tablet 1 02/09/2023 documented in this encounter Discharge Disposition Disposition [...] 02/05/23 0858 125 mL/hr at 02/05/23 0858 dgjpoui-ezvhd-fbjmhzm (MMR) 1,000-12,500 TCID50/0.5 mL live vaccine 0.5 [...] Information for the patient's : Phillip Whittington [[id number]] [id number] Problem-based Assessment and Plan Manuela Whittington is [...] 3 Esvin Gilmore MD 02/08/2023 11:36 AM GER COLLEGE * Esvin Gilmore MD - 02/07/2023 8:37 [...] 02/05/23 0858 125 mL/hr at 02/05/23 0858 dxgbams-zdmvm-lntmifg (MMR) 1,000-12,500 TCID50/0.5 mL live vaccine 0.5 [...] Nightly Esvin Gilmore MD 100 mg at 02/06/23 2109 simethicone (MYLICON) chewable tablet 160 mg 160 [...] Information for the patient's : Phillip Whittington [[id number]] [id number] Problem-based Assessment and Plan Manuela Whittington is [...] 3 Esvin Gilmore MD 02/07/2023 8:38 AM GER COLLEGE * Esvin Gilmore MD - 02/06/2023 9:09 [...] Esvin Gilmore MD 100 mg at 02/06/23 210 ferrous sulfate tablet 325 mg 325 mg oral Daily Esvin Gilmore MD 325 mg at 02/06/23 0909 HYDROcodone-acetaminophen (NORCO) 5-325 mg per tablet 2 tablet 2 tablet oral Q4H PRN Glenis Gilmore MD ibuprofen (ADVIL,MOTRIN) tablet 600 mg 600 mg oral Q6H Esvin Gilmore MD 600 mg at 02/06/238 Lactated Ringer's (LR) bolus 1,000 mL 1,000 mL intravenous PRN Esvin Gilmore MD Lactated Ringer's (LR) infusion 125 mL/hr intravenous Continuous Esvin Gilmore MD 125 mL/hr at 02/05/23 0858 125 mL/hr at 02/05/23 0858 frkcjeb-ymrri-vqvjtbd (MMR) 1,000-12,500 TCID50/0.5 mL live vaccine 0.5 [...] Information for the patient's : Phillip Whittington [[id number]] [id number] Problem-based Assessment and Plan Manuela Whittington is [...] 3 Esvin Gilmore MD 02/06/2023 9:10 PM GER COLLEGE GER COLLEGE documented in this encounter H&P Notes * [...] 15x15, and Decelerations: Recurrent Uterine Activity: External [place]: and Frequency: Every 3-5 minutes Lab/Radiology/Diagnostic Review: [...] breastfeed Esvin Gilmore MD 02/05/2023 5:12 AM GER COLLEGE documented in this encounter Nursing Notes * Comfort Jordan RN - 02/06/2023 8:00 PM CST 2000 Patient at bedside feeling anxious and crying.Talked [...] time. Instructed to call for assist ifneeded. GER COLLEGE documented in this encounter Miscellaneous Notes * Plan of Care - Arielle Vallejo RN - 02/08/2023 2:18 PM CST Goals: Clinical Goals for the Shift: VSS. Controlled pain. Bonding with baby Summary: Orders received for D/C. Follow up and D/C instructions review with pt no questions or concerns at this time. Ambulates out of L&D with no apparent distress. GER COLLEGE * Plan of Care - Elif Guzman [...] Summary: VSS, pain well controlled with motrin GER COLLEGE * Plan of Care - Rhonda Jackson [...] improve to fullest extent possible Outcome: Progressing GER COLLEGE * Plan of [place] - Eulalia Garvey LCSW - 02/06/2023 8:24 AM CST Manuela Whittnigton 2000 Reason for Social Work visit Social [...] plans and [place] in [place]. She has reported that the psychotropic medication Effexor has been effective. She should be followed closely for signs/symptoms of PPD again following this . Discharge Plan Unknown at this time. No other SW needs indicated at this time. SW remains available to assist as needed. 8:25 AM 02/06/2023 Eulalia Garvey LCSW GER COLLEGE GER COLLEGE * Plan of Care - Tia Webb RN - 02/05/2023 4:50 PM CST Goals: Clinical Goals for the Shift: pain controlled, comfortable with Summary: pain controlled, adequate UO, pt nursing well on left side, hand expressing on right side,abd dressing dry and intact GER COLLEGE * Plan of Care - Oswald Jo [...] in stable condition, handoff given to Tia. GER COLLEGE * Brief Op Note - Esvin Gilmore MD - 02/05/2023 5:12 AM CST Operative Progress Note Surgical Team: Surgeon(s) and Role: * Esvin Gilmore MD - Primary TETRYL WRINGER OPERATOR: Con Thompson CRNA Surgeon: Esvin Gilmore MD Doctor Of Podiatric Medicine: Oswald Jo RN Scrub: Sandi Mendez ST; Sonya Johnson ST Doctor Of Podiatric Medicine Second: Candace Jeong RN DATE OF SURGERY [...] 5:13 AM No Resident involved on case GER COLLEGE * Op Note - Esvin Gilmore MD [...] room in stablecondition. Job ID/Internal Job ID: [id number] GER COLLEGE documented in this encounter Plan of Treatment Not on file documented as of this encounter Procedures Procedure Name Priority Date/Time Associated Diagnosis Comments PROTEIN / CREATININE RATIO, URINE, RANDOM STAT 02/07/2023 3:23 AM MANAGER COLLEGE EGFR STAT 02/06/2023 10:03 PM MANAGER COLLEGE DIFFERENTIAL AUTO STAT 02/06/2023 10: 03 PM MANAGER COLLEGE CBC WITH AUTO DIFFERENTIAL STAT 02/06/2023 10:03 PM MANAGER COLLEGE URIC ACID STAT 02/06/2023 10:03 PM MANAGER COLLEGE LACTATE DEHYDROGENASE STAT 02/06/2023 10:03 PM MANAGER COLLEGE COMPREHENSIVE METABOLIC PANEL STAT 02/06/2023 10:03 PM MANAGER COLLEGE CBC WITHOUT DIFFERENTIAL Routine 02/06/2023 7:34 AM MANAGER COLLEGE SURGICAL PATHOLOGY Routine 02/05/2023 2: 01 PM MANAGER COLLEGE DRUG SCREEN, URINE L AND D WITH REFLEX CONFIRMATION STAT 02/05/2023 6:03 AM MANAGER COLLEGE CANNABINOIDS, URINE, CONFIRMATION STAT 02/05/2023 6:03 AM MANAGER COLLEGE AMPHETAMINE, URINE, CONFIRMATION Routine 02/05/2023 6:03 AM MANAGER COLLEGE BLOOD GAS, CORD VENOUS STAT 02/05/2023 4:17 AM MANAGER COLLEGE SECTION 02/05/2023 3:38 AM MANAGER COLLEGE 38 weeks gestation of Case Notes Suspected placenta abruption DIFFERENTIAL AUTO STAT 02/05/2023 2:5 0 AM MANAGER COLLEGE CBC WITH AUTO DIFFERENTIAL STAT 02/05/2023 2:50 AM MANAGER COLLEGE ABO/RH STAT 02/05/2023 2:50 AM MANAGER COLLEGE ANTIBODY SCREEN STAT 02/05/2023 2:50 AM MANAGER COLLEGE HC ANTIBODY SCREEN RBC STAT 02/05/2023 2:50 AM MANAGER COLLEGE documented in this encounter Results * (ABNORMAL) Protein / creatinine ratio, urine, random (02/07/2023 3:23 AM MANAGER COLLEGE) Protein, ur, quant 27.0 mg/dL [facility] ([place]) Comment: Interpretive Data No reference range established. Current interpretive data was last revised 2019. Creatinine Ur 97.2 mg/dL [facility] ([place]) Comment: Interpretive Data No reference range established. Current interpretive data was last revised 2019. Protein/creatinin e ratio 277.8(H) 0.0 - 180.0 mg/g CR [facility] ([place]) Urine 02/07/2023 3:23 AM MANAGER COLLEGE 02/07/2023 3:42 AM MANAGER COLLEGE us Esvin Gilmore MD LAB URINE ORDERABLES F inal Result [facility] ([place]) 1 [facility] [place] [address] * eGFR (02/06/2023 10:03 PM MANAGER COLLEGE) eGFR 126 mL/min/1. 73 m2 [facility] ([place]) Comment: Interpretive Data Reference Interval Normal [...] reviewed 2021. Blood 02/06/2023 10:0 3 PM MANAGER COLLEGE 02/06/2023 10:08 PM MANAGER COLLEGE us Esvin Gilmore MD LAB BLOOD ORDERABLES F inal Result [facility] ([place]) 1 [facility] Department of Laboratories [place], [place] [id number] * (ABNORMAL) Differential, auto (02/06/2023 10:03 PM MANAGER COLLEGE) Pathologist [facility] Neutrophil abs 7.2(H) 1.7 - 6.5 K/cumm [facility] ([place]) Imm gran abs 0.1 0.0 [...] on 2018. Blood 02/06/2023 10:0 3 PM MANAGER COLLEGE 02/06/2023 10:08 PM MANAGER COLLEGE Esvin Gilmore MD LAB BLOOD ORDERABLES F inal Result [facility] ([place]) 1 [facility] [place] [address] * Lactate dehydrogenase (LD) (02/06/2023 10:03 PM MANAGER COLLEGE) Lactate dehydrogenase (LDH) 202 100 - 250 Units/L [facility] ([place]) Blood 02/06/2023 10:0 3 PM MANAGER COLLEGE 02/06/2023 10:08 PM MANAGER COLLEGE us Esvin Gilmore MD LAB BLOOD ORDERABLES F inal Result Performing Organization Address City/[facility]/ZIP Co de Phone Number [facility] ([place]) 1 [facility] [place] [address] * (ABNORMAL) Comprehensive metabolic panel (02/06/2023 10:03 PM MANAGER COLLEGE) Pathologist [facility] Sodium 140 135 - 145 mmol/L [facility] [...] [facility] ([place]) Blood 02/06/2023 10:0 3 PM MANAGER COLLEGE 02/06/2023 10:08 PM MANAGER COLLEGE us Esvin Gilmore MD LAB BLOOD ORDERABLES F inal Result [facility] ([place]) 1 [facility] [place] [address] * (ABNORMAL) CBC with auto differential (02/06/2023 10:03 PM MANAGER COLLEGE) WBC 9.1 3.8 - 9.9 K/cumm [facility] [...] [facility] ([place]) Blood 02/06/2023 10:0 3 PM MANAGER COLLEGE 02/06/2023 10:08 PM MANAGER COLLEGE Esvin Gilmore MD LAB BLOOD ORDERABLES F inal Result [facility] ([place]) 1 [facility] [place] [address] * Uric acid (02/06/2023 10:03 PM MANAGER COLLEGE) Pathologist [facility] Uric acid 5.3 2.5 - 7.0 mg/dL [facility] ([place]) Blood 02/06/2023 10:0 3 PM MANAGER COLLEGE 02/06/2023 10:08 PM MANAGER COLLEGE Esvin Gilmore MD LAB BLOOD ORDERABLES F inal Result Performing Organization Address City/[facility] Co de Phone Number [facility] ([place]) 1 [facility] [place] [address] * (ABNORMAL) CBC without differential (02/06/2023 7:34 AM MANAGER COLLEGE) WBC 8.8 3.8 - 9.9 K/cumm [facility] [...] ([place]) MCHC 32.6 32.3 - 35.7 g/dL [facility] ([place]) RDW CV 13.2 11.1 - 14.9 % [facility] ([place]) RDW SD 39.2 35.7 - 48.1 fL [facility] ([place]) NRBC abs 0.00 0.00 - 0.01 K/cumm [facility] ([place]) Blood 02/06/2023 7:34 AM MANAGER COLLEGE 02/06/2023 7:40 AM MANAGER COLLEGE us Esvin Gilmore MD LAB BLOOD ORDERABLES F inal Result [facility] ([place]) 1 [facility] [place] [address] * Surgical pathology (02/05/2023 2:01 PM MANAGER COLLEGE) Tissue (Placenta) 02/05/2023 2:01 PM MANAGER COLLEGE 02/05/2023 2:01 PM MANAGER COLLEGE Narrative PATHOLOGY [facility] ([place]) - 02/08/2023 2:28 PM MANAGER COLLEGE EPIC results best viewed via link to PDF [facility] Department of Pathology [address] [place] [id number] Note to Patients: This report may contain [...] the details. Final Report Patient Name: ??MANUELA WHITTNIGTON Address: ??[address], ??[place], [place] [address] Gender: ??F : ??2000 (Age: 22) Service: ??Obstetrics Location: ??[facility] Hospital #: ??[id number] Patient Type: ??[facility] IP Accession # ?[id number] Taken: ??02/05/2023 Received: ??02/05/2023 Accessioned: ??02/05/2023 Reported: [...] surface by a web of Warthin's jelly ??Ripshear Operator sections are submitted in three cassettes. Roxanna Jo R.N., P.A./Yared White M.D. REPORT IMAGES AND SCANNED DOCUMENTS, IF INCLUDED, ONLY VIEWABLE IN PDF VERSION OF REPORT The performance characteristics of some immunohistochemical stains, fluorescence in-situ hybridization tests and immunophenotyping by flow cytometry cited in this report (if any) were determined by the Surgical Pathology Department at [facility] as part of an ongoing water quality manager program and in compliance with federally mandated [...] characteristics determined by the Surgical Pathology Department [facility]. ??It has not been cleared or approved by the U. S. Food and Drug Administration. Note for decalcified specimens: This assay has not been validated on decalcified tissues. Results should be interpreted with caution given the possibility of false negativity on decalcified specimens Esvin Gilmore MD LAB PATHOLOGY ORDERABL ES Final Result PATHOLOGY [facility] ([place]) 1 [place] [address] * Amphetamine Confirmation, Urine (02/05/2023 6:03 AM MANAGER COLLEGE) Amphetamine Conf, Ur Does Not Confirm CutOff 150ng/mL [facility] ([place]) Comment:Testing performed by : [facility], [address] [place]., [address] Methamphetamine Conf, Ur Does Not Confirm CutOff 150ng/mL [facility] ([place]) Comment:Testing performed by : [facility], [address] [place]., [address] MDA Conf, Ur Does Not Confirm CutOff 150ng/mL [facility] ([place]) Comment:Testing performed by : [facility], [address] [place]., [address] MDMA Conf, Ur Does Not Confirm CutOff 50 ng/mL [facility] ([place]) Comment:Testing performed by : [facility], [address] [place]., [address] MDEA Conf, Ur Does Not Confirm CutOff 150ng/mL [facility] ([place]) Comment:Testing performed by : [facility], [address] [place]., [address] MBDB Conf, Ur Does Not Confirm CutOff 150ng/mL [facility] ([place]) Comment: Interpretive Data This test detects the presence or absence of drug compounds using LC Tandem mass spectrometry. While this test is highly specific, false positive and false negative results may occur in very rare circumstances. Contact the laboratory for consultation, if needed. Performance characteristics were determined by the [facility] in a manner consistent with CLIA requirement and has not been cleared or approved by the U.S. Food and Drug Administration. Current interpretive data was last revised on 2021. Testing performed by: [facility], [address] [place]., [address] Urine 02/05/2023 6:03 AM MANAGER COLLEGE 02/06/2023 9:42 AM MANAGER COLLEGE Narrative [facility] ([place]) - 02/06/2023 9:56 PM MANAGER COLLEGE Ordered per Tia Webb in OB. us Esvin Gilmore MD LAB URINE ORDERABLES F inal Result [facility] ([place]) 1 [facility] [place] [address] * Cannabinoids, urine, confirmation (02/05/2023 6:03 AM MANAGER COLLEGE) Delta-8 Carboxy-THC Not Detected Cutoff: 5 ng/mL [facility] ([place]) Comment: Testing performed at a x2 dilution; limit of quantitation is elevated. Delta-9 Carboxy-THC 880 Cutoff: 5 ng/mL [facility] ([place]) Cannabinoids ur interpretation Positive. [facility] ([place]) Comment: ADDITIONAL INFORMATION This report is intended for use in clinical monitoring and management of patients. ??It is not intended for use in employment-related testing. This test was developed and its performance characteristics determined by [facility] in a manner consistent with CLIA requirements. This test has not been cleared or approved by the U.S. Food and Drug Administration. Test Performed by: [facility] [address] [place] [address] Art Therapist: Edgar Mata M.D. Ph.D.; CLIA# [id number] Urine 02/05/2023 6:03 AM MANAGER COLLEGE 02/05/2023 6:59 AM MANAGER COLLEGE Esvin Gilmore MD LAB URINE ORDERABLES F inal Result [facility] ([place]) 1 [facility] [place] [address] * (ABNORMAL) Drug Screen, Urine L and D with Reflex Confirmation (02/05/2023 6:03 AM MANAGER COLLEGE) Amphetamine, ur Detected(A) CutOff 500ng/mL [facility] ([place]) Comment: Interpretive Data - Amphetamines: ??Samples containing greater than 500 ng/mL d-methamphetamine ??or other cross-reacting amphetamine compounds are reported as positive. ??Amphetamine immunoassays are subject to significant false positive rates due to cross-reactivity of non-amphetamine drugs. Current Interpretive Data was last reviewed 2019. Barbiturates, ur Not Detected CutOff 200ng/mL [facility] ([place]) Comment: Interpretive Data - Barbiturates: ??Samples containing greater than 200 ng/mL secobarbital or other cross-reacting barbiturate compounds are reported as positive. ??False positive and false negative results are possible. Current Interpretive Data was last reviewed 2019. Benzodiazepines, ur Not Detected CutOff 100ng/mL [facility] ([place]) Comment: Interpretive Data - Benzodiazepines: [...] Phencyclidine, ur Not Detected CutOff 25 ng/mL [facility] ([place]) Comment: Interpretive Data - Phencyclidine: ??Samples containing greater than 25 ng/mL phencyclidine or other cross-reacting compounds are reported as positive. ??False positive and false negative results are possible. ?? Current Interpretive Data was last reviewed 2019. Urine Creatinine 152 mg/dL [facility] ([place]) Comment: Interpretive Data Urine Creatinine: < 10 mg/dL is extremely dilute = or > 10 but < 20 mg/dL is dilute = or > 20 mg/dL is normal Current Interpretive Data was last revised on 2018. Urine 02/05/2023 6:03 AM MANAGER COLLEGE 02/05/2023 6:14 AM MANAGER COLLEGE Esvin Gilmore MD LAB URINE ORDERABLES F inal Result Performing Organization Address [facility] de Phone Number [facility] ([place]) 1 [facility] [place] [address] * Blood Gas, Cord Venous (02/05/2023 4:17 AM MANAGER COLLEGE) pH Cord Saqib 7.33 [facility] ([place]) pCO2 Cord Saqib 45 mmHg [facility] ([place]) pO2 Cord Saqib 22 mmHg [facility] ([place]) Base Excess Cord Saqib -3 mmol/L [facility] ([place]) HCO3 Cord Saqib (Calc) 23 mmol/L [facility] ([place]) O2 Sat Cord Saqib (Kelley) 48 % [facility] ([place]) Comment: Interpretive Data No Reference Ranges Established Current Interpretive Data was last revised on 2018 Cord blood 02/05/2023 4:17 AM MANAGER COLLEGE 02/05/2023 4:24 AM MANAGER COLLEGE Esvin Gilmore MD LAB BLOOD ORDERABLES F inal Result Performing Organization Address [facility] Co de Phone Number [facility] ([place]) 1 [facility] [place] [address] * (ABNORMAL) Differential, auto (02/05/2023 2:50 AM MANAGER COLLEGE) Neutrophil abs 7.3(H) 1.7 - 6.5 K/cumm [facility] ([place]) Imm gran abs 0.0 0.0 - 0.1 K/cumm [facility] ([place]) Lymphocyte abs 1.8 0.8 - 3.3 K/cumm [facility] ([place]) Monocyte abs 0.6 0.2 - 0.8 K/cumm [facility] ([place]) Eosinophil abs 0.1 0.0 - 0.5 K/cumm [facility] ([place]) Basophil abs 0.0 0.0 - 0.1 K/cumm [facility] ([place]) Neutrophil pct 74.0 % [facility] ([place]) Comment: Interpretive Data Percent cell count reference ranges are not reported, since discordance with absolute values may lead to misinterpretation of CBC data. Current Interpretive Data was last revised on 2018. Imm gran pct 0.4 % [facility] ([place]) Comment: Interpretive Data Percent cell count reference ranges are not reported, since discordance with absolute values may lead to misinterpretation of CBC data. Current Interpretive Data was last revised on 2018. Lymphocyte pct 18.0 % [facility] ([place]) Comment: Interpretive Data Percent cell count reference ranges are not reported, since discordance with absolute values may lead to misinterpretation of CBC data. Current Interpretive Data was last revised on 2018. Monocyte pct 6.5 % [facility] ([place]) Comment: Interpretive Data Percent cell count reference ranges are not reported, since discordance with absolute values may lead to misinterpretation of CBC data. Current Interpretive Data was last revised on 2018. Eosinophil pct 0.8 % [facility] ([place]) Comment: Interpretive Data Percent cell count reference ranges are not reported, since discordance with absolute values may lead to misinterpretation of CBC data. Current Interpretive Data was last revised on 2018. Basophil pct 0.3 % [facility] ([place]) Comment: Interpretive Data Percent cell count reference ranges are not reported, since discordance with absolute values may lead to misinterpretation of CBC data. Current Interpretive Data was last revised on 2018. Blood 02/05/2023 2:50 AM MANAGER COLLEGE 02/05/2023 2:53 AM MANAGER COLLEGE Esvin Gilmore MD LAB BLOOD ORDERABLES F inal Result Performing Organization Address [facility] Co de Phone Number [facility] ([place]) 1 [facility] [place] [address] * Antibody screen (02/05/2023 2:50 AM MANAGER COLLEGE) Nicolas, indirect, Gel Interpretation Negative ABSC [facility] ([place]) Blood 02/05/2023 2:50 AM MANAGER COLLEGE 02/05/2023 2:53 AM MANAGER COLLEGE Narrative [facility] ([place]) - 02/05/2023 3:30 AM MANAGER COLLEGE Has the patient had Daratumumab or Isatuximab in the past 6 months?->Unknown Esvin Gilmore MD LAB BLOOD BANK TEST OR DERABLES Final Result Performing Organization Address [facility] de Phone Number [facility] ([place]) 1 [facility] [place] [address] * ABO/Rh (02/05/2023 2:50 AM MANAGER COLLEGE) ABO/Rh A Positive [facility] ([place]) Blood 02/05/2023 2:50 AM MANAGER COLLEGE 02/05/2023 2:53 AM MANAGER COLLEGE Narrative [facility] ([place]) - 02/05/2023 3:30 AM MANAGER COLLEGE Has the patient had Daratumumab or Isatuximab in the past 6 months?->Unknown Esvin Gilmore MD LAB BLOOD BANK TEST OR DERABLES Final Result Performing Organization Address City/[facility] Co de Phone Number [facility] ([place]) 1 [facility] [place] [address] * (ABNORMAL) CBC with auto differential (02/05/2023 2:50 AM MANAGER COLLEGE) WBC 9.8 3.8 - 9.9 K/cumm [facility] [...] - 0.01 K/cumm [facility] ([place]) Blood 02/05/2023 2:50 AM MANAGER COLLEGE 02/05/2023 2:53 AM MANAGER COLLEGE us Esvin Gilmore MD LAB BLOOD ORDERABLES F inal Result [facility] ([place]) 1 [facility] [place] [address] documented in this encounter Visit Diagnoses Diagnosis 38 weeks gestation of - Primary 38 weeks gestation of 38 weeks gestation of documented in this [...] DisorderIndications:Generalized Anxiety Disorder Given 02/08/2023 10:01 AM MANAGER COLLEGE 7.5 mg Given 02/07/2023 8:17 PM MANAGER COLLEGE 7.5 mg Given 02/07/2023 9:30 AM MANAGER COLLEGE 7.5 mg docusate sodium (COLACE) capsule 100 mg 100 mg, oral, 2 times daily, First dose on Sat02/05/23 at 0900, Hold if diarrhea., Indications: constipation, Stool SoftenerIndications:constipation,Stool Softener Given 02/08/2023 10:01 AM MANAGER COLLEGE 100 mg Given 02/07/2023 8:57 PM MANAGER COLLEGE 100 mg Given 02/07/2023 9:31 AM MANAGER COLLEGE 100 mg ferrous sulfate tablet 325 mg 325 mg, oral, Daily, First dose on Sat02/05/23 at 0900, Begin when normal bowel activity resumes., Indications: Iron Deficiency AnemiaIndications:Iron Deficiency Anemia Given 02/08/2023 10:01 AM MANAGER COLLEGE 325 mg Given 02/07/2023 7:58 AM MANAGER COLLEGE 325 mg Given 02/06/2023 9:09 AM MANAGER COLLEGE 325 mg ibuprofen (ADVIL,MOTRIN) tablet 600 mg 600 mg, oral, Every 6 hours, First dose on Sat02/06/23 at 0330, Start in 24 hours after Anesthesia no longer covering., Indications: CrampsIndications:Cramps Given 02/08/2023 10:54 AM MANAGER COLLEGE 600 mg Given 02/08/2023 5:50 AM MANAGER COLLEGE 600 mg Given 02/07/2023 8:57 PM MANAGER COLLEGE 600 mg Lactated Ringer's (LR) infusion 125 mL/hr, intravenous, Continuous, Starting on Sat02/05/23 at 0645, New Bag 02/05/2023 8:58 AM MANAGER COLLEGE 125 mL/hr 125 mL/hr New Bag 02/05/2023 6:23 AM MANAGER COLLEGE 125 mL/hr 125 mL/hr NIFEdipine (PROCARDIA XL/ADALAT CC) extended release tablet 30 mg 30 mg, oral, Daily, First dose on Sat02/07/23 at 0945, Do not crush, chew, cut, dissolve, open or otherwise manipulate tablet/capsule. Given 02/08/2023 10:0 1 AM MANAGER COLLEGE 30 mg Given 02/07/2023 9:30 AM MANAGER COLLEGE 30 mg ondansetron (ZOFRAN) injection 4 mg [...] PreventionIndications:Vitamin Deficiency Prevention Given 02/08/2023 10:02 AM MANAGER COLLEGE 1 tablet Given 02/07/2023 7:58 AM MANAGER COLLEGE 1 tablet Given 02/06/2023 7:39 AM MANAGER COLLEGE 1 tablet QUEtiapine (SEROquel) tablet 150 mg 150 mg, oral, Nightly, First dose (after last modification) on Sat02/05/23 at 2100, Indications: Generalized Anxiety DisorderIndications:Generalized Anxiety Disorder Given 02/07/2023 8:57 PM MANAGER COLLEGE 100 mg Given 02/06/2023 9:09 PM MANAGER COLLEGE 100 mg Given 02/05/2023 8:47 PM MANAGER COLLEGE 100 mg documented in this encounter Active and Recently Administered Medications Times are shown in MANAGER COLLEGE. Scheduled Medication Order 02/06/2023 02/07/2023 02/08/2023 busPIRone [...] Rhonda Jackson RN)2108 (Given - Provider: Comfort Jordan, EL) 0931 (Given - Provider: Elif Guzman, EL)2057 (Given - Provider: Comfort Jordan RN) 1001 (Given - Provider: Arielle Vallejo, RN) ferrous sulfate tablet 325 mg 325 mg, oral, Daily, First dose on Sat02/05/23 at 0900, Begin when normal bowel activity resumes., Indications: Iron Deficiency Anemia 0909 (Given - Provider: Rhonda Jackson RN) 0758 (Given - Provider: Elif Guzman, EL) 1001 (Given - Provider: Arielle Vallejo, EL) ibuprofen (ADVIL,MOTRIN) tablet 600 mg 600 mg, oral, Every 6 hours, First dose on Sat02/06/23 at 0330, Start in 24 hours after Anesthesia no longer covering., Indications: Cramps 0739 (Given - Provider: Rhonda Jackson RN)1452 (Given - Provider: Rhonda Jackson RN)2108 (Given - Provider: Comfort Jordan RN) 0314 (Given - Provider: Comfort Jordan RN)0930 (Given - Provider: Elif Guzman, EL)1513 (Given - Provider: Elif Guzman, EL)2057 (Given - Provider: Comfort Jordan RN) 0330 [...] 30 mg, oral, Daily, First dose on Shahana 02/07/23 at 0945, Do not crush, chew, cut, dissolve, open or otherwise manipulate tablet/capsule. 0930 (Given - Provider: Elif Guzman, EL) 1001 (Given - Provider: Arielle Vallejo, EL) vit-iron fum-folic ac tablet 1 tablet 1 [...] on Sat02/05/23 at 0605, For 1 dose nshkfla-lqrhm-ijpnnsq (MMR) 1,000-12,500 TCID50/0.5 mL live vaccine 0.5 mL 0.5 mL, subcutaneous, During hospitalization, immunization, Starting on Sat02/05/23 at 0605, For 1 dose, If not rubella immune. Warning: This is a live or live attenuated vaccine. Refrigerate, Indications: Gzivjgr-Wbicx-Setmydp Vaccination ondansetron (ZOFRAN) injection 4 mg(Linked Group [...] Count Last Ordered Date First Ordered Date busPIRone (BUSPAR) tablet 7.5 mg 1 02/08/20 23 NIFEdipine (PROCARDIA XL/ADA LAT CC) extended release tablet 30 mg 1 02/07/2023 carboprost (HEMABATE) injection 250 mcg 1 0 02/05/2023 Carrier Fluids for Secondary Infusion - 0.9% Sodium Chloride 1 02/05/2023 ceFAZolin (ANCEF) 1 gram/10 mL in sterile water (premix) 2,000 mg 1 02/05/2023 docusate sodium (COLACE) capsule 100 mg 1 0 02/05/2023 ferrous sulfate tablet 325 mg 1 02/05/2023 HYDROcodone-acetaminophen (N ORCO) 5-325 mg per tablet 2 tablet 1 02/05/2023 ibuprofen (ADVIL,MOTRIN) tablet 600 mg 1 ketorolac (TORADOL) 30 mg/mL (1 mL) injection 30 mg 1 02/05/2023 Lactated Ringer's (LR) bolus 1,000 mL 3 06/2023 Lactated Ringer's (LR) bolus 500 mL 1 02/05 Lactated Ringer's (LR) infusion 2 3 lidocaine PF (XYLOCAINE) 10 mg/mL (1 %) preservative free injection 100 mg 1 02/05/2023 loperamide (IMODIUM) capsule 2 mg 1 023 asdngpn-eunmq-pchwrag (MMR) 1,000-12,500 TCID50/0.5 mL live vaccine 0.5 [...] chloride 0.9% 100 mL IVPB 1 02/05/2023 vit-iron fum-folic ac tablet 1 tablet 1 02/05/2023 QUEtiapine (SEROquel) tablet 150 mg 2 02/05 simethicone (MYLICON) chewab le tablet 160 [...] 02/05/2023 documented in this encounter Care Teams Metal Miner Relationship Specialty Start Date End Date Chito Pozo MD [address] [place] [address] PCP - General Family Medicine 03/13/20 documented as of this encounter
--- OUTSIDE RECORDS SUMMARY | 2024-12-08 02:23 | XMS_ITS | Encounter Summary ---
Author Organization [facility] Healthcare Address [address] [place] [id number] Care Team Providers Care Emergency Services Director Name Role Phone Chito Pozo MD Primary Care Prov ider Reason for Visit * Reason Comments Problem Pelvic pain Encounter Details Date Type Department Care Team (Latest Contact Info) Description 01/25/2023 9:54 AM AUTO PARTS DELIVERY DRIVER - 01/25/2023 11:45 AM AUTO PARTS DELIVERY DRIVER Hospital Encounter [facility] [address] [place] [address] Esvin Conrad MD [address] [place] [address] [address] [place] [address] Discharge Disposition: Discharge to home or self care Social History Tobacco Use Types Packs/Day Years Used Date Smoking Tobacco: Former Social Connection and Isolat ion Panel [NHANES] Answer Date Recorded In a typical week, how many times do you talk on the phone with family, friends, or neighbors? More than three times a week 01/25/2023 How often do you get togethe r with friends or relatives? More than three times a week 01/25/2023 How often do you attend chur ch or orthodoxy services? Never 01/25/2023 Do you belong to any clubs o r organizations such as restoration groups, unions, fraternal or athletic groups, or school groups? No 01/25/2023 How often do you attend meet ings of the clubs or organizations you belong to? Never 01/25/2023 Are you , , di vorced, , never , or living with a partner? Living with partner 01/25/2023 AUDIT-C Answer Date Recorded Q1: How often do you have a drink containing alc ohol? Never 01/25/2023 Average Number of Drinks Not on file 023 Frequency of Binge Drinking Not on file 01/03 Overall Financial Resource Strain (CARDIA) Answe r Date Recorded How hard is it for you to pa y for the very basics like food, housing, medical care, and heating? Not hard at all 01/25/2023 PHQ-2 Answer Date Recorded PHQ-2 Total Score (If total score is 3 or more points, staff should administer the PHQ-9) 0 01/25/2023 [facility] [place] of Occupat ional Health - Occupational Stress Questionnaire Answer Date Recorded Do you feel stress - tense, restless, nervous, or anxious, or unable to sleep at night because your mind is troubled all the time - these days? Not at all 01/25/2023 Exercise Vital Sign Answer Date Recorde d On average, how many days pe r week do you engage in moderate to strenuous exercise (like a brisk walk)? 0 days 01/25/2023 On average, how many minutes do you engage in exercise at this level? 0 min 01/25/2023 Hunger Vital Sign Answer Date Recorded Within the past 12 months, y ou worried that your food would run out before you got the money to buy more. Never true 01/25/20 23 Within the past 12 months, t he food you bought just didn't last and you didn't have money to get more. Never true 01/25/2023 PRAPARE - Transportation Answer Date Re corded In the past 12 months, has l ack of transportation kept you from medical appointments or from getting medications? No 01/03 In the past 12 months, has l ack of transportation kept you from meetings, work, or from getting things needed for daily living? No 01/25/2023 Housing Stability Vital Sign Answer Partha e Recorded In the last 12 months, was t here a time when you were not able to pay the mortgage or rent on time? No 01/25/2023 Number of Places Lived in the Last Year Not on f ile 01/25/2023 In the last 12 months, was t here a time when you did not have a steady place to sleep or slept in a [place] (including now)? No 01/25/2023 Comments Yes Sex and Gender Information Value Date Recorded Sex Assigned at Not on file Legal Sex Female 7:37 PM AUTO PARTS DELIVERY DRIVER Gender Identity Not on file Sexual Orientation Not on file documented as of this encounter Last Filed Vital Signs Vital Sign Reading Time Taken Comments Blood Pressure 108/57 01/25/2023 11:26 AM AUTO PARTS DELIVERY DRIVER Pulse 75 01/25/2023 11:34 AM AUTO PARTS DELIVERY DRIVER Temperature 36.1 ??C (96.9 ??F) 01/25/2023 11:[address] Respiratory Rate 16 01/25/2023 11:34 AM AUTO PARTS DELIVERY DRIVER Oxygen Saturation - - Inhaled Oxygen Concentration - - Weight - - Height 154.9 cm (5' 1 ) 01/25/2023 11:34 AM AUTO PARTS DELIVERY DRIVER Body Mass Index - - documented in this encounter Discharge Instructions * Attachments The following attachments cannot be sent through Care Everywhere. * at 35 to 38 Weeks (Discharge Care) (Solomon Islander) documented in this encounter Medications at Time of Discharge albuterol HFA (PROVENTIL HFA,VENTOLIN HFA,PROAIR HFA) 90 mcg/actuation inhaler Inhale 2 puffs every 6 (six) hours as needed for wheezing QUEtiapine XR (SEROquel XR) 150 mg 24 hr tabletIndications :Generalized Anxiety Disorder Take 150 mg by mouth daily documented as of this encounter Discharge Disposition Disposition Code Departure Means Destination Discharge to home or self care documented in this encounter Nursing Notes * Arielle Vallejo, RN - 01/25/2023 11:45 AM CST Pt reports to L&D with c/o pelvic pressure. Pt placed on EFM. Labs UA obtained. Dr. Conrad notified. SVE performed, patient closed. Orders received for D/C. Follow up and D/C instructions reviewwith pt no questions or concerns at this time. Ambulates out of L&D with no apparent distress. VSS. PARTS DELIVERY DRIVER documented in this encounter Plan of Treatment Not on file documented as of this encounter Procedures Procedure Name Priority Date/Time Associated Diagnosis Comments URINALYSIS AND REFLEX TO MICROSCOPIC AND CULTURE STAT 01/25/2023 11:03 AM AUTO PARTS DELIVERY DRIVER URINALYSIS, MICROSCOPIC ONLY STAT 01/25/2023 11:03 AM AUTO PARTS DELIVERY DRIVER URINE CULTURE STAT 01/25/2023 11:03 AM AUTO PARTS DELIVERY DRIVER documented in this encounter Results * Urine culture Urine, clean voided (01/25/2023 11:03 AM AUTO PARTS DELIVERY DRIVER) Report Final Report: Less than 100,000 colonies/mL (clinically insignificant growth based on current clinical standards) [facility] ([place]) Comment:Testing performed by : [facility], [address] [place] [address] Organism (CLINICALLY INSIGNIFICANT GROWTH [facility] ([place]) Urine, clean voided 01/25/2023 11:03 AM AUTO PARTS DELIVERY DRIVER 01/25/2023 4:01 PM AUTO PARTS DELIVERY DRIVER Narrative [facility] ([place]) - 01/26/2023 5:09 PM AUTO PARTS DELIVERY DRIVER Urine culture reflexed based upon urinalysis results. Testing performed by [facility] ([phone]) us Esvin Conard MD LAB MICROBIOLOGY - GEN ERAL ORDERABLES Final Result [facility] ([place]) 1 [facility] [place] [address] * (ABNORMAL) Urinalysis, microscopic only (01/25/2023 11:03 AM AUTO PARTS DELIVERY DRIVER) WBC, ur 21-50(A) 0 - 5 /HPF [facility] ([place]) RBC, ur 0-2 0 - 2 /HPF [facility] ([place]) Epithelial cells, squamous, ur 6-10(A) 0 - 5 /HPF [facility] ([place]) Mucous, ur Present(A) [facility] ([place]) Calcium oxalate crystals, ur 3+(A) [facility] ([place]) Culture Reflex Comment Reflex to urine culture will be performed. [facility] ([place]) Urine, clean voided 01/25/2023 11:03 AM AUTO PARTS DELIVERY DRIVER 01/25/2023 11:07 AM AUTO PARTS DELIVERY DRIVER us Esvin Conrad MD LAB URINE ORDERABLES F inal Result [facility] ([place]) 1 [facility] [place] [address] * (ABNORMAL) Urinalysis reflex to microscopic and culture Urine, clean voided (01/25/2023 11:03 AM AUTO PARTS DELIVERY DRIVER) Color, ur Yellow Yellow [facility] ([place]) Clarity, ur Turbid(A) Clear [facility] ([place]) Specific gravity, ur 1.024 1.003 - 1.030 [facility] ([place]) pH, urine 6.0 [facility] ([place]) Protein, ur ql 1+(A) Negative [facility] ([place]) Glucose, ur ql Negative Negative [facility] ([place]) Ketones, ur Negative Negative [facility] ([place]) Bilirubin, ur Negative Negative [facility] ([place]) Blood, ur Negative Negative [facility] ([place]) Urobilinogen, ur <2.0 <2.0 mg/dL [facility] ([place]) Nitrite, ur Negative Negative [facility] ([place]) Leukocyte esterase, ur 3+(A) Negative [facility] ([place]) UA reflex comment Reflex to microscopic UA will be performed. [facility] ([place]) Urine, clean voided 01/25/2023 11:03 AM AUTO PARTS DELIVERY DRIVER 01/25/2023 11:07 AM AUTO PARTS DELIVERY DRIVER Narrative [facility] ([place]) - 01/25/2023 11:10 AM AUTO PARTS DELIVERY DRIVER ?? Urine pH is affected by diet, medications, systemic acid-base disturbances, and renal tubular function. ??pH may affect urinary stone formation. ??For example, urine pH below 6.0 may help reduce the tendency for calcium phosphate stones and pH greater than 6.0 may reduce the tendency for uric acid stone formation. Source: [facility]. Last revised 12-12-2017 us Esvin Conrad MD LAB MICROBIOLOGY - GEN ERAL ORDERABLES Final Result [facility] ([place]) 1 [facility] [place] [address] documented in this encounter Visit Diagnoses Not on filedocumented in this encounter Orders Discharge Count Last Ordered Date First Orde red Date DISCHARGE PATIENT 1 01/25/2023 documented in this encounter Care Teams Emergency Services Director Relationship Specialty Start Date End Date Chito Pozo MD [address] [place] [address] PCP - General Family Medicine 03/13/20 documented as of this encounter
--- OUTSIDE RECORDS SUMMARY | 2024-12-08 02:23 | XMS_ITS | Encounter Summary ---
Author Organization [facility] Healthcare Address [address] [place] [id number] Care Team Providers Care Motion Picture Commentator Name Role Phone Unavailable Primary Care Provider Unavailabl e Encounter Details Date Type Department Care Team ([facility] st Contact Info) Description 06/01/2014 10:44 PM CDT - 06/02/2014 12:51 AM CDT Hospital Encounter [facility] Grayson Garcia MD [address] [place] [address] Abdominal pain, right lower quadrant; Nausea without vomiting Social History Tobacco Use Types Packs/Day Years Used Date Smoking Tobacco: Never Assessed Comments Unknown Sex and Gender Information Value Date Recorded Sex Assigned at Not on file Legal Sex Female 7:37 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 Gender Identity Not on file Sexual Orientation Not on file documented as of this encounter Plan of Treatment Not on file documented as of this encounter Procedures Procedure Name Priority Date/Time Associated Diagnosis Comments SERUM COMPREHENSIVE METABOLIC PANEL Routine 06/02/2014 12:06 AM CDT SERUM CHORIONIC GONADOTROPIN (HCG) IDENTIFICATION Routine 06/02/2014 12:06 AM CDT BLOOD WBC CELL MORPHOLOGIC EXAM, AUTO Routine 06/02/2014 12:06 AM CDT BLOOD CELL COUNT (CBC) Routine 4 12:06 AM CDT DISCHARGE LABORATORY CUMULATIVE REPORT Routine 06/02/2014 12:00 AM CDT URINALYSIS Routine 06/01/2014 11:55 PM CDT documented in this encounter Results * Serum chorionic gonadotropin (HCG) identification (06/02/2014 12:06 AM CDT) HCG, qual Negative NEGATIVE HISTORICAL RESULTS Serum 06/02/2014 12:0 6 AM CDT Grayson French MD LAB BLOOD ORDERABLES Final Re sult Performing Organization Address [facility] de Phone Number HISTORICAL RESULTS * (ABNORMAL) Blood cell count (CBC) (06/02/2014 12:06 AM CDT) WBC 6.2 4.0 - 10.5 K/cumm HISTORICAL RESULTS RBC 4.15(L) 4.20 - 5.40 M/cumm HISTORICAL RESULTS Hgb 11.7(L) 12.0 - 16.0 g/dl HISTORICAL RESULTS Hct 34.5(L) 37.0 - 47.0 % HISTORICAL RESULTS MCV 83.1 77.0 - 97.0 fl HISTORICAL RESULTS MCH 28.2 23.0 - 34.0 pg HISTORICAL RESULTS MCHC 33.9 32.0 - 36.0 g/dl HISTORICAL RESULTS Rdw 12.9 11.5 - 14.5 % HISTORICAL RESULTS Platelets 255 150 - 400 K/cumm HISTORICAL RESULTS MPV 9.4 7.4 - 10.4 fl HISTORICAL RESULTS Blood specimen (specimen) 06/02/2014 12:06 AM CDT Grayson French MD LAB BLOOD ORDERABLES Final Re sult Performing Organization Address [facility] de Phone Number HISTORICAL RESULTS * (ABNORMAL) Blood WBC cell morphologic exam, auto (06/02/2014 12:06 AM CDT) Lymphocytes 32.9 25.0 - 33.0 % HISTORICAL RESULTS Monos 10.5 0.0 - 13.0 % HISTORICAL RESULTS Neutrophils 52.8(L) 54.0 - 69.0 % HISTORICAL RESULTS Eosinophils 2.6 0.0 - 10.0 % HISTORICAL RESULTS Basophils 1.0 0.0 - 1.0 % HISTORICAL RESULTS Immature granulocytes 0.2 0.0 - 1.0 % HISTORICAL RESULTS Lymphocytes, abs 2.0 1.2 - 3.4 K/cumm HISTORICAL RESULTS Monocytes, absolute 0.7(L) 1.1 - 1.9 K/cumm HISTORICAL RESULTS Neutrophils, abs 3.3 1.4 - 6.5 K/cumm HISTORICAL RESULTS Eosinophils, abs 0.2 0.0 - 0.7 cells/cum m HISTORICAL RESULTS Basophils, abs 0.1 0.0 - 0.2 K/cumm HISTORICAL RESULTS Immature granulocyte, abs 0.0 0.0 - 0.0 K/cumm HISTORICAL RESULTS Blood specimen (specimen) 06/02/2014 12:06 AM CDT Grayson French MD LAB BLOOD ORDERABLES Final Re sult HISTORICAL RESULTS * (ABNORMAL) Serum comprehensive metabolic panel (06/02/2014 12:06 AM CDT) BUN 6.0 6.0 - 23.0 mg/dl HISTORICAL RESULTS Sodium 143 134 - 143 mmol/L HISTORICAL RESULTS Potassium, sr 3.8 3.4 - 5.0 mmol/L HISTORICAL RESULTS Chloride 108 99 - 108 mmol/L HISTORICAL RESULTS CO2 28 23 - 32 mmol/L HISTORICAL RESULTS Glucose 78 70 - 199 mg/dl HISTORICAL RESULTS Comment: Note:The glucose is assumed non fasting Fastin-99 mg/dl Random: 70-199 mg/dl Either a fasting glucose > 126 mg/dL or a random glucose > 200 mg/dL plus symptoms is diagnostic of diabetes when confirmed on another day. Fasting values > 100 mg/dl but < 125 mg/dL are diagnostic of impaired fasting glucose. New reference ranges implemented 10/12/2013. Creatinine 0.95 0.60 - 1.30 mg/dl HISTORICAL RESULTS BUN/creat ratio 6(L) 10 - 20 HIST ORICAL RESULTS A. gap 11 7 - 14 mmol/L HISTORICAL RESULTS Protein, sr 7.0 6.4 - 8.0 g/dl HISTORICAL RESULTS Alb 3.2(L) 3.3 - 4.5 g/dl HISTORICAL RESULTS Alb/glob ratio 0.8(L) 1.1 - 1.8 HISTO RICAL RESULTS Calcium 8.6 8.6 - 9.8 mg/dl HISTORICAL RESULTS Bilirubin 0.4 0.0 - 1.1 mg/dl HISTORICAL RESULTS Alk phos 81 44 - 125 Units/L HISTORICAL RESULTS AST 16 5 - 40 Units/L HISTORICAL RESULTS ALT 18 15 - 70 Units/L HISTORICAL RESULTS Serum 06/02/2014 12:0 6 AM CDT us Grayson French MD LAB BLOOD ORDERABLES Final Re sult HISTORICAL RESULTS * Discharge Laboratory Cumulative Report (06/02/2014 12:00 AM CDT) 06/02/2014 Narrative HISTORICAL RESULTS - 06/03/2014 12:36 AM CDT Patient No: [id number] ? [facility] Patient Name: MANUELA WHITTINGTON ?[facility] Age: 13 YRS ?: 2000 ?Sex:F ?[place] First To File [facility] )[phone] ?? Adm Dt: 06/01/2014 ?[place], [place] ??[address] Created: 06/03/2014 ??0036 ?? Pt. Type: E ? Discharge Dt: 06/02/2014 ? Pathologists: Vivien Carrillo MD Admit Attend Dr: GRAYSON FRENCH MD ? BLOOD CELL COUNTS ?Collection Date: ?06/02/14 ?Collection Time: ?0006 ? Ref Range: ?? Units: [4.00-10.50] /CMM ? WBC X 10^3 ?6.20 [4.20-5.40] ??/CMM ? RBC X 10^6 ?4.15 L [12.0-16.0] ??G/DL ? HGB ? 11.7 L [37.0-47.0] ??% ?HCT ? 34.5 L [77.0-97.0] ??FL ? MCV ? 83.1 [23.0-34.0] ??PG ? MCH ? 28.2 [32.0-36.0] ??% ?MCHC ?33.9 [11.5-14.5] ??% ?RDW ? 12.9 [150-400] ?? /CMM ? PLT X 10^3 ? 255 ?BLOOD CELL DIFFERENTIAL ?Collection Date: ?06/02/14 ?Collection Time: ?0006 ? Ref Range: ?? Units: [54.0-69.0] ??% ?NEUTROPHILS ? 52.8 L [25.0-33.0] ??% ?LYMPHOCYTES ? 32.9 [0.0-13.0] ??% ?MONOCYTES ? 10.5 [0.0-10.0] ??% ?EOSINOPHILS ?2.6 [0.0-1.0] ?? % ?BASOPHILS ?1.0 ? /CMM ? A LYMPHOCYTE ? 2.0 [0.0-1.0] ?? % ?IMM GRAN % ? 0.2 [0.00-0.02] ??/CMM ? A IMM GRAN ?0.01 [1.1-1.9] ?? /CMM ? A MONOCYTE ? 0.7 L [1.4-6.5] ?? /CMM ? A NEUTROPHIL ? 3.3 [0.0-0.7] ?? /CMM ? A EOSINOPHIL ? 0.2 [0.0-0.2] ?? /CMM ? A BASOPHIL ? 0.1 Footnotes and Symbols: L = Low ?? CONTINUED ?Page: ?? 1 Patient No: [id number] ? [facility] Patient Name: MANUELA WHITTINGTON ?[facility] Age: 13 YRS ?: 2000 ?Sex:F ?[address] )[phone] ?? Adm Dt: 06/01/2014 ?[place] ??[id number] Created: 06/03/2014 ??0036 ?? Pt. Type: E ? Discharge Dt: 06/02/2014 ? Pathologists: Vivien Carrillo MD Admit Attend Dr: GRAYSON FRENCH MD ? GENERAL CHEMISTRY ?Collection Date: ?06/02/14 ?Collection Time: ?0006 ? Ref Range: ?? Units: [134-143] ?? MMOL/L ? SODIUM ? 143 [3.4-5.0] ?? MMOL/L ? POTASSIUM ?3.8 [99.0-108.0] MMOL/L ? CHLORIDE ? 108.0 [23.0-32.0] ??MMOL/L ? TOTAL CO2 ? 27.5 ?? [7-14] ?MMOL/L ? ANION GAP ? 11 ??[70-199] ?? MG/DL ?GLUCOSE ? 78 f [6.4-8.0] ?? G/DL ? TOTAL PROTEIN ?7.0 [3.3-4.5] ?? G/DL ? ALBUMIN ?3.2 L [1.1-1.8] ?A/G RATIO ?0.8 L [8.6-9.8] ?? MG/DL ?CALCIUM ?8.6 [0.0-1.1] ?? MG/DL ?BILI TOTAL ? 0.4 ??[44-125] ?? U/L ?ALK PHOS ?81 ?? [5-40] ?U/L ?AST(SGOT) ? 16 f ??[15-70] ?U/L ?ALT(SGPT) ? 18 f [6.0-23.0] ??MG/DL ?BUN ?6.0 ??[10-20] ? B/C RATIO ?6 L [0.60-1.30] ??MG/DL ?CREATININE ?0.95 Footnotes and Symbols: L = Low, f = Footnote GLUCOSE (11/03/13 -- Current) Note:The glucose is assumed non fasting Fastin-99 mg/dl Random: 70-199 mg/dl Either a fasting glucose > 126 mg/dL or a random glucose > 200 mg/dL plus symptoms is diagnostic of diabetes when confirmed on another day. Fasting values > 100 mg/dl but < 125 mg/dL are diagnostic of impaired fasting glucose. New reference ranges implemented 10/12/2013. AST(SGOT) (04/15/14 -- Current) ALT(SGPT) (06/23/13 -- Current) ?? CONTINUED ?Page: ?? 2 Patient No: [id number] ? [facility] Patient Name: MANUELA WHITTINGTON ?[facility] Age: 13 YRS ?: 2000 ?Sex:F ?[address] )[phone] ?? Adm Dt: 06/01/2014 ?[place], [place] ??[address] Created: 06/03/2014 ??0036 ?? Pt. Type: E ? Discharge Dt: 06/02/2014 ? Pathologists: Vivien Carrillo MD Admit DrSophy Attend Dr: MANOLO, GRAYSON F MD ? HORMONES ?Collection Date: ?06/02/14 ?Collection Time: ?0006 ? Ref Range: ?? Units: [NEGATIVE] ?HCG QUALITATIVE ? NEGATIVE ?URINALYSIS ?Collection Date: ?06/01/14 ?Collection Time: ?2355 ? Ref Range: ?? Units: [YELLOW] ? U COLOR ? YELLOW ??[CLEAR] ? U APPEARANCE ? CLEAR [1.003-1.030] ? U SPEC GRAVITY ? 1.014 [NEGATIVE] ?U LEUKO ESTRASE ? NEGATIVE [NEGATIVE] ?U NITRITE ? NEGATIVE ?? [6.0] ?U PH ? 6.5 [NEGATIVE] ?U PROTEIN ? NEGATIVE [NEGATIVE] ?U GLUCOSE ? NEGATIVE [NEGATIVE] ?U KETONES ? NEGATIVE [0.2- 1.0] ?UROBILINOGEN ? 0.2 [NEGATIVE] ?U BILIRUBIN ? NEGATIVE [NEGATIVE] ?U BLOOD ? NEGATIVE ?? END OF CHART ? Page: ?? 3 Historical Provider MD LAB BLOOD ORDERABLES Katia jerome Result HISTORICAL RESULTS * Urinalysis (06/01/2014 11:55 PM CDT) Color, ur YELLOW YELLOW HISTORICAL RESULTS Clarity, ur CLEAR CLEAR HISTORIC AL RESULTS Specific gravity, ur 1.014 1.003 - 1.030 gu HISTORICAL RESULTS Leukocyte esterase, ur Negative NEGATIVE HISTORICAL RESULTS Nitrites, ur Negative NEGATIVE HISTORI CRISTY RESULTS pH, ur 6.5 6.0 HISTORICAL RESULTS Protein, ur Negative NEGATIVE HISTORIC AL RESULTS Glucose, ur Negative NEGATIVE HISTORIC AL RESULTS Ketones, ur Negative NEGATIVE HISTORIC AL RESULTS Urobilinogen, quant, ur 0.2 0.2 - 1.0 mg/dl HISTORICAL RESULTS Bilirubin, ur Negative NEGATIVE HISTOR ICAL RESULTS U Blood Negative NEGATIVE HISTORICAL RESULTS Urine 06/01/2014 11:5 5 PM CDT us Grayson French MD LAB BLOOD ORDERABLES Final Re sult HISTORICAL RESULTS documented in this encounter Visit Diagnoses Diagnosis Abdominal pain, right lower quadrant Nausea without vomiting documented in this encounter
--- OUTSIDE RECORDS SUMMARY | 2024-12-08 02:23 | XMS_ITS | Encounter Summary ---
Author Organization [facility] Healthcare Address [address] [place] [address] Care Team Providers Care Mobile Crane Operator Name Role Phone Chito Pozo MD Primary Care Prov ider Encounter Details Date Type Department Care Team (Latest Contact Info) Description 01/28/2023 11:41 AM ZIPPER SLIDE ATTACHER - 01/28/2023 12:57 PM [facility] Hospital Encounter [facility] [address] [place] [address] Esvin Conrad MD [address] [place] [address] DR FLAVIO Nascimento [address] [address] Eldon Webb MD [address] [place] [address] DR FLAVIO Nascimento [address] [address] 37 weeks gestation of (Primary Dx) Discharge Disposition: [...] often do you attend chur ch or catholic services? Never 01/28/2023 Do you belong to any clubs o r organizations such as temple groups, unions, fraternal or athletic groups, or school groups? No 01/28/2023 How often do you attend meet ings of the clubs or organizations you belong to? Never 01/28/2023 Are you , , di vorced, , never , or living with a partner? Living with partner 01/28/2023 AUDIT-C Answer Date Recorded Q1: How often do you have a drink containing alcohol? Never 01/28/2023 Q2: How many drinks containi ng alcohol do you have on a typical day when you are drinking? Patient does not drink Q3: How often do you have si x or more drinks on one occasion? Never 01/28/2023 Overall Financial Resource Strain (CARDIA) Answe r Date Recorded How hard is it for you to pa y for the very basics like food, housing, medical care, and heating? Not hard at all 01/28/2023 PHQ-2 Answer Date Recorded PHQ-2 Total Score (If total score is 3 or more points, staff should administer the PHQ-9) 0 01/28/2023 [facility] - Occupational Stress Questionnaire Answer Date Recorded [...] place to sleep or slept in a care home (including now)? No 01/28/2023 Comments Yes Sex and Gender Information Value Date Recorded Sex Assigned at Not on file Legal Sex Female 7:37 PM ZIPPER SLIDE ATTACHER Gender Identity Not on file Sexual Orientation Not on file documented as of this encounter Last Filed Vital Signs Vital Sign Reading Time Taken Comments Blood Pressure 120/70 01/28/2023 11:54 AM ZIPPER SLIDE ATTACHER Pulse 90 01/28/2023 11:54 AM ZIPPER SLIDE ATTACHER Temperature 36.7 ??C (98.1 ??F) 01/28/2023 11:[address] Respiratory Rate 16 01/28/2023 11:54 AM ZIPPER SLIDE ATTACHER Oxygen Saturation - - Inhaled Oxygen Concentration - - Weight - - Height - - Body Mass Index - - documented in this encounter Discharge Instructions * Appointments* Isa Barreto RN - 01/28/2023 12:52 PM ZIPPER SLIDE ATTACHER Follow-up with Dr. Conrad at your scheduled appointment on 01/29/2023 ER SLIDE ATTACHER documented in this encounter Medications at Time [...] documented in this encounter Nursing Notes * Isa Barreto RN - 01/28/2023 12:[address] Webb notified of patient admission and status; discharge orders received. EFM and TOCO removed. Instructions reviewed with and provided to patient at this time. Questions answered, verbal understanding noted. Scheduled to follow-up with Dr. Conrad in the office tomorrow. Patient ambulated off department in stable condition with instructions. ER SLIDE ATTACHER * Isa Barreto RN - 01/28/2023 12:00 PM CST Patient presented ambulatory to OB with complaints of decreased FM since Saturday. EFM and TOCO applied and patient instructed to juan daniel movement; VSS. ER SLIDE ATTACHER documented in this encounter Plan of Treatment Not on file documented as of this encounter Visit Diagnoses Diagnosis 37 weeks gestation of - Primary documented in this encounter Historical Medications * This list may reflect changes made after this encounter. albuterol HFA (PROVENTIL HFA,VENTOLIN HFA,PROAIR HFA) 90 mcg/actuation inhaler Inhale 2 puffs every 6 (six) hours as needed for wheezing QUEtiapine XR (SEROquel XR) 150 mg 24 hr tabletIndications :Generalized Anxiety Disorder Take 150 mg by mouth daily added in this encounter Orders Discharge Count Last Ordered Date First Orde red Date DISCHARGE PATIENT 1 01/28/2023 documented in this encounter Care Teams Mobile Crane Operator Relationship Specialty Start Date End Date Chito Pozo MD [address] [place] [address] PCP - General Family Medicine 03/13/20 documented as of this encounter
== END 2024-12-01 01:09 | disposition left against medical advice (07) ==
PROVIDERS: Emergency Provider Emergency Medicine; PCP Family Medicine Adolescent Medicine
DX: R06.02 Shortness of breath (principal)
CPT/HCPCS: 36415; 71046; 80053; 85025; 93005; 99199